=== PATIENT | female | born 1965 | race Caucasian/White ===

== ENCOUNTER 2016-11-15 20:43 | Inpatient (IN) | payer MEDICAID, OTHER ==
[2016-11-15 22:41] LABS: Basophils % (A) 1 %; CH 30.4; CHCM 34.4; Eosinophils # (A) 0.1 k/uL (0-0.7); Eosinophils % (A) 1 %; HCT 37.1 % (34.0-46.0); HDW 2.23; HGB 12.6 gm/dL (11.4-16.0); Luc # (Auto) 0.13; Luc % (Auto) 2; Lymphocytes # (A) 1.9 k/uL (1.0-4.8); Lymphocytes % (A) 33 %; MCH 30.2 pg (25.0-35.0); MCV 88.7 fL (80.0-100.0); Mean Platelet Volume 7.3; Monocytes # (A) 0.4 k/uL (0-1.0); Monocytes % (A) 7 %; Neutrophils # (A) 3.1 k/uL (1.3-7.7); Neutrophils % (A) 56 %; RBC 4.19 m/uL (3.80-5.40); RDW 12.8 % (11.5-15.5); WBC 5.6 k/uL (3.8-10.6); WBC (Perox) 5.42
[2016-11-15 22:43] LABS: Appearance,Urine Cloudy (Clear); Bacteria,Urine Occasional /hpf; Bilirubin,Urine Negative (Negative); Glucose,Urine (UA) Negative (Negative); Ketones,Urine Trace (Negative); Leukocyte Esterase,Urine Small (Negative); Mucus,Urine Rare /hpf; Nitrite,Urine Negative (Negative); PH, Urine 5.5 (5.0-8.0); Particle Count 4822; Protein,Urine Negative (Negative); RBC,Urine 1 /hpf (0-5); Specific Gravity,Urine 1.006 (1.001-1.035); Squamous Epithelial Cell,Urine 4 /hpf (0-4); UA Billing (MACRO vs. MICRO) MICRO; Urobilinogen,Urine <2.0 mg/dL (<2.0); WBC,Urine 4 /hpf (0-5)
[2016-11-15 22:55] LABS: ALT 38 U/L (9-52); AST 26 U/L (14-36); Acetaminophen <10.0 ug/mL; Alkaline Phosphatase 65 U/L (38-126); Anion Gap 9 mmol/L; Blood Urea Nitrogen 8 mg/dL (7-17); Calcium 9.6 mg/dL (8.4-10.2); Carbon Dioxide 26 mmol/L (22-30); Chloride 103 mmol/L (98-107); Glucose 119 mg/dL (74-99); Non-African American GFR(MDRD) >60 (>60 ml/min/1.73 sqM); Potassium 4.1 mmol/L (3.5-5.1); Sodium 138 mmol/L (137-145); Total Bilirubin 0.4 mg/dL (0.2-1.3); Total Protein 6.7 g/dL (6.3-8.2)
[2016-11-16] MEDS ORDERED: NICOTINE 21MG/24HR PATCH TRANSDERM STA (00:07)
--- NOTE | 2016-11-16 00:27 | CT ---
Exam: CT HEAD Without Contrast History: Pain. Comparison: CT of the head dated 12/26/14. Technique: Continuous axial images of the head were obtained without intravenous contrast. Coronal and sagittal reformatting was provided. Findings: Limited by metallic/beam hardening artifact from right ear jewelry. Within this limitation, no definite intracranial hemorrhage or mass effect. Ventricular system and sulci are symmetric. Partial opacification of the left maxillary sinus. May be due to mucous retention cyst or polyp. Impression: No intracranial hemorrhage or mass effect. CTDI vol = 60.30 mGy DLP = 1199.00 mGycm One or more of the following dose reduction techniques were used: automated exposure control, adjustment of the mA and/or kV according to patient size, use of iterative reconstruction technique. Exam: CT C SPINE Without Contrast History: Pain. Comparison: CT of the cervical spine dated 12/26/14. Technique: Continuous axial images of the cervical spine were obtained without intravenous contrast. Coronal and sagittal reformatting was provided. Findings: No acute fracture or dislocation. No high-grade spinal canal or neural foraminal osseous encroachment. Atlantodens interval is unremarkable. Impression: No acute displaced fracture. CTDI vol = 13.50 mGy DLP = 313.40 mGycm One or more of the following dose reduction techniques were used: automated exposure control, adjustment of the mA and/or kV according to patient size, use of iterative reconstruction technique.
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
[2016-11-16] MEDS ORDERED: QUEtiapine 200 MG TAB PO STA (02:09)
[2016-11-16] MEDS ORDERED: ZIPRASIDONE 20 MG VIAL IM PRN (02:12)
[2016-11-16] MEDS ORDERED: MAGNESIUM HYDROXIDE 2,400 MG/10 ML CUP PO PRN (03:02)
[2016-11-16] MEDS: NICOTINE 14MG/24HR PATCH TRANSDERM SCH (08:55)
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
[2016-11-16] MEDS: lamoTRIgine 25 MG TAB PO SCH (12:15)
[2016-11-16] MEDS: PALIPERIDONE 3 MG TAB.ER.24 PO SCH (12:15)
[2016-11-16] MEDS ORDERED: LORazepam 1 MG TAB PO PRN (14:53)
[2016-11-16] MEDS ORDERED: ZIPRASIDONE 20 MG CAP PO STA (15:25)
[2016-11-17] MEDS: NICOTINE 14MG/24HR PATCH TRANSDERM SCH (07:27)
[2016-11-17] MEDS: PALIPERIDONE 3 MG TAB.ER.24 PO SCH (09:34)
[2016-11-17] MEDS: lamoTRIgine 25 MG TAB PO SCH (09:34)
[2016-11-17] MEDS ORDERED: PALIPERIDONE 3 MG TAB.ER.24 PO ONE (13:15)
--- NOTE | 2016-11-17 13:17 | P.PN ---
Progress Note - Text INTERVERAL HISTORY: Patient was discussed at treatment team meeting, review of record, and met with patient. No problems overnight however she did have to get a injection of Geodon yesterday afternoon. She is hyperverbal, she is loud, she is singing, she is speaking about a new world order, denominational themes. Today she is reporting that she needs to have her story told, even if the whole story can't be told she needs it to be heard for the future generation. She states that she is a child of light, and why would someone want to put out her light even if she is the brunt of the pack, Matilda knew that that pig was smart. Reviewed possible medications when I mention lithium she reported no IV taken lithium and Haldol Thorazine and at ME a shuffle and it takes away my energy, I need to have my force you will eat my dust. Continued to discuss the possibility of a low dose of lithium that she might not have any side effects, she says she would be willing to try the lowest dose that I could give her. Agreed upon 150 at bedtime, she also agreed upon a higher dose of intake tomorrow. She didn't inform me today that she is in transition, [facility] [place]. She states she has a 15-year-old son who is in the care of her good friend. MENTAL STATUS EXAM: Patient alert and oriented 3, good eye contact, intense stare, slapping her book loudly on her hand for emphasis, fair groomed in street clothing. Speech normal to loud volume volume, increased rate and production. +pressured at times yesterday, some today. Coherent,illogical tangential thought process. ++CALIN, +FOI. No TB/TW/TI Denied auditory and visual hallucinations. Denied paranoid ideation, delusions or IOR. Memory grossly intact but could not test Cognition average Mood euthymic expansive, affect full range with increased intensity, congruent with mood. Denies suicidal ideation, denies homicidal ideation. Insight none; Judgment impaired Bipolar disorder, manic with psychosis versus Psychosis, unspecified versus schizoaffective disorder, bipolar type PLAN: Continue inpatient psychiatric hospitalization, for safety purposes and for treatment. Suicide precautions every 15 minutes. Increase Invega 6mg tomorrow. Start lithium tonight, low dose with hope to increase Need to get information from treating physician/CM if she is taking Lamictal and restart that tomorrow. We will not restart Wellbutrin nor lamictal Patient agrees to attend groups.
[2016-11-17] MEDS: ACETAMINOPHEN TAB 325 MG TAB PO PRN (16:39)
[2016-11-17] MEDS ORDERED: LITHIUM CARBONATE 150 MG CAP PO SCH (21:00)
[2016-11-18] MEDS: ACETAMINOPHEN TAB 325 MG TAB PO PRN ×2 (04:06→22:57)
[2016-11-18] MEDS ORDERED: PALIPERIDONE 3 MG TAB.ER.24 PO SCH ×2 (09:00→10:00)
[2016-11-18] MEDS: NICOTINE 14MG/24HR PATCH TRANSDERM SCH (09:11)
[2016-11-18] MEDS: lamoTRIgine 25 MG TAB PO SCH (09:11)
--- NOTE | 2016-11-18 09:54 | P.PN ---
Progress Note - Text Progress Note - Text INTERVERAL HISTORY: Patient was discussed at treatment team meeting, review of record, and met with patient. No problems overnight reported area did Today patient approached me 3-4 times in the hallway asking to talk, when talking to other patients she was intrusive. She continues to be hyperverbal, not quite as loud still at times shouting out slogans were singing, continues with her protestant themes, her being brought to the to cause the breaking of the 2 triangles the Holy Ghost father-son triangle from the LSD triangle LSD standing for Idris Mann. Initially when discussing medication changes she refused a higher dose of lithium however she changed her mind and allowed me to increase it a small amount. The intake area does not seem to be touching her yuki or her psychosis. However that had been agreed upon on admission that we could increase it with the possibility of an injection. Today she also stated that she plans on signing a [employer], in order to pursue a nursing degree so that she can take care of children in the [facility]. Goes on to speak about her need to help people, and her desire to give people whatever they need. MENTAL STATUS EXAM: Patient alert and oriented 3, good eye contact, intense stare, slapping her book loudly on her hand for emphasis, fair groomed in street clothing. Speech normal to loud volume volume, increased rate and production. +pressured Coherent,illogical tangential thought process. ++CALIN, +FOI. No TB/TW/TI Denied auditory and visual hallucinations. Denied paranoid ideation, delusions or IOR. Memory grossly intact but could not test Cognition average Mood euthymic expansive, affect full range with increased intensity, congruent with mood. Denies suicidal ideation, denies homicidal ideation. Insight none; Judgment impaired Bipolar disorder, manic with psychosis PLAN: Continue inpatient psychiatric hospitalization, for safety purposes and for treatment. Suicide precautions every 15 minutes. Increase Invega 9mg tomorrow. Increase lithium tonight, 300mg with hope to increase Need to get information from treating physician/[facility] if she is taking Lamictal and restart that tomorrow. D/C lamictal Patient agrees to attend groups.
--- NOTE | 2016-11-18 13:43 | P.CONS ---
History of Present Illness - Reason for Consult Consult date: 11/18/16 uti - History of Present Illness THis is a pleasant 51-year-old white female, patient of Dr. Burton. She reports being told she needs to "cleanse herself". Only medicine was consult for evaluation of an an area tract infection. We see the psychiatrist H&P for further references to her psych history. Currently she denies any complaints of dysuria or urgency. She denies any abdominal pains, nausea, vomiting, chest pains, pressures, shortness of breath. Review of Systems All systems: negative Past Medical History Past Medical History: No Reported History History of Any Multi-Drug Resistant Organisms: None Reported Additional Past Surgical History / Comment(s): D&C Past Psychological History: Anxiety, Bipolar Smoking Status: Current every day smoker Past Alcohol Use History: None Reported Past Drug Use History: None Reported Medications and Allergies Home Medications Medication Instructions Recorded Confirmed Type ARIPiprazole [Abilify] 5 mg PO DAILY 11/21/13 11/16/16 History buPROPion HCL [Wellbutrin XL] 300 mg PO DAILY 11/21/13 11/16/16 History lamoTRIgine [LaMICtal] 200 mg PO DAILY 11/21/13 11/16/16 History buPROPion HCL [Wellbutrin XL] 150 mg PO DAILY 11/16/16 11/16/16 History Allergies Allergy/AdvReac Type Severity Reaction Status Date / Time codeine Allergy Unknown Verified 11/16/16 03:07 Penicillins Allergy Unknown Verified 11/16/16 03:07 Physical Exam Vitals: Vital Signs Temp Pulse BP 11/18/16 03:00 98.1 F 80 126/81 GENERAL: Well-appearing, well-nourished and in no acute distress. HEAD: Atraumatic, normocephalic. EYES: Pupils equal round and reactive to light, extraocular movements intact, sclera anicteric, conjunctiva are normal. ENT:nares patent, oropharynx clear without exudates. Moist mucous membranes. NECK: Normal range of motion, supple without lymphadenopathy or JVD, no thyromegaly LUNGS: Breath sounds clear to auscultation bilaterally and equal. No wheezes rales or rhonchi. HEART: Regular rate and rhythm without murmurs, rubs or gallops.S1S2 Normal ABDOMEN: Soft, nontender, normoactive bowel sounds. No guarding, no rebound. No masses appreciated. EXTREMITIES: Normal range of motion, no pitting or edema. No clubbing or cyanosis. NEUROLOGICAL: Cranial nerves II through XII grossly intact. Normal speech, normal gait. PSYCH: very loquacious SKIN: Warm, Dry, normal turgor, no rashes or lesions noted. Results CBC & Chem 7: 11/15/16 22:17 11/15/16 22:17 Assessment and Plan Plan: 1 Recent dysuria,: Symptoms are now resolved, small leukocyte esterase, negative nitrates, occasional bacteria, this more consistent with contamination rather than true UTI. Her urine was cloudy last him to continue to monitor this. 2 tobaccoism: She is on nicotine patch. 3: Bipolar disorder with psychotic tendencies: She is here on the psych floor being followed by psychiatry and is currently taking omeprazole, lithium, Sona arnold Thank you for allowing us but despite in her care, we will follow up with the patient as needed Current needs for antibiotic treatment for UTI
[2016-11-18] MEDS ORDERED: LITHIUM CARBONATE 150 MG CAP PO SCH (21:00)
[2016-11-18] MEDS: ZIPRASIDONE 20 MG CAP PO PRN (23:00)
[2016-11-19] MEDS ORDERED: LORazepam 1 MG TAB PO STA (01:02)
[2016-11-19] MEDS ORDERED: LITHIUM CARBONATE 300 MG CAP PO STA (01:02)
[2016-11-19] MEDS: lamoTRIgine 25 MG TAB PO SCH (08:17)
[2016-11-19] MEDS: NICOTINE 14MG/24HR PATCH TRANSDERM SCH (08:17)
[2016-11-19] MEDS: PALIPERIDONE 3 MG TAB.ER.24 PO SCH (08:17)
[2016-11-19 11:43] VITALS: BMI 24.1
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
[2016-11-19] MEDS ORDERED: LITHIUM CARBONATE 150 MG CAP PO SCH (21:00)
[2016-11-20] MEDS: IBUPROFEN 600 MG TAB PO PRN ×2 (00:05→23:09)
[2016-11-20] MEDS: PALIPERIDONE 3 MG TAB.ER.24 PO SCH (08:39)
[2016-11-20] MEDS: NICOTINE 14MG/24HR PATCH TRANSDERM SCH (08:39)
[2016-11-20] MEDS: ZIPRASIDONE 20 MG CAP PO PRN ×2 (10:37→17:06)
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
[2016-11-20] MEDS: OLANZapine ODT 5 MG TAB PO SCH (14:47)
[2016-11-20] MEDS: ACETAMINOPHEN TAB 325 MG TAB PO PRN (19:12)
[2016-11-20] MEDS: LITHIUM CARBONATE 300 MG CAP PO SCH (20:09)
[2016-11-20] MEDS ORDERED: OLANZapine 10 MG TAB PO SCH (21:00)
[2016-11-20] MEDS: MAG HYDROX/AL HYDROX/SIMETH 30 ML CUP PO PRN (22:29)
[2016-11-21] MEDS: ZIPRASIDONE 20 MG CAP PO PRN (01:10)
[2016-11-21] MEDS: ACETAMINOPHEN TAB 325 MG TAB PO PRN ×2 (01:10→19:29)
[2016-11-21] MEDS: NICOTINE 14MG/24HR PATCH TRANSDERM SCH (08:49)
[2016-11-21] MEDS: PALIPERIDONE 3 MG TAB.ER.24 PO SCH (08:50)
[2016-11-21] MEDS: OLANZapine ODT 5 MG TAB PO SCH (08:51)
[2016-11-21] MEDS: MAG HYDROX/AL HYDROX/SIMETH 30 ML CUP PO PRN (10:13)
[2016-11-21] MEDS: LITHIUM CARBONATE 300 MG CAP PO SCH ×2 (16:55→21:22)
[2016-11-21] MEDS: OLANZapine 10 MG TAB PO SCH ×2 (16:56→21:23)
--- NOTE | 2016-11-21 17:06 | P.PN ---
Progress Note - Text DATE OF SERVICE: 11/21/2016 CHIEF COMPLAINT: The patient was admitted due to delusions, disorganized thoughts and behavior, confusion. INTERVAL HISTORY: The patient has been doing fair. She continues to be fairly intense in her manner. She makes references to odd ideas. She attends groups. Sometimes says she can be somewhat appropriate though may appear withdrawn. In the afternoon group today she was described as bizarre, disheveled, pressured rapid tangential speech, intrusive, and impulsive." Yesterday she had an episode of agitation requiring when necessary Geodon. She is quite insistent about the idea of being discharged soon. She talked about discharge she was quite demanding and intense, though when I indicated my plan to increase her medications and continue hospitalization it was noteworthy that she didn't make any objection. She simply repeated what I said and seemed to be accepting of the plan. She continues to show manic symptoms with the hyperactivity, pressured speech, disorganized thoughts, and delusions. He hasn' t had change in her general health. He tolerates his psychotropic medications. MENTAL STATUS EXAM: The patient was quite restless. She had an intense manner. She hyperverbal somewhat pressured speech. At times she made references. Affect was intense. Mood dysphoric. She appeared moderately distressed. ASSESSMENT: I'll continue the current diagnosis and general treatment plan. I will increase Zyprexa to 10 mg 3 times a day, and increase lithium carbonate to 600 mg in the morning and 900 mg in the evening. The medication increases her to address her persistent manic symptomatology. I will check a lithium level in the morning. I will order another lithium level for Thursday. We will continue to focus on stabilization.
[2016-11-22] MEDS: ZIPRASIDONE 20 MG CAP PO PRN (01:01)
--- NOTE | 2016-11-22 08:58 | P.PN ---
Progress Note - Text Interval history: Patient is seen in cross coverage today for Dr. Freed. She reports that she slept about 3-1/2 hours last night. She is eating well. She makes reference to trying to perfect herself. She does feel like she's having some tiredness from the medication. It is noted that her Zyprexa was increased yesterday. Mental status exam: She is cooperative with the interview. She describes feeling tired. Her speech is fluent not really rapid or pressured today. Her thought processes do show some disorganization at times. Her mood she describes as "very good." She seems to deny any current hallucinations. She denies any thoughts of harm to self or others. She makes reference to wanting to perfect herself. Plan: We'll maintain current psychotropic medications as prescribed. We'll monitor for any medication side effects. We'll continue to cover this patient for Dr. Freed through the weekend.
[2016-11-22] MEDS: NICOTINE 14MG/24HR PATCH TRANSDERM SCH (09:15)
[2016-11-22] MEDS: OLANZapine 10 MG TAB PO SCH ×3 (09:16→21:04)
[2016-11-22] MEDS: PALIPERIDONE 3 MG TAB.ER.24 PO SCH (09:16)
[2016-11-22] MEDS: LITHIUM CARBONATE 300 MG CAP PO SCH ×2 (09:16→21:04)
[2016-11-22] MEDS: MAG HYDROX/AL HYDROX/SIMETH 30 ML CUP PO PRN (19:59)
[2016-11-22] MEDS: IBUPROFEN 600 MG TAB PO PRN (23:02)
[2016-11-23] MEDS: PALIPERIDONE 3 MG TAB.ER.24 PO SCH (08:48)
[2016-11-23] MEDS: OLANZapine 10 MG TAB PO SCH ×3 (08:48→19:49)
[2016-11-23] MEDS: NICOTINE 14MG/24HR PATCH TRANSDERM SCH (08:48)
[2016-11-23] MEDS: LITHIUM CARBONATE 300 MG CAP PO SCH ×2 (08:48→19:48)
--- NOTE | 2016-11-23 14:11 | P.PN ---
Progress Note - Text Interval history: Patient seen in cross coverage again today for Dr. Freed. She reports that she has adjusted well to the titration of Zyprexa and would like to continue her medications as they are. She slept only about 3-1/2 hours last night. She talks about using some coping skills. Mental status exam: She is alert and cooperative with the interview her speech is fluent, not rapid or pressured. She denies any thoughts of harm to self or others. She does not verbalize any hallucinations. She does not show any current agitation. Plan: We'll maintain current psychotropic medications. Monitor for any medication side effects. Continue to monitor her sleep and ongoing response to medication regimen. Dr. Freed will resume care this patient starting tomorrow.
[2016-11-23] MEDS: ACETAMINOPHEN TAB 325 MG TAB PO PRN (20:56)
[2016-11-24] MEDS: IBUPROFEN 600 MG TAB PO PRN (00:16)
[2016-11-24] MEDS: MAG HYDROX/AL HYDROX/SIMETH 30 ML CUP PO PRN (00:18)
[2016-11-24 01:10] VITALS: RESP 16
[2016-11-24] MEDS: ZIPRASIDONE 20 MG CAP PO PRN (03:35)
[2016-11-24 05:01] VITALS: BP 103/70; PULSE 92; TEMP 98.3
[2016-11-24] MEDS: PALIPERIDONE 3 MG TAB.ER.24 PO SCH (09:13)
[2016-11-24] MEDS: OLANZapine 10 MG TAB PO SCH (09:13)
[2016-11-24] MEDS: LITHIUM CARBONATE 300 MG CAP PO SCH (09:13)
[2016-11-24] MEDS: NICOTINE 14MG/24HR PATCH TRANSDERM SCH (09:13)
--- NOTE | 2016-11-24 11:49 | P.PN ---
Progress Note - Text INTERVERAL HISTORY: Patient was discussed at treatment team meeting, review of record and met with patient. Staff report that she is much improved in particular today in goal setting it only took her a few minutes to do the goal setting sheet whereas other days it has been taking her 10 minutes to complete. She was noted today seated out in the hallway working on a workbook, was very appropriate no pressured speech, no singing. Social work informs that her friend has said that this is pretty much her baseline. Patient was appropriate wanting to be discharged today, met with her friend and her son both the friend and the son say she is doing much better. Patient has been taking 2 atypical antipsychotics for the past 5 days and has an improved thought process, is organized, although at times still a bit grandiose but no manic behavior MENTAL STATUS EXAM: Patient alert and oriented 3, good eye contact, well groomed in street clothing. Speech normal volume, normal rate and production. No pressured speech Coherent, logical circumstantial thought process. No CALIN, no FOI. No TB/TW/TI Denied auditory and visual hallucinations. Denied paranoid ideation, delusions or IOR. Memory grossly intact but could not test Cognition average Mood euthymic, affect full range with normal intensity, congruent with mood. Denies suicidal ideation, denies homicidal ideation. Insight none; Judgment grossly intact Bipolar disorder, manic with psychosis, partial remission PLAN: Patient had signed AMA that will be up tomorrow morning, but she is not dangerous to self or others. Her yuki has resolved. No clear psychosis noted today. In this hospitalization she required Invega 9 mg daily, Zyprexa 10 mg 3 times a day along with lithium 600mg qam, 900mg qhs to control both the yuki and psychosis. She has an appointment on ThursdayNovember 28 for therapy, no MD yet scheduled. Will have her return to our lab on November 27 for lithium level.
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
== END 2016-11-24 12:42 | disposition home or self-care (01) | DRG 885 ==
LOC: EC 20:43 → 3MHU 11-16 02:14
PROVIDERS: ADMIT Psychiatry & Neurology Addiction Medicine; ATTEND Psychiatry & Neurology Addiction Medicine
DX: F31.2 Bipolar disorder, current episode manic severe with psychotic features (principal); Z91.19 Patient's noncompliance with other medical treatment and regimen; F41.9 Anxiety disorder, unspecified; F17.200 Nicotine dependence, unspecified, uncomplicated; F90.9 Attention-deficit hyperactivity disorder, unspecified type; M54.2 Cervicalgia; R30.0 Dysuria; Z79.899 Other long term (current) drug therapy; Z88.5 Allergy status to narcotic agent; Z88.0 Allergy status to penicillin
CPT/HCPCS: 36415; 70450; 72125; 80053; 80178; 80306; 81001; 81025; 83520; 84443; 85025; 99285

== ENCOUNTER → 2016-11-27 | Outpatient (CLI) | payer OTHER | END | disposition home or self-care (01) | LOC: LABWHC1 08:22 | PROVIDERS: ATTEND Psychiatry & Neurology Addiction Medicine | DX: F31.2 Bipolar disorder, current episode manic severe with psychotic features (principal) | CPT/HCPCS: 36415; 80178 ==

== ENCOUNTER 2016-12-26 22:24 | Emergency (ER) | payer OTHER ==
[2016-12-26 22:38] VITALS: BP 136/77; PULSE 112; RESP 20; TEMP 96.8
--- NOTE | 2016-12-26 22:59 | ED ---
General Adult HPI - General Chief complaint: Psychiatric Symptoms Stated complaint: Mental Health Time Seen by Provider: 12/26/16 22:47 Source: patient, RN notes reviewed Mode of arrival: ambulatory Limitations: no limitations - History of Present Illness Initial comments: 51-year-old female with history of bipolar disorder and schizoaffective disorder presents for psychiatric evaluation. Patient has not been taking her medications as prescribed, states they're interfering with her work. She did lose her job yesterday. Today she's been feeling "not right". She states she has had thoughts of suicide. She denies having a plan at this time. No homicidal ideation. She has had multiple admissions for psychiatric evaluation and treatment. She has no history of additional medical problems. Denies any pain complaints. She does admit to drinking alcohol this morning, denies taking any medications that were not prescribed her. Denies any suicide attempt. - Related Data Home Medications Medication Instructions Recorded Confirmed Paliperidone [Invega] 9 mg PO DAILY 12/26/16 12/26/16 Previous Rx's Medication Instructions Recorded [place] Carbonate 600 mg PO DAILY #60 cap 11/24/16 [place] Carbonate 900 mg PO HS #90 cap 11/24/16 OLANZapine [ZyPREXA] 10 mg PO TID #90 tab 11/24/16 Allergies Allergy/AdvReac Type Severity Reaction Status Date / Time codeine Allergy Unknown Verified 12/26/16 22:38 Penicillins Allergy Unknown Verified 12/26/16 22:38 Review of Systems ROS Statement: Those systems with pertinent positive or pertinent negative responses have been documented in the HPI. ROS Other: All systems not noted in ROS Statement are negative. Past Medical History Past Medical History: No Reported History History of Any Multi-Drug Resistant Organisms: None Reported Additional Past Surgical History / Comment(s): D&C Past Anesthesia/Blood Transfusion Reactions: No Reported Reaction Past Psychological History: Anxiety, Bipolar Smoking Status: Current every day smoker Past Alcohol Use History: Abuse, Heavy Past Drug Use History: Marijuana General Exam Limitations: no limitations General appearance: alert, in no apparent distress, anxious Head exam: Present: atraumatic, normocephalic Eye exam: Present: normal appearance, PERRL ENT exam: Present: normal exam, mucous membranes dry Neck exam: Present: normal inspection. Absent: meningismus Respiratory exam: Present: normal lung sounds bilaterally. Absent: respiratory distress Cardiovascular Exam: Present: regular rate, normal rhythm GI/Abdominal exam: Present: soft. Absent: distended, tenderness Extremities exam: Present: normal inspection, normal capillary refill. Absent: pedal edema Neurological exam: Present: alert, oriented X3, CN II-XII intact. Absent: motor sensory deficit Psychiatric exam: Present: depressed, flat affect, suicidal ideation. Absent: homicidal ideation Skin exam: Present: warm, dry Course Vital Signs 12/26/16 22:33 Temperature 96.8 F L Pulse Rate 112 H Respiratory 20 Rate Blood Pressure 136/77 O2 Sat by Pulse 98 Oximetry Medical Decision Making - Medical Decision Making 51-year-old female with history of bipolar depression and schizoaffective disorder presents for evaluation. Patient was seen by EPS in the emergency department. She did admit to being homeless and this was the main reason for her presentation. Patient is currently denying any suicidal ideation to both myself and EPS. She is given referral to [facility] and is arranged to stay at a [facility]. These arrangements were made while she is in the emergency department. She'll be discharged with close outpatient follow-up. - Lab Data Lab Results 12/26/16 Range/Units 22:50 Urine Opiates Screen Not Detected (NotDetected) Ur Oxycodone Screen Not Detected (NotDetected) Urine Methadone Screen Not Detected (NotDetected) Ur Propoxyphene Screen Not Detected (NotDetected) Ur Barbiturates Screen Not Detected (NotDetected) U Tricyclic Antidepress Not Detected (NotDetected) Ur Phencyclidine Scrn Not Detected (NotDetected) Ur Amphetamines Screen Not Detected (NotDetected) U Methamphetamines Scrn Not Detected (NotDetected) U Benzodiazepines Scrn Not Detected (NotDetected) Urine Cocaine Screen Not Detected (NotDetected) U Marijuana (THC) Screen Not Detected (NotDetected) Disposition Clinical Impression: Bipolar disorder Disposition: HOME SELF-CARE Condition: Good Instructions: Bipolar Disorder (ED) Referrals: Alireza Burton Jr, DO [Primary Care Provider] - 1-2 days Time of Disposition: 01:44
== END 2016-12-27 02:33 | disposition home or self-care (01) ==
LOC: EC 22:24
DX: F31.9 Bipolar disorder, unspecified (principal); F41.9 Anxiety disorder, unspecified; F17.200 Nicotine dependence, unspecified, uncomplicated; Z79.899 Other long term (current) drug therapy; Z88.0 Allergy status to penicillin; Z88.5 Allergy status to narcotic agent
CPT/HCPCS: 80306; 82075; 99284

== ENCOUNTER 2017-01-16 22:09 | Emergency (ER) | payer OTHER ==
--- NOTE | 2017-01-16 23:06 | ED ---
General Adult HPI - General Source: patient, EMS Mode of arrival: EMS Limitations: no limitations <Warner Hamlin - Last Filed: 01/17/17 01:25> <Mariah Wilcox - Last Filed: 01/17/17 04:03> - General Chief complaint: Wound/Laceration Stated complaint: lip lac,etoh, fall Time Seen by Provider: 01/16/17 22:23 - History of Present Illness Initial comments: Patient is a 51-year-old female who presents to the emergency department today via EMS after being found outside [place] [address] lying on the ground. Patient has obvious facial trauma including lacerations to her upper lip, and the inside of her lip. She also has abrasions to the right maxilla. Patient is obviously intoxicated and states that she drinks daily. Patient has no recollection of the events leading up to her ER presentation. Patient states that she has pain in her lips, and face. She denies other complaints at this time. On initial evaluation, her vital signs are stable, however she is clearly intoxicated and somewhat somnolent. She answers questions appropriately but slowly. (Warner Hamlin) - Related Data Home Medications Medication Instructions Recorded Confirmed Paliperidone [Invega] 9 mg PO DAILY 12/26/16 01/16/17 Previous Rx's Medication Instructions Recorded OLANZapine [ZyPREXA] 10 mg PO DAILY #30 tablet 12/27/16 Allergies Allergy/AdvReac Type Severity Reaction Status Date / Time codeine Allergy Unknown Verified 01/16/17 22:42 Penicillins Allergy Unknown Verified 01/16/17 22:42 Review of Systems ROS Other: All systems not noted in ROS Statement are negative. Constitutional: Denies: fever Eyes: Denies: vision change ENT: Reports: dental pain. Denies: ear pain, throat pain, hearing loss Respiratory: Denies: cough, dyspnea Cardiovascular: Denies: chest pain Endocrine: Denies: fatigue Gastrointestinal: Denies: abdominal pain, nausea, vomiting Genitourinary: Denies: dysuria Musculoskeletal: Denies: back pain Skin: Denies: rash Neurological: Denies: headache <Warner Hamlin - Last Filed: 01/17/17 01:25> ROS Other: All systems not noted in ROS Statement are negative. <Mariah Wilcox - Last Filed: 01/17/17 04:03> ROS Statement: Those systems with pertinent positive or pertinent negative responses have been documented in the HPI. Past Medical History Past Medical History: No Reported History History of Any Multi-Drug Resistant Organisms: None Reported Additional Past Surgical History / Comment(s): D&C Past Anesthesia/Blood Transfusion Reactions: No Reported Reaction Past Psychological History: Anxiety, Bipolar Smoking Status: Current every day smoker Past Alcohol Use History: Abuse, Heavy Past Drug Use History: Marijuana <Warner Hamlin - Last Filed: 01/17/17 01:25> General Exam Limitations: no limitations General appearance: alert, in no apparent distress, appears intoxicated Head exam: Present: normocephalic, other (Patient has a 1 cm laceration in the inside of her upper lip likely secondary to her front teeth. There are abrasions to her exterior upper lip, and right maxilla) Eye exam: Present: normal appearance, PERRL, EOMI. Absent: conjunctival injection ENT exam: Present: mucous membranes moist, TM's normal bilaterally, normal external ear exam, other (Patient has blood in her oropharynx, teeth appear to be intact, patient states that her teeth line up when she bites down.) Neck exam: Present: normal inspection, full ROM. Absent: tenderness, lymphadenopathy Respiratory exam: Present: normal lung sounds bilaterally. Absent: respiratory distress Cardiovascular Exam: Present: regular rate, normal rhythm, normal heart sounds GI/Abdominal exam: Present: soft. Absent: distended, tenderness, guarding Rectal exam: Present: deferred Extremities exam: Present: normal inspection Back exam: Present: normal inspection Neurological exam: Present: alert, oriented X3, other (Patient is alert and oriented however her answers are slow. This may be secondary to intoxication. Patient was not ambulated as she is a fall risk) Psychiatric exam: Present: normal affect, normal mood, flat affect, other ( Patient denies suicidal or homicidal ideations) Skin exam: Present: warm, dry <Warner Hamlin - Last Filed: 01/17/17 01:25> Medical Decision Making - Lab Data Result diagrams: 01/16/17 23:43 01/16/17 23:43 <Warner Hamlin - Last Filed: 01/17/17 01:25> - Lab Data Result diagrams: 01/16/17 23:43 01/16/17 23:43 <Mariah Wilcox - Last Filed: 01/17/17 04:03> - Medical Decision Making Patient presents with a chief complaint of fall and facial trauma. She is brought in by EMS. History is limited as patient is clearly intoxicated and states that she does not remember any of the events leading up to her arrival to the emergency department. Patient was placed in a c-collar on arrival and will go for CT head, C-spine, and facial bones. Patient does have a 1 cm lack on the inside of her upper lip that'll be left open. 1:[address] imaging of the head neck and face show no acute abnormalities. C-spine was removed, patient is able to demonstrate full range of motion. On reexamination patient states that she does not have anywhere to go, that she usually stays a [facility]. Patient will be allowed to sleep in the emergency department until sober at which point she will be stable for discharge. This case will be passed off to Mariah Wilcox will follow this patient to discharge. (Warner Hamlin) Patient reexamined. Breath alcohol is less than 0.08. Patient is alert, oriented 3. She is ambulating without difficulty. Patient instructed to follow-up with her primary care physician for recheck in 1-2 days. She was instructed regarding wound care and signs and symptoms of infection. She is instructed to return here immediately for any new, worsening, or concerning symptoms. She verbalizes understanding and agrees this plan. (Mariah Wilcox) - Lab Data Lab Results 01/16/17 01/16/17 01/16/17 Range/Units 23:43 23:43 23:43 WBC 7.7 (3.8-10.6) k/uL RBC 4.79 (3.80-5.40) m/uL Hgb 14.5 (11.4-16.0) gm/dL Hct 43.6 (34.0-46.0) % MCV 91.1 (80.0-100.0) fL MCH 30.2 (25.0-35.0) pg MCHC 33.2 (31.0-37.0) g/dL RDW 14.4 (11.5-15.5) % Plt Count 264 (150-450) k/uL Neutrophils % 73 % Lymphocytes % 21 % Monocytes % 4 % Eosinophils % 1 % Basophils % 0 % Neutrophils # 5.6 (1.3-7.7) k/uL Lymphocytes # 1.6 (1.0-4.8) k/uL Monocytes # 0.3 (0-1.0) k/uL Eosinophils # 0.1 (0-0.7) k/uL Basophils # 0.0 (0-0.2) k/uL PT 9.7 (9.0-12.0) sec INR 0.9 (<1.2) Sodium 144 (137-145) mmol/L Potassium 4.2 (3.5-5.1) mmol/L Chloride 108 H (98-107) mmol/L Carbon Dioxide 22 (22-30) mmol/L Anion Gap 14 mmol/L BUN 11 (7-17) mg/dL Creatinine 0.70 (0.52-1.04) mg/dL Est GFR (MDRD) Af Amer >60 (>60 ml/min/1.73 sqM) Est GFR (MDRD) Non-Af >60 (>60 ml/min/1.73 sqM) Glucose 100 H (74-99) mg/dL Calcium 9.4 (8.4-10.2) mg/dL Total Bilirubin 0.2 (0.2-1.3) mg/dL AST 21 (14-36) U/L ALT 27 (9-52) U/L Alkaline Phosphatase 76 (38-126) U/L Total Protein 7.4 (6.3-8.2) g/dL Albumin 4.5 (3.5-5.0) g/dL Disposition <Warner Hamlin - Last Filed: 01/17/17 01:25> Time of Disposition: 04:01 <Mariah Wilcox - Last Filed: 01/17/17 04:03> Clinical Impression: Alcohol intoxication, Lip laceration Disposition: HOME SELF-CARE Condition: Good Instructions: Laceration (ED), Alcohol Intoxication (ED), Facial Contusion (ED) Additional Instructions: Keep wounds clean and dry. Monitor for signs or symptoms of infection including redness, swelling, drainage of pus, fever, or chills. Return here for any change in mental status, increased headaches, vomiting, or any other concerning symptoms. Follow-up with her primary care physician for recheck in 1 -2 days. Return here immediately for any new, worsening, or concerning symptoms. Referrals: Alireza Burton Jr, DO [Primary Care Provider] - 1-2 days
--- NOTE | 2017-01-17 00:08 | CT ---
EXAM: CT Head Without Intravenous Contrast CLINICAL HISTORY: Reason: Pain TECHNIQUE: Axial computed tomography images of the head/brain without intravenous contrast. DLP is 1789.20 mGy-cm. This CT exam was performed using one or more of the following dose reduction techniques: automated exposure control, adjustment of the mA and/or kV according to patient size, and/or use of iterative reconstruction technique. COMPARISON: 11/15/16 FINDINGS: Brain: Unremarkable. No hemorrhage. No significant white matter disease. No edema. Ventricles: Unremarkable. No ventriculomegaly. Bones/joints: Unremarkable. No acute fracture. Soft tissues: Unremarkable. Sinuses: Unremarkable as visualized. No acute sinusitis. Mastoid air cells: Unremarkable as visualized. No mastoid effusion. IMPRESSION: Normal head/brain CT. EXAM: CT Cervical Spine Without Intravenous Contrast CLINICAL HISTORY: Reason: Pain TECHNIQUE: Axial computed tomography images of the cervical spine without intravenous contrast. DLP is 381.30 mGy-cm. This CT exam was performed using one or more of the following dose reduction techniques: automated exposure control, adjustment of the mA and/or kV according to patient size, and/or use of iterative reconstruction technique. COMPARISON: 11/15/16 FINDINGS: Vertebrae: Mild rightward curvature of the cervical spine. No acute fracture. Discs/spinal canal/neural foramina: Uncovertebral joint spurring seen along the left aspect of C3-4, C4-5, and C5-6. There is moderate left neural foraminal narrowing at C5-6. There is also spurring along the right aspect of C5-6 causing mild neuroforaminal narrowing. No significant spinal canal narrowing. Soft tissues: Unremarkable. Lung apices: Unremarkable as visualized. IMPRESSION: 1. No acute findings. 2. Multilevel spondylotic changes as above.
[2017-01-17 00:10] LABS: Basophils % (A) 0 %; CH 31.4; CHCM 34.6; Eosinophils # (A) 0.1 k/uL (0-0.7); Eosinophils % (A) 1 %; HCT 43.6 % (34.0-46.0); HDW 2.19; HGB 14.5 gm/dL (11.4-16.0); Luc # (Auto) 0.14; Luc % (Auto) 2; Lymphocytes # (A) 1.6 k/uL (1.0-4.8); Lymphocytes % (A) 21 %; MCH 30.2 pg (25.0-35.0); MCHC 33.2 g/dL (31.0-37.0); MCV 91.1 fL (80.0-100.0); Mean Platelet Volume 7.1; Monocytes # (A) 0.3 k/uL (0-1.0); Monocytes % (A) 4 %; Neutrophils # (A) 5.6 k/uL (1.3-7.7); Neutrophils % (A) 73 %; RBC 4.79 m/uL (3.80-5.40); RDW 14.4 % (11.5-15.5); WBC 7.7 k/uL (3.8-10.6); WBC (Perox) 7.47
--- NOTE | 2017-01-17 00:11 | CT ---
EXAM: CT Maxillofacial Without Intravenous Contrast CLINICAL HISTORY: Reason: Pain TECHNIQUE: Axial computed tomography images of the face without intravenous contrast. DLP is 673.20 mGy-cm. This CT exam was performed using one or more of the following dose reduction techniques: automated exposure control, adjustment of the mA and/or kV according to patient size, and/or use of iterative reconstruction technique. COMPARISON: 12/26/13 FINDINGS: Bones/joints: No acute fracture. Soft tissues: Unremarkable. Orbits: Unremarkable. Sinuses: Mucosal retention cyst noted in the left maxillary sinus. No air-fluid levels. IMPRESSION: No acute findings.
[2017-01-17 00:19] LABS: ALT 27 U/L (9-52); AST 21 U/L (14-36); Alkaline Phosphatase 76 U/L (38-126); Anion Gap 14 mmol/L; Blood Urea Nitrogen 11 mg/dL (7-17); Calcium 9.4 mg/dL (8.4-10.2); Carbon Dioxide 22 mmol/L (22-30); Chloride 108 mmol/L (98-107); Glucose 100 mg/dL (74-99); Non-African American GFR(MDRD) >60 (>60 ml/min/1.73 sqM); Potassium 4.2 mmol/L (3.5-5.1); Sodium 144 mmol/L (137-145); Total Bilirubin 0.2 mg/dL (0.2-1.3); Total Protein 7.4 g/dL (6.3-8.2)
[2017-01-17 00:22] LABS: INR 0.9 (<1.2); Prothrombin Time 9.7 sec (9.0-12.0)
[2017-01-17] MEDS ORDERED: NICOTINE 21MG/24HR PATCH TRANSDERM STA (02:34)
[2017-01-17 03:56] VITALS: BP 131/81; PULSE 84; RESP 16; TEMP 97.2
== END 2017-01-17 04:05 | disposition home or self-care (01) ==
LOC: EC 22:09
DX: S01.511A Laceration without foreign body of lip, initial encounter (principal); S00.81XA Abrasion of other part of head, initial encounter; F10.129 Alcohol abuse with intoxication, unspecified; F17.200 Nicotine dependence, unspecified, uncomplicated; Z88.0 Allergy status to penicillin; Z88.5 Allergy status to narcotic agent; Z79.899 Other long term (current) drug therapy
CPT/HCPCS: 99284; 36415; 80053; 85025; 85610; 72125; 70486; 70450; S4990

== ENCOUNTER 2017-01-17 12:41 | Emergency (ER) | payer OTHER ==
[2017-01-17 12:56] VITALS: TEMP 98
--- NOTE | 2017-01-17 14:20 | ED ---
General Adult HPI - General Chief complaint: Psychiatric Symptoms Stated complaint: Alcohol Withdrawls Time Seen by Provider: 01/17/17 13:20 Source: patient, RN notes reviewed Mode of arrival: ambulatory Limitations: no limitations - History of Present Illness Initial comments: This is a 51-year-old female history of alcoholism who is here because she "" is detoxing. Her last drink was at 11 AM this morning she does suicidal thoughts and ideations at this time no homicidal thoughts. She does states she would cut herself if she had the means. She does states she fell some time since yesterday. She presents with a swollen upper lip she denies any head neck or back pain or loss of function to her upper or lower extremities. She is not recall falling. She does state that she drank a lot of whiskey. - Related Data Home Medications Medication Instructions Recorded Confirmed Paliperidone [Invega] 9 mg PO DAILY 12/26/16 01/17/17 Previous Rx's Medication Instructions Recorded OLANZapine [ZyPREXA] 10 mg PO DAILY #30 tablet 12/27/16 LORazepam [Ativan] 1 mg PO TID #6 tab 01/17/17 cloNIDine HCL [Catapres] 0.1 mg PO BID #14 tab 01/17/17 Allergies Allergy/AdvReac Type Severity Reaction Status Date / Time codeine Allergy Unknown Verified 01/17/17 13:04 Penicillins Allergy Unknown Verified 01/17/17 13:04 Review of Systems ROS Statement: Those systems with pertinent positive or pertinent negative responses have been documented in the HPI. ROS Other: All systems not noted in ROS Statement are negative. Limitations: ROS unobtainable due to patients medical condition Past Medical History Past Medical History: No Reported History History of Any Multi-Drug Resistant Organisms: None Reported Additional Past Surgical History / Comment(s): D&C Past Anesthesia/Blood Transfusion Reactions: No Reported Reaction Past Psychological History: Anxiety, Bipolar Smoking Status: Current every day smoker Past Alcohol Use History: Abuse, Heavy Past Drug Use History: Marijuana General Exam - General Exam Comments Initial Comments: This is a well-developed well-nourished lethargic female she is arousable she is awake alert and oriented with a [place] Coma Scale of 15 there is a smell of alcohol conjoiners on her breath Limitations: no limitations General appearance: alert, lethargic Head exam: Present: normocephalic (Evidence of abrasion to the face with a swollen upper lip.) Eye exam: Present: normal appearance, PERRL, EOMI. Absent: scleral icterus, conjunctival injection, periorbital swelling ENT exam: Present: TM's normal bilaterally, other (Swollen upper lip as stated above with superficial abrasions noted. No suture repair indicated. Dentition does appear to be intact though there is tenderness to palpation of the upper teeth.) Neck exam: Present: normal inspection, full ROM. Absent: tenderness, lymphadenopathy Respiratory exam: Present: normal lung sounds bilaterally. Absent: respiratory distress, wheezes, rales, rhonchi, stridor Cardiovascular Exam: Present: regular rate, normal rhythm, normal heart sounds. Absent: systolic murmur, diastolic murmur, rubs, gallop, clicks GI/Abdominal exam: Present: soft, normal bowel sounds. Absent: distended, tenderness, guarding, rebound, rigid Extremities exam: Present: normal inspection, full ROM, normal capillary refill. Absent: tenderness, pedal edema, joint swelling, calf tenderness Back exam: Present: normal inspection Neurological exam: Present: alert, oriented X3, CN II-XII intact. Absent: motor sensory deficit Psychiatric exam: Present: flat affect Skin exam: Present: warm, dry, normal color. Absent: intact Course Vital Signs 01/17/17 01/17/17 01/17/17 12:51 14:51 16:07 Temperature 98 F Pulse Rate 109 H 68 89 Respiratory 20 18 18 Rate Blood Pressure 124/81 115/74 118/78 O2 Sat by Pulse 97 98 Oximetry 01/17/17 18:58 Temperature Pulse Rate 90 Respiratory 18 Rate Blood Pressure 115/62 O2 Sat by Pulse 95 Oximetry - Reevaluation(s) Reevaluation #1: 01/17/17 15:01 The patient's alcohol level was noted be 160 per lab she will be evaluated by psychiatry when she is sober Medical Decision Making - Medical Decision Making The patient rested comfortably throughout the afternoon. Patient was evaluated by psychiatric service after alcohol level dropped and the patient became sober. Patient currently isn't suicidal. Patient will be discharged to [facility]. The patient will be placed on oral medication to help her with the withdrawal. She is a follow-up as per [facility]. - Lab Data Result diagrams: 01/17/17 13:49 01/17/17 13:49 Lab Results 01/17/17 01/17/17 01/17/17 Range/Units 13:49 13:49 16:45 WBC 10.8 H (3.8-10.6) k/uL RBC 4.40 (3.80-5.40) m/uL Hgb 13.5 (11.4-16.0) gm/dL Hct 39.8 (34.0-46.0) % MCV 90.6 (80.0-100.0) fL MCH 30.6 (25.0-35.0) pg MCHC 33.8 (31.0-37.0) g/dL RDW 14.3 (11.5-15.5) % Plt Count 271 (150-450) k/uL Neutrophils % 75 % Lymphocytes % 19 % Monocytes % 4 % Eosinophils % 0 % Basophils % 0 % Neutrophils # 8.1 H (1.3-7.7) k/uL Lymphocytes # 2.1 (1.0-4.8) k/uL Monocytes # 0.5 (0-1.0) k/uL Eosinophils # 0.0 (0-0.7) k/uL Basophils # 0.0 (0-0.2) k/uL Sodium 139 (137-145) mmol/L Potassium 3.8 (3.5-5.1) mmol/L Chloride 103 (98-107) mmol/L Carbon Dioxide 22 (22-30) mmol/L Anion Gap 14 mmol/L BUN 11 (7-17) mg/dL Creatinine 0.63 (0.52-1.04) mg/dL Est GFR (MDRD) Af Amer >60 (>60 ml/min/1.73 sqM) Est GFR (MDRD) Non-Af >60 (>60 ml/min/1.73 sqM) Glucose 81 (74-99) mg/dL Calcium 9.4 (8.4-10.2) mg/dL Magnesium 1.8 (1.6-2.3) mg/dL Total Bilirubin 0.2 (0.2-1.3) mg/dL AST 27 (14-36) U/L ALT 30 (9-52) U/L Alkaline Phosphatase 75 (38-126) U/L Total Protein 7.3 (6.3-8.2) g/dL Albumin 4.5 (3.5-5.0) g/dL Salicylates <1.0 mg/dL Urine Opiates Screen Not Detected (NotDetected) Ur Oxycodone Screen Not Detected (NotDetected) Urine Methadone Screen Not Detected (NotDetected) Ur Propoxyphene Screen Not Detected (NotDetected) Acetaminophen <10.0 ug/mL Ur Barbiturates Screen Not Detected (NotDetected) U Tricyclic Antidepress Not Detected (NotDetected) Ur Phencyclidine Scrn Not Detected (NotDetected) Ur Amphetamines Screen Not Detected (NotDetected) U Methamphetamines Scrn Not Detected (NotDetected) U Benzodiazepines Scrn Not Detected (NotDetected) Urine Cocaine Screen Not Detected (NotDetected) U Marijuana (THC) Screen Not Detected (NotDetected) Serum Alcohol 160 mg/dL - Radiology Data Radiology results: report reviewed (I did review the imaging and reports are is no evidence of any acute findings. CT the head neck are unremarkable facial bones show no evidence of acute fractures or subluxations.), image reviewed Disposition Clinical Impression: Adjustment reaction, Alcohol intoxication Disposition: HOME SELF-CARE Condition: Good Instructions: Alcohol Dependence (ED), Abuse of Alcohol (ED), Alcohol Intoxication (ED), Anxiety (ED) Prescriptions: cloNIDine HCL [Catapres] 0.1 mg PO BID #14 tab LORazepam [Ativan] 1 mg PO TID #6 tab Referrals: Alireza Burton Jr, DO [Primary Care Provider] - 1-2 days
[2017-01-17 14:28] LABS: Basophils % (A) 0 %; CH 31.1; CHCM 34.4; Eosinophils % (A) 0 %; HCT 39.8 % (34.0-46.0); HDW 2.17; HGB 13.5 gm/dL (11.4-16.0); Luc # (Auto) 0.12; Luc % (Auto) 1; Lymphocytes # (A) 2.1 k/uL (1.0-4.8); Lymphocytes % (A) 19 %; MCH 30.6 pg (25.0-35.0); MCHC 33.8 g/dL (31.0-37.0); MCV 90.6 fL (80.0-100.0); Mean Platelet Volume 7.2; Monocytes # (A) 0.5 k/uL (0-1.0); Monocytes % (A) 4 %; Neutrophils # (A) 8.1 k/uL (1.3-7.7); Neutrophils % (A) 75 %; RDW 14.3 % (11.5-15.5); WBC 10.8 k/uL (3.8-10.6); WBC (Perox) 10.75
[2017-01-17] MEDS ORDERED: SODIUM CHLORIDE 0.9% 1,000 ML with MVI, ADULT NO.4 WITH VIT K 10 ML, THIAMINE 100 MG, F... IV ONE ×4 (14:30)
[2017-01-17 14:39] LABS: ALT 30 U/L (9-52); AST 27 U/L (14-36); Acetaminophen <10.0 ug/mL; Alkaline Phosphatase 75 U/L (38-126); Anion Gap 14 mmol/L; Blood Urea Nitrogen 11 mg/dL (7-17); Calcium 9.4 mg/dL (8.4-10.2); Carbon Dioxide 22 mmol/L (22-30); Chloride 103 mmol/L (98-107); Glucose 81 mg/dL (74-99); Magnesium 1.8 mg/dL (1.6-2.3); Non-African American GFR(MDRD) >60 (>60 ml/min/1.73 sqM); Potassium 3.8 mmol/L (3.5-5.1); Salicylate <1.0 mg/dL; Sodium 139 mmol/L (137-145); Total Bilirubin 0.2 mg/dL (0.2-1.3); Total Protein 7.3 g/dL (6.3-8.2)
[2017-01-17 14:50] LABS: Alcohol 160 mg/dL
--- NOTE | 2017-01-17 14:56 | CT ---
EXAMINATION TYPE: CT brain cspine wo con DATE OF EXAM: 01/17/2017 COMPARISON: CT brain and C-spine 01/16/2017, day prior HISTORY: Fall last night. Swelling to lip. CT DLP: 1297.90 mGycm Automated exposure control for dose reduction was used. TECHNIQUE: CT scan of the head and cervical spine are performed without contrast. FINDINGS: There is no acute intracranial hemorrhage, mass effect, or midline shift identified. The ventricles and sulci are within normal limits in size. The globes are intact and the visualized sin uses are remarkable for probable mucus retention cyst left maxillary sinus as on previous exam.. Cervical spine is visualized in its entirety from C1 through upper thoracic levels and demonstrates s atisfactory alignment without evidence of acute fracture or dislocation. Prevertebral soft tissue ap pears within normal limits. The C1-C2 articulation is unremarkable. Degenerative changes are again noted in the cervical spine. IMPRESSION: 1. There is no acute fracture or dislocation evident in the cervical spine. 2. No acute intracranial hemorrhage, mass effect, or midline shift is seen.
--- NOTE | 2017-01-17 14:58 | CT ---
EXAMINATION TYPE: CT facial bones wo con DATE OF EXAM: 01/17/2017 COMPARISON: Prior exam one day prior 01/16/2017 HISTORY: Fall last night. Swelling to lip. CT DLP: 599.80 mGycm Automated exposure control for dose reduction was used. TECHNIQUE: CT scan of the sinuses is performed without contrast, axial images are obtained, coronal r eformatted images are also reviewed. FINDINGS: The paranasal sinuses including the frontal, ethmoid, sphenoid, and maxillary sinuses bila terally are remarkable only for inflammatory change, probable mucus retention cyst left maxillary sin us. The ostiomeatal complex is patent bilaterally on the coronal images. Visualized portion of mastoid air cells show no abnormal opacification. Judie bullosa are present bi laterally, there are Tamara cells present. The globes are intact bilaterally. IMPRESSION: No acute fracture, stable exam.
[2017-01-17] MEDS ORDERED: cloNIDine HCL 0.1 MG TAB PO STA (20:33)
[2017-01-17] MEDS ORDERED: LORazepam 1 MG TAB PO STA (20:33)
[2017-01-17 20:49] VITALS: BP 115/61; PULSE 87; RESP 16
== END 2017-01-17 21:17 | disposition home or self-care (01) ==
LOC: EC 12:41
DX: F43.20 Adjustment disorder, unspecified (principal); S00.81XA Abrasion of other part of head, initial encounter; F10.229 Alcohol dependence with intoxication, unspecified; Y90.6 Blood alcohol level of 120-199 mg/100 ml; R40.2412 Glasgow coma scale score 13-15, at arrival to emergency department; F17.200 Nicotine dependence, unspecified, uncomplicated; Z88.0 Allergy status to penicillin; Z88.5 Allergy status to narcotic agent; Z79.899 Other long term (current) drug therapy; X58.XXXA Exposure to other specified factors, initial encounter
CPT/HCPCS: 99285; 96365; 96366 ×5; 36415; 80053; 83735; 85025; 80306; 83520 ×2; 80320; 72125; 70486; 70450; J3411

== ENCOUNTER 2018-01-11 16:00 | Inpatient (IN) | payer MEDICAID, OTHER ==
--- NOTE | 2018-01-11 16:52 | ED ---
General Adult HPI - General Chief complaint: Psychiatric Symptoms Stated complaint: mental health Time Seen by Provider: 01/11/18 16:18 Source: patient, police, RN notes reviewed, old records reviewed Mode of arrival: ambulatory Limitations: no limitations - History of Present Illness Initial comments: This is a 52-year-old female the ER prevention psychiatric illness. Patient has known history of psychiatric disease as well as alcohol use. Patient's history of polysubstance abuse. Patient's boyfriend called PD for evaluation regarding patient's psychiatric symptoms. Patient brought in for psychiatric evaluation. Patient poor historian - Related Data Home Medications Medication Instructions Recorded Confirmed ARIPiprazole [Abilify] 20 mg PO DAILY 01/11/18 01/14/18 QUEtiapine [SEROquel] 50 mg PO HS 01/11/18 01/14/18 buPROPion HCL [Wellbutrin XL] 300 mg PO DAILY 01/11/18 01/14/18 lamoTRIgine [LaMICtal] 50 mg PO BID 01/11/18 01/14/18 Allergies Allergy/AdvReac Type Severity Reaction Status Date / Time codeine Allergy Unknown Verified 01/14/18 18:22 Penicillins Allergy Unknown Verified 01/14/18 18:22 Review of Systems ROS Statement: Those systems with pertinent positive or pertinent negative responses have been documented in the HPI. ROS Other: All systems not noted in ROS Statement are negative. Past Medical History Past Medical History: No Reported History History of Any Multi-Drug Resistant Organisms: None Reported Additional Past Surgical History / Comment(s): D&C Past Anesthesia/Blood Transfusion Reactions: No Reported Reaction Past Psychological History: Anxiety, Bipolar Smoking Status: Current every day smoker Past Alcohol Use History: None Reported Past Drug Use History: Cocaine, Marijuana - Past Family History Mother Family Medical History: Unable to Obtain Father Family Medical History: No Reported History General Exam Limitations: no limitations General appearance: alert, in no apparent distress Head exam: Present: atraumatic, normocephalic, normal inspection Eye exam: Present: normal appearance, PERRL, EOMI. Absent: scleral icterus, conjunctival injection, periorbital swelling ENT exam: Present: normal exam, mucous membranes moist Neck exam: Present: normal inspection. Absent: tenderness, meningismus, lymphadenopathy Respiratory exam: Present: normal lung sounds bilaterally. Absent: respiratory distress, wheezes, rales, rhonchi, stridor Cardiovascular Exam: Present: regular rate, normal rhythm, normal heart sounds. Absent: systolic murmur, diastolic murmur, rubs, gallop, clicks GI/Abdominal exam: Present: soft, normal bowel sounds. Absent: distended, tenderness, guarding, rebound, rigid Extremities exam: Present: normal inspection, full ROM, normal capillary refill. Absent: tenderness, pedal edema, joint swelling, calf tenderness Back exam: Present: normal inspection Neurological exam: Present: alert, oriented X3, CN II-XII intact Psychiatric exam: Present: normal affect, normal mood Skin exam: Present: warm, dry, intact, normal color. Absent: rash Course Vital Signs 01/11/18 01/11/18 01/12/18 16:02 21:33 07:01 Temperature 98.9 F 97.0 F L 97 F L Pulse Rate 94 83 91 Respiratory 18 16 20 Rate Blood Pressure 149/100 157/90 115/69 O2 Sat by Pulse 99 100 99 Oximetry Procedures - Restraint - Face to Face Restraint Occurrence 1 Patient's Immediate Situation: Endangers self safety, Endangers staff safety Patient's Reaction to the Intervention: Angry, Belligerent, Bizarre Patient's Medical & Behavioral Condition: Awake, Agitated, Manic, Flight of ideas, Bizarre behavior Need to Continue or Terminate Restraint or Seclusion: Continue Face to Face Eval of Restraint Date: 01/11/18 Face to Face Eval of Restraint Time: 17:45 Medical Decision Making - Medical Decision Making 52 female the ER for evaluation of psychiatric illness. Patient be transferred for inpatient psychiatric evaluation and treatment - Lab Data Result diagrams: 01/11/18 21:25 01/11/18 21:25 Lab Results 01/11/18 01/11/18 01/11/18 Range/Units 21:25 21:25 21:25 WBC 6.2 (3.8-10.6) k/uL RBC 4.67 (3.80-5.40) m/uL Hgb 13.7 (11.4-16.0) gm/dL Hct 42.4 (34.0-46.0) % MCV 90.9 (80.0-100.0) fL MCH 29.4 (25.0-35.0) pg MCHC 32.4 (31.0-37.0) g/dL RDW 13.0 (11.5-15.5) % Plt Count 282 (150-450) k/uL Neutrophils % 54 % Lymphocytes % 37 % Monocytes % 5 % Eosinophils % 1 % Basophils % 0 % Neutrophils # 3.4 (1.3-7.7) k/uL Lymphocytes # 2.3 (1.0-4.8) k/uL Monocytes # 0.3 (0-1.0) k/uL Eosinophils # 0.1 (0-0.7) k/uL Basophils # 0.0 (0-0.2) k/uL Sodium 136 L (137-145) mmol/L Potassium 4.1 (3.5-5.1) mmol/L Chloride 105 (98-107) mmol/L Carbon Dioxide 25 (22-30) mmol/L Anion Gap 6 mmol/L BUN 6 L (7-17) mg/dL Creatinine 0.70 (0.52-1.04) mg/dL Est GFR (CKD-EPI)AfAm >90 (>60 ml/min/1.73 sqM) Est GFR (CKD-EPI)NonAf >90 (>60 ml/min/1.73 sqM) Glucose 92 (74-99) mg/dL Estimated Ave Glu mg/dL Hemoglobin A1c (4.0-6.0) % Calcium 9.5 (8.4-10.2) mg/dL Triglycerides (<150) mg/dL Cholesterol (<200) mg/dL LDL Cholesterol, Calc (0-99) mg/dL HDL Cholesterol (40-60) mg/dL TSH (0.465-4.680) mIU/L HCG, Qual Detected HCG, Quant mIU/mL Salicylates <1.0 mg/dL Urine Opiates Screen (NotDetected) Ur Oxycodone Screen (NotDetected) Urine Methadone Screen (NotDetected) Ur Propoxyphene Screen (NotDetected) Acetaminophen <10.0 ug/mL Ur Barbiturates Screen (NotDetected) U Tricyclic Antidepress (NotDetected) Ur Phencyclidine Scrn (NotDetected) Ur Amphetamines Screen (NotDetected) U Methamphetamines Scrn (NotDetected) U Benzodiazepines Scrn (NotDetected) Urine Cocaine Screen (NotDetected) U Marijuana (THC) Screen (NotDetected) Serum Alcohol <10 mg/dL 01/11/18 01/11/18 01/11/18 Range/Units 21:25 21:25 21:25 WBC (3.8-10.6) k/uL RBC (3.80-5.40) m/uL Hgb (11.4-16.0) gm/dL Hct (34.0-46.0) % MCV (80.0-100.0) fL MCH (25.0-35.0) pg MCHC (31.0-37.0) g/dL RDW (11.5-15.5) % Plt Count (150-450) k/uL Neutrophils % % Lymphocytes % % Monocytes % % Eosinophils % % Basophils % % Neutrophils # (1.3-7.7) k/uL Lymphocytes # (1.0-4.8) k/uL Monocytes # (0-1.0) k/uL Eosinophils # (0-0.7) k/uL Basophils # (0-0.2) k/uL Sodium (137-145) mmol/L Potassium (3.5-5.1) mmol/L Chloride (98-107) mmol/L Carbon Dioxide (22-30) mmol/L Anion Gap mmol/L BUN (7-17) mg/dL Creatinine (0.52-1.04) mg/dL Est GFR (CKD-EPI)AfAm (>60 ml/min/1.73 sqM) Est GFR (CKD-EPI)NonAf (>60 ml/min/1.73 sqM) Glucose (74-99) mg/dL Estimated Ave Glu mg/dL 123 Hemoglobin A1c 5.9 (4.0-6.0) % Calcium (8.4-10.2) mg/dL Triglycerides 70 (<150) mg/dL Cholesterol 186 (<200) mg/dL LDL Cholesterol, Calc 113 H (0-99) mg/dL HDL Cholesterol 59 (40-60) mg/dL TSH 1.910 (0.465-4.680) mIU/L HCG, Qual HCG, Quant 4.0 mIU/mL Salicylates mg/dL Urine Opiates Screen (NotDetected) Ur Oxycodone Screen (NotDetected) Urine Methadone Screen (NotDetected) Ur Propoxyphene Screen (NotDetected) Acetaminophen ug/mL Ur Barbiturates Screen (NotDetected) U Tricyclic Antidepress (NotDetected) Ur Phencyclidine Scrn (NotDetected) Ur Amphetamines Screen (NotDetected) U Methamphetamines Scrn (NotDetected) U Benzodiazepines Scrn (NotDetected) Urine Cocaine Screen (NotDetected) U Marijuana (THC) Screen (NotDetected) Serum Alcohol mg/dL 01/12/18 Range/Units 04:14 WBC (3.8-10.6) k/uL RBC (3.80-5.40) m/uL Hgb (11.4-16.0) gm/dL Hct (34.0-46.0) % MCV (80.0-100.0) fL MCH (25.0-35.0) pg MCHC (31.0-37.0) g/dL RDW (11.5-15.5) % Plt Count (150-450) k/uL Neutrophils % % Lymphocytes % % Monocytes % % Eosinophils % % Basophils % % Neutrophils # (1.3-7.7) k/uL Lymphocytes # (1.0-4.8) k/uL Monocytes # (0-1.0) k/uL Eosinophils # (0-0.7) k/uL Basophils # (0-0.2) k/uL Sodium (137-145) mmol/L Potassium (3.5-5.1) mmol/L Chloride (98-107) mmol/L Carbon Dioxide (22-30) mmol/L Anion Gap mmol/L BUN (7-17) mg/dL Creatinine (0.52-1.04) mg/dL Est GFR (CKD-EPI)AfAm (>60 ml/min/1.73 sqM) Est GFR (CKD-EPI)NonAf (>60 ml/min/1.73 sqM) Glucose (74-99) mg/dL Estimated Ave Glu mg/dL Hemoglobin A1c (4.0-6.0) % Calcium (8.4-10.2) mg/dL Triglycerides (<150) mg/dL Cholesterol (<200) mg/dL LDL Cholesterol, Calc (0-99) mg/dL HDL Cholesterol (40-60) mg/dL TSH (0.465-4.680) mIU/L HCG, Qual HCG, Quant mIU/mL Salicylates mg/dL Urine Opiates Screen Not Detected (NotDetected) Ur Oxycodone Screen Not Detected (NotDetected) Urine Methadone Screen Not Detected (NotDetected) Ur Propoxyphene Screen Not Detected (NotDetected) Acetaminophen ug/mL Ur Barbiturates Screen Not Detected (NotDetected) U Tricyclic Antidepress Not Detected (NotDetected) Ur Phencyclidine Scrn Not Detected (NotDetected) Ur Amphetamines Screen Not Detected (NotDetected) U Methamphetamines Scrn Not Detected (NotDetected) U Benzodiazepines Scrn Detected H (NotDetected) Urine Cocaine Screen Not Detected (NotDetected) U Marijuana (THC) Screen Not Detected (NotDetected) Serum Alcohol mg/dL Disposition Clinical Impression: Acute psychosis, Psychosis Disposition: TRANSFER TO PSYCH HOSP/UNIT Condition: Fair Is patient prescribed a controlled substance at d/c from ED?: No
[2018-01-11] MEDS ORDERED: LORazepam 2 MG/ML INJ IM STA (17:09)
[2018-01-11] MEDS ORDERED: diphenhydrAMINE 50 MG/ML 1 ML VIAL IM STA (17:09)
[2018-01-11 21:36] LABS: Basophils % (A) 0 %; Eosinophils # (A) 0.1 k/uL (0-0.7); Eosinophils % (A) 1 %; HCT 42.4 % (34.0-46.0); HGB 13.7 gm/dL (11.4-16.0); Lymphocytes # (A) 2.3 k/uL (1.0-4.8); Lymphocytes % (A) 37 %; MCH 29.4 pg (25.0-35.0); MCHC 32.4 g/dL (31.0-37.0); MCV 90.9 fL (80.0-100.0); Mean Platelet Volume 6.5; Monocytes # (A) 0.3 k/uL (0-1.0); Monocytes % (A) 5 %; Neutrophils # (A) 3.4 k/uL (1.3-7.7); Neutrophils % (A) 54 %; Platelet Count 282 k/uL (150-450); RBC 4.67 m/uL (3.80-5.40); WBC 6.2 k/uL (3.8-10.6)
[2018-01-11 21:51] LABS: Acetaminophen <10.0 ug/mL; Alcohol <10 mg/dL; Anion Gap 6 mmol/L; Blood Urea Nitrogen 6 mg/dL (7-17); Calcium 9.5 mg/dL (8.4-10.2); Carbon Dioxide 25 mmol/L (22-30); Chloride 105 mmol/L (98-107); Glucose 92 mg/dL (74-99); Potassium 4.1 mmol/L (3.5-5.1); Salicylate <1.0 mg/dL; Sodium 136 mmol/L (137-145)
[2018-01-12] MEDS ORDERED: LORazepam 2 MG/ML INJ IM STA (01:19)
[2018-01-12] MEDS ORDERED: NICOTINE 21MG/24HR PATCH TRANSDERM STA (01:25)
[2018-01-12 04:51] LABS: Amphetamine Screen,Urine Not Detected (NotDetected); Barbiturate Screen,Urine Not Detected (NotDetected); Benzodiazepines Screen,Urine Detected (NotDetected); Cocaine Screen,Urine Not Detected (NotDetected); Methadone Screen, Urine Not Detected (NotDetected); Opiate Screen,Urine Not Detected (NotDetected); Oxycodone Screen, Urine Not Detected (NotDetected); Phencyclidine Screen,Urine Not Detected (NotDetected); Tricyclic Antidepressant,Urine Not Detected (NotDetected); Urn Cannabinoid Scrn Not Detected (NotDetected)
[2018-01-12] MEDS ORDERED: lamoTRIgine 25 MG TAB PO ONE (07:34)
[2018-01-12] MEDS ORDERED: buPROPion XL 300 MG TAB.ER.24H PO STA (07:35)
[2018-01-12] MEDS ORDERED: MAG HYDROX/AL HYDROX/SIMETH 30 ML CUP PO PRN (14:05)
[2018-01-12] MEDS ORDERED: MAGNESIUM HYDROXIDE 2,400 MG/10 ML CUP PO PRN (14:05)
[2018-01-12] MEDS ORDERED: LORazepam 2 MG/ML INJ IM PRN (14:14)
[2018-01-12] MEDS: NICOTINE 21MG/24HR PATCH TRANSDERM SCH (15:18)
[2018-01-12] MEDS: QUEtiapine 50 MG TAB PO SCH (20:12)
[2018-01-12] MEDS: lamoTRIgine 25 MG TAB PO SCH (20:13)
[2018-01-12] MEDS: LORazepam 1 MG TAB PO PRN (22:37)
[2018-01-13] MEDS: lamoTRIgine 25 MG TAB PO SCH (08:47)
[2018-01-13] MEDS: NICOTINE 21MG/24HR PATCH TRANSDERM SCH (08:47)
[2018-01-13] MEDS ORDERED: buPROPion XL 300 MG TAB.ER.24H PO SCH (09:00)
--- NOTE | 2018-01-13 10:38 | HP ---
HISTORY AND PHYSICAL DATE OF SERVICE: 01/13/2018 IDENTIFYING DATA: This patient is a 52-year-old female who presents to the mental health unit through the emergency room with acute symptoms of yuki and psychosis. HISTORY OF PRESENT ILLNESS: Reportedly, the patient presented by the police as they found her [place] the river, fully clothed. The notes from the emergency room were reviewed. She was found to demonstrate a disorganized thought process with evidence of psychosis. This morning, the patient states that Isha is trying to kill the human race. She states that her father was a Satanist. She describes numerous paranoid and judaism-type delusions in a disorganized fashion. She states that her sleep has been very poor. Her energy has been "elizabeth high." Appetite has been decreased and she endorses weight loss. She is reporting no suicidal or homicidal ideation. She states that she hears the voice of God speak to her always. The patient is difficult to direct in the session. Twice she began singing, she will raise her voice and become loud at times. She is known to the service as she has been admitted to the mental health unit in the past. PAST PSYCHIATRIC HISTORY: The patient has had multiple inpatient psychiatric admissions. The last one was in November of [address] Freed. She has carried of right of diagnoses. Apparently, she has been prescribed Abilify 20 mg daily, Lamictal 50 mg daily, Wellbutrin XL 300 mg daily, and Seroquel 50 mg at bedtime. She states her primary care physician, Dr. Burton is prescribing her psychotropic medication to her. She sees a therapist at [facility] [place]. Suicide attempt history unknown. PAST MEDICAL HISTORY: None reported. ALLERGIES: CODEINE, PENICILLIN. CHEMICAL DEPENDENCY HISTORY: She does have a history of abusing alcohol and cocaine. She states that she has been clean for 45 days, but prior to that, she had a relapse of alcohol and crack cocaine use. She has been in residential treatment twice in the past. The last was at [facility]. FAMILY PSYCHIATRIC HISTORY: Unknown. FAMILY CHEMICAL DEPENDENCY HISTORY: Unknown. LEGAL HISTORY: Unknown. SOCIAL HISTORY: The patient is 52 years old. She is . She has a 20-year-old daughter. The patient states that she is residing with her fiance, whom she has been with for 47 days. She did not graduate high school but did earn a GED. 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 She states she is not on disability. She denies having any siblings. ABUSE HISTORY: Unknown. MENTAL STATUS EXAM: The patient is a female appearing her stated age. She has a mildly disheveled appearance. Hygiene is adequate. She is dressed in her own clothing. She has spontaneous speech. She is pressured and verbose. She is difficult to direct in the session. She demonstrates loose associations and flight of ideas. She describes paranoid and persecutory thoughts, all in a religiously preoccupied context. She is reporting no suicidal or homicidal ideation, intent, or plan. She demonstrates no verbal or physical aggressiveness. She demonstrates no abnormal involuntary movements. Insight and judgment are impaired. We were not able to pursue any cognitive questioning during this exam. Affect is labile. IMPRESSIONS: 1. Bipolar 1 disorder, most recent manic with psychosis. Rule out schizoaffective disorder, bipolar type. 2. Alcohol use disorder, cocaine use disorder. PLAN: The patient has been admitted to the mental health unit. She has signed in voluntarily. We discussed what our treatment plan would be including stabilizing her with the proper medication at the proper dose for a sufficient amount of time. She feels that she is able to cooperate with that treatment plan. We will continue the Abilify and titrate the dose to 30 mg daily, Lamictal will be titrated to 100 mg daily. The Wellbutrin will be discontinued. We will monitor for safety and encourage her participation in the milieu. She will be seen by her primary care physician for routine history and physical exam. Social Work will meet with the patient to complete a psychosocial assessment. We will involve family and friends in her treatment and discharge planning as she will allow. Vital signs reviewed. MMODL / IJN: [id number] /
[2018-01-13] MEDS: LORazepam 1 MG TAB PO PRN (11:03)
--- NOTE | 2018-01-13 14:52 | P.MDCNMH ---
History of Present Illness H&P Date: 01/13/18 Chief Complaint: medical management 52-year-old female was admitted to the mental health unit with symptoms of yuki and psychosis. Dr. Burton was consulted for medical management. The patient denies previous medical history. She currently denies shortness of breath, cough, or congestion. She denies chest pain or pressure. Denies pain or discomfort. Patient denies fever or chills. Denies nausea or vomiting. Reports decreased appetite. She is a current everyday smoker and is currently wearing a nicotine patch. Dr. Keating is managing psychiatric medications. Review of Systems Those systems with pertinent positive or pertinent negative responses have been documented in the HPI Past Medical History Past Medical History: No Reported History Additional Past Medical History / Comment(s): pt is a poor historian,rambling, excessive , "born with a heart defect" History of Any Multi-Drug Resistant Organisms: None Reported Additional Past Surgical History / Comment(s): D&C Past Anesthesia/Blood Transfusion Reactions: No Reported Reaction Past Psychological History: Anxiety, Bipolar, PTSD Smoking Status: Current every day smoker Past Alcohol Use History: Daily, Heavy Additional Past Alcohol Use History / Comment(s): pt stated she started smoking at age 15, smokes 2ppd. pt stated she strated doing drugs at age 7(weed) worked he way up to acid, muschrooms,cocaine,crack but denies iv drug use. stated she quit the hard stuff at age 22 but few minutes later pt stated she did crack 46 days ago. drank last in november 2017 Past Drug Use History: Cocaine, Marijuana - Past Family History Mother Family Medical History: Unable to Obtain Father Family Medical History: No Reported History Medications and Allergies Home Medications Medication Instructions Recorded Confirmed Type ARIPiprazole [Abilify] 20 mg PO DAILY 01/11/18 01/11/18 History QUEtiapine [SEROquel] 50 mg PO HS 01/11/18 01/11/18 History buPROPion HCL [Wellbutrin XL] 300 mg PO DAILY 01/11/18 01/11/18 History lamoTRIgine [LaMICtal] 50 mg PO BID 01/11/18 01/11/18 History Allergies Allergy/AdvReac Type Severity Reaction Status Date / Time codeine Allergy Unknown Verified 01/12/18 03:44 Penicillins Allergy Unknown Verified 01/12/18 03:44 Physical Exam Vitals: Vital Signs Temp Pulse Resp BP 01/13/18 01:23 97.8 F 94 12 114/73 01/12/18 22:39 96 16 122/86 GENERAL: This is a 52-year-old female in no apparent distress at the time of examination. HEENT: Head is atraumatic, normocephalic. Sclerae anicteric. Conjunctivae are clear. Mucus membranes of the mouth are moist. Neck is supple. RESPIRATORY: Clear to ausculation. No wheezes, rales, or rhonchi. No use of accessory muscles. Patient maintaining oxygen saturation greater than 92 CARDIOVASCULAR: Regular rate and rhythm. S1 and S2 noted. No systolic or diastolic murmur auscultated. No JVD noted. No S3 or S4 noted. GASTROINTESTINAL: No distention noted. Abdomen soft and round. Normal active bowel sounds auscultated x 4 quadrants. INTEGUMENTARY: No cyanosis. No jaundice. No rashes noted. No cellulitis noted. EXTREMITIES: 2+ peripheral pulses. No evidence of peripheral edema. No calf tenderness noted. NEUROLOGIC: Cranial nerves II-XII intact. PSYCHIATRIC: Awake, alert, and oriented X 3. Cranial Nerve Examination - Cranial Nerves Cranial Nerve I- Olfactory: Intact Cranial Nerve II- Optic: Intact Cranial Nerve III- Oculomotor: Intact Cranial Nerve IV- Trochlear: Intact Cranial Nerve V- Trigeminal: Intact Cranial Nerve - Abducens: Intact Cranial Nerve VII- Facial: Intact Cranial Nerve VIII- Auditory: Intact Cranial Nerve IX- Glossopharyngeal: Intact Cranial Nerve X- Vagus: Intact Cranial Nerve XI- Accessory: Intact Cranial Nerve XII- Hypoglossal: Intact Results CBC & Chem 7: 01/11/18 21:25 01/11/18 21:25 Labs: Abnormal Lab Results - Last 24 Hours (Table) 01/11/18 Range/Units 21:25 LDL Cholesterol, Calc 113 H (0-99) mg/dL Assessment and Plan Plan: ASSESSMENT: Bipolar disorder with yuki and psychosis. Rule out schizoaffective disorder, bipolar type. Psychiatry managing Nicotine dependence, patient is a current cigarette smoker History of alcohol abuse History of cocaine use PLAN: Continue psychiatric care per Dr. Keating Nicotine patch daily Home meds as appropriate Monitor vital signs and address as appropriate Thank you for this consultation We will continue to follow along with August during her hospitalization Please contact us with any questions or concerns Nurse practitioner note has been reviewed by physician. Signing provider agrees with the documented findings, assessment, and plan of care.
[2018-01-13 19:19] LABS: Hemoglobin A1C 5.9 % (4.0-6.0)
[2018-01-13] MEDS: QUEtiapine 50 MG TAB PO SCH (21:07)
[2018-01-14] MEDS: LORazepam 1 MG TAB PO PRN ×3 (02:06→18:51)
[2018-01-14] MEDS: NICOTINE 21MG/24HR PATCH TRANSDERM SCH (08:42)
[2018-01-14] MEDS: lamoTRIgine 100 MG TAB PO SCH (08:42)
[2018-01-14] MEDS: ARIPiprazole 15 MG TAB PO SCH (08:42)
--- NOTE | 2018-01-14 09:09 | P.PN ---
Progress Note - Text Interval history: The patient is found in the hallway she follows me to an interview room. For numerous metastases she speaks spontaneously. She continues to demonstrate pressured speech with ongoing loose associations and flight of ideas. She is demonstrative with speech and acts out many of her ideas. There is no clear link between the topics she discusses other than rastafarian preoccupation. She describes having no sleep last night staff reported she slept one hour she states that she slept somewhat during the day. She reports she ate breakfast this morning she reports compliance with her medication. Mental status exam: The patient is alert she is dressed in her own clothing. She has a staring eye contact. She speaks nonstop throughout the session and needs to be interrupted several times in an effort to direct the interview. Affect is labile. Her voice becomes loud at times she sings a few versus at times. She reports no suicidal or homicidal thoughts. Insight and judgment are poor. She demonstrates no verbal or physical aggressiveness. Her affect can be irritable at times but this quickly changes. She is oriented to person place and date. Plan: The patient continues to experience acute symptoms of yuki and psychosis. She requires continued psychiatric hospitalization. Reality orientation is provided when possible. Vital signs reviewed. We will continue to monitor her for safety and titrate occasions as needed.
[2018-01-14] MEDS: QUEtiapine 50 MG TAB PO SCH (20:40)
[2018-01-15] MEDS: ACETAMINOPHEN TAB 325 MG TAB PO PRN ×3 (00:43→23:39)
[2018-01-15] MEDS ORDERED: ZIPRASIDONE 20 MG VIAL IM ONE (03:29)
[2018-01-15] MEDS ORDERED: WATER FOR INJECTION, STERILE 10 ML IV ONE (03:29)
[2018-01-15] MEDS: ZIPRASIDONE 20 MG VIAL IM PRN (03:30)
[2018-01-15] MEDS: NICOTINE 21MG/24HR PATCH TRANSDERM SCH (08:20)
[2018-01-15] MEDS: ARIPiprazole 15 MG TAB PO SCH (08:21)
[2018-01-15] MEDS: lamoTRIgine 100 MG TAB PO SCH (08:21)
--- NOTE | 2018-01-15 09:59 | P.PN ---
Progress Note - Text Interval history: The patient is found in group she follows me to an interview room. She did receive a Geodon and Ativan injection last evening and this did help facilitate several hours of sleep. She states that she does feel better. Staff report that she's been more directable. She was observed seated in group quietly. She does continue to have a disorganized thought process at best she is tangential she does demonstrate loose associations and sometimes white of ideas. She is less pressured. She does continue to have the same delusional thinking. We reviewed her psychotropic medication and her questions were answered. Mental status exam: The patient is a female appearing her stated age. She is dressed in her own clothing. She is carrying a emesis basin filled with her belongings. She demonstrates continued lability of affect. Again thought process is disorganized she is pressured but less so than yesterday. Insight into her symptoms is impaired. Judgment is impaired and she continues to require the structure of the hospital to maintain medications and appropriate behavior. She demonstrates no verbal or physical aggressiveness. She reports no suicidal or homicidal ideation intent or plan. Plan: The patient will continue on her current medications however I will titrate the Seroquel to 100 mg at bedtime. I will also increase the Lamictal to 150 mg daily. The Seroquel is likely a temporary measure as we do not want to use to antipsychotics unless it is necessary. It is imperative that she gets more sleep in the evening in terms of her manic symptoms and psychosis. Vital signs reviewed. She is encouraged to continue engaging in the therapeutic milieu.
[2018-01-15] MEDS: QUEtiapine 100 MG TAB PO SCH (19:58)
[2018-01-15] MEDS: LORazepam 1 MG TAB PO PRN (19:59)
[2018-01-16] MEDS: ARIPiprazole 15 MG TAB PO SCH (08:13)
[2018-01-16] MEDS: NICOTINE 21MG/24HR PATCH TRANSDERM SCH (08:13)
[2018-01-16] MEDS: lamoTRIgine 100 MG TAB PO SCH (08:14)
[2018-01-16] MEDS: ACETAMINOPHEN TAB 325 MG TAB PO PRN ×2 (08:15→20:16)
[2018-01-16] MEDS: LORazepam 1 MG TAB PO PRN ×3 (08:15→21:51)
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
[2018-01-16] MEDS: QUEtiapine 100 MG TAB PO SCH (20:16)
[2018-01-17] MEDS: ACETAMINOPHEN TAB 325 MG TAB PO PRN (01:45)
[2018-01-17] MEDS: lamoTRIgine 100 MG TAB PO SCH (07:27)
[2018-01-17] MEDS: ARIPiprazole 15 MG TAB PO SCH (07:27)
[2018-01-17] MEDS: NICOTINE 21MG/24HR PATCH TRANSDERM SCH (07:27)
[2018-01-17] MEDS: LORazepam 1 MG TAB PO PRN ×2 (09:22→21:11)
--- NOTE | 2018-01-17 11:26 | P.PN ---
Progress Note - Text Progress Note Date: 01/17/18 Interval history: Patient is seen in cross coverage today. She says she didn't sleep much last night. She makes reference to having had a difficult time with the [employer] symbol and the grand dragon. She reports that she does feel better and describes her mood as "great." She does talk about following up with outpatient treatment. Mental status exam: She is alert and cooperative with the interview. She describes her mood as "great." Her speech is fluent, not rapid. Her thought processes show some disorganization. When asked about hallucinations she makes reference to being gifted as a seer. She denies any thoughts of harm to self or others. She does not show any agitation. Plan: Patient will be maintained on current psychotropic medication regimen. We will monitor for any medication side effects and monitor her ongoing response to treatment.
[2018-01-17] MEDS: QUEtiapine 100 MG TAB PO SCH (20:05)
[2018-01-18] MEDS: NICOTINE 21MG/24HR PATCH TRANSDERM SCH (04:53)
[2018-01-18] MEDS: ARIPiprazole 15 MG TAB PO SCH (08:00)
[2018-01-18] MEDS: lamoTRIgine 100 MG TAB PO SCH (08:00)
--- NOTE | 2018-01-18 11:04 | P.PN ---
Progress Note - Text Interval history: The patient is found at the front office manager she follows me to an interview room. She reports her mood is great. She continues to discuss discharge plans. Staff report that she continues to demonstrate symptoms of yuki but behavior is more controlled. She feels that she slept all night however her sleep continues to be impaired. Mental status exam: The patient is an alert thin female appearing her stated age. She is dressed in her own clothing. Hygiene is adequate. Grooming is fair. Eye contact is staring in nature. She has a constant stream of speech demonstrating tangential thinking and loose associations at times. She is reporting no suicidal or homicidal ideation. She does not recognize he disorganization of her thought process. Insight and judgment limited. She demonstrates no abnormal involuntary movements or any verbal or physical aggressiveness. She has to be redirected several times verbally. Affect is expansive. Plan: The patient will continue on her current medications. We plan to titrate the Lamictal further to 200 mg daily during the course of this week. We will continue to monitor her for safety. She is demonstrating slow improvement in terms of her symptoms of yuki but is not yet clinically stable for discharge.
[2018-01-18] MEDS: LORazepam 1 MG TAB PO PRN ×2 (12:09→21:56)
[2018-01-18] MEDS: QUEtiapine 100 MG TAB PO SCH (21:27)
[2018-01-19] MEDS: LORazepam 1 MG TAB PO PRN ×2 (06:33→14:56)
[2018-01-19] MEDS: lamoTRIgine 100 MG TAB PO SCH (08:21)
[2018-01-19] MEDS: NICOTINE 21MG/24HR PATCH TRANSDERM SCH (08:21)
[2018-01-19] MEDS: ARIPiprazole 15 MG TAB PO SCH (08:21)
[2018-01-19] MEDS ORDERED: lamoTRIgine 25 MG TAB PO ONE (09:06)
--- NOTE | 2018-01-19 09:11 | P.PN ---
Progress Note - Text Interval history: The patient is found in the library she follows me to an interview room. She states that her mood is okay but she feels frustrated that she is "here in prison". She reports sleeping 5-1/2 hours however staff reported she slept 3 hours. She indicates appetite is stable she has been attempting to attend all groups. We reviewed her psychotropic medications she remains compliant with them. We discussed titrating the Lamictal to 200 mg daily and she is agreeable. She asked questions as to how she can improve her behavior on the unit to facilitate a discharge. She has insight into the fact that she has been controlling her speech and trying to interrupt less often. Mental status exam: The patient is a thin female appearing her stated age. She is dressed in her own clothing. Hygiene is adequate she is mildly disheveled. She initially has an irritable looking affect but remains cooperative throughout the session. Speech is fluent it is less pressured during our interaction. She does demonstrate some tangential thinking. She is reporting no suicidal or homicidal ideation. She quickly dismisses any questions related to inquiries of her having psychosis. Insight and judgment limited but improving. She is oriented to person place and date. She demonstrates no abnormal involuntary movements she demonstrates no verbal or physical aggressiveness. Plan: The patient's symptoms of yuki are improving. She still has some delusional thought present. I will titrate the Lamictal to 200 mg daily continue Abilify is written. She is encouraged to continue participating in the milieu. We will monitor her for safety. Recent lab results reviewed.
[2018-01-19] MEDS: QUEtiapine 100 MG TAB PO SCH (22:02)
[2018-01-20] MEDS: LORazepam 1 MG TAB PO PRN ×3 (03:16→18:51)
[2018-01-20] MEDS ORDERED: WATER FOR INJECTION, STERILE 10 ML IV ONE (03:25)
[2018-01-20] MEDS ORDERED: ZIPRASIDONE 20 MG VIAL IM ONE (03:25)
[2018-01-20] MEDS: ZIPRASIDONE 20 MG VIAL IM PRN (03:27)
[2018-01-20] MEDS ORDERED: LORazepam 2 MG/ML INJ IM STA (03:46)
--- NOTE | 2018-01-20 04:15 | P.MHFACE ---
Face to Face Eval of Restraint - Evaluation Patient's Immediate Situation: Endangers self safety, Endangers staff safety Patient's Immediate Situation - Comment: in 4 point restraints Patient's Reaction to the Intervention: Uncooperative, Suspicious, Combative, Resistive to care Patient's Medical & Behavioral Condition: Awake, Alert, Anxious, Agitated, Paranoid, Flight of ideas Need to Continue or Terminate Restraint or Seclusion: Continue Need to Continue or Terminate Restraint/Seclusion - Comment: Patient threatening to staff, ripping curtains, exit sign. Patient also physically threatening towards staff. No complaints except wanting to leave when seeing patient at 4:00AM. Continue restraints.
[2018-01-20] MEDS: ARIPiprazole 15 MG TAB PO SCH (08:20)
[2018-01-20] MEDS: lamoTRIgine 100 MG TAB PO SCH (08:20)
[2018-01-20] MEDS: NICOTINE 21MG/24HR PATCH TRANSDERM SCH (08:20)
--- NOTE | 2018-01-20 09:40 | P.PN ---
Progress Note - Text Interval history: The patient is found at the front office representative she follows me to an interview room. Staff report that the patient became acutely aggressive last evening causing damage to the unit. She required use of restraints. She also received injectable medication specifically Geodon. She also received Ativan. The patient states that she had to demonstrate that aggressive at 2 retaliate against what we are doing. She feels she is being treated like a guinea pig. She finds herself feeling irritable. Mental status exam: The patient is a thin female appearing her stated age. She is dressed in her own clothing. She is carrying her belongings and an emesis bin. She finds herself feeling irritable. She has an irritable affect. Speech is spontaneous she is nonpressured. She describes some paranoid and persecutory thinking. Thought process still demonstrate some disorganization and she will be tangential. She demonstrates no verbal or physical aggressiveness no abnormal involuntary movements. Insight and judgment are poor. She is oriented to person place and date. She is reporting no suicidal or homicidal thoughts. No hallucinations. Plan: The patient will continue on her current medication we will consider titrating the Seroquel further. She continues to demonstrate symptoms of yuki and psychosis and requires continued hospitalization. Vital signs reviewed.
[2018-01-20] MEDS: QUEtiapine 100 MG TAB PO SCH (20:01)
[2018-01-21] MEDS: ZIPRASIDONE 20 MG VIAL IM PRN ×2 (00:16→22:49)
[2018-01-21] MEDS: NICOTINE 21MG/24HR PATCH TRANSDERM SCH (07:54)
[2018-01-21] MEDS: ARIPiprazole 15 MG TAB PO SCH (07:54)
[2018-01-21] MEDS: lamoTRIgine 100 MG TAB PO SCH (07:54)
--- NOTE | 2018-01-21 09:30 | P.PN ---
Progress Note - Text The patient is found in the hallway she approaches me to speak in an interview room. The patient states she would like to be discharged at 11:30. She has constant speech and often speaks over me. It was difficult to verbally redirect the session. We reviewed her psychotropic medications. She has not been making sufficient progress with her current medication and I suggested a change of Lamictal to Depakote and she is agreeable. She has no questions or concerns regarding the medication and states she's been on in the past without side effect. Mental status exam: The patient is alert she has a disheveled appearance she is dressed in her own clothing hygiene is adequate. Eye contact is staring in nature. She has a constant stream of speech and often intrudes in the conversation. It is challenging to redirect her thought process. She demonstrates tangential thinking and loose associations. He remains religiously preoccupied. She will spontaneously describe some paranoid thinking. Insight into her symptoms is impaired judgment subsequently impaired. She is oriented to person place and date. She demonstrates no verbal or physical aggressiveness. At times her affect is irritable. She is reporting no auditory or visual hallucinations. Plan: The patient will continue on the Abilify we will decrease the Lamictal to 100 mg daily and initiate Depakote 500 mg twice daily. Baseline labs are within normal limits. We will taper her off of Lamictal. Again the Seroquel is meant to be a temporary measure as well. The patient continues to demonstrate symptoms of yuki and psychosis and is not appropriate for discharge at this time. Vital signs are reviewed.
[2018-01-21] MEDS: DIVALPROEX 500 MG TABLET.DR PO SCH ×2 (10:12→18:48)
[2018-01-21] MEDS: LORazepam 1 MG TAB PO PRN ×2 (12:13→18:48)
[2018-01-21] MEDS: QUEtiapine 100 MG TAB PO SCH (20:55)
[2018-01-21] MEDS ORDERED: WATER FOR INJECTION, STERILE 10 ML IV ONE (21:51)
[2018-01-22] MEDS: LORazepam 1 MG TAB PO PRN ×2 (02:33→20:10)
[2018-01-22] MEDS: ARIPiprazole 15 MG TAB PO SCH (08:29)
[2018-01-22] MEDS: lamoTRIgine 100 MG TAB PO SCH (08:29)
[2018-01-22] MEDS: NICOTINE 21MG/24HR PATCH TRANSDERM SCH (08:29)
[2018-01-22] MEDS: DIVALPROEX 500 MG TABLET.DR PO SCH ×2 (08:29→20:08)
--- NOTE | 2018-01-22 10:10 | P.PN ---
Progress Note - Text Interval history: The patient is found in the hallway she follows me to an interview room. She states that she feels great she would like to be discharged by 11:30. We discussed that her symptoms have not yet stabilized and we need to allow the Depakote to demonstrate efficacy. The patient becomes agitated with this news. She continues to demonstrate a disorganized thought process she began singing during the session. She states "you are dealing with the Simmons of hearts". Mental status exam: The patient is a thin female appearing her stated age. She is dressed in her own clothing. Eye contact is staring in nature. She continues to have a constant stream of speech and often is difficult to interrupt. She demonstrates loose associations and flight of ideas. She demonstrates catholic preoccupation with grandiose thinking. Insight and judgment are poor. She demonstrates no verbal or physical aggressiveness she demonstrates no abnormal involuntary movements. She reports no suicidal or homicidal ideation. She endorses no hallucinations. Affect is labile. She will appear sad at times and then appear irritable and angry. Plan: The patient's continues to demonstrate symptoms of yuki with psychosis. We will continue her current medication. She is not stable for discharge at this time. She has rescinded her voluntary status and we will need to petition her incomplete clinical certificate.
--- NOTE | 2018-01-22 11:42 | P.PN ---
Progress Note - Text Progress Note Date: 01/22/18 Mental status exam: The patient is a thin female appearing her stated age. She is dressed in her own clothing. Eye contact is staring in nature. She continues to have a continence stream of speech and often is difficult to interrupt. She demonstrates loose associations and flight of ideas. She demonstrates synagogue preoccupation with grandiose thinking. Insight and judgment are poor or non existence. She demonstrates no verbal or physical aggressiveness she demonstrates no abnormal involuntary movements. She reports no suicidal or homicidal ideation. She endorses no hallucinations. Affect is labile. She will appear sad at times and then appear irritable and angry. Plan: The patient's continues to demonstrate symptoms of yuki with psychosis. We will continue her current medication. She is not stable for discharge at this time. She has rescinded her voluntary status and we will need to petition her incomplete clinical certificate.total time 20 minutes face to face
[2018-01-22] MEDS: QUEtiapine 100 MG TAB PO SCH (22:05)
[2018-01-22] MEDS ORDERED: ZIPRASIDONE 20 MG VIAL IM ONE (22:54)
[2018-01-22] MEDS ORDERED: WATER FOR INJECTION, STERILE 10 ML IV ONE (22:54)
[2018-01-22] MEDS: ZIPRASIDONE 20 MG VIAL IM PRN (23:00)
[2018-01-23] MEDS ORDERED: SODIUM CHLORIDE 0.9% 500 ML IV ONE (03:22)
[2018-01-23 03:35] LABS: Basophils % (A) 1 %; Eosinophils # (A) 0.1 k/uL (0-0.7); Eosinophils % (A) 2 %; HCT 36.8 % (34.0-46.0); HGB 12.1 gm/dL (11.4-16.0); Lymphocytes # (A) 3.4 k/uL (1.0-4.8); Lymphocytes % (A) 48 %; MCH 30.3 pg (25.0-35.0); MCHC 32.8 g/dL (31.0-37.0); MCV 92.2 fL (80.0-100.0); Mean Platelet Volume 6.3; Monocytes # (A) 0.3 k/uL (0-1.0); Monocytes % (A) 5 %; Neutrophils # (A) 3.1 k/uL (1.3-7.7); Neutrophils % (A) 43 %; Platelet Count 251 k/uL (150-450); RBC 3.99 m/uL (3.80-5.40); RDW 12.9 % (11.5-15.5); WBC 7.2 k/uL (3.8-10.6)
[2018-01-23 03:43] LABS: Anion Gap 7 mmol/L; Blood Urea Nitrogen 15 mg/dL (7-17); Calcium 9.3 mg/dL (8.4-10.2); Carbon Dioxide 24 mmol/L (22-30); Chloride 100 mmol/L (98-107); Glucose 135 mg/dL (74-99); Magnesium 2.1 mg/dL (1.6-2.3); Potassium 3.9 mmol/L (3.5-5.1); Sodium 131 mmol/L (137-145)
--- NOTE | 2018-01-23 03:49 | XR ---
EXAMINATION TYPE: XR chest 1V portable DATE OF EXAM: 01/23/2018 COMPARISON: 11/21/2013 HISTORY: Respiratory distress TECHNIQUE: Single frontal view of the chest is obtained. FINDINGS: There is no heart failure nor confluent pneumonic infiltrate. Costophrenic angles are justyna r. There are chest leads. Bony thorax is intact. IMPRESSION: No active cardiopulmonary disease. No change.
[2018-01-23 04:00] LABS: Creatine Kinase 174 U/L (30-135)
[2018-01-23 04:13] LABS: Creatine Kinase MB 2.4 ng/mL (0.0-2.4); Troponin I <0.012 ng/mL (0.000-0.034)
[2018-01-23] MEDS: NICOTINE 21MG/24HR PATCH TRANSDERM SCH (09:32)
[2018-01-23] MEDS: ARIPiprazole 15 MG TAB PO SCH (09:32)
[2018-01-23] MEDS: lamoTRIgine 100 MG TAB PO SCH (09:32)
[2018-01-23] MEDS: DIVALPROEX 500 MG TABLET.DR PO SCH ×2 (09:32→20:51)
[2018-01-23] MEDS: LORazepam 1 MG TAB PO PRN ×2 (09:36→16:33)
--- NOTE | 2018-01-23 16:49 | PN ---
PROGRESS NOTE DATE OF SERVICE: January 23, 2018. SUBJECTIVE: Patient seen, interviewed. The patient was found hyperverbal, not as loud, has a lot of ideas. Patient reports she is doing lot better. Since her medication have been adjusted she is feeling much calmer. She denies having any racing thoughts. She said she did sleep better last night, but also said that she felt like dying last night. She said she is not here to put people against each other. She said she feels that she would get better and she wants to go home to take care of 3 children. She was also a little bit paranoid that she might be . She has been taking medications regularly, tolerating well, reporting no side effects. MENTAL EXAMINATION: Patient is alert, awake x4. Has fair eye contact. Speech few word sentences. Speech hyperverbal, little bit loud. Mood is anxious with congruent affect. She denies any suicidal ideation. She denies hearing voices, seeing things, but she has some paranoia and some grandiose delusions. Insight and judgment improving slowly and gradually. ASSESSMENT: Bipolar disorder type 1, most recent episode manic with psychotic features. PLAN: We will continue to adjust medications accordingly, encouraged groups and meetings. Supportive therapy provided. MMRACHELLEL / OUMOUN: [id number] /
--- NOTE | 2018-01-23 17:49 | P.PN ---
Subjective 52-year-old female was admitted to the mental health unit with symptoms of yuki and psychosis. Dr. Burton was consulted for medical management. The patient denies previous medical history. She currently denies shortness of breath, cough, or congestion. She denies chest pain or pressure. Denies pain or discomfort. Patient denies fever or chills. Denies nausea or vomiting. Reports decreased appetite. She is a current everyday smoker and is currently wearing a nicotine patch. Dr. Keating is managing psychiatric medications. 01/23/2018: Last night SHe c/o right sided chest pain. She was also found to slightly hypotensive. She has not smoked cigarettes since arriving here. a=An A- Team was called. IV fluids were given EKG negative. Chest pain palpable, serial Troponins negative. Today chest pain mostly resolved except with postion changes. No SOB nausea, emesis. She has a h/o right sided rib cage injury last year. Objective - Vital Signs Vital signs: Vital Signs Temp 98.4 F 01/23/18 11:54 Pulse 95 01/23/18 16:34 Resp 18 01/23/18 16:34 BP 124/93 01/23/18 16:34 Pulse Ox 100 01/23/18 11:54 - Exam GENERAL: This is a 52-year-old female in no apparent distress at the time of examination. RESPIRATORY: Clear to ausculation. No wheezes, rales, or rhonchi. No use of accessory muscles. Patient maintaining oxygen saturation greater than 92 CARDIOVASCULAR: Regular rate and rhythm. S1 and S2 noted. No systolic or diastolic murmur auscultated. No JVD noted. No S3 or S4 noted. there is pain to palpation of right chest wall GASTROINTESTINAL: No distention noted. Abdomen soft and round. Normal active bowel sounds auscultated x 4 quadrants. INTEGUMENTARY: No cyanosis. No jaundice. No rashes noted. No cellulitis noted. EXTREMITIES: 2+ peripheral pulses. No evidence of peripheral edema. No calf tenderness noted. NEUROLOGIC: Cranial nerves II-XII intact. PSYCHIATRIC: Awake, alert, and oriented X 3. - Labs CBC & Chem 7: 01/23/18 03:27 01/23/18 03:27 Labs: Abnormal Lab Results - Last 24 Hours (Table) 09/15/18 09/15/18 Range/Units 03:27 03:27 Sodium 131 L (137-145) mmol/L Glucose 135 H (74-99) mg/dL Total Creatine Kinase 174 H (30-135) U/L Assessment and Plan (1) Non-cardiac chest pain Current Visit: Yes Status: Acute Code(s): R07.89 - OTHER CHEST PAIN SNOMED Code(s): 746281448 (2) Rib pain on right side Current Visit: Yes Status: Acute Code(s): R07.81 - PLEURODYNIA SNOMED Code (s): 938186064 Plan: Xray right ribs, Motrin 800mg tid prn for pain. will f/u with her as needed
--- NOTE | 2018-01-23 20:24 | XR ---
EXAMINATION TYPE: XR ribs RT DATE OF EXAM: 01/23/2018 COMPARISON: Chest x-ray 07/04/2012 HISTORY: Rib pain TECHNIQUE: 4 views FINDINGS: There is no pleural effusion or pneumothorax. Right lung is clear of infiltrate. There is a nondisplaced fracture anterior right fifth rib. IMPRESSION: Right anterior rib fracture as above.
[2018-01-23] MEDS: QUEtiapine 100 MG TAB PO SCH (22:00)
[2018-01-24] MEDS: LORazepam 1 MG TAB PO PRN (00:42)
[2018-01-24] MEDS: NICOTINE 21MG/24HR PATCH TRANSDERM SCH (09:01)
[2018-01-24] MEDS: DIVALPROEX 500 MG TABLET.DR PO SCH ×2 (09:01→20:40)
[2018-01-24] MEDS: lamoTRIgine 100 MG TAB PO SCH (09:01)
[2018-01-24] MEDS: ARIPiprazole 15 MG TAB PO SCH (09:01)
--- NOTE | 2018-01-24 12:44 | PN ---
PROGRESS NOTE Patient seen, interviewed. Found very hyper religiously preoccupied. Reports that she is highly vulnerable here. She says she has not received Ativan and she is trying to stay away from it. She is also reporting that she would not require p.r.n. intramuscular Geodon. She stated she still walks in her sleep as this morning when she woke up she could not find her Bible. She probably placed it somewhere while she was sleepwalking. She is reporting that she has been treated with multiple medical medications here and she has been hospitalized many times due to worsening psychosis and mood swings. The patient is still irritable and has racing thoughts and sleep difficulties. MENTAL STATUS EXAM: Patient is alert and oriented x4. Has fair eye contact. Speech is hyperverbal, somewhat pressured. Mood is irritable with congruent affect. Denies suicidal or homicidal ideation. I did not see her responding to internal stimuli though she reports that she has some auditory and visual hallucinations. She has been religiously preoccupied. She is grandiose and delusional. Insight and judgment are still limited. ASSESSMENT: Bipolar disorder type 1, most recent episode manic with psychotic features. PLAN: We will continue to adjust medications accordingly. Patient will be a good candidate for Abilify Maintena 400 mg IM monthly, which possibly may be a plan for her for better compliance and to keep her stable to stop her frequent admissions to inpatient psych unit. KELLEN / SANDRA: [id number] /
[2018-01-24] MEDS: QUEtiapine 100 MG TAB PO SCH (21:25)
[2018-01-25] MEDS: LORazepam 1 MG TAB PO PRN ×2 (00:30→10:52)
[2018-01-25] MEDS: NICOTINE 21MG/24HR PATCH TRANSDERM SCH (07:57)
[2018-01-25] MEDS: DIVALPROEX 500 MG TABLET.DR PO SCH ×2 (07:57→20:56)
[2018-01-25] MEDS: ARIPiprazole 15 MG TAB PO SCH (07:57)
[2018-01-25] MEDS: lamoTRIgine 100 MG TAB PO SCH (07:58)
--- NOTE | 2018-01-25 09:28 | P.PN ---
Progress Note - Text Interval history: The patient is found in the front that she follows me to an interview room. She reports she feels stable and ready to go home. Staff reported she slept only 3 hours last night. She remains hyperverbal. Thought process is not well organized. She states she plans to sign out AGAINST MEDICAL ADVICE. We discussed that we have started the court process for involuntary hospitalization and she should expect a visit from the court appointed tax associate attorney. Mental status exam: The patient is alert she is dressed in her own clothing hygiene is adequate. Eye contact is appropriate. Speech is fluent and spontaneous pressured. She demonstrates tangential thinking and loose associations. She was marginally directable. She is very stimulus bound/ distractible. She is reporting no suicidal or homicidal ideation. She is reporting no hallucinations. She does demonstrate some grandiose thinking. She demonstrates no verbal or physical aggressiveness. Insight and judgment are impaired. Plan: The patient will continue on the current medication. She is not yet due for a Depakote level. We will continue monitoring her for safety. Continues to have symptoms of yuki requiring further psychiatric hospitalization. Vital signs reviewed.
[2018-01-25 11:36] VITALS: BMI 21.1
[2018-01-25] MEDS: QUEtiapine 100 MG TAB PO SCH (21:56)
[2018-01-26] MEDS: DIVALPROEX 500 MG TABLET.DR PO SCH ×2 (08:00→20:46)
[2018-01-26] MEDS: NICOTINE 21MG/24HR PATCH TRANSDERM SCH (08:00)
[2018-01-26] MEDS: lamoTRIgine 100 MG TAB PO SCH (08:01)
[2018-01-26] MEDS: ARIPiprazole 15 MG TAB PO SCH (08:01)
--- NOTE | 2018-01-26 11:42 | P.PN ---
Progress Note - Text Interval history: The patient is found in the hallway she follows me to the library to speak. She did not wish to speak in the usual interview room. She requested that the library door be kept open during interview. She reports that she slept last night staff report that it was approximately 4 hours. Appetite is stable. She does have a deferral conference set for this morning. I attempted to discuss that with her. Mental status exam: The patient is alert she is dressed in her own clothing. Hygiene is adequate. Eye contact is staring in nature. Speech is fluent and spontaneous pressured. She continues to be tangential. At times she demonstrated insight into her treatment plan and then at other times during the session she seemed to lose that understanding of her treatment plan. She demonstrates no verbal or physical aggressiveness. She continues to have some grandiose thinking. Insight and general remains impaired as well as judgment. She reports no suicidal or homicidal thoughts she reports no auditory or visual hallucinations. Plan: The patient's will continue on her current medication we will draw a Depakote level tomorrow morning. We'll monitor her for safety and encourage participation in the milieu. She has not sufficiently stabilized yet in terms of her manic symptoms to warrant a discharge. Vital signs reviewed.
[2018-01-26] MEDS: QUEtiapine 100 MG TAB PO SCH (20:46)
[2018-01-26] MEDS: IBUPROFEN 800 MG TAB PO PRN (21:43)
[2018-01-27] MEDS: NICOTINE 21MG/24HR PATCH TRANSDERM SCH (08:41)
[2018-01-27] MEDS: ARIPiprazole 15 MG TAB PO SCH (08:41)
[2018-01-27] MEDS: DIVALPROEX 500 MG TABLET.DR PO SCH ×2 (08:42→19:53)
[2018-01-27] MEDS: lamoTRIgine 100 MG TAB PO SCH (08:42)
--- NOTE | 2018-01-27 09:29 | P.PN ---
Progress Note - Text Interval history: The patient is found in the front that she follows me to an interview room. She reports that her mood is stable today and again she is asking to be discharged. Staff informed me early this morning that the patient had fallen to the floor as she was trying to sit on her bed. She asked for an ice pack which was provided. She is complaining of no pain at this time she is able to ambulate appropriately and is asking for no further intervention. The patient reportedly slept approximate 4 hours last evening. She states she slept throughout the night. She shows me pictures that she has colored. She does spontaneously speak of a variety of topics. She did participate in the deferral conference yesterday and decided to defer the full hearing. Mental status exam: The patient is a female appearing her stated age. She presents with adequate hygiene grooming. Eye contact is staring in nature. Speech is fluent spontaneous still pressured. She is resistant to my efforts to redirect the conversation. She struggles with remaining quiet while I speak. She continues to demonstrate tangential thinking and loose associations no flight of ideas. She demonstrates lability of affect. At the beginning of the session she smiling and has a bright affect at the end of the session she is tearful and is agitated when leaving the room. She reports no suicidal or homicidal ideation intent or plan. She is endorsing no auditory or visual hallucinations. She did not provide responses to questions regarding inquiries of delusional thought. Plan: The patient will continue on her current medication. We will need to have her Depakote level drawn tomorrow morning. The Seroquel will be discontinued as it seems to be causing some hypotension in the evening. She requests melatonin which will be prescribed at 3 mg at bedtime. Vital signs reviewed. She is encouraged to continue working on maintaining a linear thought process and demonstrated no agitated behavior. We discussed that we are allowing the Depakote time to assist her in stabilizing her mood and affect.
[2018-01-27] MEDS ORDERED: MELATONIN 3 MG TABLET PO SCH (21:00)
[2018-01-28] MEDS: NICOTINE 21MG/24HR PATCH TRANSDERM SCH (08:39)
[2018-01-28] MEDS: ARIPiprazole 15 MG TAB PO SCH (08:39)
[2018-01-28] MEDS: DIVALPROEX 500 MG TABLET.DR PO SCH ×2 (08:39→20:57)
[2018-01-28] MEDS: lamoTRIgine 100 MG TAB PO SCH (08:39)
--- NOTE | 2018-01-28 09:57 | P.PN ---
Progress Note - Text Interval history: The patient is found in group she follows me to an interview room. She reports that her mood is good. She only slept 2 hours last night and does not feel tired. She reports getting upset last night as her visitor came late and she felt angry. Her Depakote level was drawn this morning her liver enzymes are within normal limits the Depakote level was 62. We discussed that we have room to titrate the dose further and she was agreeable. Again she asked for discharge every day but we discussed that she has not yet clinically stabilized. She has no other questions or concerns regarding her medication. Mental status exam: The patient is a thin female. She is alert. She is dressed in her own clothing hygiene grooming are adequate. She continues to carry several items with her including an emesis basin. She has several items in that basin. Eye contact is staring in nature. Speech is spontaneous fluent pressured. She does make an effort to stop her speech recognizing that she is again going off on a tangent. At other times with spontaneous speech she does demonstrate tangential thinking. She demonstrated no aggressiveness and did not appear irritable today. She is reporting no suicidal or homicidal ideation. She does not spontaneously discuss any paranoid or grandiose thinking however it is likely that some of that thinking still persists. She is oriented to person place and date. She demonstrates no abnormal involuntary movements. Plan: The patient will continue on her current psychotropic medications however we will titrate the Depakote to 500 mg in the morning 750 mg in the evening, Lamictal will be reduced to 100 mg daily, melatonin will be increased to 6 mg at bedtime. We will continue to monitor her for safety and encourage her participation in the milieu. He requires continued psychiatric hospitalization.
[2018-01-28] MEDS: MELATONIN 3 MG TABLET PO SCH (20:58)
[2018-01-29] MEDS: IBUPROFEN 800 MG TAB PO PRN (05:26)
[2018-01-29] MEDS: ARIPiprazole 15 MG TAB PO SCH (07:56)
[2018-01-29] MEDS: NICOTINE 21MG/24HR PATCH TRANSDERM SCH (07:56)
[2018-01-29] MEDS: lamoTRIgine 100 MG TAB PO SCH (07:56)
[2018-01-29] MEDS: DIVALPROEX 500 MG TABLET.DR PO SCH ×2 (07:56→20:07)
--- NOTE | 2018-01-29 09:16 | P.PN ---
Progress Note - Text Interval history: The patient is found in the hallway she follows me to an interview room. She reports that she is improving. She reported sleeping throughout the night staff recorded she slept over 5 hours which is an improvement. Appetite stable. Reviewed her psychotropic medication her questions were answered. She feels that the Depakote is providing stability. She has been attending groups. Again she anticipated a discharge today which we did not discuss. She states that she is willing to stay throughout the weekend and follow our recommendations. Mental status exam: The patient is a thin female appearing her stated age. She presents with adequate hygiene grooming. Eye contact is appropriate speech is fluent spontaneous less pressured. She is verbose. She does present a short story that is tangential to our original conversation. Afterwards she recognizes that this is tangential material and apologizes. She is reporting no suicidal or homicidal ideation. She demonstrates no verbal or physical aggressiveness. She is oriented to person place and date. Affect is expansive. She is more redirectable during the session. She continues to be intrusive and speech. Plan: The patient will continue on her current medication. We will plan to draw another Depakote level Thursday morning. We will assess her progress over the weekend. Anticipate she'll be appropriate for discharge this coming week. We will monitor her for safety. Vital signs reviewed.
[2018-01-29] MEDS: MELATONIN 3 MG TABLET PO SCH (21:14)
[2018-01-30] MEDS: NICOTINE 21MG/24HR PATCH TRANSDERM SCH (07:47)
[2018-01-30] MEDS: ARIPiprazole 15 MG TAB PO SCH (07:47)
[2018-01-30] MEDS: lamoTRIgine 100 MG TAB PO SCH (07:47)
[2018-01-30] MEDS: DIVALPROEX 500 MG TABLET.DR PO SCH ×2 (07:47→20:51)
--- NOTE | 2018-01-30 10:12 | P.PN ---
Progress Note - Text Interval history: The patient is found in group she follows me to an interview room. She indicates her mood is good she feels she is stabilizing. She believes she slept 6 hours staff recorded 5. Appetite stable. She has been attending groups. She is hoping that her significant other will visit today. We reviewed her psychotropic medications her questions were answered. Staff report that she is slowly stabilizing and that she is making a concerted effort to control her behavior. Mental status exam: The patient is alert she is a thin female appearing her stated age. Hygiene grooming are adequate. She seated calmly in the chair. She demonstrates no verbal or physical aggressiveness. Speech is fluent spontaneous she is hyperverbal but is making efforts to control that. She is more circumstantial than tangential at this point. She demonstrates no abnormal involuntary movements. Insight and judgment improving. She reports no suicidal or homicidal ideation intent or plan. She feels that her symptoms of paranoia are improving. Plan: The patient will continue on her current psychotropic medication. We plan to draw a Depakote level Thursday. She is slowly stabilizing. We will monitor her for safety and encourage continued participation in the therapeutic milieu.
[2018-01-30] MEDS: MELATONIN 3 MG TABLET PO SCH (20:52)
[2018-01-31 02:04] VITALS: RESP 12
[2018-01-31] MEDS: NICOTINE 21MG/24HR PATCH TRANSDERM SCH (07:51)
[2018-01-31] MEDS: lamoTRIgine 100 MG TAB PO SCH (07:51)
[2018-01-31] MEDS: ARIPiprazole 15 MG TAB PO SCH (07:52)
[2018-01-31] MEDS: DIVALPROEX 500 MG TABLET.DR PO SCH ×2 (07:52→20:40)
--- NOTE | 2018-01-31 10:32 | P.PN ---
Progress Note - Text Interval history: The patient is found in the hallway she follows me to an interview room. She reports that her mood continues to stabilize. She states that she slept 6 hours last evening staff recorded 4 hours. She continues to attend groups there been no reports of any behavioral disturbance in the last 24 hours. We reviewed her psychotropic medication. She has no questions or concerns regarding her medications. We discussed the possibility of using Abilify maintena and she is agreeable. We discussed drawing a Depakote level tomorrow morning. Appetite is been stable. She is demonstrating future oriented thinking. Mental status exam: The patient is alert she is a thin female appearing her stated age. She is dressed in her own clothing. Eye contact is appropriate speech is fluent spontaneous nonpressured. She is verbose but more controlled. She is more easily directable and session. Thinking is more linear she is briefly circumstantial she demonstrated no tangential thinking during our interaction. She demonstrated no loose associations or flight of ideas. She demonstrates no verbal or physical aggressiveness. She reports no suicidal or homicidal ideation intent or plan. She is endorsing no auditory or visual hallucinations she is endorsing no specific delusions specifically she states she does not feel paranoid. She demonstrates no abnormal involuntary movements. Affect is constricted. Plan: The patient will continue on her current psychotropic medications. She appears to be slowly stabilizing. We will likely initiate Abilify maintena tomorrow. We will await the results of the blood draw from tomorrow morning for her Depakote level. We will continue monitoring her for safety and encourage full participation in the milieu.
[2018-01-31] MEDS: MELATONIN 3 MG TABLET PO SCH (20:41)
[2018-02-01 06:07] VITALS: PULSE 80; TEMP 97.6
[2018-02-01 06:09] VITALS: BP 97/65
[2018-02-01 08:53] LABS: Valproic Acid (Depakene) 80.8 ug/mL
[2018-02-01] MEDS ORDERED: ARIPiprazole 400 MG VIAL (NO CHARGE) IM ONE (09:00)
[2018-02-01] MEDS ORDERED: ARIPiprazole IM SYRINGE 400 MG (NO CHARGE) IM ONE (09:00)
[2018-02-01] MEDS: ARIPiprazole 15 MG TAB PO SCH (09:07)
[2018-02-01] MEDS: NICOTINE 21MG/24HR PATCH TRANSDERM SCH (09:07)
[2018-02-01] MEDS: DIVALPROEX 500 MG TABLET.DR PO SCH (09:07)
[2018-02-01] MEDS: lamoTRIgine 100 MG TAB PO SCH (09:07)
--- NOTE | 2018-02-01 09:34 | P.DS ---
Providers Date of admission: 01/12/18 14:02 Expected date of discharge: 02/01/18 Attending physician: Kvng Keating Consults: 01/12/18 14:05 Consult Physician Routine Consulting Provider: Alireza Burton Jr Consult Reason/Comments: H&P for mental health admission Do you want consulting provider notified?: Yes Primary care physician: Alireza Burton - Discharge Diagnosis(es) (1) Bipolar I, recurrent manic episode, severe with psychotic behavior Current Visit: Yes Status: Acute Priority: High (2) Alcohol use disorder Current Visit: Yes Status: Acute Priority: High (3) Cocaine use disorder Current Visit: Yes Status: Acute Priority: High Hospital Course: Brief summary of admission note: This patient is a 52-year-old female who was admitted to the mental health unit through the emergency room with acute symptoms of yuki and psychosis. The patient was brought in by police that she was found walking into the river fully clothed area in the emergency room she was found to have disorganized thoughts and presented psychotic. Upon evaluation she stated that Yumiko galindo was trying to kill the human race. She reported that her father was a Satanist and she described various other paranoid and gnosticist type delusions in a disorganized fashion. Sleep had been very poor energy was "elizabeth high". For full details please refer to my psychiatric evaluation dated 01/13/2018. Summary of hospital course: The patient was admitted to the mental health unit she originally signed in voluntarily. During the course of the hospitalization she became less agreeable in terms of participating in treatment. We did initiate the court process and she met with her real estate attorney for a deferral conference. She decided to defer the court hearing. The patient's was placed on Abilify which was titrated to 30 mg daily she was placed on Depakote and this was titrated to 500 mg in the morning 750 mg in the evening. Her Depakote level as of this morning is 80.8 and her liver enzymes are within normal limits. The Lamictal was reduced to 100 mg daily and this may be titrated off in the outpatient setting. Melatonin was used to assist with sleep. The patient was agreeable to receiving the Abilify maintena injection which she will receive today 400 mg. We discussed the importance of her remaining abstinent from substances such as alcohol and cocaine. She was not interested in attending inpatient chemical dependency treatment. We spoke utilizing a medication to decrease urges to use substances but that was deferred as well. Over the course of the admission the patient has demonstrated an improved ability to sleep and she slept 6-1/2 hours last night. She is much more able to control her thought process and behavior. She is demonstrated no aggressive behavior in numerous days. She is able to attend to her ADLs. She no longer requires continued involuntary hospitalization. Mental status exam: The patient is a thin female appearing her stated age. Hygiene and grooming are adequate. Speech is fluent spontaneous nonpressured she can demonstrate some circumstantial thinking at times. She demonstrates no tangential thinking loose associations or flight of ideas. She reports no suicidal or homicidal ideation intent or plan. Affect is bright. She does not appear euphoric. She is endorsing no auditory or visual hallucinations she is reporting no specific delusions but she chronically has gnosticist type preoccupation. She demonstrates no verbal or physical aggressiveness she demonstrates no abnormal involuntary movements. She is oriented to person place and date. She is easily directed during the session. She demonstrates future oriented thinking. Impressions 1. Bipolar 1 disorder most recent manic with psychosis, alcohol use disorder, cocaine use disorder Plan: The patient will be discharged mental health unit today to return to her own residence. She will continue on Abilify 30 mg daily. She is scheduled to receive and Abilify maintena injection today of 400 mg. We will continue the oral medication for 14 more days. She will continue on Depakote 500 mg in the morning 750 mg in the evening, Lamictal 100 mg daily, melatonin 6 mg at bedtime. She will follow up with community mental health social work will make arrangements. She is instructed to abstain from any use of alcohol marijuana cocaine or any other illicit drugs. We discussed the use of these substances will exacerbate symptoms of psychosis and yuki and will elevate her safety risk. Again she is not interested in attending inpatient chemical dependency treatment and defers starting any medication for substance use at this time. Currently there is no imminent safety risk she is appropriate for transition outpatient care. She is instructed to return to the hospital with any acute safety concerns. Patient Condition at Discharge: Stable Plan - Discharge Summary Discharge Rx Participant: No New Discharge Prescriptions: New ARIPiprazole [Abilify] 30 mg PO DAILY #14 tab ARIPiprazole IM [Abilify Maintena] 400 mg IM QMONTH #1 vial Divalproex [Depakote] 500 mg PO BID #60 tablet. Divalproex [Depakote] 250 mg PO HS #30 tablet. lamoTRIgine [LaMICtal] 100 mg PO DAILY #30 tab Melatonin 6 mg PO HS #60 tablet Nicotine 21Mg/24Hr Patch [Habitrol] 1 patch TRANSDERM DAILY #10 patch Discontinued lamoTRIgine [LaMICtal] 50 mg PO BID buPROPion HCL [Wellbutrin XL] 300 mg PO DAILY QUEtiapine [SEROquel] 50 mg PO HS ARIPiprazole [Abilify] 20 mg PO DAILY Discharge Medication List ARIPiprazole IM [Abilify Maintena] 400 mg IM QMONTH #1 vial 02/01/18 [Rx] ARIPiprazole [Abilify] 30 mg PO DAILY #14 tab 02/01/18 [Rx] Divalproex [Depakote] 250 mg PO HS #30 tablet. 02/01/18 [Rx] Divalproex [Depakote] 500 mg PO BID #60 tablet. 02/01/18 [Rx] Melatonin 6 mg PO HS #60 tablet 02/01/18 [Rx] Nicotine 21Mg/24Hr Patch [Habitrol] 1 patch TRANSDERM DAILY #10 patch 02/01/18 [ Rx] lamoTRIgine [LaMICtal] 100 mg PO DAILY #30 tab 02/01/18 [Rx] Follow up Appointment(s)/Referral(s): [facility] [Outside] - 01/25/18 2:00 pm (w/ Dr. Holland) Alireza Burton Jr, [Primary Care Provider] - 1-2 days
== END 2018-02-01 15:05 | disposition home or self-care (01) | DRG 885 ==
LOC: EC 16:00 → 3MHU 01-12 14:02
PROVIDERS: ADMIT Psychiatry & Neurology Psychiatry; ATTEND Psychiatry & Neurology Psychiatry
DX: F31.2 Bipolar disorder, current episode manic severe with psychotic features (principal); F10.10 Alcohol abuse, uncomplicated; F14.10 Cocaine abuse, uncomplicated; F17.200 Nicotine dependence, unspecified, uncomplicated; F51.3 Sleepwalking [somnambulism]; Z79.899 Other long term (current) drug therapy; Z78.1 Physical restraint status; F41.9 Anxiety disorder, unspecified; F43.10 Post-traumatic stress disorder, unspecified; Z88.5 Allergy status to narcotic agent; Z88.0 Allergy status to penicillin
CPT/HCPCS: 36415; 71045; 80048; 80061; 80164; 80306; 80320; 82075; 82550; 82553; 82670; 83001; 83036; 83520; 83735; 84146; 84443; 84450; 84460; 84484; 84702; 84703; 85025; 93005; 96372; 99285

== ENCOUNTER 2019-01-05 13:55 | Inpatient (IN) | payer MEDICAID, OTHER ==
--- NOTE | 2019-01-05 14:40 | ED ---
General Adult HPI - General Source: patient, RN notes reviewed Mode of arrival: ambulatory Limitations: no limitations <Jack Faust - Last Filed: 01/05/19 16:38> <Jack Casas - Last Filed: 01/05/19 17:39> - General Chief complaint: Psychiatric Symptoms Stated complaint: EPS eval Time Seen by Provider: 01/05/19 14:05 - History of Present Illness Initial comments: This is a 53-year-old female presents emergency department stating that she is having suicidal thoughts and has been depressed for quite a while. Patient states she did attempt suicide once back in the s. Patient states she is currently addicted to crack cocaine and she has been doing it on a regular basis over the last 2 weeks and she was cleaned prior to that for a couple months but she has been doing crack cocaine since 2007. Patient states she did drink alcohol yesterday but has not had any today. Patient denies any physical problems today. Patient denies headache patient denies numbness weakness. Patient denies lightheadedness dizziness or near syncopal episode. Patient denies chest pain difficulty breathing shortness of breath per patient denies abdominal pain patient denies nausea vomiting diarrhea per patient denies any recent fever chills or cough. Patient states she hasn't had a period in 15 years. (Jack Faust) - Related Data Home Medications Medication Instructions Recorded Confirmed ARIPiprazole [Abilify] 10 mg PO DAILY 01/05/19 01/05/19 QUEtiapine [SEROquel] 100 mg PO HS 01/05/19 01/05/19 buPROPion HCL [Wellbutrin XL] 300 mg PO DAILY 01/05/19 01/05/19 Allergies Allergy/AdvReac Type Severity Reaction Status Date / Time codeine Allergy Unknown Verified 01/05/19 14:11 Penicillins Allergy Unknown Verified 01/05/19 14:11 Review of Systems ROS Other: All systems not noted in ROS Statement are negative. <Jack Faust - Last Filed: 01/05/19 16:38> ROS Other: All systems not noted in ROS Statement are negative. <Jack Casas - Last Filed: 01/05/19 17:39> ROS Statement: Those systems with pertinent positive or pertinent negative responses have been documented in the HPI. Past Medical History Past Medical History: No Reported History Additional Past Medical History / Comment(s): pt is a poor historian,rambling, excessive , "born with a heart defect" History of Any Multi-Drug Resistant Organisms: None Reported Additional Past Surgical History / Comment(s): D&C Past Anesthesia/Blood Transfusion Reactions: No Reported Reaction Past Psychological History: Anxiety, Bipolar, Depression, Schizoaffective Disorder Smoking Status: Current every day smoker Past Alcohol Use History: Occasional Past Drug Use History: Cocaine, Marijuana - Past Family History Mother Family Medical History: Unable to Obtain Father Family Medical History: No Reported History <Jack Faust - Last Filed: 01/05/19 16:38> General Exam Limitations: no limitations <Jack Faust - Last Filed: 01/05/19 16:38> General appearance: alert, in no apparent distress Head exam: Present: atraumatic, normocephalic, normal inspection Eye exam: Present: normal appearance, PERRL, EOMI. Absent: scleral icterus, conjunctival injection, periorbital swelling ENT exam: Present: normal exam, mucous membranes moist Neck exam: Present: normal inspection. Absent: tenderness, meningismus, lymphadenopathy Respiratory exam: Present: normal lung sounds bilaterally. Absent: respiratory distress, wheezes, rales, rhonchi, stridor Cardiovascular Exam: Present: regular rate, normal rhythm, normal heart sounds. Absent: systolic murmur, diastolic murmur, rubs, gallop, clicks GI/Abdominal exam: Present: soft, normal bowel sounds. Absent: distended, tenderness, guarding, rebound, rigid Extremities exam: Present: normal inspection, full ROM, normal capillary refill. Absent: tenderness, pedal edema, joint swelling, calf tenderness Back exam: Present: normal inspection Neurological exam: Present: alert, oriented X3, CN II-XII intact Psychiatric exam: Present: normal affect, normal mood Skin exam: Present: warm, dry, intact, normal color. Absent: rash <Jack Casas - Last Filed: 01/05/19 17:39> - General Exam Comments Initial Comments: GENERAL: Patient is well-developed and well-nourished. Patient is nontoxic and well- hydrated and is in no acute distress. ENT: Neck is soft and supple. No significant lymphadenopathy is noted. Oropharynx is clear. Moist mucous membranes. Neck has full range of motion without eliciting any pain. EYES: The sclera were anicteric and conjunctiva were pink and moist. Extraocular movements were intact and pupils were equal round and reactive to light. Eyelids were unremarkable. PULMONARY: Unlabored respirations. Good breath sounds bilaterally. No audible rales rhonchi or wheezing was noted. CARDIOVASCULAR: There is a regular rate and rhythm without any murmurs gallops or rubs. ABDOMEN: Soft and nontender with normal bowel sounds. SKIN: Skin is clear with no lesions or rashes and otherwise unremarkable. NEUROLOGIC: Patient is alert and oriented x3. Cranial nerves II through XII are grossly intact. Motor and sensory are also intact. Normal speech, volume and content. Symmetrical smile. MUSCULOSKELETAL: Normal extremities with adequate strength and full range of motion. No lower extremity swelling or edema. No calf tenderness. LYMPHATICS: No significant lymphadenopathy is noted PSYCHIATRIC: Patient states she has no recent illness and she would like to get off drugs but she is also thinking about killing herself. (Jack Faust) Course Vital Signs 01/05/19 14:07 Temperature 98.6 F Pulse Rate 82 Respiratory 18 Rate Blood Pressure 119/80 O2 Sat by Pulse 98 Oximetry Medical Decision Making <Jack Faust - Last Filed: 01/05/19 16:38> <Jack Casas - Last Filed: 01/05/19 17:39> - Medical Decision Making Augusto will take over the care of this patient at 5 PM (Jack Faust) 53 male to female the ER for evaluation. Patient be admitted for psychiatric evaluation and treatment (Jack Casas) - Lab Data Lab Results 01/05/19 Range/Units 14:46 Urine Opiates Screen Not Detected (NotDetected) Ur Oxycodone Screen Not Detected (NotDetected) Urine Methadone Screen Not Detected (NotDetected) Ur Propoxyphene Screen Not Detected (NotDetected) Ur Barbiturates Screen Not Detected (NotDetected) U Tricyclic Antidepress Not Detected (NotDetected) Ur Phencyclidine Scrn Not Detected (NotDetected) Ur Amphetamines Screen Not Detected (NotDetected) U Methamphetamines Scrn Not Detected (NotDetected) U Benzodiazepines Scrn Not Detected (NotDetected) Urine Cocaine Screen Detected H (NotDetected) U Marijuana (THC) Screen Not Detected (NotDetected) Disposition <Jack Faust - Last Filed: 01/05/19 16:38> Is patient prescribed a controlled substance at d/c from ED?: No <Jack Casas - Last Filed: 01/05/19 17:39> Clinical Impression: Depression, Suicidal ideation, Cocaine abuse, Psychosis Disposition: TRANSFER TO PSYCH HOSP/UNIT Condition: Fair Referrals: Alireza Burton Jr, DO [Primary Care Provider] - 1-2 days
[2019-01-05 15:11] LABS: Phencyclidine Screen,Urine Not Detected (NotDetected); Urn Cannabinoid Scrn Not Detected (NotDetected)
[2019-01-05 15:12] LABS: Amphetamine Screen,Urine Not Detected (NotDetected); Barbiturate Screen,Urine Not Detected (NotDetected); Benzodiazepines Screen,Urine Not Detected (NotDetected); Cocaine Screen,Urine Detected (NotDetected); Methadone Screen, Urine Not Detected (NotDetected); Opiate Screen,Urine Not Detected (NotDetected); Oxycodone Screen, Urine Not Detected (NotDetected); Tricyclic Antidepressant,Urine Not Detected (NotDetected)
[2019-01-05] MEDS ORDERED: LORazepam 1 MG TAB PO PRN (18:22)
[2019-01-05] MEDS ORDERED: ZIPRASIDONE 20 MG VIAL IM PRN (18:22)
[2019-01-05] MEDS ORDERED: MAGNESIUM HYDROXIDE 2,400 MG/10 ML CUP PO PRN (18:22)
[2019-01-05] MEDS ORDERED: ACETAMINOPHEN TAB 325 MG TAB PO PRN (18:22)
[2019-01-05] MEDS ORDERED: MAG HYDROX/AL HYDROX/SIMETH 30 ML CUP PO PRN (18:22)
[2019-01-05 18:53] VITALS: BMI 20.7
[2019-01-05] MEDS: NICOTINE 14MG/24HR PATCH TRANSDERM SCH (19:12)
[2019-01-05] MEDS ORDERED: QUEtiapine 100 MG TAB PO SCH (21:00)
[2019-01-06] MEDS: NICOTINE 14MG/24HR PATCH TRANSDERM SCH (09:10)
[2019-01-06] MEDS: ARIPiprazole 10 MG TAB PO SCH (09:10)
[2019-01-06 09:29] LABS: Basophils # (A) 0.1 k/uL (0-0.2); Basophils % (A) 1 %; Eosinophils # (A) 0.2 k/uL (0-0.7); Eosinophils % (A) 3 %; HCT 43.8 % (34.0-46.0); HGB 14.1 gm/dL (11.4-16.0); Lymphocytes # (A) 2.4 k/uL (1.0-4.8); Lymphocytes % (A) 47 %; MCH 30.2 pg (25.0-35.0); MCHC 32.1 g/dL (31.0-37.0); MCV 93.9 fL (80.0-100.0); Mean Platelet Volume 7.3; Monocytes # (A) 0.2 k/uL (0-1.0); Monocytes % (A) 4 %; Neutrophils # (A) 2.2 k/uL (1.3-7.7); Neutrophils % (A) 43 %; Platelet Count 263 k/uL (150-450); RBC 4.67 m/uL (3.80-5.40); RDW 14.4 % (11.5-15.5); WBC 5.1 k/uL (3.8-10.6)
[2019-01-06 09:31] LABS: Albumin 3.7 g/dL (3.5-5.0); Glucose 124 mg/dL (74-99); Total Protein 6.1 g/dL (6.3-8.2)
[2019-01-06 09:32] LABS: ALT 18 U/L (9-52); AST 18 U/L (14-36); African American GFR (CKD) >90 (>60 ml/min/1.73 sqM); Alkaline Phosphatase 46 U/L (38-126); Anion Gap 7 mmol/L; Bilirubin, Delta 0.1 mg/dL (0.0-0.2); Bilirubin,Unconjugated 0.2 mg/dL (0.0-1.1); Blood Urea Nitrogen 12 mg/dL (7-17); Calcium 9.4 mg/dL (8.4-10.2); Carbon Dioxide 26 mmol/L (22-30); Chloride 107 mmol/L (98-107); Cholesterol 222 mg/dL (<200); HDL Cholesterol 75 mg/dL (40-60); LDL Cholesterol,Calculated 123 mg/dL (0-99); Sodium 140 mmol/L (137-145); Total Bilirubin 0.3 mg/dL (0.2-1.3); Triglycerides 121 mg/dL (<150)
[2019-01-06] MEDS ORDERED: LORazepam 1 MG TAB PO PRN (12:55)
[2019-01-06] MEDS ORDERED: ARIPiprazole 5 MG TAB PO SCH (13:00)
[2019-01-06] MEDS: lamoTRIgine 25 MG TAB PO SCH ×2 (13:40→20:36)
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
[2019-01-06] MEDS: THIAMINE 100 MG TAB PO SCH (14:30)
[2019-01-06] MEDS: MULTIVITAMINS, THERA 1 EACH TAB PO SCH (14:31)
[2019-01-06 20:35] LABS: Hemoglobin A1C 5.2 % (4.0-6.0)
[2019-01-06] MEDS ORDERED: MELATONIN 3 MG TABLET PO SCH (21:00)
[2019-01-07] MEDS: ARIPiprazole 10 MG TAB PO SCH (08:45)
[2019-01-07] MEDS: THIAMINE 100 MG TAB PO SCH (08:45)
[2019-01-07] MEDS: lamoTRIgine 25 MG TAB PO SCH ×2 (08:45→20:39)
[2019-01-07] MEDS: NICOTINE 14MG/24HR PATCH TRANSDERM SCH (08:45)
[2019-01-07] MEDS: MULTIVITAMINS, THERA 1 EACH TAB PO SCH (08:45)
--- NOTE | 2019-01-07 12:34 | P.PN ---
Progress Note - Text Progress Note Date: 01/07/19 Interval History: Patient was seen in the hallways and was agreeable to speak to documentation writer in the o ffice. Patient claims that she did not have a good rest last night and felt that the melatonin was not enough to help her. She states that she is feeling a little bit "shaky" and feels that she is still going through withdrawals from her substance use. Patient was directable and understanding of the plan. She states that she has not been going to groups however was encouraged to do so. She claims that her mood is "not so good" and claims that her anxiety is the same with no improvement. Patient claims that she did shower and has been trying to maintain her hygiene and grooming. She admits to a fair appetite and fair energy and claims that she is worried about her cats and her children. At this time patient denies any suicidal or homical ideations, intent or plan. Patient denies any auditory, visual hallucinations and denies any paranoia or delusions. Patient denies any side effects from the medications and has been compliant with meds. Mental Status Exam: General Appearance: Patient appears to be older than stated age, is alert, blunted and somewhat cooperative. Patient continues to have poor hygiene and poor grooming. Behavior: Patient is calmly seated without any agitated behavior. Speech: Patient's speech is fluent and nonpressured. Mood/Affect: Patient reports their mood is "not so good", affect is congruent and blunted Suicidality/Homicidality: Patient denies having any suicidal or homicidal ideation intent or plan. Perceptions: Patient denies any auditory or visual hallucinations. Though content/process: There is no evidence of any delusional thought content and thought process is linear and goal-directed. Patient is concrete in her thought process. Memory and concentration: AOX3, grossly intact for the purposes of this session. Judgment and insight: Poor, improving mildly Assessment Bipolar disorder type I, currently depressed Alcohol use disorder Cocaine use disorder Nicotine dependence Plan: -Patient continues to meet criteria for inpatient psychiatric admission for symptom stabilization and safety. Patient signed adult voluntary form and medication consent which is in patient's chart. -Medications: We'll continue with Abilify 10 mg by mouth daily for mood stabilization with the plan to titrate up as tolerated. Will increase Lamictal to 25 mg daily +50 mg nightly for mood stabilization. Will switch patient from melatonin to trazodone 50 mg daily at bedtime for sleep and mood. -CIWA every 6 hours for alcohol withdrawal. -Ativan PRN for anxiety -Continue with thiamine, MVM for etoh use -NRT -nicotine patch -SW on board for discharge planning.
[2019-01-07] MEDS ORDERED: ALBUTEROL INHALER 60 PUFF/8 GM INHALER INHALATION PRN (17:05)
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
[2019-01-07] MEDS: SYMBICORT 160-4.5 MCG INHALER INHALATION SCH (19:39)
[2019-01-07] MEDS: traZODone HCL 50 MG TAB PO SCH (20:39)
[2019-01-07] MEDS ORDERED: lamoTRIgine 25 MG TAB PO SCH (21:00)
[2019-01-08] MEDS: MULTIVITAMINS, THERA 1 EACH TAB PO SCH (08:32)
[2019-01-08] MEDS: NICOTINE 14MG/24HR PATCH TRANSDERM SCH (08:32)
[2019-01-08] MEDS: THIAMINE 100 MG TAB PO SCH (08:32)
[2019-01-08] MEDS: ARIPiprazole 10 MG TAB PO SCH (08:32)
[2019-01-08] MEDS: lamoTRIgine 25 MG TAB PO SCH ×2 (08:32→20:33)
[2019-01-08] MEDS: SYMBICORT 160-4.5 MCG INHALER INHALATION SCH ×2 (12:39→20:33)
[2019-01-08] MEDS: FOLIC ACID 1 MG TAB PO SCH (12:41)
--- NOTE | 2019-01-08 16:15 | P.PN ---
Progress Note - Text Progress Note Date: 01/08/19 IDENTIFICATION DATA: 53-year-old female with a history of bipolar disorder, admitted to MHU due to medication non compliance, worsening depression, suicidal ideations and illicit drug use. INTERVAL HISTORY: Patient was seen today. She reports taking all her medications as prescribed. No side effects reported. She claims her medications have been helping her to sleep better. She reports spending most of her time sleeping and reading. She says her moods have been better and attributes it to being in the hospital. Reports good appetite. MENTAL STATUS EXAMINATION: 53 year old woman. Appears her stated age, dressed in hospital gown . Maintains good eye contact. speech and thought process are goal directed. Mood is reported as ok and affect constricted. Denies current auditory or visual hallucinations and paranoid ideations. She is alert and oriented x 4. Denies current suicidal or homicidal ideations. insight and judgment are improving ASSESSMENT Bipolar disorder type I, currently depressed PLAN: Continue Abilify ,Lamictal and trazodone
[2019-01-08] MEDS: traZODone HCL 50 MG TAB PO SCH (20:33)
[2019-01-08] MEDS: CLOTRIMAZOLE 1% CREAM 15 GM TUBE TOPICAL SCH (20:52)
[2019-01-09] MEDS: SYMBICORT 160-4.5 MCG INHALER INHALATION SCH ×2 (08:46→20:39)
[2019-01-09] MEDS: NICOTINE 14MG/24HR PATCH TRANSDERM SCH (08:46)
[2019-01-09] MEDS: ARIPiprazole 10 MG TAB PO SCH (08:46)
[2019-01-09] MEDS: FOLIC ACID 1 MG TAB PO SCH (08:48)
[2019-01-09] MEDS: CLOTRIMAZOLE 1% CREAM 15 GM TUBE TOPICAL SCH ×2 (08:48→20:39)
[2019-01-09] MEDS: lamoTRIgine 25 MG TAB PO SCH ×2 (08:48→20:37)
[2019-01-09] MEDS: THIAMINE 100 MG TAB PO SCH (08:48)
[2019-01-09] MEDS: MULTIVITAMINS, THERA 1 EACH TAB PO SCH (08:48)
--- NOTE | 2019-01-09 18:40 | P.PN ---
Progress Note - Text Progress Note Date: 01/09/19 IDENTIFICATION DATA: 53-year-old female with a history of bipolar disorder, admitted to MHU due to medication non compliance, worsening depression, suicidal ideations and illicit drug use. INTERVAL HISTORY: Patient was seen today. She rates her depression at 5/10, 10 being worst. Sys her medications are helping her with mood. Reports getting 8 hours sleep. She reports following unit routine. Has been eating well. She reports taking all her medications as prescribed. No side effects reported. MENTAL STATUS EXAMINATION: 53 year old woman. Appears in fair grooming and hygiene. speech and thought process are goal directed. Mood is reported as ok and affect constricted. Denies current auditory or visual hallucinations and paranoid ideations. She is alert and oriented x 4. Denies current suicidal or homicidal ideations. insight and judgment are improving ASSESSMENT Bipolar disorder type I, currently depressed PLAN: Continue Abilify ,Lamictal and trazodone
[2019-01-09] MEDS: traZODone HCL 50 MG TAB PO SCH (20:36)
[2019-01-10] MEDS: NICOTINE 14MG/24HR PATCH TRANSDERM SCH (09:20)
[2019-01-10] MEDS: lamoTRIgine 25 MG TAB PO SCH ×2 (09:20→20:31)
[2019-01-10] MEDS: CLOTRIMAZOLE 1% CREAM 15 GM TUBE TOPICAL SCH ×2 (09:20→20:31)
[2019-01-10] MEDS: MULTIVITAMINS, THERA 1 EACH TAB PO SCH (09:20)
[2019-01-10] MEDS: ARIPiprazole 10 MG TAB PO SCH (09:20)
[2019-01-10] MEDS: THIAMINE 100 MG TAB PO SCH (09:20)
[2019-01-10] MEDS: SYMBICORT 160-4.5 MCG INHALER INHALATION SCH ×2 (09:22→20:30)
[2019-01-10] MEDS: FOLIC ACID 1 MG TAB PO SCH (09:22)
--- NOTE | 2019-01-10 11:37 | P.PN ---
Progress Note - Text Progress Note Date: 01/10/19 Interval History: Patient was seen in the hallways and was agreeable to speak to health technical writer in the office. Patient claims that she continues to have poor sleep at night and was requesting an increase in her trazodone. She states that she is feeling better with regard to her withdrawal symptoms however claims that she still feeling somewhat depressed and feels that her Lamictal should be at a higher dose. Patient denies any rash on her skin at this time. Patient was directable and understanding. She admits to a fair appetite and fair energy. Patient continues to have limited insight on her substance use and states that her main priority is to get her electricity turned on at [facility] and does not speak about her addiction and her substance use. At this time patient denies any suicidal or homical ideations, intent or plan. Patient denies any auditory, visual hallucinations and denies any paranoia or delusions. Patient denies any side effects from the medications and has been compliant with meds. Mental Status Exam: General Appearance: Patient appears to be older than stated age, is alert, blunted and somewhat cooperative. Patient has improving hygiene and poor grooming. Behavior: Patient is calmly seated without any agitated behavior. Speech: Patient's speech is fluent and nonpressured. Mood/Affect: Patient reports their mood is "the same", affect is congruent and blunted Suicidality/Homicidality: Patient denies having any suicidal or homicidal ideation intent or plan. Perceptions: Patient denies any auditory or visual hallucinations. Though content/process: There is no evidence of any delusional thought content and thought process is linear and goal-directed. Patient is concrete in her thought process. Memory and concentration: AOX3, grossly intact for the purposes of this session. Judgment and insight: Poor, improving mildly Assessment Bipolar disorder type I, currently depressed Alcohol use disorder Cocaine use disorder Nicotine dependence Plan: -Patient continues to meet criteria for inpatient psychiatric admission for symptom stabilization and safety. Patient signed adult voluntary form and medication consent which is in patient's chart. -Medications: We'll continue with Abilify 10 mg by mouth daily for mood stabilization with the plan to titrate up as tolerated. Will increase Lamictal to 50 mg daily +50 mg nightly for mood stabilization. Will increase trazodone to 100 mg daily at bedtime for sleep and mood. -Ativan PRN for anxiety -Continue with thiamine, MVM for etoh use -NRT -nicotine patch -SW on board for discharge planning. Likely discharge this week. Patient still considering substance use treatment/rehab as disposition.
[2019-01-10] MEDS: traZODone HCL 100 MG TAB PO SCH (20:31)
[2019-01-11] MEDS: NICOTINE 14MG/24HR PATCH TRANSDERM SCH (08:41)
[2019-01-11] MEDS: CLOTRIMAZOLE 1% CREAM 15 GM TUBE TOPICAL SCH ×2 (08:41→20:32)
[2019-01-11] MEDS: ARIPiprazole 10 MG TAB PO SCH (08:42)
[2019-01-11] MEDS: SYMBICORT 160-4.5 MCG INHALER INHALATION SCH ×2 (08:42→20:33)
[2019-01-11] MEDS: THIAMINE 100 MG TAB PO SCH (08:43)
[2019-01-11] MEDS: MULTIVITAMINS, THERA 1 EACH TAB PO SCH (08:43)
[2019-01-11] MEDS: lamoTRIgine 25 MG TAB PO SCH ×2 (08:43→20:33)
[2019-01-11] MEDS: FOLIC ACID 1 MG TAB PO SCH (08:43)
--- NOTE | 2019-01-11 11:25 | P.PN ---
Progress Note - Text Progress Note Date: 01/11/19 Interval History: Patient was seen in her room and was agreeable to speak to sba underwriter in the office. Patient claims that her sleep is improving on the current dose of trazodone and thanks sba underwriter, claiming that she got 6-8 hours last night's sleep. She states that she is feeling better with regard to her depression and mood stability. Patient denies any rash on her skin at this time. Patient was directable and understanding. She admits to a fair appetite and fair energy. Patient continues to have poor insight on her substance use and when asked about rehab, patient states that she would like to quit on her own. Patient has been going to some groups, selectively and trying to participate. At this time patient denies any suicidal or homical ideations, intent or plan. Patient denies any auditory, visual hallucinations and denies any paranoia or delusions. Patient denies any side effects from the medications and has been compliant with meds. Mental Status Exam: General Appearance: Patient appears to be older than stated age, is alert, blunted and cooperative. Patient has improving hygiene and poor grooming. Behavior: Patient is calmly seated without any agitated behavior. Speech: Patient's speech is fluent and nonpressured. Mood/Affect: Patient reports their mood is "a little bit better", affect is congruent and blunted Suicidality/Homicidality: Patient denies having any suicidal or homicidal ideation intent or plan. Perceptions: Patient denies any auditory or visual hallucinations. Though content/process: There is no evidence of any delusional thought content and thought process is linear and goal-directed. Patient is concrete in her thought process. Memory and concentration: AOX3, grossly intact for the purposes of this session. Judgment and insight: Poor, improving mildly Assessment Bipolar disorder type I, currently depressed Alcohol use disorder Cocaine use disorder Nicotine dependence Plan: -Patient continues to meet criteria for inpatient psychiatric admission for symptom stabilization and safety. Patient signed adult voluntary form and me dication consent which is in patient's chart. -Medications: We'll continue with Abilify 10 mg by mouth daily for mood stabilization with the plan to titrate up as tolerated. Will continue with Lamictal to 50 mg daily +50 mg nightly for mood stabilization. Will continue with trazodone 100 mg daily at bedtime for sleep and mood. -Ativan PRN for anxiety -Continue with thiamine, MVM for etoh use -NRT -nicotine patch -SW on board for discharge planning. Patient will following up with [facility] upon discharge.
[2019-01-11] MEDS: traZODone HCL 100 MG TAB PO SCH (20:33)
[2019-01-12 07:27] VITALS: RESP 16
[2019-01-12] MEDS: THIAMINE 100 MG TAB PO SCH (08:31)
[2019-01-12] MEDS: FOLIC ACID 1 MG TAB PO SCH (08:31)
[2019-01-12] MEDS: NICOTINE 14MG/24HR PATCH TRANSDERM SCH (08:31)
[2019-01-12] MEDS: lamoTRIgine 25 MG TAB PO SCH ×2 (08:31→20:36)
[2019-01-12] MEDS: MULTIVITAMINS, THERA 1 EACH TAB PO SCH (08:31)
[2019-01-12] MEDS: SYMBICORT 160-4.5 MCG INHALER INHALATION SCH ×2 (08:32→20:36)
[2019-01-12] MEDS: CLOTRIMAZOLE 1% CREAM 15 GM TUBE TOPICAL SCH ×2 (08:34→20:39)
[2019-01-12] MEDS: ARIPiprazole 10 MG TAB PO SCH (08:35)
--- NOTE | 2019-01-12 11:24 | P.PN ---
Progress Note - Text Progress Note Date: 01/12/19 Interval History: Patient was seen in her room and was agreeable to speak to press writer in the office. Patient claims that her sleep and night was not good last night. She states that she only got 2-3 hours of rest and states that she did feel like he had a "restless leg" which she states that she has been dealing with for years. Patient claims that her depression and mood have been gradually improving on the current medications. Patient denies any rash on her skin at this time. Patient was directable and understanding and cooperative during interview however continues to have a constricted affect. She admits to a fair appetite and fair energy. Patient was focused on discharge. Patient has been going to some groups, selectively and trying to participate. At this time patient denies any suicidal or homical ideations, intent or plan. Patient denies any auditory, visual hallucinations and denies any paranoia or delusions. Patient denies any side effects from the medications and has been compliant with meds. Mental Status Exam: General Appearance: Patient appears to be older than stated age, is alert, blunted and cooperative. Patient has fair hygiene and poor grooming. Behavior: Patient is calmly seated without any agitated behavior. Speech: Patient's speech is fluent and nonpressured. Mood/Affect: Patient reports their mood is "about the same", affect is congruent and blunted Suicidality/Homicidality: Patient denies having any suicidal or homicidal ideation intent or plan. Perceptions: Patient denies any auditory or visual hallucinations. Though content/process: There is no evidence of any delusional thought content and thought process is linear and goal-directed. Patient is concrete in her thought process and focused on discharge Memory and concentration: AOX3, grossly intact for the purposes of this session. Judgment and insight: Poor, improving mildly Assessment Bipolar disorder type I, currently depressed Alcohol use disorder Cocaine use disorder Nicotine dependence Plan: -Patient continues to meet criteria for inpatient psychiatric admission for symptom stabilization and safety. Patient signed adult voluntary form and medication consent which is in patient's chart. -Medications: We'll continue with Abilify 10 mg by mouth daily for mood stabilization with the plan to titrate up as tolerated. Will continue increasing Lamictal to 75 mg daily +50 mg nightly for mood stabilization. Will continue with trazodone 100 mg daily at bedtime for sleep and mood. -Ativan PRN for anxiety -Continue with thiamine, MVM for etoh use -NRT - nicotine patch -SW on board for discharge planning. Patient will following up with [facility] upon discharge. Likely discharge for the end of the week.
[2019-01-12] MEDS: traZODone HCL 100 MG TAB PO SCH (20:36)
[2019-01-12] MEDS: GABAPENTIN 400 MG CAP PO SCH (20:36)
[2019-01-13] MEDS: SYMBICORT 160-4.5 MCG INHALER INHALATION SCH ×2 (08:54→20:38)
[2019-01-13] MEDS: NICOTINE 14MG/24HR PATCH TRANSDERM SCH (08:54)
[2019-01-13] MEDS: MULTIVITAMINS, THERA 1 EACH TAB PO SCH (08:55)
[2019-01-13] MEDS: lamoTRIgine 25 MG TAB PO SCH ×2 (08:55→20:38)
[2019-01-13] MEDS: THIAMINE 100 MG TAB PO SCH (08:55)
[2019-01-13] MEDS: FOLIC ACID 1 MG TAB PO SCH (08:55)
[2019-01-13] MEDS: CLOTRIMAZOLE 1% CREAM 15 GM TUBE TOPICAL SCH ×2 (08:55→20:38)
[2019-01-13] MEDS: ARIPiprazole 10 MG TAB PO SCH (08:55)
--- NOTE | 2019-01-13 12:48 | P.PN ---
Progress Note - Text Progress Note Date: 01/13/19 Interval History: Patient was seen in her room and was agreeable to speak to senior underwriter in the office. Patient claims that she slept much better last night and did not have restless leg symptoms. She states that the gabapentin really helped with this and thanked senior underwriter. Patient claims that her depression and mood have been gradually improving on the current medications and states that her mood is currently a 6 out of 10 and may need some improvement. Patient denies any rash on her skin at this time and states that she is checking every day. Patient was directable and understanding and cooperative during interview, has a blunted affect and is concrete. She admits to a fair appetite and fair energy. Patient continues to be focused on discharge. She states that she has only been going to have to groups and claims that she is not learning much from them, patient was encouraged to attend more and be more interactive with others. At this time patient denies any suicidal or homical ideations, intent or plan. Patient denies any auditory, visual hallucinations and denies any paranoia or delusions. Patient denies any side effects from the medications and has been compliant with meds. Mental Status Exam: General Appearance: Patient appears to be older than stated age, is alert, bl unted and cooperative. Patient has fair hygiene and poor grooming. Behavior: Patient is calmly seated without any agitated behavior. Speech: Patient's speech is fluent and nonpressured. Mood/Affect: Patient reports their mood is "a little bit better", affect is congruent and blunted Suicidality/Homicidality: Patient denies having any suicidal or homicidal ideation intent or plan. Perceptions: Patient denies any auditory or visual hallucinations. Though content/process: There is no evidence of any delusional thought content and thought process is linear and goal-directed. Patient is concrete in her thought process and focused on discharge Memory and concentration: AOX3, grossly intact for the purposes of this session. Judgment and insight: Poor, improving mildly Assessment Bipolar disorder type I, currently depressed Alcohol use disorder Cocaine use disorder Nicotine dependence Plan: -Patient continues to meet criteria for inpatient psychiatric admission for symptom stabilization and safety. Patient signed adult voluntary form and medication consent which is in patient's chart. -Medications: We'll continue with Abilify 10 mg by mouth daily for mood stabilization with the plan to titrate up as tolerated. Will continue increasing Lamictal to 75 mg daily + 75 mg nightly for mood stabilization. Will continue with trazodone 100 mg daily at bedtime for sleep and mood. -Gabapentin 400 mg daily at bedtime for RLS symptoms. -Ativan PRN for anxiety -Continue with thiamine, MVM for etoh use -NRT - nicotine patch - on board for discharge planning. Patient will following up with [facility] upon discharge. Likely discharge early next week.
[2019-01-13] MEDS: valACYclovir HCL 1,000 MG TABLET PO SCH ×2 (14:38→23:56)
[2019-01-13] MEDS: traZODone HCL 100 MG TAB PO SCH (20:38)
[2019-01-13] MEDS: GABAPENTIN 400 MG CAP PO SCH (20:38)
[2019-01-14] MEDS: THIAMINE 100 MG TAB PO SCH (08:56)
[2019-01-14] MEDS: NICOTINE 14MG/24HR PATCH TRANSDERM SCH (08:56)
[2019-01-14] MEDS: lamoTRIgine 25 MG TAB PO SCH ×2 (08:57→20:10)
[2019-01-14] MEDS: ARIPiprazole 10 MG TAB PO SCH (08:57)
[2019-01-14] MEDS: MULTIVITAMINS, THERA 1 EACH TAB PO SCH (08:57)
[2019-01-14] MEDS: FOLIC ACID 1 MG TAB PO SCH (08:58)
[2019-01-14] MEDS: SYMBICORT 160-4.5 MCG INHALER INHALATION SCH ×2 (09:05→21:10)
[2019-01-14] MEDS: CLOTRIMAZOLE 1% CREAM 15 GM TUBE TOPICAL SCH ×2 (09:20→20:09)
--- NOTE | 2019-01-14 12:58 | P.PN ---
Progress Note - Text Progress Note Date: 01/14/19 Interval History: Patient was seen in her room and was agreeable to speak to field underwriter in the office. Patient continues to have a constricted affect. Patient claims that she slept well last night and does not complain of restless leg symptoms at this time. She claims that her depression and mood have been gradually improving and states that she is trying to interact with other people and was noticed earlier to be speaking in group and expressing her feelings. She denies any anxiety at this time. Patient denies any rash on her skin at this time and states that she is checking every day. Patient was directable and understanding and cooperative during interview. She admits to a fair appetite and fair energy. Patient continues to be focused on discharge. At this time patient denies any suicidal or homical ideations, intent or plan. Patient denies any auditory, visual hallucinations and denies any paranoia or delusions. Patient denies any side effects from the medications and has been compliant with meds. Patient continues to have poor insight into her substance use and continues to state that she does not want to go to rehab. Mental Status Exam: General Appearance: Patient appears to be older than stated age, is alert, blunted and cooperative. Patient has fair hygiene and poor grooming, improving. Behavior: Patient is calmly seated without any agitated behavior. Speech: Patient's speech is fluent and nonpressured. Mood/Affect: Patient reports their mood is "better", affect is congruent and blunted Suicidality/Homicidality: Patient denies having any suicidal or homicidal ideation intent or plan. Perceptions: Patient denies any auditory or visual hallucinations. Though content/process: There is no evidence of any delusional thought content and thought process is linear and goal-directed. Patient is concrete in her thought process. Memory and concentration: AOX3, grossly intact for the purposes of this session. Judgment and insight: Superficial, improving mildly Assessment Bipolar disorder type I, currently depressed Alcohol use disorder Cocaine use disorder Nicotine dependence Plan: -Patient continues to meet criteria for inpatient psychiatric admission for symptom stabilization and safety. Patient signed adult voluntary form and medication consent which is in patient's chart. -Medications: We'll continue with Abilify 10 mg by mouth daily for mood stabilization with the plan to titrate up as tolerated. Will continue with Lamictal to 75 mg daily + 75 mg nightly for mood stabilization. Will continue with trazodone 100 mg daily at bedtime for sleep and mood. -Gabapentin 400 mg daily at bedtime for RLS symptoms. -Ativan PRN for anxiety -Continue with thiamine, MVM for etoh use -NRT - nicotine patch - on board for discharge planning. Patient will following up with [facility] upon discharge. Likely discharge Thursday.
[2019-01-14] MEDS: GABAPENTIN 400 MG CAP PO SCH (20:10)
[2019-01-14] MEDS: traZODone HCL 100 MG TAB PO SCH (20:10)
[2019-01-15] MEDS: NICOTINE 14MG/24HR PATCH TRANSDERM SCH (08:22)
[2019-01-15] MEDS: FOLIC ACID 1 MG TAB PO SCH (08:23)
[2019-01-15] MEDS: MULTIVITAMINS, THERA 1 EACH TAB PO SCH (08:23)
[2019-01-15] MEDS: lamoTRIgine 25 MG TAB PO SCH ×2 (08:23→20:35)
[2019-01-15] MEDS: THIAMINE 100 MG TAB PO SCH (08:23)
[2019-01-15] MEDS: SYMBICORT 160-4.5 MCG INHALER INHALATION SCH ×2 (08:23→20:35)
[2019-01-15] MEDS: ARIPiprazole 10 MG TAB PO SCH (08:25)
[2019-01-15] MEDS: CLOTRIMAZOLE 1% CREAM 15 GM TUBE TOPICAL SCH ×2 (08:25→20:36)
--- NOTE | 2019-01-15 14:30 | P.PN ---
Progress Note - Text Progress Note Date: 01/15/19 Interval history: Patient is seen in cross coverage today. She does describe that she is feeling better. She feels like she will be ready for discharge this coming Thursday. She has talked with her son and her mom who are both supportive. She does not voice any adverse psychotropic medication side effects. She is eating better. Mental status exam: She is alert and cooperative with the interview. Her speech is fluent, not rapid or pressured. Thought processes are organized. Her mood is improved. She denies any current thoughts of harm to self. She does not voice any thoughts of harm to others. No evidence of psychosis or agitation. Plan: Patient will be maintained on current psychotropic medication regimen. We'll continue to monitor for any medication side effects and monitor her ongoing response to treatment.
[2019-01-15] MEDS: traZODone HCL 100 MG TAB PO SCH (20:35)
[2019-01-15] MEDS: GABAPENTIN 400 MG CAP PO SCH (20:35)
[2019-01-16] MEDS: CLOTRIMAZOLE 1% CREAM 15 GM TUBE TOPICAL SCH ×2 (09:17→20:38)
[2019-01-16] MEDS: NICOTINE 14MG/24HR PATCH TRANSDERM SCH (09:19)
[2019-01-16] MEDS: THIAMINE 100 MG TAB PO SCH (09:19)
[2019-01-16] MEDS: lamoTRIgine 25 MG TAB PO SCH ×2 (09:19→20:37)
[2019-01-16] MEDS: FOLIC ACID 1 MG TAB PO SCH (09:19)
[2019-01-16] MEDS: MULTIVITAMINS, THERA 1 EACH TAB PO SCH (09:19)
[2019-01-16] MEDS: ARIPiprazole 10 MG TAB PO SCH (09:19)
[2019-01-16] MEDS: SYMBICORT 160-4.5 MCG INHALER INHALATION SCH ×2 (09:20→20:38)
--- NOTE | 2019-01-16 15:01 | P.PN ---
Progress Note - Text Progress Note Date: 01/16/19 Interval history: Patient is seen in [facility] today. She reports she slept about 9 hours last night. She seems to be eating well. She reports that she has some things to take care of after discharge such as filling all her paperwork for disability and going to [employer] office. She does not verbalize any adverse psychotropic medication side effects. She does feel like she'll be ready for discharge tomorrow. Mental status exam: She is alert and cooperative with the interview. Her speech is fluent, not rapid or pressured. Thought processes organized. Her mood is showing improved status. She denies any thoughts of harm to self or others. No evidence of psychosis or agitation. Plan: She will be maintained on current psychotropic medication regimen. Continue to monitor for any medication side effects and monitor her ongoing response to treatment.
[2019-01-16] MEDS: traZODone HCL 100 MG TAB PO SCH (20:37)
[2019-01-16] MEDS: GABAPENTIN 400 MG CAP PO SCH (20:37)
[2019-01-17 05:29] VITALS: BP 92/51; PULSE 93; TEMP 98.3
[2019-01-17] MEDS: NICOTINE 14MG/24HR PATCH TRANSDERM SCH (08:22)
[2019-01-17] MEDS: lamoTRIgine 25 MG TAB PO SCH (08:22)
[2019-01-17] MEDS: SYMBICORT 160-4.5 MCG INHALER INHALATION SCH (08:23)
[2019-01-17] MEDS: MULTIVITAMINS, THERA 1 EACH TAB PO SCH (08:23)
[2019-01-17] MEDS: FOLIC ACID 1 MG TAB PO SCH (08:23)
[2019-01-17] MEDS: ARIPiprazole 10 MG TAB PO SCH (08:23)
[2019-01-17] MEDS: THIAMINE 100 MG TAB PO SCH (08:23)
[2019-01-17] MEDS: CLOTRIMAZOLE 1% CREAM 15 GM TUBE TOPICAL SCH (08:45)
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
== END 2019-01-17 13:47 | disposition home or self-care (01) | DRG 885 ==
LOC: EC 13:55 → 3MHU 17:48
PROVIDERS: ADMIT Psychiatry & Neurology Psychiatry; ATTEND Psychiatry & Neurology Psychiatry
DX: F31.30 Bipolar disorder, current episode depressed, mild or moderate severity, unspecified (principal); F14.20 Cocaine dependence, uncomplicated; R45.851 Suicidal ideations; F10.239 Alcohol dependence with withdrawal, unspecified; F41.9 Anxiety disorder, unspecified; G25.81 Restless legs syndrome; I10 Essential (primary) hypertension; J44.9 Chronic obstructive pulmonary disease, unspecified; Z91.5 Personal history of self-harm; F17.210 Nicotine dependence, cigarettes, uncomplicated; Z71.6 Tobacco abuse counseling; Z79.899 Other long term (current) drug therapy; Z88.5 Allergy status to narcotic agent; Z88.0 Allergy status to penicillin
CPT/HCPCS: 80053; 80061; 80306; 82075; 82248; 83036; 84443; 85025; 99285

== ENCOUNTER → 2019-05-25 | Outpatient (CLI) | payer OTHER ==
--- NOTE | 2019-05-25 09:47 | US ---
EXAMINATION TYPE: US gallbladder DATE OF EXAM: 05/25/2019 COMPARISON: NONE CLINICAL HISTORY: RUQ abd pain R10.11. Pain and vomiting. EXAM MEASUREMENTS: Liver Length: 15.2 cm Gallbladder Wall: .14 cm CBD: .3 cm Right Kidney: 11.1 x 3.1 x 4.5 cm Pancreas: wnl Liver: wnl Gallbladder: wnl Evidence for sonographic Curiel's sign: No CBD: wnl Right Kidney: wnl IMPRESSION: 1. Normal right upper quadrant ultrasound
== END | disposition home or self-care (01) ==
LOC: RADUSWWP 08:39
PROVIDERS: ATTEND Family Medicine
DX: R10.11 Right upper quadrant pain (principal); Z88.0 Allergy status to penicillin
CPT/HCPCS: 76705

== ENCOUNTER 2020-04-04 23:20 | Emergency (ER) | payer OTHER ==
[2020-04-04 23:25] VITALS: PULSE 94
[2020-04-05] MEDS ORDERED: KETOROLAC 15 MG/ML 1 ML VIAL IM STA (00:02)
--- NOTE | 2020-04-05 00:21 | XR ---
EXAMINATION TYPE: XR lumbar spine 2 or 3V DATE OF EXAM: 04/05/2020 COMPARISON: NONE HISTORY: Back pain TECHNIQUE: 3 views FINDINGS: There is slight levoscoliosis. Vertebra otherwise have normal alignment. Disc spaces appear normal for age. There is no compression fracture. Sacroiliac joints appear intact. IMPRESSION: Slight levoscoliosis. Otherwise negative exam.
[2020-04-05] MEDS ORDERED: predniSONE 50 MG TAB PO STA (00:33)
[2020-04-05] MEDS ORDERED: IBUPROFEN 600 MG STARTER PACK 4 TAB BTL PO STA (00:51)
--- NOTE | 2020-04-05 00:51 | ED ---
General Adult HPI - General Chief complaint: Back Pain/Injury Stated complaint: Lower Back Pain Time Seen by Provider: 04/04/20 23:28 Source: patient, RN notes reviewed, old records reviewed Mode of arrival: ambulatory Limitations: no limitations - History of Present Illness Initial comments: 54-year-old female patient to ED with left paralumbar back pain ongoing for last 3 weeks. Patient has porches history of chronic back pain. She reports that she does have some waxing and waning paresthesias that go down the legs but none this time. Denies any recent falls or trauma. Patient reports she has been more active recently outside doing yardwork raking leaves which she believes caused this exacerbation. Denies any saddle anesthesia or loss of bowel or bladder control. Systemic: Pt denies fatigue, fever/chills, rash. Pt denies weakness, night sweats, weight loss. Neuro: Pt denies headache, visual disturbances, syncope or pre-syncope. HEENT: Pt denies ocular discharge or irritation, otalgia, rhinorrhea, pharyngitis or notable lymphadenopathy. Cardiopulmonary: Pt denies chest pain, SOB, heart palpitations, dyspnea on exertion. Abdominal/GI: Pt denies abdominal pain, n/v/d. : Pt denies dysuria, burning w/ urination, frequency/urgency. Denies new onset urinary or bowel incontinence. MSK: Pt denies loss of strength or function in extremities. Neuro: Pt denies new onset weakness, paresthesias. - Related Data Previous Rx's Medication Instructions Recorded ARIPiprazole [Abilify] 10 mg PO DAILY #14 tab 01/17/19 Albuterol Inhaler (Mhu) [Ventolin 2 puff INHALATION RT-TID PRN #1 01/17/19 Hfa Inhaler (Mhu)] puff Budesonide-Formot 160-4.5 Mcg 2 puff INHALATION RT-BID #2 puff 01/17/19 [Symbicort 160-4.5 Mcg Inhaler] Clotrimazole Cream [Lotrimin Cream] 1 applic TOPICAL BID applic 01/17/19 Folic Acid 1 mg PO DAILY tab 01/17/19 Gabapentin [Neurontin] 400 mg PO HS #14 cap 01/17/19 Multivitamins, Thera [Multivitamin 1 each PO DAILY tab 09/09/19 (formulary)] Nicotine 14Mg/24Hr Patch [Habitrol] 1 patch TRANSDERM DAILY #14 patch 01/17/19 Thiamine [Vitamin B-1] 100 mg PO DAILY tab 01/17/19 lamoTRIgine [LaMICtal] 150 mg PO DAILY #14 tab 01/17/19 traZODone HCL [Desyrel] 100 mg PO HS #14 tab 01/17/19 Allergies Allergy/AdvReac Type Severity Reaction Status Date / Time codeine Allergy Unknown Verified 04/04/20 23:25 Penicillins Allergy Unknown Verified 04/04/20 23:25 Review of Systems ROS Statement: Those systems with pertinent positive or pertinent negative responses have been documented in the HPI. ROS Other: All systems not noted in ROS Statement are negative. Past Medical History Past Medical History: No Reported History Additional Past Medical History / Comment(s): "born with a heart defect" History of Any Multi-Drug Resistant Organisms: None Reported Additional Past Surgical History / Comment(s): D&C Past Anesthesia/Blood Transfusion Reactions: No Reported Reaction Past Psychological History: Anxiety, Bipolar, Depression, Schizoaffective Disorder Smoking Status: Current every day smoker Past Alcohol Use History: Occasional Past Drug Use History: Cocaine - Past Family History Mother Family Medical History: Unable to Obtain Father Family Medical History: No Reported History General Exam - General Exam Comments Initial Comments: Constitutional: NAD, AOX3, Pt has pleasant affect. HEENT: NC/AT, trachea midline, neck supple, no lymphadenopathy. External ears appear normal, without discharge. Mucous membranes moist. Eyes PERRLA, EOM intact. There is no scleral icterus. No pallor noted. Cardiopulmonary: RRR, no murmurs, rubs or gallops, no JVD noted. Lungs CTAB in anterior and posterior prince. No peripheral edema. Abdominal exam: Abdomen soft and non-distended. Abdomen non-tender to palpation in all 4 quadrants. Neuro: CN II-XII grossly intact. No nuchal rigidity. No raccon eyes, no turner sign, no hemotympanum. No cervical spinal tenderness. MSK: Mild tenderness left paralumbar region. 5 out of 5 strength psoas quadriceps muscles. I dorsiflexion of feet. Sensation intact. Ambulatory without difficulty. The pulses intact and equal. Full active ROM in upper and lower extremities, 5/5 stregnth. Limitations: no limitations Course Vital Signs 04/04/20 23:21 Temperature 98.8 F Pulse Rate 94 Respiratory 18 Rate Blood Pressure 136/74 O2 Sat by Pulse 98 Oximetry Medical Decision Making - Medical Decision Making 54-year-old female patient to ED for left paralumbar back pain. Ongoing for last 3 weeks. She does report some subjective paresthesias running down the left posterior leg. At this time no paresthesia strength is intact. Patient administered analgesia. Plain films but slight levoscoliosis. Patient replaced under steroids will be discharged outpatient orthopedic follow-up and return precautions. Case discussed with Dr. Higginbotham. Disposition Clinical Impression: Lumbar back pain Disposition: HOME SELF-CARE Condition: Stable Instructions (If sedation given, give patient instructions): Acute Low Back Pain (ED) Additional Instructions: Follow up with PCP tomorrow. Follow up with orthopedic consult in 1-2 days. Take steroids as directed. Return to ED with any worsening symptoms. Is patient prescribed a controlled substance at d/c from ED?: No Referrals: Alireza Burton Jr, DO [Primary Care Provider] - 1-2 days Dl Curiel MD [STAFF PHYSICIAN] - 1-2 days
[2020-04-05 02:28] LABS: Appearance,Urine Clear (Clear); Bilirubin,Urine Negative (Negative); Blood,Urine Negative (Negative); Color,Urine Light Yellow; Glucose,Urine (UA) Negative (Negative); Ketones,Urine Negative (Negative); Leukocyte Esterase,Urine Trace (Negative); Nitrite,Urine Negative (Negative); Protein,Urine Negative (Negative); RBC,Urine 1 /hpf (0-5); Specific Gravity,Urine 1.004 (1.001-1.035); Squamous Epithelial Cell,Urine 2 /hpf (0-4); Urobilinogen,Urine <2.0 mg/dL (<2.0); WBC,Urine 2 /hpf (0-5)
[2020-04-05 02:30] VITALS: BP 131/74; RESP 19; TEMP 97.9
== END 2020-04-05 02:30 | disposition home or self-care (01) ==
LOC: EC 23:20
DX: M54.5 Low back pain (principal); R20.2 Paresthesia of skin; F17.200 Nicotine dependence, unspecified, uncomplicated; Z88.0 Allergy status to penicillin; Z88.5 Allergy status to narcotic agent
CPT/HCPCS: 81001; 72100; 99284; 96372; J1885; J7512

== ENCOUNTER 2020-04-09 16:53 | Inpatient (IN) | payer MEDICAID, OTHER ==
[2020-04-09 17:51] LABS: Amphetamine Screen,Urine Not Detected (NotDetected); Barbiturate Screen,Urine Not Detected (NotDetected); Benzodiazepines Screen,Urine Not Detected (NotDetected); Cocaine Screen,Urine Not Detected (NotDetected); Methadone Screen, Urine Not Detected (NotDetected); Opiate Screen,Urine Not Detected (NotDetected); Oxycodone Screen, Urine Not Detected (NotDetected); Phencyclidine Screen,Urine Not Detected (NotDetected); Tricyclic Antidepressant,Urine Not Detected (NotDetected); Urn Cannabinoid Scrn Not Detected (NotDetected)
--- NOTE | 2020-04-09 18:34 | ED ---
Psych HPI - General Chief Complaint: Psychiatric Symptoms Stated Complaint: Mental Health Time Seen by Provider: 04/09/20 17:04 Source: patient, RN notes reviewed Mode of arrival: ambulatory Limitations: no limitations - History of Present Illness Initial Comments: 54-year-old female presents emergency Department with chief complaint of not feeling right. Patient states that she needs to be seen by psychiatric services. Patient states she does not feel safe at home denies being suicidal homicidal. She states that she has an appointment with [facility] tomorrow and contact him and states that she was advised to come in. Patient states she is 30 days sober from alcohol and clean from crack cocaine. Patient has no physical complaints. Patient states that she is taking some sort of psychiatric medication. She has no physical - Related Data Previous Rx's Medication Instructions Recorded ARIPiprazole [Abilify] 10 mg PO DAILY #14 tab 01/17/19 Albuterol Inhaler (Mhu) [Ventolin 2 puff INHALATION RT-TID PRN #1 01/17/19 Hfa Inhaler (Mhu)] puff Budesonide-Formot 160-4.5 Mcg 2 puff INHALATION RT-BID #2 puff 01/17/19 [Symbicort 160-4.5 Mcg Inhaler] Clotrimazole Cream [Lotrimin Cream] 1 applic TOPICAL BID applic 01/17/19 Folic Acid 1 mg PO DAILY tab 01/17/19 Gabapentin [Neurontin] 400 mg PO HS #14 cap 01/17/19 Multivitamins, Thera [Multivitamin 1 each PO DAILY tab 01/17/19 (formulary)] Nicotine 14Mg/24Hr Patch [Habitrol] 1 patch TRANSDERM DAILY #14 patch 01/17/19 Thiamine [Vitamin B-1] 100 mg PO DAILY tab 01/17/19 lamoTRIgine [LaMICtal] 150 mg PO DAILY #14 tab 01/17/19 traZODone HCL [Desyrel] 100 mg PO HS #14 tab 01/17/19 predniSONE 50 mg PO DAILY #4 tab 04/05/20 Allergies Allergy/AdvReac Type Severity Reaction Status Date / Time codeine Allergy Unknown Verified 04/09/20 17:02 Penicillins Allergy Unknown Verified 04/09/20 17:02 Review of Systems ROS Statement: Those systems with pertinent positive or pertinent negative responses have been documented in the HPI. ROS Other: All systems not noted in ROS Statement are negative. Past Medical History Past Medical History: No Reported History Additional Past Medical History / Comment(s): "born with a heart defect" History of Any Multi-Drug Resistant Organisms: None Reported Additional Past Surgical History / Comment(s): D&C Past Anesthesia/Blood Transfusion Reactions: No Reported Reaction Past Psychological History: Anxiety, Bipolar, Depression, Schizoaffective Disorder Smoking Status: Current every day smoker Past Alcohol Use History: Occasional Past Drug Use History: Cocaine - Past Family History Mother Family Medical History: Unable to Obtain Father Family Medical History: No Reported History General Exam Limitations: no limitations General appearance: alert, in no apparent distress Head exam: Present: atraumatic, normocephalic, normal inspection Eye exam: Present: normal appearance, PERRL, EOMI. Absent: scleral icterus, conjunctival injection, periorbital swelling ENT exam: Present: normal exam, normal oropharynx, mucous membranes moist Neck exam: Present: normal inspection, full ROM. Absent: tenderness, meningismus, lymphadenopathy Respiratory exam: Present: normal lung sounds bilaterally. Absent: respiratory distress, wheezes, rales, rhonchi, stridor Cardiovascular Exam: Present: regular rate, normal rhythm, normal heart sounds. Absent: systolic murmur, diastolic murmur, rubs, gallop, clicks Neurological exam: Present: alert, oriented X3, CN II-XII intact Psychiatric exam: Present: anxious, other (Paranoid) Skin exam: Present: warm, dry, intact, normal color. Absent: rash Course Vital Signs 04/09/20 16:57 Temperature 97.9 F Pulse Rate 108 H Respiratory 18 Rate Blood Pressure 158/103 O2 Sat by Pulse 98 Oximetry Medical Decision Making - Medical Decision Making Patient presented for psychiatric symptoms. Patient evaluated in the emergency department patient has acute psychosis. Patient will be admitted for psychiatric treatment. - Lab Data Lab Results 04/09/20 Range/Units 17:33 Urine Opiates Screen Not Detected (NotDetected) Ur Oxycodone Screen Not Detected (NotDetected) Urine Methadone Screen Not Detected (NotDetected) Ur Propoxyphene Screen Not Detected (NotDetected) Ur Barbiturates Screen Not Detected (NotDetected) U Tricyclic Antidepress Not Detected (NotDetected) Ur Phencyclidine Scrn Not Detected (NotDetected) Ur Amphetamines Screen Not Detected (NotDetected) U Methamphetamines Scrn Not Detected (NotDetected) U Benzodiazepines Scrn Not Detected (NotDetected) Urine Cocaine Screen Not Detected (NotDetected) U Marijuana (THC) Screen Not Detected (NotDetected) Disposition Clinical Impression: Acute psychosis Disposition: TRANSFER TO PSYCH HOSP/UNIT Referrals: Alireza Burton Jr, DO [Primary Care Provider] - 1-2 days
[2020-04-09] MEDS ORDERED: MAGNESIUM HYDROXIDE 2,400 MG/10 ML CUP PO PRN (19:44)
[2020-04-09] MEDS ORDERED: LORazepam 2 MG/ML INJ IM PRN (19:50)
[2020-04-09] MEDS ORDERED: HALOPERIDOL LACTATE 5 MG/ML 1 ML VIAL IM PRN (19:52)
[2020-04-09] MEDS ORDERED: GABAPENTIN 400 MG CAP PO SCH (21:00)
[2020-04-09] MEDS: hydrOXYzine pamoate 25 MG CAP PO SCH (21:05)
[2020-04-09] MEDS: lamoTRIgine 25 MG TAB PO SCH (21:05)
[2020-04-09] MEDS: NICOTINE 14MG/24HR PATCH TRANSDERM SCH (21:06)
[2020-04-09] MEDS: MELATONIN 5 MG TABLET PO SCH (21:06)
[2020-04-09] MEDS: traZODone HCL 100 MG TAB PO SCH (21:08)
[2020-04-10] MEDS: LORazepam 1 MG TAB PO PRN (05:43)
[2020-04-10] MEDS ORDERED: ARIPiprazole 5 MG TAB PO SCH (09:00)
[2020-04-10] MEDS: NICOTINE 14MG/24HR PATCH TRANSDERM SCH (09:09)
[2020-04-10] MEDS: lamoTRIgine 25 MG TAB PO SCH (09:10)
[2020-04-10] MEDS: FOLIC ACID 1 MG TAB PO SCH (09:10)
[2020-04-10] MEDS: MULTIVITAMINS, THERA 1 EACH TAB PO SCH (09:10)
[2020-04-10] MEDS: THIAMINE 100 MG TAB PO SCH (09:10)
[2020-04-10] MEDS: hydrOXYzine pamoate 25 MG CAP PO SCH ×2 (09:10→20:51)
--- NOTE | 2020-04-10 10:34 | P.HP ---
Psychiatric H&P - . H&P Date: 04/10/20 History & Physical: Allergies Allergy/AdvReac Type Severity Reaction Status Date / Time codeine Allergy Unknown Verified 04/09/20 18:38 Penicillins Allergy Unknown Verified 04/09/20 18:38 Vital Signs Temp 97.9 F 04/10/20 02:21 Pulse 98 04/10/20 02:21 Resp 16 04/10/20 02:21 BP 129/93 04/10/20 02:21 Pulse Ox 96 04/09/20 20:40 Intake & Output 04/09/20 04/10/20 04/10/20 18:59 06:59 18:59 Weight 72.575 kg 67.721 kg Laboratory Last Values Urine Opiates Screen Not Detected (NotDetected) 04/09/20 17:33 Ur Oxycodone Screen Not Detected (NotDetected) 04/09/20 17:33 Urine Methadone Screen Not Detected (NotDetected) 04/09/20 17:33 Ur Propoxyphene Screen Not Detected (NotDetected) 04/09/20 17:33 Ur Barbiturates Screen Not Detected (NotDetected) 04/09/20 17:33 U Tricyclic Antidepress Not Detected (NotDetected) 04/09/20 17:33 Ur Phencyclidine Scrn Not Detected (NotDetected) 04/09/20 17:33 Ur Amphetamines Screen Not Detected (NotDetected) 04/09/20 17:33 U Methamphetamines Scrn Not Detected (NotDetected) 04/09/20 17:33 U Benzodiazepines Scrn Not Detected (NotDetected) 04/09/20 17:33 Urine Cocaine Screen Not Detected (NotDetected) 04/09/20 17:33 U Marijuana (THC) Screen Not Detected (NotDetected) 04/09/20 17:33 Coronavirus (PCR) Not Detected (Not Detectd) 04/09/20 18:45 04/10/20 10:09 IDENTIFYING DATA: Patient is a , 54-year-old female on SSI presented to the emergency department with a chief complaint of "not feeling right." HPI: Patient presented to the hospital on 04/09/2020 by herself with concerns that she was not feeling safe at home. The patient reports that she has been feeling not safe at home because of her neighbors and the fact that she owes significant amount of money to her landlord. She endorses significant psychotic symptoms. She reports that she has been receiving visions of the "past, present, and future." She describes the "visions of the future as torture, the visions of present as apathy, and the visions of the passes bloody murder." She does endorse auditory hallucinations stating that she hears voices from God as well as from snakes, vipers, and [place] Indians who are on a "war path." She is currently not reporting any suicidal or homicidal ideation, intention, and/or plan. She reports one prior attempts at suicide in 2007 but is unable to identify what she did. She was recently in the emergency department with complaints of back pain on 04/05/2020 during which she was given steroids. In regards to other mood symptoms, the patient reports that she has been having difficulty sleeping over the past few days. She reports that she only receives 1-2 hours of sleep per night. She does endorse a history of racing thoughts, mood swings, and increased goal-directed behavior. The patient does state that she has not been in adherent with her medications because she has been concerned that she has had a "kidney infection"and therefore has been intermittently taking her psychotropic medications. The patient does report a significant history of substance use but states that she has been refraining from any drug use or alcohol use over the past 31 days. She reports prior to this. His sobriety, she used crack cocaine. She does report that she used to abuse her gabapentin by crushing it and snorting it. She reports she last did this one month ago. She reportedly smokes one pack per day. PAST PSYCHIATRIC HISTORY: Patient states that she is open with [facility] [place]. She is able to recall her home medications of Vistaril, lamotrigine, Abilify, and melatonin. She is also receiving gabapentin and trazodone. She was last admitted to [facility] in December 2018 and January 2018. She has had total of 3 prior inpatient psychiatric hospitalizations. Fourth one prior attempt at suicide in the past. Past psychiatric medications include Abilify, Abilify maintain, Depakote, Seroquel, lithium, Invega, Wellbutrin. PMH: No reported medical history. ALLERGIES: Codeine, penicillins CHEMICAL DEPENDENCY HISTORY: Crack cocaine use. The patient has also reportedly abused her Wellbutrin and gabapentin in the past by crushing and snorting it. FAMILY PSYCHIATRIC/SUBSTANCE USE HISTORY: Reports that her mother abused many substances. Mother with bipolar disorder as well. SOCIAL HISTORY: Patient was born and raised in [place], [place]. She is currently living in [place] in a house with her son present. She has 3 chi ldren and is currently . She reports that she is currently receiving SSI. MENTAL STATUS EXAM: General Appearance: Patient appears to be stated age is alert, directable, and attempts to cooperate. Patient appears to have fair hygiene and grooming. Behavior: Patient is seated without any agitated behavior. Psychomotor activity is normal. Eye contact is intense. Speech: Patient's speech is fluent and nonpressured. Mood/Affect: Patient reports their mood is doing well, affect is congruent and constricted. Suicidality/Homicidality: Patient denies having any homicidal ideation intent or plan. Denies any suicidal ideations intent or plan Perceptions: Patient is endorsing both auditory and visual hallucinations. Though content/process: Oriental [employer] preoccupation, bizarre delusions, and some disorganization. Memory and concentration: AOX3, grossly intact for the purposes of this session. Can spell "WORLD" backwards Judgment and insight: poor STRENGTHS/WEAKNESSES: strength is that patient has housing. Weakness is that patient significant history of substance use, poor adherence to treatment, and limited insight. INTELLECT: Below average IMPRESSIONS: Bipolar disorder type I, current episode manic - possible that this episode was precipitated by the patient's steroid medication that she received last week Alcohol use disorder Cocaine use disorder Nicotine dependence PLAN: -Patient is admitted under voluntary status to [facility] for stabilization of psychiatric symptoms and safety. Patient signed adult voluntary form and medication consent and is placed in patient's chart. -Medications : Will start patient on Invega 3 mg by mouth daily at bedtime for psychosis/mood stabilization with plans to transition the patient to Invega Sustenna due to the patient's nonadherence with treatment We will increase Lamictal to 25 mg by mouth daily and 50 mg by mouth at bedtime with stabilization Decrease gabapentin to 200 mg by mouth at bedtime with plans to taper off the medication as the patient abuses this medication. Discontinue Abilify. Continue trazodone 100 mg by mouth daily at bedtime for insomnia Continue melatonin 10 mg by mouth at bedtime for insomnia -Ativan and Haldol PRN for agitation/aggression -Started thiamine, MVM for etoh use -Patient was counselled on substance abuse and desired to cut back on use -Patient was informed of the risks, benefits and side effects of the medication and patient verbally consented to taking the medications. Patient signed med consent form and was placed in chart. -Internal Medicine consult to perform medical evaluation and physical. -NRT - nicotine patch -SW on board for discharge planning. Encourage patient to participate in groups to work on coping skills.
[2020-04-10 10:55] LABS: Basophils # (A) 0.1 k/uL (0-0.2); Basophils % (A) 1 %; Eosinophils # (A) 0.1 k/uL (0-0.7); Eosinophils % (A) 1 %; HCT 39.6 % (34.0-46.0); HGB 13.5 gm/dL (11.4-16.0); Lymphocytes # (A) 2.1 k/uL (1.0-4.8); Lymphocytes % (A) 30 %; MCHC 34.1 g/dL (31.0-37.0); MCV 87.8 fL (80.0-100.0); Mean Platelet Volume 6.4; Monocytes # (A) 0.6 k/uL (0-1.0); Monocytes % (A) 8 %; Neutrophils # (A) 4.1 k/uL (1.3-7.7); Neutrophils % (A) 58 %; Platelet Count 369 k/uL (150-450); RBC 4.51 m/uL (3.80-5.40); RDW 12.5 % (11.5-15.5)
[2020-04-10 11:07] LABS: ALT 30 U/L (4-34); AST 30 U/L (14-36); African American GFR (CKD) >90 (>60 ml/min/1.73 sqM); Albumin 4.1 g/dL (3.5-5.0); Alkaline Phosphatase 63 U/L (38-126); Anion Gap 7 mmol/L; Blood Urea Nitrogen 10 mg/dL (7-17); Calcium 9.6 mg/dL (8.4-10.2); Carbon Dioxide 25 mmol/L (22-30); Chloride 97 mmol/L (98-107); Glucose 112 mg/dL (74-99); Non-African American GFR(CKD) >90 (>60 ml/min/1.73 sqM); Potassium 4.8 mmol/L (3.5-5.1); Sodium 129 mmol/L (137-145); Total Bilirubin 0.4 mg/dL (0.2-1.3); Total Protein 6.8 g/dL (6.3-8.2)
[2020-04-10 11:49] LABS: Cholesterol 228 mg/dL (<200); HDL Cholesterol 63 mg/dL (40-60); LDL Cholesterol,Calculated 153 mg/dL (0-99); Triglycerides 62 mg/dL (<150)
--- NOTE | 2020-04-10 14:56 | P.CONS ---
History of Present Illness - Reason for Consult Consult date: 04/10/20 Medical management , hyponatremia Requesting physician: Grayson Calderon - Chief Complaint "Didn't feel right" - History of Present Illness This is a 54-year-old female with past medical history of anxiety, bipolar, depression, schizoaffective disorder, prior suicide attempt with multiple psychiatric hospitalizations, ongoing nicotine dependence, alcohol abuse, cocaine abuse, gabapentin abuse presented to the ER with complaints of not feeling right. Reports she had a falling out with daughter but will not disclose specifics, states she has been sober from alcohol and clean from cocaine and Neurontin 31 days. Patient reports that she used to crush her Neurontin and snort it. Patient had phoned into [facility] and advised to proceed to hospital. Patient previously had been on steroids since 04/05 for complaints of back pain. Reports sleep deprivation, sleeping only couple hours per night. Patient noncompliant with medical regimen as she was concerned over possibly h aving a UTI. Denies being suicidal or homicidal. Denies chest pain, palpitations or shortness of breath. Denies lightheadedness, dizziness or focal deficit. Denies nausea vomiting or diarrhea. Denies abdominal pain. Denies cough congestion chills or fever. On admission hematology unremarkable, chemistry reported sodium 129 with repeat 128. Cholesterol panel reported triglycerides 62, cholesterol 228, LDL 153, HDL 63. Toxicology did not detect marijuana, cocaine, benzos, methamphetamines, amphetamines, pencyclidine , tricyclics, barbiturates, propoxyphene, methadone,oxycodone or opiates. Coronavirus not detected. Afebrile, vital signs stable with mild tachycardia. Admitted to mental health unit. Review of Systems Constitutional: Denied any fatigue denied any fever. Cardio vascular: denied any chest pain, palpitations Gastrointestinal denied any nausea vomiting Pulmonary: Denied any shortness of breath cough Neurologic denied any new focal deficits ROS Statement: Those systems with pertinent positive or pertinent negative responses have been documented in the HPI. ROS Other: All systems not noted in ROS Statement are negative. Past Medical History Past Medical History: No Reported History Additional Past Medical History / Comment(s): "born with a heart defect" History of Any Multi-Drug Resistant Organisms: None Reported Additional Past Surgical History / Comment(s): D&C Past Anesthesia/Blood Transfusion Reactions: No Reported Reaction Smoking Status: Current every day smoker - Past Family History Mother Family Medical History: Unable to Obtain Father Family Medical History: No Reported History Medications and Allergies Home Medications Medication Instructions Recorded Confirmed Type ARIPiprazole [Abilify] 10 mg PO DAILY #14 tab 01/17/19 04/09/20 Rx Folic Acid 1 mg PO DAILY tab 01/17/19 04/09/20 Rx Gabapentin [Neurontin] 400 mg PO HS #14 cap 01/17/19 04/09/20 Rx Multivitamins, Thera [Multivitamin 1 each PO DAILY tab 01/17/19 04/09/20 Rx (formulary)] Thiamine [Vitamin B-1] 100 mg PO DAILY tab 01/17/19 04/09/20 Rx lamoTRIgine [LaMICtal] 150 mg PO DAILY #14 tab 01/17/19 04/09/20 Rx Melatonin 80 mg PO ONCE PRN 04/09/20 04/09/20 History hydrOXYzine pamoate [Vistaril] 50 mg PO BID 04/09/20 04/09/20 History predniSONE 50 mg PO DAILY 04/09/20 04/09/20 History traZODone HCL 100 mg PO HS 04/09/20 04/09/20 History Allergies Allergy/AdvReac Type Severity Reaction Status Date / Time codeine Allergy Unknown Verified 04/09/20 18:38 Penicillins Allergy Unknown Verified 04/09/20 18:38 Physical Exam Vitals: Vital Signs Temp Pulse Pulse Resp BP BP Pulse Ox 04/10/20 02:21 97.9 F 98 16 129/93 04/09/20 20:40 98.3 F 101 H 16 123/81 96 04/09/20 16:57 97.9 F 108 H 18 158/103 98 Intake and Output 04/09/20 04/10/20 04/10/20 22:59 06:59 14:59 Other: Weight 67.721 kg PHYSICAL EXAM: VITAL SIGNS: As above GENERAL: Sitting up in chair, no acute distress. Excessive talking. HEENT: Conjunctivae normal. eyes normal. Oral mucosa moist NECK: No JVD. No thyroid enlargement. No LNs CARDIOVASCULAR: S1, S2 regular. No murmur RESPIRATION: Breath sounds diminished in the bases. No rhonchi or crackles. No bronchial breathing. ABDOMEN: Soft, nontender . No guarding. no masses palpable. No ascites, No hepatosplenomegaly.Bowel sounds heard. LEGS: No edema. no swelling PSYCHIATRY: Alert and oriented X3, mood and affect manic. NERVOUS SYSTEM: Cranial N 2-12 grossly normal. Moves all 4 limbs. No focal deficits. Strength and sensation grossly intact.. Skin: Warm and dry, no rash Lymphatic system. No LN neck axilla. Results CBC & Chem 7: 04/10/20 10:08 04/10/20 11:50 Labs: Abnormal Lab Results - Last 24 Hours (Table) 04/10/20 04/10/20 Range/Units 10:08 11:50 Sodium 129 L 128 L (137-145) mmol/L Chloride 97 L (98-107) mmol/L Glucose 112 H (74-99) mg/dL Cholesterol 228 H (<200) mg/dL LDL Cholesterol, Calc 153 H (0-99) mg/dL HDL Cholesterol 63 H (40-60) mg/dL Assessment and Plan Assessment: Acute manic episode in a patient with history of bipolar disorder Hyponatremia History of polysubstance abuse including alcohol, cocaine, Neurontin, and nicotine dependence Anxiety, depression Schizoaffective disorder Plan: Continue current medication regime ,monitoring and symptomatic treatment. Fluid restrictions ordered. Repeat labs in a.m. fluid restrictions will be lifted tomorrow as long as tolerated continues to improve. Home meds have been reviewed and resumed accordingly. Follow closely with psychiatry. The impression and plan of care has been dictated as directed. : I performed a history and examination of this patient, discussed the same with the dictator. I agree with the dictator's note ,documented as a scribe. Any ad ditional findings or plans will be noted.
[2020-04-10 16:40] LABS: Hemoglobin A1C 5.8 % (4.0-6.0)
[2020-04-10] MEDS: PRAVASTATIN SODIUM 20 MG TAB PO SCH (20:50)
[2020-04-10] MEDS: MELATONIN 5 MG TABLET PO SCH (20:50)
[2020-04-10] MEDS ORDERED: GABAPENTIN 100 MG CAP PO SCH (21:00)
[2020-04-10] MEDS ORDERED: PALIPERIDONE 3 MG TAB.ER.24 PO SCH (21:00)
[2020-04-10] MEDS ORDERED: lamoTRIgine 25 MG TAB PO SCH (21:00)
[2020-04-10] MEDS: traZODone HCL 100 MG TAB PO SCH (21:01)
[2020-04-10] MEDS: ACETAMINOPHEN TAB 325 MG TAB PO PRN (21:38)
[2020-04-11 00:24] LABS: Appearance,Urine Clear (Clear); Bilirubin,Urine Negative (Negative); Blood,Urine Negative (Negative); Color,Urine Light Yellow; Glucose,Urine (UA) Negative (Negative); Ketones,Urine Negative (Negative); Leukocyte Esterase,Urine Trace (Negative); Nitrite,Urine Negative (Negative); Protein,Urine Negative (Negative); RBC,Urine <1 /hpf (0-5); Specific Gravity,Urine 1.007 (1.001-1.035); Squamous Epithelial Cell,Urine 2 /hpf (0-4); Urobilinogen,Urine <2.0 mg/dL (<2.0); WBC,Urine 2 /hpf (0-5)
[2020-04-11] MEDS: LORazepam 1 MG TAB PO PRN ×2 (00:31→19:04)
[2020-04-11] MEDS: MULTIVITAMINS, THERA 1 EACH TAB PO SCH (08:56)
[2020-04-11] MEDS: hydrOXYzine pamoate 25 MG CAP PO SCH ×2 (08:56→21:19)
[2020-04-11] MEDS: NICOTINE 14MG/24HR PATCH TRANSDERM SCH (08:56)
[2020-04-11] MEDS: FOLIC ACID 1 MG TAB PO SCH (08:56)
[2020-04-11] MEDS: THIAMINE 100 MG TAB PO SCH (08:56)
[2020-04-11] MEDS ORDERED: lamoTRIgine 25 MG TAB PO SCH (09:00)
[2020-04-11 09:05] LABS: African American GFR (CKD) >90 (>60 ml/min/1.73 sqM); Anion Gap 4 mmol/L; Blood Urea Nitrogen 12 mg/dL (7-17); Calcium 9.4 mg/dL (8.4-10.2); Carbon Dioxide 27 mmol/L (22-30); Chloride 103 mmol/L (98-107); Glucose 112 mg/dL (74-99); Non-African American GFR(CKD) >90 (>60 ml/min/1.73 sqM); Potassium 4.4 mmol/L (3.5-5.1); Sodium 134 mmol/L (137-145)
--- NOTE | 2020-04-11 09:53 | P.PN ---
Progress Note - Text Progress Note Date: 04/11/20 Interval History: Patient was seen in group and was directable and agreeable to speak with this medical technical writer in the office. Patient reports that she feels better today. She reports that she was able to sleep well last night. She reports that she woke one time in the middle of the night and had elevated anxiety but reports that she was able to center herself go back to sleep. She is not endorsing any auditory hallucinations today but continues to report that she has visions. Of concern, the patient reports that she really believes that she can, she can fly. This provider just tried to reassure her not to attempt to do so. At this time, the patient denies any suicidal or homicidal ideation, intention, and/or plan. She has been adherent with her medications and reports no significant side effects currently. Mental Status Exam: General Appearance: Patient appears to be stated age is alert, directable, and cooperative. Patient is wearing glasses and a mask. Good hygiene and grooming. Behavior: Patient is calmly seated without any agitated behavior. Speech: Patient's speech is fluent and nonpressured. Mood/Affect: Mood is improving mildly, affect is congruent and constricted. Suicidality/Homicidality: Patient denies having any suicidal or homicidal ideat ion intent or plan. Perceptions: Patient continues to report visual hallucinations but denies any auditory hallucinations. Though content/process: Linear but magical thinking is evident. Patient is less religiously preoccupied today. Memory and concentration: AOX3, grossly intact for the purposes of this session Judgment and insight: Improving mildly Assessment Bipolar disorder type I, current episode manic Alcohol use disorder Cocaine use disorder Nicotine dependence Plan: -Patient continues to meet criteria for inpatient psychiatric admission for symptom stabilization and safety. Patient has signed adult voluntary form and medication consent and was placed in patient's chart. -Medications: Increase Invega to 6 mg by mouth at bedtime for psychosis/mood stabilization. Increase Lamictal to 50 mg by mouth twice a day for mood stabilization Discontinue gabapentin as the patient abuses this medication Continue trazodone 100 mg by mouth at bedtime for insomnia Continue melatonin 10 mg by mouth at bedtime for insomnia -When necessary Ativan and Haldol for agitation/aggression. -NRT - nicotine patch -SW on board for discharge planning. Encouraged the patient to participate in milieu.
[2020-04-11] MEDS: ACETAMINOPHEN TAB 325 MG TAB PO PRN (16:33)
[2020-04-11] MEDS: traZODone HCL 100 MG TAB PO SCH (20:51)
[2020-04-11] MEDS: PALIPERIDONE 6 MG TAB.ER.24 PO SCH (20:52)
[2020-04-11] MEDS: MELATONIN 5 MG TABLET PO SCH (20:52)
[2020-04-11] MEDS: lamoTRIgine 25 MG TAB PO SCH (20:53)
[2020-04-11] MEDS: PRAVASTATIN SODIUM 20 MG TAB PO SCH ×2 (21:18→21:43)
[2020-04-12] MEDS: LORazepam 1 MG TAB PO PRN ×2 (00:30→17:18)
[2020-04-12] MEDS: hydrOXYzine pamoate 25 MG CAP PO SCH ×2 (07:37→21:17)
[2020-04-12] MEDS: NICOTINE 14MG/24HR PATCH TRANSDERM SCH (07:37)
[2020-04-12] MEDS: PALIPERIDONE 3 MG TAB.ER.24 PO SCH (07:38)
[2020-04-12] MEDS: FOLIC ACID 1 MG TAB PO SCH (07:38)
[2020-04-12] MEDS: MULTIVITAMINS, THERA 1 EACH TAB PO SCH (07:38)
[2020-04-12] MEDS: THIAMINE 100 MG TAB PO SCH (07:39)
[2020-04-12] MEDS: lamoTRIgine 25 MG TAB PO SCH ×2 (08:57→21:18)
--- NOTE | 2020-04-12 09:41 | P.PN ---
Progress Note - Text Progress Note Date: 04/12/20 Interval History: Patient was seen wandering the hallways and was directable and agreeable to speak with this telegraphic typewriter operator chief in the office. Patient reports that she has been eating well. She is not reporting any suicidal or homicidal ideation, intention, and/or plan. She does endorse auditory hallucinations. She reports that she continues to hear "words from God." She states that she hears him telling her that she is doing a good job and "well done." She is not reporting any command type hallucinations or any derogatory statements. She denies any issues with sleep or appetite. She is been adherent with her medications and denies any side effects at this time. She does state that she is concerned about returning home because she feels unsafe after reportedly reporting her neighbor in [address] that he has been doing drugs. She reports she feels that her safety is in danger because he requested to have sex with her for drugs. Mental Status Exam: General Appearance: Patient appears to be stated age is alert, directable, and cooperative. Patient is wearing glasses and a mask. Good hygiene and grooming. Behavior: Patient is calmly seated without any agitated behavior. Speech: Patient's speech is fluent and nonpressured. Mood/Affect: Mood is improving mildly, affect is congruent and constricted. Suicidality/Homicidality: Patient denies having any suicidal or homicidal ideation intent or plan. Perceptions: Patient reports auditory hallucinations. She denies any visual hallucinations at this time. Though content/process: Linear but magical thinking is evident. Religiously preoccupied today. Some paranoia evident. Memory and concentration: AOX3, grossly intact for the purposes of this session Judgment and insight: Improving mildly Assessment Bipolar disorder type I, current episode manic Alcohol use disorder Cocaine use disorder Nicotine dependence Plan: -Patient continues to meet criteria for inpatient psychiatric admission for symptom stabilization and safety. Patient has signed adult voluntary form and medication consent and was placed in patient's chart. -Requested that the patient sign a release of information for her son so as to determine safe discharge. -Medications: Increase Invega to 3 mg by mouth daily and 6 mg by mouth at bedtime for psychosis/mood stabilization. We will administer Invega Sustenna 234 mg IM tomorrow. Continue Lamictal to 50 mg by mouth twice a day for mood stabilization Continue trazodone 100 mg by mouth at bedtime for insomnia Continue melatonin 10 mg by mouth at bedtime for insomnia -When necessary Ativan and Haldol for agitation/aggression. -NRT - nicotine patch -SW on board for discharge planning. Encouraged the patient to participate in milieu.
[2020-04-12] MEDS: NICOTINE POLACRILEX 2 MG GUM BUCCAL PRN ×3 (12:10→21:27)
[2020-04-12] MEDS: traZODone HCL 100 MG TAB PO SCH (21:18)
[2020-04-12] MEDS: MELATONIN 5 MG TABLET PO SCH (21:18)
[2020-04-12] MEDS: PALIPERIDONE 6 MG TAB.ER.24 PO SCH (21:19)
[2020-04-12] MEDS: PRAVASTATIN SODIUM 20 MG TAB PO SCH (21:19)
[2020-04-12] MEDS: ACETAMINOPHEN TAB 325 MG TAB PO PRN (23:17)
[2020-04-13] MEDS: LORazepam 1 MG TAB PO PRN ×2 (01:43→23:59)
[2020-04-13] MEDS: NICOTINE POLACRILEX 2 MG GUM BUCCAL PRN ×5 (04:59→21:03)
[2020-04-13] MEDS: hydrOXYzine pamoate 25 MG CAP PO SCH ×2 (08:54→21:00)
[2020-04-13] MEDS: FOLIC ACID 1 MG TAB PO SCH (08:54)
[2020-04-13] MEDS: lamoTRIgine 25 MG TAB PO SCH ×2 (08:55→21:00)
[2020-04-13] MEDS: MULTIVITAMINS, THERA 1 EACH TAB PO SCH (08:55)
[2020-04-13] MEDS: PALIPERIDONE 3 MG TAB.ER.24 PO SCH ×2 (08:56→21:00)
[2020-04-13] MEDS: THIAMINE 100 MG TAB PO SCH (08:57)
[2020-04-13] MEDS ORDERED: PALIPERIDONE IM 234 MG/1.5 ML SYG IM STA (09:48)
--- NOTE | 2020-04-13 10:07 | P.PN ---
Progress Note - Text Progress Note Date: 04/13/20 Interval History: Patient was seen in group and was directable and agreeable to speak with this telegraphic typewriter installer in the office. Patient reports that she is upset today. She states that she received Haldol last night because she was in an argument with a peer. She states that she feels like she is being bullied. She refused to explain the situation stating that she does not want to get other people in trouble. The patient then went on a long uatsdin rant about the teachings of Mark. The patient reports also that Haldol is her "moral enemy" as that medication causes her to be manipulated. When asked if someone attempted to manipulate her last night, the patient reports that "not entirely but they told me to sleep which I did but I had problems waking up from a nightmare." She denies any overt auditory or visual hallucinations. She does report some paranoia towards staff and peers. She denies any suicidal or homicidal ideation, intention, and/or plan. She's been adherent with her medications and reports no side effects. She is open to receiving Invega Sustenna today. Mental Status Exam: General Appearance: Patient appears to be stated age is alert, directable, and cooperative. Patient is wearing glasses and a mask. Good hygiene and grooming. Behavior: Patient is calmly seated without any agitated behavior. Psychomotor activity is elevated today. Speech: Patient's speech is tangential, fluent, nonpressured. Mood/Affect: Mood is upset, affect is congruent and expansive. Suicidality/Homicidality: Patient denies having any suicidal or homicidal ideation intent or plan. Perceptions: Patient denies auditory or visual hallucinations. Though content/process: Tangential. Religiously preoccupied. Paranoia evident. Memory and concentration: AOX3, grossly intact for the purposes of this session Judgment and insight: Poor Assessment Bipolar disorder type I, current episode manic Alcohol use disorder Cocaine use disorder Nicotine dependence Plan: -Patient continues to meet criteria for inpatient psychiatric admission for symptom stabilization and safety. Patient has signed adult voluntary form and medication consent and was placed in patient's chart. -Medications: Invega Sustenna 234 mg IM to be administered today. We will decrease oral Invega to 3 mg by mouth twice a day. Continue Lamictal 50 mg by mouth twice a day for mood stabilization Continue trazodone 100 mg by mouth at bedtime for insomnia Continue melatonin 10 mg by mouth at bedtime for insomnia -When necessary Ativan and Haldol for agitation/aggression. -NRT - nicotine patch -SW on board for discharge planning. Encouraged the patient to participate in milieu.
[2020-04-13] MEDS ORDERED: LORazepam 1 MG TAB PO STA (16:59)
[2020-04-13] MEDS: ACETAMINOPHEN TAB 325 MG TAB PO PRN (17:14)
[2020-04-13] MEDS: traZODone HCL 100 MG TAB PO SCH (21:00)
[2020-04-13] MEDS: MELATONIN 5 MG TABLET PO SCH (21:00)
[2020-04-13] MEDS: PRAVASTATIN SODIUM 20 MG TAB PO SCH (21:02)
[2020-04-14] MEDS: hydrOXYzine pamoate 25 MG CAP PO SCH ×2 (09:04→21:58)
[2020-04-14] MEDS: MULTIVITAMINS, THERA 1 EACH TAB PO SCH (09:04)
[2020-04-14] MEDS: lamoTRIgine 25 MG TAB PO SCH ×2 (09:05→21:58)
[2020-04-14] MEDS: FOLIC ACID 1 MG TAB PO SCH (09:05)
[2020-04-14] MEDS: THIAMINE 100 MG TAB PO SCH (09:05)
[2020-04-14] MEDS: PALIPERIDONE 3 MG TAB.ER.24 PO SCH ×2 (09:05→21:58)
[2020-04-14] MEDS: NICOTINE POLACRILEX 2 MG GUM BUCCAL PRN ×3 (10:17→17:29)
--- NOTE | 2020-04-14 10:27 | P.PN ---
Progress Note - Text Progress Note Date: 04/14/20 Interval history: Patient was seen wandering the hallways and was directable and agreeable to s peak with entry writer. Patient was preoccupied with her water today and was initially uncooperative with interview however was attempting to be more appropriate today. She spoke about her symptoms and coming into the hospital and her goals for the future. She states that she is going to groups and for continuing to speak with other people on the unit. She states that she does not know how she did last night in terms of sleep however spoke about having a "Dr. Valiente dream". She states that her mood is "fine" and claims of the medications have been helping stabilize her mood. She denies any anxiety today. At this time patient denies any suicidal or homicidal ideations intent or plan. Denies any Auditory or visual hallucinations. Patient denies any side effects from the medications and has been compliant with meds. Mental status exam: General Appearance: Patient appears to be thin, stated age is alert, directable, and cooperative. Improving hygiene and grooming Behavior: No agitated behavior. Patient is calm and directable. Bizarre at times. Speech: Patient's speech is fluent and nonpressured. Mood/Affect: Mood is improving mildly, affect is congruent and constricted. Suicidality/Homicidality: Patient denies having any suicidal or homicidal ideation intent or plan. Perceptions: Patient denies any auditory or visual hallucinations. Though content/process: Logical, goal oriented. [place] Memory and concentration: AOX3, grossly intact for the purposes of this session Judgment and insight: Chronically poor, improving mildly Assessment/Plan: Continue with current diagnosis. Patient continues to meet criteria for inpatient psychiatric admission for symptom stabilization and safety.Patient will be maintained on current psychotropic medication regimen. Patient had received her Invega Sustenna loading dose yesterday and tolerated it well. Monitor for medication compliance and for any psychotropic medication side effects. Will continue to monitor ongoing response to treatment. Encouraged participation in milieu.
[2020-04-14] MEDS: MAG HYDROX/AL HYDROX/SIMETH 30 ML CUP PO PRN (15:08)
[2020-04-14] MEDS: MELATONIN 5 MG TABLET PO SCH (21:58)
[2020-04-14] MEDS: traZODone HCL 100 MG TAB PO SCH (21:58)
[2020-04-14] MEDS: PRAVASTATIN SODIUM 20 MG TAB PO SCH (21:58)
[2020-04-15] MEDS: LORazepam 1 MG TAB PO PRN ×2 (02:49→16:56)
[2020-04-15] MEDS: NICOTINE POLACRILEX 2 MG GUM BUCCAL PRN ×4 (02:50→20:59)
[2020-04-15] MEDS: FOLIC ACID 1 MG TAB PO SCH (08:52)
[2020-04-15] MEDS: lamoTRIgine 25 MG TAB PO SCH ×2 (08:52→20:58)
[2020-04-15] MEDS: THIAMINE 100 MG TAB PO SCH (08:52)
[2020-04-15] MEDS: hydrOXYzine pamoate 25 MG CAP PO SCH ×2 (08:52→20:59)
[2020-04-15] MEDS: PALIPERIDONE 3 MG TAB.ER.24 PO SCH ×2 (08:52→20:59)
[2020-04-15] MEDS: MULTIVITAMINS, THERA 1 EACH TAB PO SCH (08:52)
--- NOTE | 2020-04-15 14:01 | P.PN ---
Progress Note - Text Progress Note Date: 04/15/20 Interval history: Patient was seen wandering the hallways and was directable and agreeable to s peak with contract technical writer. Patient states that she just finished lunch and described the food that she was eating. She appears to be more appropriate and cooperative contract technical writer and was even polite and asked about patient's clothes and also writers boots. She states that she is doing better overall with regards to her mood and anxiety. She states that the voices have calmed down however claims that she continues to have "vivid dreams" and went on to describe some of her dreams last night. She states that she was able to sleep throughout the night however. She refused the trazodone last night it and states that "I don't do well on trazodone it makes me feel weird". She states that her mood is "fine" and claims of the medications have been helping stabilize her mood. She denies any anxiety today. At this time patient denies any suicidal or homicidal ideations intent or plan. Denies any Auditory or visual hallucinations. Patient denies any side effects from the medications and has been compliant with meds. Mental status exam: General Appearance: Patient appears to be thin, stated age is alert, directable, and cooperative. Improving hygiene and grooming Behavior: No agitated behavior. Patient is calm and directable. More polite and cooperative today. Speech: Patient's speech is fluent and nonpressured. Mood/Affect: Mood is improving mildly, affect is congruent and constricted. Suicidality/Homicidality: Patient denies having any suicidal or homicidal ideation intent or plan. Perceptions: Patient denies any auditory or visual hallucinations. Though content/process: Logical, goal oriented. Polite with contract technical writer today. More future oriented. Memory and concentration: AOX3, grossly intact for the purposes of this session Judgment and insight: Chronically poor, improving mildly Assessment/Plan: Continue with current diagnosis. Patient continues to meet criteria for inpatient psychiatric admission for symptom stabilization and safety.Patient will be maintained on current psychotropic medication regimen. Patient had received her Invega Sustenna loading dose on thursday and tolerated it well. We will discontinue trazodone at patient's request. Monitor for medication compliance and for any psychotropic medication side effects. Will continue to monitor ongoing response to treatment. Encouraged participation in milieu.
[2020-04-15] MEDS: MAG HYDROX/AL HYDROX/SIMETH 30 ML CUP PO PRN (14:43)
[2020-04-15] MEDS: MELATONIN 5 MG TABLET PO SCH (20:58)
[2020-04-15] MEDS: PRAVASTATIN SODIUM 20 MG TAB PO SCH (20:59)
[2020-04-16] MEDS: NICOTINE POLACRILEX 2 MG GUM BUCCAL PRN ×5 (04:45→20:39)
[2020-04-16] MEDS: MULTIVITAMINS, THERA 1 EACH TAB PO SCH (08:41)
[2020-04-16] MEDS: FOLIC ACID 1 MG TAB PO SCH (08:41)
[2020-04-16] MEDS: hydrOXYzine pamoate 25 MG CAP PO SCH ×2 (08:42→21:53)
[2020-04-16] MEDS: PALIPERIDONE 3 MG TAB.ER.24 PO SCH (08:42)
[2020-04-16] MEDS: THIAMINE 100 MG TAB PO SCH (08:43)
[2020-04-16] MEDS: lamoTRIgine 25 MG TAB PO SCH ×2 (08:43→21:53)
--- NOTE | 2020-04-16 10:51 | P.PN ---
Progress Note - Text Progress Note Date: 04/16/20 Interval History: Patient was seen wandering the hallways and was directable and agreeable to speak with speech writer in the office. Patient expresses significant psychotic symptoms today. She expresses a fear of returning home because she believes that her son is angry at her. She states that she took a bottle of lubricant that belonged to her son and her son's partner and emptied into the kitchen sink. She states she did this because "the enemy has tapes of them having sex." When inquiring about this and is, the patient says that the enemy is Idris. She then states that Lucifer's asking her to be a petroleum refining firer and that she is refusing. She continues to be religiously preoccupied. Despite all of this, the patient is not reporting any auditory or visual hallucinations. She denies any suicidal or homicidal ideation, intention, and/or plan. He does express paranoia towards peers, stating that one peer on the unit is chaotic and she does not feel safe around her. She has been in adherent with her medications is not reporting any side effects at this time. Mental Status Exam: General Appearance: Patient appears to be stated age is alert, directable, and cooperative. Behavior: Patient is calmly seated without any agitated behavior. Speech: Patient's speech is fluent and nonpressured. Mood/Affect: Mood is anxious, affect is congruent and nervous, with appropriate range. Suicidality/Homicidality: Patient denies having any suicidal or homicidal ideation intent or plan. Perceptions: Patient denies any visual hallucinations and denies any auditory hallucinations Though content/process: Very religiously preoccupied. Paranoid delusions are evident. Memory and concentration: AOX3, grossly intact for the purposes of this session Judgment and insight: Poor Assessment Bipolar disorder type I, current episode manic Alcohol use disorder Cocaine use disorder Nicotine dependence Plan: -Patient continues to meet criteria for inpatient psychiatric admission for symptom stabilization and safety. Patient has signed adult voluntary form and medication consent and was placed in patient's chart. -Medications: Invega Sustenna 234 mg IM was administered on 04/13/2020. Patient will receive Invega Sustenna 156 mg IM tomorrow. We will change her current Invega dose to 6 mg by mouth at bedtime Increase Lamictal to 50 mg by mouth daily, and 75 mg by mouth daily at bedtime for mood stabilization Continue trazodone 100 mg by mouth at bedtime for insomnia Continue melatonin 10 mg by mouth at bedtime for insomnia -When necessary Ativan and Haldol for agitation/aggression. -NRT - nicotine patch -SW on board for discharge planning. Encouraged the patient to participate in milieu.
[2020-04-16] MEDS: MAG HYDROX/AL HYDROX/SIMETH 30 ML CUP PO PRN (19:22)
[2020-04-16] MEDS ORDERED: PALIPERIDONE 3 MG TAB.ER.24 PO SCH ×2 (21:00)
[2020-04-16] MEDS: MELATONIN 5 MG TABLET PO SCH (21:55)
[2020-04-16] MEDS: PRAVASTATIN SODIUM 20 MG TAB PO SCH (21:57)
[2020-04-17] MEDS: NICOTINE POLACRILEX 2 MG GUM BUCCAL PRN ×4 (05:06→18:50)
[2020-04-17] MEDS: FOLIC ACID 1 MG TAB PO SCH (07:55)
[2020-04-17] MEDS: hydrOXYzine pamoate 25 MG CAP PO SCH ×2 (07:55→20:04)
[2020-04-17] MEDS: MULTIVITAMINS, THERA 1 EACH TAB PO SCH (07:56)
[2020-04-17] MEDS: THIAMINE 100 MG TAB PO SCH (07:57)
[2020-04-17] MEDS: lamoTRIgine 25 MG TAB PO SCH ×2 (08:50→20:04)
[2020-04-17] MEDS ORDERED: PALIPERIDONE IM 234 MG/1.5 ML SYG IM STA (09:21)
--- NOTE | 2020-04-17 10:06 | P.PN ---
Progress Note - Text Progress Note Date: 04/17/20 Interval History: Patient was seen wandering the hallways and was directable and agreeable to speak with handbook writer in the office. Patient reports that she is feeling better. She is not reporting any auditory or visual hallucinations. She is not religiously preoccupied today she is not reporting any paranoia or other delusions. She states that she is "less fearful" and attributes this to her medications. She wrote 2 letters for her son and her son's partner for this provider to read. The content of the letters revealed no bizarre content and only wished for and happy González and that she apologizes and says that she loves them. She has been adherent with her medications is not reporting any significant side effects at this time. She understands that she will receive her second dose of Invega today. In regards to mood, the patient is not reporting any significant symptoms of depression or anxiety at this time. She is reporting no suicidal or homicidal ideation, intention, and/or plan. She has been participating in the milieu appropriately. Mental Status Exam: General Appearance: Patient appears to be stated age is alert, directable, and cooperative. Behavior: Patient is calmly seated without any agitated behavior. Speech: Patient's speech is fluent and nonpressured. Mood/Affect: Mood is anxious, affect is congruent and nervous, with appropriate range. Suicidality/Homicidality: Patient denies having any suicidal or homicidal ideation intent or plan. Perceptions: Patient denies any visual hallucinations and denies any auditory hallucinations Though content/process: No nondenominational preoccupation today. The patient is not reporting any overt delusions today. Memory and concentration: AOX3, grossly intact for the purposes of this session Judgment and insight: Poor Assessment Bipolar disorder type I, current episode manic Alcohol use disorder Cocaine use disorder Nicotine dependence Plan: -Patient continues to meet criteria for inpatient psychiatric admission for symptom stabilization and safety. Patient has signed adult voluntary form and medication consent and was placed in patient's chart. -Medications: Invega Sustenna 234 mg IM was administered on 04/13/2020. Patient will receive Invega Sustenna 156 mg IM today. Her oral Invega will be decreased to 3 mg at bedtime. Continue Lamictal 50 mg by mouth daily, and 75 mg by mouth daily at bedtime for mood stabilization Continue trazodone 100 mg by mouth at bedtime for insomnia Continue melatonin 10 mg by mouth at bedtime for insomnia -When necessary Ativan and Haldol for agitation/aggression. -NRT - nicotine patch -SW on board for discharge planning. Encouraged the patient to participate in milieu.
[2020-04-17] MEDS ORDERED: PALIPERIDONE IM 156 MG/ML SYG IM STA (10:56)
[2020-04-17] MEDS: MAG HYDROX/AL HYDROX/SIMETH 30 ML CUP PO PRN (15:33)
[2020-04-17] MEDS: PRAVASTATIN SODIUM 20 MG TAB PO SCH (20:04)
[2020-04-17] MEDS: MELATONIN 5 MG TABLET PO SCH (20:04)
[2020-04-17] MEDS ORDERED: PALIPERIDONE 3 MG TAB.ER.24 PO SCH (21:00)
[2020-04-18] MEDS: NICOTINE POLACRILEX 2 MG GUM BUCCAL PRN ×3 (03:10→13:40)
[2020-04-18] MEDS: LORazepam 1 MG TAB PO PRN (03:12)
[2020-04-18 07:18] VITALS: BP 110/72; PULSE 89; RESP 16; TEMP 97.3
[2020-04-18 07:28] LABS: African American GFR (CKD) >90 (>60 ml/min/1.73 sqM); Anion Gap 3 mmol/L; Blood Urea Nitrogen 15 mg/dL (7-17); Calcium 9.4 mg/dL (8.4-10.2); Carbon Dioxide 31 mmol/L (22-30); Chloride 105 mmol/L (98-107); Glucose 83 mg/dL (74-99); Non-African American GFR(CKD) >90 (>60 ml/min/1.73 sqM); Potassium 4.7 mmol/L (3.5-5.1); Sodium 139 mmol/L (137-145)
[2020-04-18] MEDS: FOLIC ACID 1 MG TAB PO SCH (09:06)
[2020-04-18] MEDS: hydrOXYzine pamoate 25 MG CAP PO SCH (09:06)
[2020-04-18] MEDS: lamoTRIgine 25 MG TAB PO SCH (09:06)
[2020-04-18] MEDS: THIAMINE 100 MG TAB PO SCH (09:06)
[2020-04-18] MEDS: MULTIVITAMINS, THERA 1 EACH TAB PO SCH (09:06)
--- NOTE | 2020-04-18 10:50 | P.DS ---
Providers Date of admission: 04/09/20 19:23 Expected date of discharge: 04/18/20 Attending physician: Porfirio Ochoa MD Consults: 04/09/20 19:44 Consult Physician Routine Consulting Provider: Alireza Burton Jr Consult Reason/Comments: H&P and medical Do you want consulting provider notified?: Yes Primary care physician: Alireza Burton - Discharge Diagnosis(es) (1) Bipolar I, recurrent manic episode, severe with psychotic behavior Current Visit: Yes Status: Acute Priority: High (2) Cocaine use disorder Current Visit: No Status: Acute Priority: Medium (3) Alcohol use disorder Current Visit: No Status: Acute Priority: Medium (4) Nicotine dependence Current Visit: Yes Status: Acute Priority: Medium Hospital Course: Admission HPI: Patient is a , 54-year-old female on SSI presented to the emergency department with a chief complaint of "not feeling right." Patient presented to the hospital on 04/09/2020 by herself with concerns that she was not feeling safe at home. The patient reports that she has been feeling not safe at home because of her neighbors and the fact that she owes significant amount of money to her landlord. She endorses significant psychotic symptoms. She reports that she has been receiving visions of the "past, present, and future." She describes the "visions of the future as torture, the visions of present as apathy, and the visions of the passes bloody murder." She does endorse auditory hallucinations stating that she hears voices from God as well as from snakes, vipers, and [place] Indians who are on a "war path." She is currently not reporting any suicidal or homicidal ideation, intention, and/or plan. She reports one prior attempts at suicide in 2007 but is unable to identify what she did. She was recently in the emergency department with complaints of back pain on 04/05/2020 during which she was given steroids. In regards to other mood symptoms, the patient reports that she has been having difficulty sleeping over the past few days. She reports that she only receives 1-2 hours of sleep per night. She does endorse a history of racing thoughts, mood swings, and increased goal-directed behavior. The patient does state that she has not been in adherent with her medications because she has been concerned that she has had a "kidney infection"and therefore has been intermittently taking her psychotropic medications. The patient does report a significant history of substance use but states that she has been refraining from any drug use or alcohol use over the past 31 days. She reports prior to this. His sobriety, she used crack cocaine. She does report that she used to abuse her gabapentin by crushing it and snorting it. She reports she last did this one month ago. She reportedly smokes one pack per day. Hospital course: Upon admission to the unit patient was initially very religiously preoccupied, delusional, and disorganized. Patient was however directable and agreeable to commence treatment. Patient was started on her home medication of Lamictal and Invega with the plan to transition the patient to a long-acting injectable medication. The patient's Abilify was discontinued as well as her gabapentin as the patient engaged in abuse of the medication in the past by snorting it. The patient has been adherent with her medications. Throughout the course of the hospitalization, the patient gradually improved in terms of psychosis and mood. She occasionally have an episode where she would be very religiously preoccupied and delusional. She was administered Invega Sustenna 234 mg IM on 04/13/2020 and 156 mg IM on 04/17/2020. Her Lamictal was gradually titrated to a final dose of 75 mg by mouth twice a day for mood stabilization. Patient spoke of her stressors and engaged in therapy both group and individual. Patient was also seen by medical team for history and physical exam. The patient initially reported significant issues regarding her relationship with her son, but as the course of the hospitalization continued, the patient has been able to contact and reconcile with him. On the day of discharge the patient is denying any suicidal or homicidal ideation, intention, and/or plan. She is not reporting any auditory or visualizations. She is reporting no delusional thought content.. Patient endorsed wanting to live for her health and family. The patient denied any access to guns or weapons. Patient denied any paranoia and did not endorse any delusions. Patient does have a significant history of substance abuse however was counseled on abstaining from all substances including alcohol and marijuana. Patient reports that she has been off any illicit substances since the end of February. Patient was also counseled on the medications and need for regular compliance and was encouraged to follow-up with their outpatient appointment for mental health and also for primary care. Prior to discharge a family meeting will be arranged by social media specialist to answer any questions and ensure safety upon discharge. Mental status exam: General Appearance: Patient appears to be stated age is alert, pleasant, and cooperative. Patient is in no acute distress and has fair hygiene and grooming Behavior: Patient is calmly seated without any agitated behavior. Speech: Patient's speech is fluent and nonpressured. Hyperverbal but inte rruptible. Mood/Affect: Patient reports their mood is "feeling really good", affect is congruent, bright and euthymic. Suicidality/Homicidality: Patient denies having any suicidal or homicidal ideat ion intent or plan. Perceptions: Patient denies any auditory or visual hallucinations. Though content/process: There is no evidence of any delusional thought content and thought process is linear and goal-directed. Memory and concentration: AOX3, grossly intact for the purposes of this session. Can spell "WORLD" backwards correctly. Judgment and insight: Improved with guarded prognosis Impression: Bipolar disorder type I, current episode manic Alcohol use disorder Cocaine use disorder Nicotine dependence Plan: -Continue with discharge today as patient has improved and stabilized psychia trically and is not currently an imminent threat to herself and/or others. Patient will remain at chronically elevated risk for harm to self and/or others due to her impulsivity and polysubstance abuse. -Continue medications: Lamictal 75 mg by mouth twice a day for mood stabilization Invega Sustenna 156 mg IM last administered on 04/17/2020. Next dose due on 05/16/2019. We will provide the patient with 3 mg of oral Invega to be taken for the next 2 weeks. Gabapentin has been discontinued due to patient's abuse of the medication. -Patient was counseled on the need for medication compliance and appropriate follow-up at mental health and also primary care for medical issues. Patient verbalized understanding and agreed. -Social work to arrange for and conduct family meeting to ensure safety upon discharge and answer any questions/concerns. Social work also to arrange for patients follow up appointments with [facility] for psychiatric care along with follow up with primary care provider. -Patient counseled on abstaining from recreational drugs and marijuana and alcohol. Was informed/educated on the adverse effects on their physical and mental health. Patient verbally agreed and understood. -Patient was instructed to return to the hospital or seek immediate medical care if their psychiatric or medical symptoms do worsen or reoccur. -Psychoeducation and supportive therapy provided to patient. Risks and benefits of pharmacological treatment versus the risks and benefits of nontreatment weight and discussed. Informed consent discussion held. Common side effects of psychotropics discussed such as, but not limited to headache, GI disturbance, sexual dysfunction, movement disorders, sedation, and orthostatic hypotension. Life threatening and blackbox warnings of prescribed medications also discussed. Potential risks of operating a vehicle or heavy machinery discussed with patient at length. Advised on importance of compliance and a reliable and responsible manner. Patient advised to review FDA consumer labeling of all medications prior to taking. Patient verbalized understanding of potential risks, and agrees with current treatment plan. Patient advised to medically co ntact physician/emergency personnel if any acute changes in condition occur. Allergies Allergy/AdvReac Type Severity Reaction Status Date / Time codeine Allergy Unknown Verified 04/09/20 18:38 Penicillins Allergy Unknown Verified 04/09/20 18:38 Laboratory Results WBC 7.0 k/uL (3.8-10.6) 04/10/20 10:08 RBC 4.51 m/uL (3.80-5.40) 04/10/20 10:08 Hgb 13.5 gm/dL (11.4-16.0) 04/10/20 10:08 Hct 39.6 % (34.0-46.0) 04/10/20 10:08 MCV 87.8 fL (80.0-100.0) 04/10/20 10:08 MCH 30.0 pg (25.0-35.0) 04/10/20 10:08 MCHC 34.1 g/dL (31.0-37.0) 04/10/20 10:08 RDW 12.5 % (11.5-15.5) 04/10/20 10:08 Plt Count 369 k/uL (150-450) 04/10/20 10:08 MPV 6.4 04/10/20 10:08 Neutrophils % 58 % 04/10/20 10:08 Lymphocytes % 30 % 04/10/20 10:08 Monocytes % 8 % 04/10/20 10:08 Eosinophils % 1 % 04/10/20 10:08 Basophils % 1 % 04/10/20 10:08 Neutrophils # 4.1 k/uL (1.3-7.7) 04/10/20 10:08 Lymphocytes # 2.1 k/uL (1.0-4.8) 04/10/20 10:08 Monocytes # 0.6 k/uL (0-1.0) 04/10/20 10:08 Eosinophils # 0.1 k/uL (0-0.7) 04/10/20 10:08 Basophils # 0.1 k/uL (0-0.2) 04/10/20 10:08 Sodium 139 mmol/L (137-145) 04/18/20 06:49 Potassium 4.7 mmol/L (3.5-5.1) 04/18/20 06:49 Chloride 105 mmol/L (98-107) 04/18/20 06:49 Carbon Dioxide 31 mmol/L (22-30) H 04/18/20 06:49 Anion Gap 3 mmol/L 04/18/20 06:49 BUN 15 mg/dL (7-17) 04/18/20 06:49 Creatinine 0.75 mg/dL (0.52-1.04) 04/18/20 06:49 Est GFR (CKD-EPI)AfAm >90 (>60 ml/min/1.73 sqM) 04/18/20 06:49 Est GFR (CKD-EPI)NonAf >90 (>60 ml/min/1.73 sqM) 04/18/20 06:49 Glucose 83 mg/dL (74-99) 04/18/20 06:[address] Glu mg/dL 120 04/10/20 10:08 Hemoglobin A1c 5.8 % (4.0-6.0) 04/10/20 10:08 Calcium 9.4 mg/dL (8.4-10.2) 04/18/20 06:49 Total Bilirubin 0.4 mg/dL (0.2-1.3) 04/10/20 10:08 AST 30 U/L (14-36) 04/10/20 10:08 ALT 30 U/L (4-34) 04/10/20 10:08 Alkaline Phosphatase 63 U/L (38-126) 04/10/20 10:08 Total Protein 6.8 g/dL (6.3-8.2) 04/10/20 10:08 Albumin 4.1 g/dL (3.5-5.0) 04/10/20 10:08 Triglycerides 62 mg/dL (<150) 04/10/20 10:08 Cholesterol 228 mg/dL (<200) H 04/10/20 10:08 LDL Cholesterol, Calc 153 mg/dL (0-99) H 04/10/20 10:08 HDL Cholesterol 63 mg/dL (40-60) H 04/10/20 10:08 TSH 0.522 mIU/L (0.465-4.680) 04/10/20 10:08 Urine Color Light Yellow 04/11/20 00:12 Urine Appearance Clear (Clear) 04/11/20 00:12 Urine pH 5.0 (5.0-8.0) 04/11/20 00:12 Ur Specific [place] 1.007 (1.001-1.035) 04/11/20 00:12 Urine Protein Negative (Negative) 04/11/20 00:12 Urine Glucose (UA) Negative (Negative) 04/11/20 00:12 Urine Ketones Negative (Negative) 04/11/20 00:12 Urine Blood Negative (Negative) 04/11/20 00:12 Urine Nitrite Negative (Negative) 04/11/20 00:12 Urine Bilirubin Negative (Negative) 04/11/20 00:12 Urine Urobilinogen <2.0 mg/dL (<2.0) 04/11/20 00:12 Ur Leukocyte Esterase Trace (Negative) H 04/11/20 00:12 Urine RBC <1 /hpf (0-5) 04/11/20 00:12 Urine WBC 2 /hpf (0-5) 04/11/20 00:12 Ur Squamous Epith Cells 2 /hpf (0-4) 04/11/20 00:12 Urine Opiates Screen Not Detected (NotDetected) 04/09/20 17:33 Ur Oxycodone Screen Not Detected (NotDetected) 04/09/20 17:33 Urine Methadone Screen Not Detected (NotDetected) 04/09/20 17:33 Ur Propoxyphene Screen Not Detected (NotDetected) 04/09/20 17:33 Ur Barbiturates Screen Not Detected (NotDetected) 04/09/20 17:33 U Tricyclic Antidepress Not Detected (NotDetected) 04/09/20 17:33 Ur Phencyclidine Scrn Not Detected (NotDetected) 04/09/20 17:33 Ur Amphetamines Screen Not Detected (NotDetected) 04/09/20 17:33 U Methamphetamines Scrn Not Detected (NotDetected) 04/09/20 17:33 U Benzodiazepines Scrn Not Detected (NotDetected) 04/09/20 17:33 Urine Cocaine Screen Not Detected (NotDetected) 04/09/20 17:33 U Marijuana (THC) Screen Not Detected (NotDetected) 04/09/20 17:33 Coronavirus (PCR) Not Detected (Not Detectd) 04/09/20 18:45 Vital Signs Temp 97.3 F L 04/18/20 03:12 Pulse 89 04/18/20 03:12 Resp 16 04/18/20 03:12 BP 110/72 04/18/20 03:12 Pulse Ox 97 04/13/20 07:04 Patient Condition at Discharge: Stable Plan - Discharge Summary Discharge Rx Participant: Yes New Discharge Prescriptions: New Paliperidone [Invega] 3 mg PO HS 15 Days tab.er.24 Paliperidone IM [Invega Sustenna] 156 mg IM QMONTHLY #1 syr lamoTRIgine [LaMICtal] 75 mg PO BID 30 Days tab Melatonin 10 mg PO HS 30 Days tablet Nicotine Polacrilex [Nicorette] 2 mg BUCCAL Q4HR PRN 30 Days gum PRN Reason: Nicotine Cravings Pravastatin Sodium [Pravachol] 10 mg PO HS 30 Days tab hydrOXYzine pamoate [Vistaril] 50 mg PO BID 30 Days cap Discontinued Folic Acid 1 mg PO DAILY tab lamoTRIgine [LaMICtal] 150 mg PO DAILY #14 tab Multivitamins, Thera [Multivitamin (formulary)] 1 each PO DAILY tab Gabapentin [Neurontin] 400 mg PO HS #14 cap Thiamine [Vitamin B-1] 100 mg PO DAILY tab ARIPiprazole [Abilify] 10 mg PO DAILY #14 tab traZODone HCL 100 mg PO HS predniSONE 50 mg PO DAILY hydrOXYzine pamoate [Vistaril] 50 mg PO BID Melatonin 80 mg PO ONCE PRN PRN Reason: Insomnia Discharge Medication List Melatonin 10 mg PO HS 30 Days tablet 04/18/20 [Rx] Nicotine Polacrilex [Nicorette] 2 mg BUCCAL Q4HR PRN 30 Days gum 04/18/20 [Rx] Paliperidone IM [Invega Sustenna] 156 mg IM QMONTHLY #1 syr 04/18/20 [Rx] Paliperidone [Invega] 3 mg PO HS 15 Days tab.er.24 04/18/20 [Rx] Pravastatin Sodium [Pravachol] 10 mg PO HS 30 Days tab 04/18/20 [Rx] hydrOXYzine pamoate [Vistaril] 50 mg PO BID 30 Days cap 04/18/20 [Rx] lamoTRIgine [LaMICtal] 75 mg PO BID 30 Days tab 04/18/20 [Rx] Follow up Appointment(s)/Referral(s): Alireza Burton Jr, [Primary Care Provider] - 1-2 days Patient Instructions/Handouts: How to Stop Smoking (DC), Psychotic Disorder (DC) Activity/Diet/Wound Care/Special Instructions: Activity and diet as tolerated. Avoid the use of street drugs and alcohol. Take all medications as prescribed. When you are in need of refills on your medications please contact your medical provider and/or outpatient psychiatrist to have this done. Please go to scheduled outpatient appointment for aftercare treatment. If symptoms return or become worse, call the crisis line at and/or go to the nearest emergency room for evaluation.
== END 2020-04-18 14:12 | disposition home or self-care (01) | DRG 885 ==
LOC: EC 16:53 → 3MHU 19:23
PROVIDERS: ADMIT Psychiatry & Neurology Psychiatry; ATTEND Psychiatry & Neurology Psychiatry
DX: F31.2 Bipolar disorder, current episode manic severe with psychotic features (principal); E87.1 Hypo-osmolality and hyponatremia; E78.00 Pure hypercholesterolemia, unspecified; E78.5 Hyperlipidemia, unspecified; F10.10 Alcohol abuse, uncomplicated; F14.10 Cocaine abuse, uncomplicated; F17.210 Nicotine dependence, cigarettes, uncomplicated; F41.9 Anxiety disorder, unspecified; Z72.820 Sleep deprivation; Z20.828 Contact with and (suspected) exposure to other viral communicable diseases; Q24.9 Congenital malformation of heart, unspecified; Z79.51 Long term (current) use of inhaled steroids; Z79.899 Other long term (current) drug therapy; Z81.8 Family history of other mental and behavioral disorders; Z91.19 Patient's noncompliance with other medical treatment and regimen; Z91.5 Personal history of self-harm; F19.10 Other psychoactive substance abuse, uncomplicated; Z88.5 Allergy status to narcotic agent; Z88.0 Allergy status to penicillin
CPT/HCPCS: 80048; 80053; 80061; 80306; 81001; 82075; 83036; 84295; 84443; 85025; 87635; 99285

== ENCOUNTER 2020-05-22 18:25 | Emergency (ER) | payer OTHER ==
--- NOTE | 2020-05-22 18:44 | ED ---
Psych HPI - General Chief Complaint: Psychiatric Symptoms Stated Complaint: delusional Time Seen by Provider: 05/22/20 18:43 Source: patient Mode of arrival: ambulatory - History of Present Illness Initial Comments: Patient is a 54-year-old female presenting to the emergency department for psychiatric evaluation. Patient states she has been feeling delusional about her son. Patient states her son does not want to be around her because she has been using crack and drinking. Patient states that her son advised to stay away from her granddaughter if she does not get her behavior under control. Patient does not seem to be satisfied with her son's partner and how to treat her. Patient is denying any homicidal, suicidal thoughts or ideations at this time. - Related Data Previous Rx's Medication Instructions Recorded Melatonin 10 mg PO HS 30 Days tablet 04/18/20 Nicotine Polacrilex [Nicorette] 2 mg BUCCAL Q4HR PRN 30 Days gum 04/18/20 Paliperidone IM [Invega Sustenna] 156 mg IM QMONTHLY #1 syr 04/18/20 Paliperidone [Invega] 3 mg PO HS 15 Days tab.er.24 04/18/20 Pravastatin Sodium [Pravachol] 10 mg PO HS 30 Days tab 04/18/20 hydrOXYzine pamoate [Vistaril] 50 mg PO BID 30 Days cap 04/18/20 lamoTRIgine [LaMICtal] 75 mg PO BID 30 Days tab 04/18/20 Allergies Allergy/AdvReac Type Severity Reaction Status Date / Time codeine Allergy Unknown Verified 05/22/20 20:34 Penicillins Allergy Unknown Verified 05/22/20 20:34 Review of Systems ROS Statement: Those systems with pertinent positive or pertinent negative responses have been documented in the HPI. ROS Other: All systems not noted in ROS Statement are negative. Past Medical History Past Medical History: No Reported History Additional Past Medical History / Comment(s): "born with a heart defect" History of Any Multi-Drug Resistant Organisms: None Reported Additional Past Surgical History / Comment(s): D&C Past Anesthesia/Blood Transfusion Reactions: No Reported Reaction Past Psychological History: Anxiety, Bipolar, Depression, Schizoaffective Disorder Smoking Status: Current every day smoker Past Alcohol Use History: None Reported Past Drug Use History: None Reported - Past Family History Mother Family Medical History: Unable to Obtain Father Family Medical History: No Reported History General Exam Limitations: no limitations General appearance: alert, in no apparent distress Head exam: Present: atraumatic, normocephalic, normal inspection Eye exam: Present: normal appearance, PERRL, EOMI Pupils: Present: normal accommodation ENT exam: Present: normal exam, normal oropharynx, mucous membranes moist Neck exam: Present: normal inspection, full ROM Respiratory exam: Present: normal lung sounds bilaterally Cardiovascular Exam: Present: regular rate, normal rhythm, normal heart sounds Extremities exam: Present: normal inspection, full ROM Back exam: Present: normal inspection, full ROM Neurological exam: Present: alert, oriented X3, normal gait Psychiatric exam: Present: normal affect, anxious Skin exam: Present: warm, dry, intact, normal color Course Vital Signs 05/22/20 05/22/20 18:30 21:00 Temperature 98.8 F 98.0 F Pulse Rate 98 87 Respiratory 18 20 Rate Blood Pressure 140/85 136/78 O2 Sat by Pulse 96 98 Oximetry Medical Decision Making - Medical Decision Making 54-year-old female presenting to emergency department for psychiatric evaluation. Patient denies any suicidal, homicidal thoughts or ideations. Physical examination is unremarkable. EP accidentally the patient and cleared the patient for discharge. Supposedly this is the patient's baseline. They will have the patient follow up with [facility] in the morning. Return parameters discussed the patient was understanding and agreeable. Case discussed physician. - Lab Data Lab Results 05/22/20 Range/Units 19:18 Urine Color Light Yellow Urine Appearance Clear (Clear) Urine pH 6.5 (5.0-8.0) Ur Specific [place] 1.006 (1.001-1.035) Urine Protein Negative (Negative) Urine Glucose (UA) Negative (Negative) Urine Ketones Negative (Negative) Urine Blood Negative (Negative) Urine Nitrite Negative (Negative) Urine Bilirubin Negative (Negative) Urine Urobilinogen <2.0 (<2.0) mg/dL Ur Leukocyte Esterase Negative (Negative) Urine Opiates Screen Not Detected (NotDetected) Ur Oxycodone Screen Not Detected (NotDetected) Urine Methadone Screen Not Detected (NotDetected) Ur Propoxyphene Screen Not Detected (NotDetected) Ur Barbiturates Screen Not Detected (NotDetected) U Tricyclic Antidepress Not Detected (NotDetected) Ur Phencyclidine Scrn Not Detected (NotDetected) Ur Amphetamines Screen Not Detected (NotDetected) U Methamphetamines Scrn Not Detected (NotDetected) U Benzodiazepines Scrn Not Detected (NotDetected) Urine Cocaine Screen Not Detected (NotDetected) U Marijuana (THC) Screen Not Detected (NotDetected) Disposition Clinical Impression: Adjustment reaction of adult life Disposition: HOME SELF-CARE Condition: Stable Instructions (If sedation given, give patient instructions): Depression (DC) Additional Instructions: Follow up with [facility]. Return to emergency department if symptoms worsen. Is patient prescribed a controlled substance at d/c from ED?: No Referrals: Alireza Burton Jr, [Primary Care Provider] - 1-2 days Time of Disposition: 23:54
[2020-05-22 19:42] LABS: Appearance,Urine Clear (Clear); Bilirubin,Urine Negative (Negative); Blood,Urine Negative (Negative); Color,Urine Light Yellow; Glucose,Urine (UA) Negative (Negative); Ketones,Urine Negative (Negative); Leukocyte Esterase,Urine Negative (Negative); Nitrite,Urine Negative (Negative); PH, Urine 6.5 (5.0-8.0); Protein,Urine Negative (Negative); Specific Gravity,Urine 1.006 (1.001-1.035); Urobilinogen,Urine <2.0 mg/dL (<2.0)
[2020-05-22 19:51] LABS: Amphetamine Screen,Urine Not Detected (NotDetected); Barbiturate Screen,Urine Not Detected (NotDetected); Benzodiazepines Screen,Urine Not Detected (NotDetected); Cocaine Screen,Urine Not Detected (NotDetected); Methadone Screen, Urine Not Detected (NotDetected); Opiate Screen,Urine Not Detected (NotDetected); Oxycodone Screen, Urine Not Detected (NotDetected); Phencyclidine Screen,Urine Not Detected (NotDetected); Tricyclic Antidepressant,Urine Not Detected (NotDetected); Urn Cannabinoid Scrn Not Detected (NotDetected)
[2020-05-22] MEDS ORDERED: NICOTINE POLACRILEX 2 MG GUM BUCCAL PRN (20:28)
[2020-05-22] MEDS ORDERED: ALPRAZolam 1 MG TAB PO STA (20:29)
[2020-05-23 01:03] VITALS: BP 113/75; PULSE 90; RESP 19; TEMP 97.9
== END 2020-05-23 00:50 | disposition home or self-care (01) ==
LOC: EC 18:25
DX: F43.20 Adjustment disorder, unspecified (principal); F17.200 Nicotine dependence, unspecified, uncomplicated; Z88.0 Allergy status to penicillin; Z88.5 Allergy status to narcotic agent
CPT/HCPCS: 80306; 81003; 82075; 99285

== ENCOUNTER 2020-06-01 02:39 | Inpatient (IN) | payer MEDICAID, OTHER ==
--- NOTE | 2020-06-01 03:22 | ED ---
Psych HPI - General Chief Complaint: Psychiatric Symptoms Stated Complaint: Mental Health Time Seen by Provider: 06/01/20 02:59 Source: patient Mode of arrival: ambulatory Limitations: altered mental status (Patient appears manic) - History of Present Illness Initial Comments: This patient's 54-year-old woman here for psychiatric evaluation. The patient complains that people were performing witch craft against her. She denies any suicidal ideation or homicidal ideation, but isn't expressing paranoid delusional thoughts. MD Complaint: other -: unknown Associated Psychiatric Symptoms: racing thoughts Quality: getting worse Improves With: none Worsens With: none Associated Symptoms: denies other symptoms - Related Data Previous Rx's Medication Instructions Recorded Melatonin 10 mg PO HS 30 Days tablet 04/18/20 Nicotine Polacrilex [Nicorette] 2 mg BUCCAL Q4HR PRN 30 Days gum 04/18/20 Paliperidone IM [Invega Sustenna] 156 mg IM QMONTHLY #1 syr 04/18/20 Paliperidone [Invega] 3 mg PO HS 15 Days tab.er.24 04/18/20 Pravastatin Sodium [Pravachol] 10 mg PO HS 30 Days tab 04/18/20 hydrOXYzine pamoate [Vistaril] 50 mg PO BID 30 Days cap 04/18/20 lamoTRIgine [LaMICtal] 75 mg PO BID 30 Days tab 04/18/20 Allergies Allergy/AdvReac Type Severity Reaction Status Date / Time codeine Allergy Unknown Verified 06/01/20 02:52 Penicillins Allergy Unknown Verified 06/01/20 02:52 Review of Systems ROS Statement: Those systems with pertinent positive or pertinent negative responses have been documented in the HPI. ROS Other: All systems not noted in ROS Statement are negative. Limitations: ROS unobtainable due to patients medical condition (Patient appears manic) Constitutional: Denies: fever Respiratory: Denies: cough, dyspnea Cardiovascular: Denies: chest pain, palpitations Gastrointestinal: Denies: abdominal pain, vomiting Genitourinary: Denies: dysuria, hematuria Musculoskeletal: Denies: back pain Neurological: Denies: headache, weakness Psychiatric: Reports: auditory hallucinations. Denies: depression, visual hallucinations, homicidal thoughts, suicidal thoughts Past Medical History Past Medical History: No Reported History Additional Past Medical History / Comment(s): "born with a heart defect" History of Any Multi-Drug Resistant Organisms: None Reported Additional Past Surgical History / Comment(s): D&C Past Anesthesia/Blood Transfusion Reactions: No Reported Reaction Past Psychological History: Anxiety, Bipolar, Depression, Schizoaffective Disorder Smoking Status: Current every day smoker Past Alcohol Use History: None Reported Past Drug Use History: None Reported - Past Family History Mother Family Medical History: Unable to Obtain Father Family Medical History: No Reported History General Exam Limitations: no limitations General appearance: alert, in no apparent distress Head exam: Present: atraumatic, normocephalic Eye exam: Present: normal appearance. Absent: scleral icterus, conjunctival injection ENT exam: Present: normal oropharynx Neck exam: Present: normal inspection, full ROM Respiratory exam: Present: normal lung sounds bilaterally. Absent: respiratory distress, wheezes, rales, rhonchi, stridor Cardiovascular Exam: Present: regular rate, normal rhythm, normal heart sounds. Absent: systolic murmur, diastolic murmur, rubs, gallop GI/Abdominal exam: Present: soft. Absent: distended, tenderness, guarding, rebound, rigid Extremities exam: Present: normal inspection, normal capillary refill. Absent: pedal edema, calf tenderness Neurological exam: Present: alert, normal gait Psychiatric exam: Present: manic, other (Disorganized thought processes and delusional thought content). Absent: normal mood, depressed, agitated, anxious, flat affect, homicidal ideation, suicidal ideation Skin exam: Present: warm, dry, intact, normal color. Absent: rash Course Vital Signs 06/01/20 06/01/20 02:53 05:33 Temperature 98.6 F 98.0 F Pulse Rate 96 82 Respiratory 18 16 Rate Blood Pressure 128/92 O2 Sat by Pulse 97 Oximetry Medical Decision Making - Lab Data Result diagrams: 06/02/20 06:53 06/02/20 06:53 Lab Results 06/01/20 06/01/20 Range/Units 04:01 04:48 Urine Opiates Screen Not Detected (NotDetected) Ur Oxycodone Screen Not Detected (NotDetected) Urine Methadone Screen Not Detected (NotDetected) Ur Propoxyphene Screen Not Detected (NotDetected) Ur Barbiturates Screen Not Detected (NotDetected) U Tricyclic Antidepress Not Detected (NotDetected) Ur Phencyclidine Scrn Not Detected (NotDetected) Ur Amphetamines Screen Not Detected (NotDetected) U Methamphetamines Scrn Not Detected (NotDetected) U Benzodiazepines Scrn Not Detected (NotDetected) Urine Cocaine Screen Not Detected (NotDetected) U Marijuana (THC) Screen Not Detected (NotDetected) Coronavirus (PCR) Not Detected (Not Detectd) Disposition Clinical Impression: Psychosis Disposition: ADMITTED IP TO THIS HOSP Condition: Good
[2020-06-01] MEDS ORDERED: NICOTINE 21MG/24HR PATCH TRANSDERM STA (04:07)
[2020-06-01] MEDS ORDERED: LORazepam 1 MG TAB PO STA (04:33)
[2020-06-01 04:38] LABS: Amphetamine Screen,Urine Not Detected (NotDetected); Barbiturate Screen,Urine Not Detected (NotDetected); Benzodiazepines Screen,Urine Not Detected (NotDetected); Cocaine Screen,Urine Not Detected (NotDetected); Methadone Screen, Urine Not Detected (NotDetected); Opiate Screen,Urine Not Detected (NotDetected); Oxycodone Screen, Urine Not Detected (NotDetected); Phencyclidine Screen,Urine Not Detected (NotDetected); Tricyclic Antidepressant,Urine Not Detected (NotDetected); Urn Cannabinoid Scrn Not Detected (NotDetected)
[2020-06-01] MEDS ORDERED: HALOPERIDOL LACTATE 5 MG/ML 1 ML VIAL IM PRN (08:00)
[2020-06-01] MEDS ORDERED: LORazepam 2 MG/ML INJ IM PRN (08:00)
[2020-06-01] MEDS: lamoTRIgine 25 MG TAB PO SCH ×2 (08:29→21:48)
[2020-06-01] MEDS: hydrOXYzine pamoate 25 MG CAP PO SCH ×2 (08:29→21:47)
[2020-06-01] MEDS: NICOTINE 14MG/24HR PATCH TRANSDERM SCH (08:29)
[2020-06-01] MEDS: NICOTINE POLACRILEX 2 MG GUM BUCCAL PRN ×3 (08:31→21:05)
[2020-06-01] MEDS ORDERED: MAGNESIUM HYDROXIDE 2,400 MG/10 ML CUP PO PRN (09:00)
[2020-06-01] MEDS: PALIPERIDONE 3 MG TAB.ER.24 PO SCH ×2 (11:12→21:49)
--- NOTE | 2020-06-01 11:13 | P.HP ---
Psychiatric H&P - . H&P Date: 06/01/20 History & Physical: Allergies Allergy/AdvReac Type Severity Reaction Status Date / Time codeine Allergy Unknown Verified 06/01/20 02:52 Penicillins Allergy Unknown Verified 06/01/20 02:52 Vital Signs Temp 97.7 F 06/01/20 06:32 Pulse 85 06/01/20 06:32 Resp 18 06/01/20 06:32 BP 116/80 06/01/20 06:32 Pulse Ox 98 06/01/20 06:32 Intake & Output 05/31/20 06/01/20 06/01/20 18:59 06:59 18:59 Weight 68.492 kg Laboratory Last Values Urine Opiates Screen Not Detected (NotDetected) 06/01/20 04:01 Ur Oxycodone Screen Not Detected (NotDetected) 06/01/20 04:01 Urine Methadone Screen Not Detected (NotDetected) 06/01/20 04:01 Ur Propoxyphene Screen Not Detected (NotDetected) 06/01/20 04:01 Ur Barbiturates Screen Not Detected (NotDetected) 06/01/20 04:01 U Tricyclic Antidepress Not Detected (NotDetected) 06/01/20 04:01 Ur Phencyclidine Scrn Not Detected (NotDetected) 06/01/20 04:01 Ur Amphetamines Screen Not Detected (NotDetected) 06/01/20 04:01 U Methamphetamines Scrn Not Detected (NotDetected) 06/01/20 04:01 U Benzodiazepines Scrn Not Detected (NotDetected) 06/01/20 04:01 Urine Cocaine Screen Not Detected (NotDetected) 06/01/20 04:01 U Marijuana (THC) Screen Not Detected (NotDetected) 06/01/20 04:01 Coronavirus (PCR) Not Detected (Not Detectd) 06/01/20 04:48 06/01/20 10:11 IDENTIFYING DATA: Patient is a , 54-year-old female, collecting SSI, has 3 kids and is currently living in an apartment with her boyf romaine. HPI: Patient presented to the hospital yesterday for a psychiatric evaluation. According to the ER report patient was stating that people were performing witchcraft against her and was also displaying racing thoughts. Patient was recently discharged from the mental health unit in April 2020 and was placed on Invega Sustenna long acting injection to ensure compliance. Patient was supp osed to have her next injection at [facility] on 05/16/2020. Patient appeared to be bizarre and difficult to redirect in the hallways and was agreeable to speak to hand sign writer. She appeared to have poor hygiene and grooming today. She claims that she has "methamphetamine in my blood" and spoke about "micro-dosing" which had been given to her after having sex with her boyfriend. She states that she felt that other people were performing "Satanic rituals" on her and states that everybody is a devil worshiper. She was also religiously preoccupied during the conversation. She spoke about walking to her hospital with her friend "Nick" who she claims is a precinct police captain. She spoke of her mood being "really good" and was endorsing racing thoughts, flight of ideas and was endorsing several loosely formed delusions. She was fairly impulsive and labile during the conversation and also was intrusive asking hand sign writer several inappropriate questions and commenting on his clothing. She states that she is hearing voices telling her to "please stop". She denies any visual hallucinations. She is not endorsing any suicidal ideations intent or plan and denies any homicidal ideations. She claims that her sleep is "okay" and missed a fair energy. She claimed that she is not using any other recreational drugs and her UDS was negative. She reportedly smokes one pack per day. PAST PSYCHIATRIC HISTORY: Patient states that she is open with [facility] [place]. She is able to recall her home medications of Vistaril, lamotrigine, paliperidone, and melatonin. She was last admitted to [facility] in April 2020 und er the care of Dr. Ochoa. Fourth prior attempt at suicide in the past. Patient is following up with [facility]. Patient was due for her Invega Sustenna on 05/16/2020 and accroding to [facility] records patient had recieved this dose. PMH: No reported medical history. ALLERGIES: Codeine, penicillins CHEMICAL DEPENDENCY HISTORY: Crack cocaine use. see HPI FAMILY PSYCHIATRIC/SUBSTANCE USE HISTORY: Reports that her mother abused many substances. Mother with bipolar disorder as well. SOCIAL HISTORY: Patient was born and raised in [place], [place]. She is currently living in [place] in a apartment with her boyfriend. She has 3 children and is currently . She reports that she is currently receiving SSI. MENTAL STATUS EXAM: General Appearance: Patient appears to be stated age is alert, difficult to redirect, bizarre. Patient appears to have poor hygiene and grooming. discheveled appearance Behavior: Patient is seated without any agitated behavior. Eye contact is intense. Speech: Patient's speech is fluent and nonpressured. Rapid and talkative today. Mood/Affect: Patient reports their mood is "really well", affect is congruent and intrusive/labile. Suicidality/Homicidality: Patient denies having any homicidal ideation intent or plan. Denies any suicidal ideations intent or plan Perceptions: Patient is endorsing both auditory stating that they are saying "please stop". She is denying any visual hallucinations. Though content/process: Anabaptist preoccupation, bizarre delusions, and some disorganization. Memory and concentration: AOX3, grossly intact for the purposes of this session. Can spell "WORLD" backwards Judgment and insight: poor STRENGTHS/WEAKNESSES: strength is that patient has housing. Weakness is that patient significant history of substance use, chronic mental illness, poor adherence to treatment, and limited insight. INTELLECT: Below average IMPRESSIONS: Bipolar disorder type I, current episode manic with psychotic features history of Alcohol use disorder history of Cocaine use disorder Nicotine dependence PLAN: -Patient is admitted under voluntary status to MHU for stabilization of psychiatric symptoms and safety. Patient signed adult voluntary form and medication consent and is placed in patient's chart. -Medications : Will start patient on Invega 3 mg by mouth BID for psychosis/mood stabilization. Will likely need a higher dose of Invega Sustenna 234mg IM monthly. Continue with Lamictal 75 mg twice a day for mood stabilization. Continue melatonin 10 mg by mouth at bedtime for insomnia. Continue Vistaril 50 mg twice a day for anxiety. -Ativan and Haldol PRN for agitation/aggression -Patient was counselled on substance abuse -Patient was informed of the risks, benefits and side effects of the medication and patient verbally consented to taking the medications. Patient signed med consent form and was placed in chart. -Internal Medicine consult to perform medical evaluation and physical. -NRT - nicotine patch + gum -SW on board for discharge planning. Encourage patient to participate in groups to work on coping skills. 06/01/20 11:13
[2020-06-01] MEDS: ACETAMINOPHEN TAB 325 MG TAB PO PRN (12:27)
[2020-06-01] MEDS: haloperidoL 5 MG TAB PO PRN ×2 (13:35→23:49)
[2020-06-01] MEDS: LORazepam 1 MG TAB PO PRN ×2 (13:35→23:49)
--- NOTE | 2020-06-01 15:51 | P.CONS ---
History of Present Illness - Reason for Consult Consult date: 06/01/20 Medical management of nicotine dependence Requesting physician: Grayson Calderon - Chief Complaint Psychosis - History of Present Illness This is a 54-year-old female recently discharged from mental health unit April 2020, with past medical history of anxiety, bipolar, depression, schizoaffective disorder, nicotine dependence, alcohol abuse, past used of mushrooms, LSD, crack cocaine and misusing prescribed medications including Wellbutrin presented to the ER stating people were performing witchcraft against her, racing thoughts, hallucinations. Medical evaluation/consult aborted at this time, exam deferred secondary to patient's active mental delirium, hallucinations. Did not feel safe to proceed. Patient became extremely anxious, agitated, crying, stating she had chains on her back, demons were all around her and that she needed an exorcism. Denied chest pain, shortness of breath but complains of nausea. Toxicology negative. Once patient is stabilized please please call so the medical evaluation/consult can be completed. TU. VELIZ ordered Bipolar disorder, manic with psychosis History of polysubstance abuse including alcohol, cocaine, Neurontin, and nicotine dependence Anxiety, depression Schizoaffective disorder The impression and plan of care has been dictated as directed. : I performed a history and examination of this patient, discussed the same with the dictator. I agree with the dictator's note ,documented as a scribe. Any additional findings or plans will be noted. Past Medical History Past Medical History: No Reported History Additional Past Medical History / Comment(s): "born with a heart defect" History of Any Multi-Drug Resistant Organisms: None Reported Additional Past Surgical History / Comment(s): D&C Past Anesthesia/Blood Transfusion Reactions: No Reported Reaction Past Psychological History: Anxiety, Bipolar, Depression, Schizoaffective Disorder Smoking Status: Current every day smoker Past Alcohol Use History: None Reported Past Drug Use History: None Reported - Past Family History Mother Family Medical History: Unable to Obtain Father Family Medical History: No Reported History Medications and Allergies Home Medications Medication Instructions Recorded Confirmed Type Melatonin 10 mg PO HS 30 Days tablet 04/18/20 05/22/20 Rx Nicotine Polacrilex [Nicorette] 2 mg BUCCAL Q4HR PRN 30 Days gum 04/18/20 05/22/20 Rx Paliperidone IM [Invega Sustenna] 156 mg IM QMONTHLY #1 syr 04/18/20 05/22/20 Rx Paliperidone [Invega] 3 mg PO HS 15 Days tab.er.24 04/18/20 05/22/20 Rx Pravastatin Sodium [Pravachol] 10 mg PO HS 30 Days tab 04/18/20 05/22/20 Rx hydrOXYzine pamoate [Vistaril] 50 mg PO BID 30 Days cap 04/18/20 05/22/20 Rx lamoTRIgine [LaMICtal] 75 mg PO BID 30 Days tab 04/18/20 05/22/20 Rx Allergies Allergy/AdvReac Type Severity Reaction Status Date / Time codeine Allergy Unknown Verified 06/01/20 02:52 Penicillins Allergy Unknown Verified 06/01/20 02:52 Physical Exam Vitals: Vital Signs Temp Pulse Pulse Resp BP BP Pulse Ox 06/01/20 06:32 97.7 F 85 18 116/80 98 06/01/20 05:33 98.0 F 82 16 06/01/20 02:53 98.6 F 96 18 128/92 97 Intake and Output 06/01/20 06/01/20 06/01/20 06:59 14:59 22:59 Other: Weight 68.492 kg
[2020-06-01] MEDS ORDERED: PALIPERIDONE 3 MG TAB.ER.24 PO SCH (21:00)
[2020-06-01] MEDS: PRAVASTATIN SODIUM 20 MG TAB PO SCH (21:46)
[2020-06-01] MEDS: MELATONIN 5 MG TABLET PO SCH (21:48)
[2020-06-02] MEDS: NICOTINE POLACRILEX 2 MG GUM BUCCAL PRN ×3 (06:39→14:21)
[2020-06-02] MEDS: ACETAMINOPHEN TAB 325 MG TAB PO PRN ×3 (06:39→20:47)
[2020-06-02 07:34] LABS: ALT 32 U/L (4-34); AST 36 U/L (14-36); African American GFR (CKD) >90 (>60 ml/min/1.73 sqM); Albumin 4.3 g/dL (3.5-5.0); Alkaline Phosphatase 64 U/L (38-126); Anion Gap 4 mmol/L; Blood Urea Nitrogen 14 mg/dL (7-17); Calcium 9.7 mg/dL (8.4-10.2); Carbon Dioxide 28 mmol/L (22-30); Chloride 103 mmol/L (98-107); Cholesterol 225 mg/dL (<200); Glucose 97 mg/dL (74-99); HDL Cholesterol 62 mg/dL (40-60); LDL Cholesterol,Calculated 147 mg/dL (0-99); Non-African American GFR(CKD) >90 (>60 ml/min/1.73 sqM); Potassium 4.5 mmol/L (3.5-5.1); Sodium 135 mmol/L (137-145); Total Bilirubin 0.5 mg/dL (0.2-1.3); Total Protein 7.2 g/dL (6.3-8.2); Triglycerides 79 mg/dL (<150)
[2020-06-02 07:38] LABS: Basophils % (A) 1 %; Eosinophils # (A) 0.2 k/uL (0-0.7); Eosinophils % (A) 2 %; HGB 13.5 gm/dL (11.4-16.0); Lymphocytes # (A) 2.6 k/uL (1.0-4.8); Lymphocytes % (A) 35 %; MCH 29.3 pg (25.0-35.0); MCHC 32.9 g/dL (31.0-37.0); MCV 89.3 fL (80.0-100.0); Mean Platelet Volume 6.9; Monocytes # (A) 0.6 k/uL (0-1.0); Monocytes % (A) 8 %; Neutrophils % (A) 54 %; Platelet Count 277 k/uL (150-450); RBC 4.59 m/uL (3.80-5.40); RDW 13.2 % (11.5-15.5); WBC 7.5 k/uL (3.8-10.6)
[2020-06-02] MEDS: lamoTRIgine 25 MG TAB PO SCH (08:51)
[2020-06-02] MEDS: NICOTINE 14MG/24HR PATCH TRANSDERM SCH (08:51)
[2020-06-02] MEDS: PALIPERIDONE 3 MG TAB.ER.24 PO SCH (08:51)
[2020-06-02] MEDS: hydrOXYzine pamoate 25 MG CAP PO SCH ×2 (08:51→20:46)
--- NOTE | 2020-06-02 10:49 | P.PN ---
Progress Note - Text Progress Note Date: 06/02/20 Interval History: Patient was seen wandering the hallways and was directable and agreeable to sp cheri with inspector automatic typewriter in the office. Patient continues to ramble and is hyperverbal and also displaying flight of ideas and racing thoughts. 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 She also spoke briefly about somebody performing witchcraft on her yesterday. She was mildly more directable today and claims that the paliperidone has been helping her "stay focused". She states that she has been trying to go to groups and speak with other patients on the unit. She was preoccupied with discharge today. She states that she was able sleep approximately 4-5 hours last night. She claims to have fair energy. At this time patient denies any suicidal or homical ideations, intent or plan. Patient denies any auditory, visual hallucinations. Patient denies any side effects from the medications and has been compliant with meds. Mental Status Exam: General Appearance: Patient appears to be stated age is alert, difficult to redirect, bizarre at times. Patient appears to have mildly improving hygiene and grooming Behavior: Patient is seated without any agitated behavior. Eye contact is intense. Speech: Patient's speech is fluent and hyperverbal. Rapid and talkative today. Mood/Affect: Patient reports their mood is "good", affect is congruent and intrusive Suicidality/Homicidality: Patient denies having any homicidal ideation intent or plan. Denies any suicidal ideations intent or plan Perceptions: Patient is denying any auditory hallucinations today. She is denying any visual hallucinations. Though content/process: Muslim preoccupation, bizarre delusions, and some disorganization, improving mildly. Continues to flight of ideas. Memory and concentration: AOX3, grossly intact for the purposes of this session Judgment and insight: poor, improving mildly Assessment Bipolar disorder type I, current episode manic with psychotic features history of Alcohol use disorder history of Cocaine use disorder Nicotine dependence Plan: -Patient continues to meet criteria for inpatient psychiatric admission for symptom stabilization and safety. Patient has signed adult voluntary form and medication consent and was placed in patient's chart. -Medications: Increased paliperidone to 6 mg daily at bedtime +3 mg daily for mood stabilization/psychosis. Will likely need a higher dose of Invega Sustenna 234mg IM monthly. Patient received her last Invega Sustenna 156 mg injection on 05/16/20. Increase Lamictal to 100 mg twice a day for mood stabilization. Continue melatonin 10 mg daily at bedtime for insomnia. Continue with Vistaril 50 mg twice a day for anxiety. -When necessary Ativan and Haldol for agitation/aggression. -NRT - nicotine patch + gum -SW on board for discharge planning. Encouraged the patient to participate in milieu.
[2020-06-02 15:29] LABS: Hemoglobin A1C 5.6 % (4.0-6.0)
[2020-06-02] MEDS: haloperidoL 5 MG TAB PO PRN (16:06)
[2020-06-02] MEDS: MAG HYDROX/AL HYDROX/SIMETH 30 ML CUP PO PRN (19:57)
[2020-06-02] MEDS: PRAVASTATIN SODIUM 20 MG TAB PO SCH (20:45)
[2020-06-02] MEDS: PALIPERIDONE 6 MG TAB.ER.24 PO SCH (20:46)
[2020-06-02] MEDS: MELATONIN 5 MG TABLET PO SCH (20:47)
[2020-06-02] MEDS: lamoTRIgine 100 MG TAB PO SCH (20:47)
[2020-06-02] MEDS ORDERED: PALIPERIDONE 3 MG TAB.ER.24 PO SCH (21:00)
[2020-06-03] MEDS: ACETAMINOPHEN TAB 325 MG TAB PO PRN ×3 (01:13→16:58)
[2020-06-03] MEDS: LORazepam 1 MG TAB PO PRN ×3 (01:13→22:39)
[2020-06-03] MEDS: NICOTINE POLACRILEX 2 MG GUM BUCCAL PRN ×3 (01:13→16:58)
[2020-06-03] MEDS: MAG HYDROX/AL HYDROX/SIMETH 30 ML CUP PO PRN ×3 (01:14→22:45)
[2020-06-03] MEDS: NICOTINE 14MG/24HR PATCH TRANSDERM SCH (07:44)
[2020-06-03] MEDS: lamoTRIgine 100 MG TAB PO SCH (07:44)
[2020-06-03] MEDS: hydrOXYzine pamoate 25 MG CAP PO SCH ×2 (07:44→20:17)
[2020-06-03] MEDS ORDERED: PALIPERIDONE 6 MG TAB.ER.24 PO SCH (09:00)
[2020-06-03] MEDS ORDERED: PALIPERIDONE 3 MG TAB.ER.24 PO SCH (09:00)
--- NOTE | 2020-06-03 10:03 | P.PN ---
Progress Note - Text Progress Note Date: 06/03/20 Interval History: Patient was seen wandering the hallways and was directable and agreeable to antoni alonzo with publicity writer in the office. Patient was carrying around another large piece of paper with drawings on it. She states that "this is my masterpiece" and then started speaking about "what is going on in the world" and how she is drawing it on a piece of paper. Patient continues to ramble and is hyperverbal and also displaying flight of ideas and racing thoughts. She continues to speak about re ligious topics and related themes. She was mildly more directable today and claims that the paliperidone has been helping her with her mood. She states that she has been trying to go to groups and speak with other patients on the unit. She was preoccupied with discharge today. Patient was agreeable to start lithium today and was asking several questions about it and when she could have her levels checked. She is also speaking about her daughter who is in nursing school and who is not allowed onto the unit. She states that she was able sleep approximately 5 hours last night. She claims to have fair energy. At this time patient denies any suicidal or homical ideations, intent or plan. Patient denies any auditory, visual hallucinations. Patient denies any side effects from the medications and has been compliant with meds. Mental Status Exam: General Appearance: Patient appears to be stated age is alert, difficult to redirect, bizarre at times. Patient appears to have mildly improving hygiene and grooming Behavior: Patient is seated without any agitated behavior. Eye contact is intense. Speech: Patient's speech is fluent and hyperverbal. Rapid and talkative today. Mood/Affect: Patient reports their mood is "alright", affect is congruent and intrusive Suicidality/Homicidality: Patient denies having any homicidal ideation intent or plan. Denies any suicidal ideations intent or plan Perceptions: Patient is denying any auditory hallucinations today. She is denying any visual hallucinations. Though content/process: Lutheran preoccupation, bizarre delusions, and some disorganization, improving mildly. Continues to flight of ideas. Memory and concentration: AOX3, grossly intact for the purposes of this session Judgment and insight: poor, improving mildly Assessment Bipolar disorder type I, current episode manic with psychotic features history of Alcohol use disorder history of Cocaine use disorder Nicotine dependence Plan: -Patient continues to meet criteria for inpatient psychiatric admission for symptom stabilization and safety. Patient has signed adult voluntary form and medication consent and was placed in patient's chart. -Medications: Increased paliperidone to 6 mg BID for mood stabilization/psychosis. Will likely need a higher dose of Invega Sustenna 234mg IM monthly. Patient received her last Invega Sustenna 156 mg injection on 05/16/20. Discontinued lamictal today due to ineffectiveness. Started [place] 300mg bid for mood stabilization. Continue melatonin 10 mg daily at bedtime for insomnia. Continue with Vistaril 50 mg twice a day for anxiety. -When necessary Ativan and Haldol for agitation/aggression. -NRT - nicotine patch + gum -SW on board for discharge planning. Encouraged the patient to participate in milieu.
[2020-06-03] MEDS: LITHIUM CARBONATE 300 MG CAP PO SCH ×2 (11:39→20:18)
[2020-06-03] MEDS: PALIPERIDONE 6 MG TAB.ER.24 PO SCH (20:17)
[2020-06-03] MEDS: MELATONIN 5 MG TABLET PO SCH (20:18)
[2020-06-03] MEDS: PRAVASTATIN SODIUM 20 MG TAB PO SCH (20:19)
[2020-06-04] MEDS: NICOTINE POLACRILEX 2 MG GUM BUCCAL PRN ×3 (03:07→19:00)
[2020-06-04] MEDS: haloperidoL 5 MG TAB PO PRN (03:08)
[2020-06-04] MEDS: ACETAMINOPHEN TAB 325 MG TAB PO PRN ×2 (05:16→16:00)
[2020-06-04] MEDS: PALIPERIDONE 6 MG TAB.ER.24 PO SCH ×2 (08:25→20:43)
[2020-06-04] MEDS: hydrOXYzine pamoate 25 MG CAP PO SCH ×3 (08:25→20:43)
[2020-06-04] MEDS: LITHIUM CARBONATE 300 MG CAP PO SCH (08:25)
[2020-06-04] MEDS: NICOTINE 14MG/24HR PATCH TRANSDERM SCH (08:25)
[2020-06-04] MEDS: LORazepam 1 MG TAB PO PRN ×2 (09:42→18:37)
--- NOTE | 2020-06-04 13:39 | P.PN ---
Progress Note - Text Progress Note Date: 06/04/20 Interval History: Patient was seen wandering the hallways and was directable and agreeable to sp cheri with creative services writer in the office. She states that she was able sleep approximately 5 hours last night and did not offer any overt complaints. She claims to have fair energy. She appears to have mild improvement in her hygiene and grooming today. She continues to speak about "witchy stuff" in her house that she needs to get rid of. She also spoke about her son's belongings which she has not removed from her house which she plans on removing herself when she gets discharged. She also spoke about thinking of going to [facility] at some point after discharge. She has a mild improvement in her flight of ideas and is less distractible at this time. She continues to be religiously preoccupied however this has been improving. She is more directable today in attempting to cooperate. She was agreeable to have her lithium increased. She states that she has been eating her meals and attending to attend group. At this time patient denies any suicidal or homical ideations, intent or plan. Patient denies any auditory, visual hallucinations. Patient denies any side effects from the medications and has been compliant with meds. Mental Status Exam: General Appearance: Patient appears to be stated age is alert, more directable today, bizarre at times, improving mildly. Patient appears to have mildly improving hygiene and grooming Behavior: Patient is seated without any agitated behavior. Eye contact improving Speech: Patient's speech is fluent and less hyperverbal today. Mood/Affect: Patient reports their mood is "good", affect is congruent and intrusive at times Suicidality/Homicidality: Patient denies having any homicidal ideation intent or plan. Denies any suicidal ideations intent or plan Perceptions: Patient is denying any auditory hallucinations today. She is denying any visual hallucinations. Though content/process: Advent preoccupation, bizarre delusions, improving mildly. Continues to flight of ideas, however this is been improving Memory and concentration: AOX3, grossly intact for the purposes of this session Judgment and insight: Chronically poor, improving mildly Assessment Bipolar disorder type I, current episode manic with psychotic features history of Alcohol use disorder history of Cocaine use disorder Nicotine dependence Plan: -Patient continues to meet criteria for inpatient psychiatric admission for symptom stabilization and safety. Patient has signed adult voluntary form and medication consent and was placed in patient's chart. -Medications: continue with paliperidone 6 mg BID for mood stabilization/psychosis. Will likely need a higher dose of Invega Sustenna 234mg IM monthly. Patient received her last Invega Sustenna 156 mg injection on 05/16/20. Increased [place] 450mg bid for mood stabilization. Continue melatonin 10 mg daily at bedtime for insomnia. Increased Vistaril 50 mg three times a day for anxiety. -When necessary Ativan and Haldol for agitation/aggression. -NRT - nicotine patch + gum -SW on board for discharge planning. Encouraged the patient to participate in milieu. Likely discharge on Thursday after lithium level was checked.
[2020-06-04] MEDS: MAG HYDROX/AL HYDROX/SIMETH 30 ML CUP PO PRN (15:59)
[2020-06-04 16:33] LABS: Appearance,Urine Cloudy (Clear); Bacteria,Urine Rare /hpf; Bilirubin,Urine Negative (Negative); Blood,Urine Negative (Negative); Color,Urine Light Yellow; Glucose,Urine (UA) Negative (Negative); Ketones,Urine Negative (Negative); Leukocyte Esterase,Urine Trace (Negative); Nitrite,Urine Negative (Negative); Protein,Urine Negative (Negative); RBC,Urine 1 /hpf (0-5); Specific Gravity,Urine 1.013 (1.001-1.035); Squamous Epithelial Cell,Urine 7 /hpf (0-4); Urobilinogen,Urine <2.0 mg/dL (<2.0); WBC,Urine 3 /hpf (0-5)
[2020-06-04] MEDS: LITHIUM CARBONATE 150 MG CAP PO SCH (20:42)
[2020-06-04] MEDS: MELATONIN 5 MG TABLET PO SCH (20:42)
[2020-06-04] MEDS: PRAVASTATIN SODIUM 20 MG TAB PO SCH (20:43)
[2020-06-05] MEDS: ACETAMINOPHEN TAB 325 MG TAB PO PRN ×4 (00:40→20:16)
[2020-06-05 01:05] LABS: Urine Alcohol Negative (Negative); Urine Barbiturate Negative (Negative); Urine Cocaine Negative (Negative); Urine Methadone Negative (Negative); Urine Opiates Negative (Negative); Urine Phencyclidine Negative (Negative)
[2020-06-05 05:19] VITALS: RESP 16
[2020-06-05] MEDS: NICOTINE 14MG/24HR PATCH TRANSDERM SCH (07:40)
[2020-06-05] MEDS: hydrOXYzine pamoate 25 MG CAP PO SCH ×3 (07:40→20:14)
[2020-06-05] MEDS: PALIPERIDONE 6 MG TAB.ER.24 PO SCH ×2 (07:41→20:14)
[2020-06-05] MEDS: LITHIUM CARBONATE 150 MG CAP PO SCH ×2 (07:41→20:13)
[2020-06-05] MEDS: MAG HYDROX/AL HYDROX/SIMETH 30 ML CUP PO PRN (07:50)
[2020-06-05] MEDS: NICOTINE POLACRILEX 2 MG GUM BUCCAL PRN ×3 (08:40→20:13)
--- NOTE | 2020-06-05 09:37 | P.PN ---
Progress Note - Text Progress Note Date: 06/05/20 Interval History: Patient was seen wandering the hallways and was persistent to speak with commercial real estate underwriter this morning in the office. Patient appears to have mild improvement in her hygiene and grooming today and was carrying around to different books. She spoke briefly about her books and was speaking mainly about "God" and other spirits. She states that she was able sleep approximately 5-6 hours last night and did not offer any overnight complaints. She states that she feels the lithium has been helping her with her thoughts and claims that "so my thoughts don't go on and on and on". She claims to have fair energy. She continues to speak about "witchy stuff" in her house that she needs to get rid of and also states that she misses her cats and does not trust her children to take care of them for her. She was more preoccupied with discharge today. She has a mild improvement in her flight of ideas and is less distractible today. She continues to be religiously preoccupied however this has been improving. She states that she has been eating her meals and attending to attend group. At this time patient denies any suicidal or homical ideations, intent or plan. Patient denies any auditory, visual hallucinations. Patient denies any side effects from the medications and has been compliant with meds. Mental Status Exam: General Appearance: Patient appears to be stated age is alert, more directable today, bizarre at times, improving mildly. Patient appears to have mildly impro ving hygiene and grooming Behavior: Patient is seated without any agitated behavior. Eye contact fair Speech: Patient's speech is fluent with an improvement in her speech rate. Mood/Affect: Patient reports their mood is "good", affect is congruent and intrusive at times Suicidality/Homicidality: Patient denies having any homicidal ideation intent or plan. Denies any suicidal ideations intent or plan Perceptions: Patient is denying any auditory hallucinations today. She is denying any visual hallucinations. Though content/process: Rastafarian preoccupation, improving mildly. Flight of ideas improving. Preoccupied at discharge. Memory and concentration: AOX3, grossly intact for the purposes of this session Judgment and insight: Chronically poor, improving mildly Assessment Bipolar disorder type I, current episode manic with psychotic features history of Alcohol use disorder history of Cocaine use disorder Nicotine dependence Plan: -Patient continues to meet criteria for inpatient psychiatric admission for symptom stabilization and safety. Patient has signed adult voluntary form and medication consent and was placed in patient's chart. -Medications: continue with paliperidone 6 mg BID for mood stabilization/psychosis. Will likely need a higher dose of Invega Sustenna 234mg IM monthly which will be due on 06/13/2020. Patient received her last Invega Sustenna 156 mg injection on 05/16/20. Continue with [place] 450mg bid for mood stabilization. Continue melatonin 10 mg daily at bedtime for insomnia. Continue with Vistaril 50 mg three times a day for anxiety. -When necessary Ativan and Haldol for agitation/aggression. -lithium level will be checked tomorrow am. -NRT - nicotine patch + gum -SW on board for discharge planning. Encouraged the patient to participate in milieu. Likely discharge on Thursday after lithium level was checked. Would advise that patient be considered for ACT team through [facility] to high risk of rehospitalization and non compliance with meds.
[2020-06-05] MEDS: haloperidoL 5 MG TAB PO PRN (10:58)
[2020-06-05] MEDS: LORazepam 1 MG TAB PO PRN (14:51)
[2020-06-05] MEDS: PRAVASTATIN SODIUM 20 MG TAB PO SCH (20:13)
[2020-06-05] MEDS: MELATONIN 5 MG TABLET PO SCH (20:14)
[2020-06-06 07:07] VITALS: TEMP 98.1
[2020-06-06] MEDS: ACETAMINOPHEN TAB 325 MG TAB PO PRN (07:42)
[2020-06-06] MEDS: NICOTINE 14MG/24HR PATCH TRANSDERM SCH (07:42)
[2020-06-06] MEDS: hydrOXYzine pamoate 25 MG CAP PO SCH (07:43)
[2020-06-06] MEDS: NICOTINE POLACRILEX 2 MG GUM BUCCAL PRN (07:44)
[2020-06-06] MEDS: PALIPERIDONE 6 MG TAB.ER.24 PO SCH (07:44)
[2020-06-06] MEDS: LITHIUM CARBONATE 150 MG CAP PO SCH (07:44)
--- NOTE | 2020-06-06 10:41 | P.DS ---
Providers Date of admission: 06/01/20 04:57 Expected date of discharge: 06/06/20 Attending physician: Grayson Calderon MD Consults: 06/01/20 05:32 Consult Physician Routine Consulting Provider: Alireza Burton Jr Consult Reason/Comments: H and P Do you want consulting provider notified?: Yes, Notify in am Primary care physician: Alireza Burton - Discharge Diagnosis(es) (1) Bipolar disorder with psychotic features Current Visit: Yes Status: Acute Priority: High (2) History of alcohol abuse Current Visit: Yes Status: Acute Priority: Medium (3) History of cocaine abuse Current Visit: Yes Status: Acute Priority: Medium (4) Nicotine dependence Current Visit: Yes Status: Acute Priority: Low Hospital Course: Admission HPI: Admission note was completed by casualty underwriter "Patient is a , 54-year-old female, collecting SSI, has 3 kids and is currently living in an apartment with her boyfriend. Patient presented to the hospital yesterday for a psychiatric evaluation. According to the ER report patient was stating that people were performing witchcraft against her and was also displaying racing thoughts. Patient was recently discharged from the mental health unit in 2019 and was placed on Invega Sustenna long acting injection to ensure compliance. Patient was supposed to have her next injection at [facility] on 05/16/2020. Patient appeared to be bizarre and difficult to redirect in the hallways and was agreeable to speak to casualty underwriter. She appeared to have poor hygiene and grooming today. She claims that she has "methamphetamine in my blood" and spoke about "micro-dosing" which had been given to her after having sex with her boyfriend. She states that she felt that other people were performing "Satanic rituals" on her and states that everybody is a devil worshiper. She was also religiously preoccupied during the conversation. She spoke about walking to her hospital with her friend "Nick" who she claims is a military police officer. She spoke of her mood being "really good" and was endorsing racing thoughts, flight of ideas and was endorsing several loosely formed delusions. She was fairly impulsive and labile during the conversation and also was intrusive asking casualty underwriter several inappropriate questions and commenting on his clothing. She states that she is hearing voices telling her to "please stop". She denies any visual hallucinations. She is not endorsing any suicidal ideations intent or plan and denies any homicidal ideations. She claims that her sleep is "okay" and missed a fair energy. She claimed that she is not using any other recreational drugs and her UDS was negative. She reportedly smokes one pack per day." Hospital course: Upon admission to the unit patient was initially bizarre, labilie, psychotic and endorsing several delusions. Patient was however directable and agreeable to commence treatment and signed adult voluntary form. Patient was fairly intrusive throughout her hospital stay she did get along well with other patients on the unit and followed unit protocol. Patient was compliant with the medications and denied any side effects throughout hospital course. Patient was started on paliperidone by mouth and titrated up to a dose of 6 mg twice a day for psychosis/mood stabilization, patient was previously on Invega Sustenna 156 mg injections and the last dose was given on . Patient was also discont inued off of Lamictal due to ineffectiveness and transitioned onto lithium 450 mg twice a day for mood stabilization, melatonin 10 mg nightly for insomnia and Vistaril was increased to 50 mg 3 times a day for anxiety. Patient spoke of Her stressors and engaged in therapy both group and individual. Patient was also seen by medical team for history and physical exam. Patient had a lithium level of 0.6 on day of discharge. Throughout the course of the hospitalization patient gradually improved with regards to mood stabilization, psychosis/delusions, sleep and became more future oriented with improved insight and judgment. On the day of discharge patient denied any suicidal or homicidal ideations intent or plan denied any auditory or visual hallucinations. Patient has chronic synagogue preoccupation which has decreased in nature with the course of treatment. Patient endorsed wanting to live for her future and her health. The patient denied any access to guns or weapons. Patient denied any paranoia and did not endorse any delusions. Patient does have a significant history of substance abuse and was counseled on abstaining from all substances including alcohol and marijuana. Patient's urine drug screen was negative upon admission and she states that she is sober from recreational drugs. Patient was also counseled on the medications and need for regular compliance and was encouraged to follow-up with their outpatient appointment for mental health and also for primary care. Mental status exam: General Appearance: Patient appears to be thin, stated age is alert, directable, and attempts to be cooperative. Patient is in no acute distress and has improved hygiene and grooming Behavior: Patient is calmly seated without any agitated behavior. Mildly intrusive at times which is chronic. Speech: Patient's speech is fluent and nonpressured. Mood/Affect: Patient reports their mood is "better", affect is congruent and euthymic. Suicidality/Homicidality: Patient denies having any suicidal or homicidal ideation intent or plan. Perceptions: Patient denies any auditory or visual hallucinations. Though content/process: There is no evidence of any delusional thought content and thought process is linear and goal-directed. more future oriented Memory and concentration: AOX3, grossly intact for the purposes of this session. Can spell "WORLD" backwards correctly. Judgment and insight: chronically poor, however has improved with guarded prognosis Impression: Bipolar disorder, with psychotic features History of alcohol abuse History of cocaine abuse Nicotine dependence Plan: -Continue with discharge today as patient has improved and stabilized psychiatrically and is not currently an imminent threat to herself and/or others. Patient will remain at chronically elevated risk for harm to self and/or others due to her impulsivity and chronic and persistent mental illness. -Continue medications: Continue with paliperidone by mouth 6 mg twice a day for mood stabilization/psychosis to be continued on for 10 days and then titrated down gradually. Patient is due for her next Invega Sustenna long acting injection on 06/11/2020 of a dose of 234 mg IM and every monthly thereafter. Continue lithium 450 mg twice a day for mood stabilization. Melatonin 10 mg daily at bedtime for insomnia, Vistaril 50 mg 3 times a day for anxiety. -Patient was counseled on the need for medication compliance and appropriate follow-up at mental health and also primary care for medical issues. Patient verbalized understanding and agreed. -Social work to help arrange for discharge today. Social work also to arrange for patients follow up appointments with [facility] for psychiatric care along with follow up with primary care provider. Advised that patient should be considered for ACT team referral given her chronic and persistent mental illness and also high risk for rehospitalization and noncompliance of medications. -Patient counseled on abstaining from recreational drugs and marijuana and alcohol. Was informed/educated on the adverse effects on their physical and mental health. Patient verbally agreed and understood. -Patient was instructed to return to the hospital or seek immediate medical care if their psychiatric or medical symptoms do worsen or reoccur. Allergies Allergy/AdvReac Type Severity Reaction Status Date / Time codeine Allergy Unknown Verified 06/01/20 02:52 Penicillins Allergy Unknown Verified 06/01/20 02:52 Laboratory Results WBC 7.5 k/uL (3.8-10.6) 06/02/20 06:53 RBC 4.59 m/uL (3.80-5.40) 06/02/20 06:53 Hgb 13.5 gm/dL (11.4-16.0) 06/02/20 06:53 Hct 41.0 % (34.0-46.0) 06/02/20 06:53 MCV 89.3 fL (80.0-100.0) 06/02/20 06:53 MCH 29.3 pg (25.0-35.0) 06/02/20 06:53 MCHC 32.9 g/dL (31.0-37.0) 06/02/20 06:53 RDW 13.2 % (11.5-15.5) 06/02/20 06:53 Plt Count 277 k/uL (150-450) 06/02/20 06:53 MPV 6.9 06/02/20 06:53 Neutrophils % 54 % 06/02/20 06:53 Lymphocytes % 35 % 06/02/20 06:53 Monocytes % 8 % 06/02/20 06:53 Eosinophils % 2 % 06/02/20 06:53 Basophils % 1 % 06/02/20 06:53 Neutrophils # 4.0 k/uL (1.3-7.7) 06/02/20 06:53 Lymphocytes # 2.6 k/uL (1.0-4.8) 06/02/20 06:53 Monocytes # 0.6 k/uL (0-1.0) 06/02/20 06:53 Eosinophils # 0.2 k/uL (0-0.7) 06/02/20 06:53 Basophils # 0.0 k/uL (0-0.2) 06/02/20 06:53 Sodium 135 mmol/L (137-145) L 06/02/20 06:53 Potassium 4.5 mmol/L (3.5-5.1) 06/02/20 06:53 Chloride 103 mmol/L (98-107) 06/02/20 06:53 Carbon Dioxide 28 mmol/L (22-30) 06/02/20 06:53 Anion Gap 4 mmol/L 06/02/20 06:53 BUN 14 mg/dL (7-17) 06/02/20 06:53 Creatinine 0.73 mg/dL (0.52-1.04) 06/02/20 06:53 Est GFR (CKD-EPI)AfAm >90 (>60 ml/min/1.73 sqM) 06/02/20 06:53 Est GFR (CKD-EPI)NonAf >90 (>60 ml/min/1.73 sqM) 06/02/20 06:53 Glucose 97 mg/dL (74-99) 06/02/20 06:[address] Glu mg/dL 114 06/02/20 06:53 Hemoglobin A1c 5.6 % (4.0-6.0) 06/02/20 06:53 Calcium 9.7 mg/dL (8.4-10.2) 06/02/20 06:53 Total Bilirubin 0.5 mg/dL (0.2-1.3) 06/02/20 06:53 AST 36 U/L (14-36) 06/02/20 06:53 ALT 32 U/L (4-34) 06/02/20 06:53 Alkaline Phosphatase 64 U/L (38-126) 06/02/20 06:53 Total Protein 7.2 g/dL (6.3-8.2) 06/02/20 06:53 Albumin 4.3 g/dL (3.5-5.0) 06/02/20 06:53 Triglycerides 79 mg/dL (<150) 06/02/20 06:53 Cholesterol 225 mg/dL (<200) H 06/02/20 06:53 LDL Cholesterol, Calc 147 mg/dL (0-99) H 06/02/20 06:53 HDL Cholesterol 62 mg/dL (40-60) H 06/02/20 06:53 TSH 1.180 mIU/L (0.465-4.680) 06/02/20 06:53 Urine Color Light Yellow 06/04/20 16:20 Urine Appearance Cloudy (Clear) H 06/04/20 16:20 Urine pH 7.0 (5.0-8.0) 06/04/20 16:20 Ur Specific [place] 1.013 (1.001-1.035) 06/04/20 16:20 Urine Protein Negative (Negative) 06/04/20 16:20 Urine Glucose (UA) Negative (Negative) 06/04/20 16:20 Urine Ketones Negative (Negative) 06/04/20 16:20 Urine Blood Negative (Negative) 06/04/20 16:20 Urine Nitrite Negative (Negative) 06/04/20 16:20 Urine Bilirubin Negative (Negative) 06/04/20 16:20 Urine Urobilinogen <2.0 mg/dL (<2.0) 06/04/20 16:20 Ur Leukocyte Esterase Trace (Negative) H 06/04/20 16:20 Urine RBC 1 /hpf (0-5) 06/04/20 16:20 Urine WBC 3 /hpf (0-5) 06/04/20 16:20 Ur Squamous Epith Cells 7 /hpf (0-4) H 06/04/20 16:20 Urine Bacteria Rare /hpf (None) H 06/04/20 16:20 Urine Opiates Screen Negative ng/mL (Negative) 06/04/20 16:20 Ur Oxycodone Screen Not Detected (NotDetected) 06/01/20 04:01 Urine Methadone Screen Negative ng/mL (Negative) 06/04/20 16:20 Ur Propoxyphene Screen Negative ng/mL (Negative) 06/04/20 16:20 Ur Barbiturates Screen Not Detected (NotDetected) 06/01/20 04:01 Urine Barbiturates Negative ng/mL (Negative) 06/04/20 16:20 U Tricyclic Antidepress Not Detected (NotDetected) 06/01/20 04:01 Ur Phencyclidine Scrn Negative ng/mL (Negative) 06/04/20 16:20 Ur Amphetamine Screen Negative ng/mL (Negative) 06/04/20 16:20 Ur Amphetamines Screen Not Detected (NotDetected) 06/01/20 04:01 U Methamphetamines Scrn Not Detected (NotDetected) 06/01/20 04:01 U Benzodiazepines Scrn Negative ng/mL (Negative) 06/04/20 16:20 [place] 0.6 mmol/L 06/06/20 07:47 Urine Cocaine Screen Negative ng/mL (Negative) 06/04/20 16:20 U Cannabinoids Screen Negative ng/mL (Negative) 06/04/20 16:20 U Marijuana (THC) Screen Not Detected (NotDetected) 06/01/20 04:01 Urine Alcohol Negative mg/dL (Negative) 06/04/20 16:20 Coronavirus (PCR) Not Detected (Not Detectd) 06/01/20 04:48 Vital Signs Temp 98.1 F 06/06/20 06:53 Pulse 66 06/06/20 06:53 Resp 16 06/06/20 06:53 BP 107/61 06/06/20 06:53 Pulse Ox 97 06/05/20 05:19 Patient Condition at Discharge: Stable Plan - Discharge Summary New Discharge Prescriptions: New Nicotine 14Mg/24Hr Patch [Habitrol] 1 patch TRANSDERM DAILY 14 Days patch Paliperidone IM [Invega Sustenna] 234 mg IM QMONTHLY #1 syr [place] Carbonate ER [Lithobid] 450 mg PO BID 30 Days tablet.er Melatonin 10 mg PO HS 30 Days tablet Nicotine Polacrilex [Nicorette] 2 mg BUCCAL Q4HR PRN 14 Days gum PRN Reason: Nicotine Cravings Pravastatin Sodium [Pravachol] 10 mg PO HS 30 Days tab Acetaminophen Tab [Tylenol] 650 mg PO Q4HR PRN tab PRN Reason: Pain/Discomfort hydrOXYzine pamoate [Vistaril] 50 mg PO TID 30 Days cap Paliperidone [Invega] 6 mg PO BID 10 Days tab.er.24 Discontinued Paliperidone [Invega] 3 mg PO HS 15 Days tab.er.24 Paliperidone IM [Invega Sustenna] 156 mg IM QMONTHLY #1 syr lamoTRIgine [LaMICtal] 75 mg PO BID 30 Days tab Melatonin 10 mg PO HS 30 Days tablet Nicotine Polacrilex [Nicorette] 2 mg BUCCAL Q4HR PRN 30 Days gum PRN Reason: Nicotine Cravings Pravastatin Sodium [Pravachol] 10 mg PO HS 30 Days tab hydrOXYzine pamoate [Vistaril] 50 mg PO BID 30 Days cap Discharge Medication List Acetaminophen Tab [Tylenol] 650 mg PO Q4HR PRN tab 06/06/20 [Rx] [place] Carbonate ER [Lithobid] 450 mg PO BID 30 Days tablet.er 06/06/20 [Rx] Melatonin 10 mg PO HS 30 Days tablet 06/06/20 [Rx] Nicotine 14Mg/24Hr Patch [Habitrol] 1 patch TRANSDERM DAILY 14 Days patch 06/06/20 [Rx] Nicotine Polacrilex [Nicorette] 2 mg BUCCAL Q4HR PRN 14 Days gum 06/06/20 [Rx] Paliperidone IM [Invega Sustenna] 234 mg IM QMONTHLY #1 syr 06/06/20 [Rx] Paliperidone [Invega] 6 mg PO BID 10 Days tab.er.24 06/06/20 [Rx] Pravastatin Sodium [Pravachol] 10 mg PO HS 30 Days tab 06/06/20 [Rx] hydrOXYzine pamoate [Vistaril] 50 mg PO TID 30 Days cap 06/06/20 [Rx] Follow up Appointment(s)/Referral(s): [facility] [Outside] - 06/11/20 11:00 am (Preethi Bess will go to [facility] on 06-11-20 @ 11:00 and pick her up for her appt with JACKSON Villagomez at 11:30. 06-11-20 @ 11:30 with JACKSON Calix at [facility] office ) Alireza Burton Jr, [Primary Care Provider] - 1-2 days Patient Instructions/Handouts: How to Stop Smoking (DC), Bipolar Disorder (DC), Psychotic Disorder (DC) Activity/Diet/Wound Care/Special Instructions: Activity and diet as tolerated. Avoid the use of street drugs and alcohol. Take all medications as prescribed. When you are in need of refills on your medications please contact your medical provider and/or outpatient psychiatrist to have this done. Please go to scheduled outpatient appointment for aftercare treatment. If symptoms return or become worse, call the crisis line at and/or go to the nearest emergency room for evaluation. Discharge Disposition: HOME SELF-CARE
[2020-06-06 10:44] VITALS: BP 105/65; PULSE 108
[2020-06-06] MEDS: LORazepam 1 MG TAB PO PRN (10:44)
== END 2020-06-06 13:56 | disposition home or self-care (01) | DRG 885 ==
LOC: EC 02:39 → 3MHU 04:57
PROVIDERS: ADMIT Psychiatry & Neurology Psychiatry; ATTEND Psychiatry & Neurology Psychiatry
DX: F31.2 Bipolar disorder, current episode manic severe with psychotic features (principal); F10.11 Alcohol abuse, in remission; F14.10 Cocaine abuse, uncomplicated; Z20.822 Contact with and (suspected) exposure to COVID-19; R45.87 Impulsiveness; G47.00 Insomnia, unspecified; F41.9 Anxiety disorder, unspecified; F17.210 Nicotine dependence, cigarettes, uncomplicated; Z71.6 Tobacco abuse counseling; Z79.899 Other long term (current) drug therapy; Z88.5 Allergy status to narcotic agent; Z88.0 Allergy status to penicillin; Z81.8 Family history of other mental and behavioral disorders
CPT/HCPCS: 80053; 80061; 80178; 80306; 81001; 82075; 83036; 84443; 85025; 87635; 99285

== ENCOUNTER 2021-02-12 08:48 | Emergency (ER) | payer OTHER ==
[2021-02-12 09:07] VITALS: RESP 16
--- NOTE | 2021-02-12 10:52 | ED ---
General Adult HPI - General Chief complaint: Urogenital Stated complaint: altered mental status Time Seen by Provider: 02/12/21 09:04 Source: patient, RN notes reviewed Mode of arrival: EMS Limitations: no limitations - History of Present Illness Initial comments: 55-year-old female with a past medical history of bipolar disorder, depression, anxiety, schizoaffective disorder presents to the emergency room for a chief complaint of vaginal itching. Patient states she has had vaginal itching for the past several days. States she thinks she may have seen a worm in the vagina. States there were long and white. Patient denies abdominal pain. Denies fevers. Denies thoughts of harming herself or anyone else.Patient has no other complaints at this time including shortness of breath, chest pain, abdominal pain, nausea or vomiting, headache, or visual changes. - Related Data Previous Rx's Medication Instructions Recorded Acetaminophen Tab [Tylenol] 650 mg PO Q4HR PRN tab 06/06/20 [place] Carbonate ER [Lithobid] 450 mg PO BID 30 Days tablet.er 06/06/20 Melatonin 10 mg PO HS 30 Days tablet 06/06/20 Nicotine 14Mg/24Hr Patch [Habitrol] 1 patch TRANSDERM DAILY 14 Days 06/06/20 patch Nicotine Gum (Polacrilex) 2 mg BUCCAL Q4HR PRN 14 Days gum 06/06/20 [Nicorette] Paliperidone IM [Invega Sustenna] 234 mg IM QMONTHLY #1 syr 06/06/20 Paliperidone [Invega] 6 mg PO BID 10 Days tab.er.24 06/06/20 Pravastatin Sodium [Pravachol] 10 mg PO HS 30 Days tab 06/06/20 hydrOXYzine pamoate [Vistaril] 50 mg PO TID 30 Days cap 06/06/20 Allergies Allergy/AdvReac Type Severity Reaction Status Date / Time codeine Allergy Unknown Verified 02/12/21 12:43 Penicillins Allergy Unknown Verified 02/12/21 12:43 Review of Systems ROS Statement: Those systems with pertinent positive or pertinent negative responses have been documented in the HPI. ROS Other: All systems not noted in ROS Statement are negative. Past Medical History Past Medical History: No Reported History Additional Past Medical History / Comment(s): "born with a heart defect" History of Any Multi-Drug Resistant Organisms: None Reported Additional Past Surgical History / Comment(s): D&C Past Anesthesia/Blood Transfusion Reactions: No Reported Reaction Past Psychological History: Anxiety, Bipolar, Depression, Schizoaffective Disorder Smoking Status: Current every day smoker Past Alcohol Use History: None Reported Past Drug Use History: None Reported - Past Family History Mother Family Medical History: Unable to Obtain Father Family Medical History: No Reported History General Exam Limitations: no limitations General appearance: alert, in no apparent distress Head exam: Present: atraumatic Eye exam: Present: normal appearance, PERRL, EOMI. Absent: scleral icterus, conjunctival injection ENT exam: Present: normal exam, mucous membranes moist Neck exam: Present: normal inspection, full ROM. Absent: tenderness Respiratory exam: Present: normal lung sounds bilaterally. Absent: respiratory distress, wheezes Cardiovascular Exam: Present: regular rate, normal rhythm, normal heart sounds GI/Abdominal exam: Present: soft, normal bowel sounds. Absent: distended, tenderness External exam: Present: normal external exam. Absent: erythema, swelling, lesions, lacerations, ecchymosis Speculum exam: Present: normal speculum exam. Absent: erythema, vaginal discharge, cervical discharge, vaginal bleeding, foreign body, tissue, laceration By manual exam: Present: normal by manual exam, other (Cristin ALBA present for exam.) Course Vital Signs 02/12/21 09:01 Temperature 99 F Pulse Rate 91 Respiratory 16 Rate Blood Pressure 146/86 O2 Sat by Pulse 98 Oximetry Medical Decision Making - Medical Decision Making vitals are stable. Patient is well appearing. Pelvic exam was performed with hand RN present as swing driver. This was unremarkable. Urinalysis is negative. Trichomonas negative. Gonorrhea chlamydia pending. Patient's hallucinations seemed baseline. She is not aggressive or suicidal. At this time patient can be discharged home to follow up with primary care. - Lab Data Lab Results 02/12/21 02/12/21 Range/Units 10:48 10:49 Urine Color Yellow Urine Appearance Clear (Clear) Urine pH 5.5 (5.0-8.0) Ur Specific [place] 1.009 (1.001-1.035) Urine Protein Negative (Negative) Urine Glucose (UA) Negative (Negative) Urine Ketones Trace H (Negative) Urine Blood Negative (Negative) Urine Nitrite Negative (Negative) Urine Bilirubin Negative (Negative) Urine Urobilinogen <2.0 (<2.0) mg/dL Ur Leukocyte Esterase Negative (Negative) Trichomonas Ag (Rapid) Negative (Negative) Disposition Clinical Impression: Genital pruritus Disposition: HOME SELF-CARE Condition: Good Instructions (If sedation given, give patient instructions): Vaginitis (ED) Additional Instructions: Please follow-up with your doctor in one to 2 days. Return to the emergency room for any worsening symptoms. Is patient prescribed a controlled substance at d/c from ED?: No Referrals: Alireza Burton Jr, [Primary Care Provider] - 1-2 days Time of Disposition: 12:46
[2021-02-12 11:20] LABS: Appearance,Urine Clear (Clear); Bilirubin,Urine Negative (Negative); Blood,Urine Negative (Negative); Color,Urine Yellow; Glucose,Urine (UA) Negative (Negative); Ketones,Urine Trace (Negative); Leukocyte Esterase,Urine Negative (Negative); Nitrite,Urine Negative (Negative); PH, Urine 5.5 (5.0-8.0); Protein,Urine Negative (Negative); Specific Gravity,Urine 1.009 (1.001-1.035); Urobilinogen,Urine <2.0 mg/dL (<2.0)
[2021-02-12 13:00] VITALS: BP 128/78; PULSE 78; TEMP 98
[2021-02-13 14:58] LABS: C. trachomatis,PCR Negative (Neg,Equiv); Chlamydia trachomatis Source Cervix; N. gonorrhoeae,PCR Negative (Neg,Equiv); Neisseria Source Cervix
== END 2021-02-12 12:59 | disposition home or self-care (01) ==
LOC: EC 08:48
DX: L29.2 Pruritus vulvae (principal); F41.9 Anxiety disorder, unspecified; F31.9 Bipolar disorder, unspecified; F25.9 Schizoaffective disorder, unspecified; F17.200 Nicotine dependence, unspecified, uncomplicated; Z88.0 Allergy status to penicillin; Z88.5 Allergy status to narcotic agent
CPT/HCPCS: 81003; 87491; 87591; 87808; 99283

== ENCOUNTER 2021-10-09 14:40 | Emergency (ER) | payer OTHER ==
[2021-10-09] MEDS ORDERED: SODIUM CHLORIDE 0.9% 1,000 ML IV STA (16:59)
[2021-10-09] MEDS ORDERED: KETOROLAC 15 MG/ML 1 ML VIAL IVP STA (16:59)
[2021-10-09] MEDS ORDERED: diphenhydrAMINE 50 MG/ML 1 ML VIAL IVP STA (16:59)
[2021-10-09] MEDS ORDERED: METOCLOPRAMIDE 5 MG/ML 2 ML VIAL IVP STA (17:02)
[2021-10-09] MEDS ORDERED: FLUTICASONE 50MCG/SPRAY NASAL 16GM EA NOSTRIL PRN (17:02)
[2021-10-09 17:59] VITALS: TEMP 98.6
--- NOTE | 2021-10-09 18:55 | ED ---
Headache HPI - General Chief Complaint: Headache Stated Complaint: BP High, Pain,Pressure Time Seen by Provider: 10/09/21 16:50 Mode of arrival: ambulatory Limitations: no limitations - History of Present Illness Initial Comments: Patient is a 56-year-old female who presents with a chief complaint of headache and pressure behind her eyes. Patient states her symptoms started yesterday. Patient denies eye pain, blurry vision, and double vision. She also reports a sore throat and congestion. Denies fever, chills, shortness of breath, chest pain, and other concerns. Took Motrin this morning relief of headache. Of note, patient got the second dose of the covid-19 vaccine yesterday. - Related Data Home Medications Medication Instructions Recorded Confirmed lamoTRIgine [LaMICtal] 200 mg PO BID 02/12/21 10/09/21 Albuterol Sulfate [Ventolin HFA] 2 puff INHALATION RT-QID PRN 10/09/21 10/09/21 Atorvastatin [Lipitor] 10 mg PO DAILY 10/09/21 10/09/21 Fluticasone Propionate [Flovent 2 puff INHALATION RT-BID 10/09/21 10/09/21 Hfa 220 mcg] Ibuprofen [Motrin] 400 mg PO TID PRN 10/09/21 10/09/21 Omeprazole 20 mg PO BID 10/09/21 10/09/21 Prazosin HCl [Minipress] 4 mg PO HS 10/09/21 10/09/21 Sertraline [Zoloft] 100 mg PO DAILY 10/09/21 10/09/21 Ziprasidone [Geodon] 40 mg PO BID 10/09/21 10/09/21 busPIRone HCL 15 mg PO BID 10/09/21 10/09/21 hydrOXYzine pamoate [Vistaril] 25 mg PO DAILY PRN 10/09/21 10/09/21 hydrOXYzine pamoate [Vistaril] 50 mg PO HS 10/09/21 10/09/21 rOPINIRole HCL [Requip] 0.5 mg PO HS 10/09/21 10/09/21 traZODone HCL 150 mg PO HS 10/09/21 10/09/21 Allergies Allergy/AdvReac Type Severity Reaction Status Date / Time codeine Allergy Unknown Verified 10/09/21 15:02 Penicillins Allergy Unknown Verified 10/09/21 17:18 Review of Systems ROS Statement: Those systems with pertinent positive or pertinent negative responses have been documented in the HPI. ROS Other: All systems not noted in ROS Statement are negative. Past Medical History Past Medical History: No Reported History Additional Past Medical History / Comment(s): "born with a heart defect" History of Any Multi-Drug Resistant Organisms: None Reported Additional Past Surgical History / Comment(s): D&C Past Anesthesia/Blood Transfusion Reactions: No Reported Reaction Past Psychological History: Anxiety, Bipolar, Depression, Schizoaffective Disorder Smoking Status: Current every day smoker Past Alcohol Use History: None Reported Past Drug Use History: None Reported - Past Family History Mother Family Medical History: Unable to Obtain Father Family Medical History: No Reported History General Exam Limitations: no limitations General appearance: alert, in no apparent distress Head exam: Present: atraumatic, normocephalic, normal inspection Eye exam: Present: normal appearance, PERRL, EOMI. Absent: scleral icterus, conjunctival injection, periorbital swelling ENT exam: Present: normal exam, normal oropharynx, mucous membranes moist Neck exam: Present: normal inspection, full ROM Respiratory exam: Present: normal lung sounds bilaterally. Absent: respiratory distress, wheezes, rales, rhonchi, stridor Cardiovascular Exam: Present: regular rate, normal rhythm, normal heart sounds. Absent: systolic murmur, diastolic murmur, rubs, gallop, clicks GI/Abdominal exam: Present: soft, normal bowel sounds. Absent: distended, tenderness, guarding, rebound, rigid Neurological exam: Present: alert, oriented X3, CN II-XII intact Psychiatric exam: Present: normal affect, normal mood Skin exam: Present: warm, dry, intact, normal color. Absent: rash Course Vital Signs 10/09/21 10/09/21 14:59 17:58 Temperature 99.1 F 98.6 F Pulse Rate 96 83 Respiratory 20 12 Rate Blood Pressure 138/96 145/95 O2 Sat by Pulse 98 97 Oximetry Medical Decision Making - Medical Decision Making This is a 56-year-old female with upper respiratory symptoms. Thorough history and examination were performed. Patient is well-appearing and in no apparent distress. No chest pain or shortness of breath. The pharynx is normal appearing no erythema, swelling, and exudate. Lungs are clear to auscultation bilaterally. COVID-19 and influenza A/B are not detected. Patient given migraine cocktail, fluid bolus, and nasal spray. On reevaluation patient reports significant improvement in headache. Patient possibly experiencing upper respiratory infection or symptomatic from her covid-19 vaccine yesterday. Patient will be discharged with nasal spray. She is encouraged to use [id number] decongestants for her congestion and Tylenol or Motrin for her headache. She will increase fluids as much as possible. She will follow-up with her primary care provider in one to 2 days. Return parameters discussed. Patient verbalizes understanding and is agreeable to this plan. Dr. Faust is my attending. - Lab Data Lab Results 10/09/21 10/09/21 Range/Units 17:53 17:53 Coronavirus (PCR) Not Detected (Not Detectd) Influenza Type A RNA Not Detected (Not Detectd) Influenza Type B (PCR) Not Detected (Not Detectd) Disposition Clinical Impression: Congestion of nasal sinus, Headache, Sore throat Disposition: HOME SELF-CARE Condition: Good Instructions (If sedation given, give patient instructions): Upper Respiratory Infection (ED), Acute Headache (ED) Additional Instructions: Please use nasal spray as directed. You may also take Mucinex or another [id number] decongestant for congestion. Take Tylenol or Motrin for her headache and increase fluid intake as much as possible. Follow-up with primary care provider in one to 2 days. It is possible your symptoms are due to your covid-19 vaccine yesterday. Return to the emergency department if you experience new, concerning, or worsening symptoms. Is patient prescribed a controlled substance at d/c from ED?: No Referrals: Hannah Kate MD [Primary Care Provider] - 1-2 days Time of Disposition: 19:03
[2021-10-09 19:49] VITALS: BP 124/92; PULSE 98; RESP 18
== END 2021-10-09 19:52 | disposition home or self-care (01) ==
LOC: EC 14:40
DX: R09.81 Nasal congestion (principal); R51.9 Headache, unspecified; Z20.822 Contact with and (suspected) exposure to COVID-19; F41.9 Anxiety disorder, unspecified; F31.9 Bipolar disorder, unspecified; F25.9 Schizoaffective disorder, unspecified; F17.200 Nicotine dependence, unspecified, uncomplicated; Z79.899 Other long term (current) drug therapy; Z88.0 Allergy status to penicillin; Z88.5 Allergy status to narcotic agent
CPT/HCPCS: 87502; 87635; 99284; 96374; 96375 ×2; 96361; J1200; J2765; J1885

== ENCOUNTER → 2021-10-09 | Outpatient (CLI) | payer OTHER ==
--- NOTE | 2021-10-09 15:14 | CONS ---
CONSULTATION DATE OF SERVICE: 10/09/2021 56-year-old lady has been evaluated in [facility] for possible obstructive sleep apnea-hypopnea syndrome. HISTORY OF PRESENT ILLNESS SLEEP-WAKE EVALUATION: SLEEP SCHEDULE: Patient's usual sleep schedule from 10 p.m. until 10:00 am. FALLING ASLEEP: Sometimes she does have problems with falling asleep. Sometimes using her phone in bedroom. DURING SLEEP: Usually sleeps on the side position. She has loud snoring and she wakes up from sleep up to 5 times with nocturia. Positive history of nightmares, panic attacks, palpitations, episodes of gasping for air, sleeptalking, sweating during the night. Positive history of restless leg symptoms. DURING THE DAY/SLEEP WAKE EVALUATION: In the morning, the patient wakes up tired, has difficulties paying attention, falling asleep during the day, worries about her sleep, has problematic memory, concentration, depression, anxiety, sexual dysfunction. Parker Sleepiness Scale significantly increased to 14. The patient may take up to 2 naps during the day. Questionable positive history of hypnagogic hallucinations and cataplexy. PAST MEDICAL HISTORY: Positive for PTSD, schizoaffective disorder, anxiety. PAST SURGICAL HISTORY: D and C. MEDICATIONS: Buspirone 15 mg twice a day, Geodon 40 mg twice a day, hydroxyzine 50 mg 3 capsules a day, lamotrigine 200 mg twice a day, 2 mg 2 capsules at bedtime, Requip 0.5 mg at bedtime, trazodone 150 mg at bedtime, Zoloft 100 mg once a day, omeprazole 20 mg once a day, pravastatin 10 mg once a day. SOCIAL HISTORY: Negative for smoking or using alcohol. FAMILY HISTORY: Hypertension, heart problems, stroke, cancer, mental illness. REVIEW OF SYSTEMS: Multiple awakenings from sleep. Sleep difficulties initiating sleep. Significant sleepiness during the day. PHYSICAL EXAMINATION: GENERAL: lady without distress. BP 159/104 on the right arm and 148/102 on the left, HR 94, RR 18, height 5 feet 7-1/4 inches, weight 174.8, body mass index 27.0, temperature 97.7, oxygen saturation at room air 97%. Oropharynx: Low position of soft palate, Mallampati 4. NECK: 14-1/2 inches in circumference. Neck: Supple, no JVD. Thyroid is not palpable. LUNGS: Clear to percussion and to auscultation. Good air exchange. No wheezing or rhonchi. HEART: S1, S2 regular. No murmurs, gallops, or rubs. ABDOMEN: Soft and nontender. Bowel sounds are present. No organomegaly appreciated. EXTREMITIES: No clubbing or cyanosis. GEODETIC SURVEYOR TECHNOLOGIST: Awake, alert, and oriented X3. Cranial nerves 2 to 7 intact. There is no fasciculation or atrophy. noted. No focal deficits observed. IMPRESSION: 1. Snoring, multiple awakenings from sleep, extremely low position of soft palate, Mallampati 4, sleepiness, obstructive sleep apnea-hypopnea syndrome. 2. History of post-traumatic stress disorder, PTSD. 3. Anxiety. 4. History of schizoaffective disorder. 5. Status post D and C. 6. Difficulties initiating sleep, psychophysiological insomnia or insomnia related to anxiety. 7. Questionable positive history of hypnagogic hallucinations and cataplexy. Differential diagnosis should include narcolepsy because of also significant symptoms of excessive daytime sleepiness. PLAN: 1. Polysomnogram for evaluation of patient breathing during sleep also to check for possible periodic limb movements. 2. CPAP/BiPAP titration if sleep study confirms obstructive sleep apnea-hypopnea syndrome. 3. Preferable position during sleep on the side. 4. No driving if patient feels any sleepiness. 5. I will see patient for follow up visit to explain results of testing and following plan. 1. If sleep study will be negative for obstructive sleep apnea-hypopnea syndrome, patient could be a candidate for multiple sleep latency test. Thank you very much for referring this patient for consultation. Sincerely, Jorge Luis Drake MD, PhD, FAASM Diplomat of [employer] Sleep Medicine Board of [employer] Card Writer [facility] [place] MMODL / IJN: [id number] /
== END ==
LOC: SLEEP 13:13
PROVIDERS: ATTEND Internal Medicine
DX: G47.33 Obstructive sleep apnea (adult) (pediatric) (principal); F43.10 Post-traumatic stress disorder, unspecified; F25.9 Schizoaffective disorder, unspecified; F51.05 Insomnia due to other mental disorder; F41.9 Anxiety disorder, unspecified; Z87.59 Personal history of other complications of pregnancy, childbirth and the puerperium; Z79.899 Other long term (current) drug therapy; Z88.0 Allergy status to penicillin; Z88.5 Allergy status to narcotic agent; F17.200 Nicotine dependence, unspecified, uncomplicated
CPT/HCPCS: 99211

== ENCOUNTER 2022-02-27 23:04 | Emergency (ER) | payer OTHER ==
[2022-02-27 23:15] VITALS: BP 140/79; PULSE 102; RESP 20; TEMP 97.6
[2022-02-28] MEDS: ACETAMINOPHEN TAB 500 MG TAB PO STA ×2 (00:11→00:18)
[2022-02-28] MEDS: IBUPROFEN 600 MG TAB PO STA ×2 (00:11→00:17)
--- NOTE | 2022-02-28 01:04 | XR ---
EXAM: XR Thoracic Spine, 4 or More Views CLINICAL HISTORY: ITS.REASON XR Reason: pain TECHNIQUE: Frontal, lateral and oblique views of the thoracic spine. COMPARISON: No relevant prior studies available. FINDINGS: Vertebrae: Mild reverse S-shaped scoliotic curvature of the thoracic spine. Mild degenerative changes. Small endplate osteophytes. No acute fracture. Disc spaces: Multilevel disc space narrowing. Soft tissues: Unremarkable. IMPRESSION: No acute findings in the thoracic spine. DJD.
--- NOTE | 2022-02-28 01:20 | ED ---
General Adult HPI - General Chief complaint: Psychiatric Symptoms Stated complaint: Mental Health, Back Pain Time Seen by Provider: 02/27/22 23:26 Source: patient, RN notes reviewed, old records reviewed Mode of arrival: ambulatory Limitations: no limitations - History of Present Illness Initial comments: Patient is a 56-year-old female who presents emergency Department complaining of insomnia. Also complains of mid back pain from a fall suffered one to 2 weeks ago. States she has chronic back pain as well. Patient is overall a poor historian with pressured speech. She denies any chest pain, shortness breath, abdominal pain, nausea, vomiting. Denies suicidal or homicidal ideations, attempts complaints. Denies visual or auditory hallucinations. Is vague when I'm asking if she takes all of her medications at home. She does have a history of polysubstance abuse. Does have a history of psychiatric admission. Presents for further evaluation of this time as well as an evaluation by psych. - Related Data Home Medications Medication Instructions Recorded Confirmed lamoTRIgine [LaMICtal] 200 mg PO BID 02/12/21 10/09/21 Albuterol Sulfate [Ventolin HFA] 2 puff INHALATION RT-QID PRN 10/09/21 10/09/21 Atorvastatin [Lipitor] 10 mg PO DAILY 10/09/21 10/09/21 Fluticasone Propionate [Flovent 2 puff INHALATION RT-BID 10/09/21 10/09/21 Hfa 220 mcg] Ibuprofen [Motrin] 400 mg PO TID PRN 10/09/21 10/09/21 Omeprazole 20 mg PO BID 10/09/21 10/09/21 Prazosin HCl [Minipress] 4 mg PO HS 10/09/21 10/09/21 Sertraline [Zoloft] 100 mg PO DAILY 10/09/21 10/09/21 Ziprasidone [Geodon] 40 mg PO BID 10/09/21 10/09/21 busPIRone HCL 15 mg PO BID 10/09/21 10/09/21 hydrOXYzine pamoate [Vistaril] 25 mg PO DAILY PRN 10/09/21 10/09/21 hydrOXYzine pamoate [Vistaril] 50 mg PO HS 10/09/21 10/09/21 rOPINIRole HCL [Requip] 0.5 mg PO HS 10/09/21 10/09/21 traZODone HCL 150 mg PO HS 10/09/21 10/09/21 Allergies Allergy/AdvReac Type Severity Reaction Status Date / Time codeine Allergy Unknown Verified 10/09/21 15:02 Penicillins Allergy Unknown Verified 10/09/21 17:18 Review of Systems ROS Statement: Those systems with pertinent positive or pertinent negative responses have been documented in the HPI. Review of Systems: CONST: Denies fever EYES: Denies blurry vision ENT: Denies nasal congestion C/V: Denies Chest pain RESP: Denies shortness of breath GI: Denies abdominal pain : Denies dysuria SKIN: Denies rash. MSK: Endorses acute on chronic back pain. Mid thoracic region. NEURO: Denies headache PSYCH: Denies suicidal and homicidal ideations/plans/attempts. Denies visual or auditory hallucinations. ROS Other: All systems not noted in ROS Statement are negative. Past Medical History Past Medical History: No Reported History Additional Past Medical History / Comment(s): "born with a heart defect" History of Any Multi-Drug Resistant Organisms: None Reported Additional Past Surgical History / Comment(s): D&C Past Anesthesia/Blood Transfusion Reactions: No Reported Reaction Past Psychological History: Anxiety, Bipolar, Depression, Schizoaffective Disorder Smoking Status: Current every day smoker Past Alcohol Use History: None Reported Past Drug Use History: None Reported - Past Family History Mother Family Medical History: Unable to Obtain Father Family Medical History: No Reported History General Exam - General Exam Comments Initial Comments: General: Appears in no acute distress. Pressured speech. HEAD: Normal with no signs of head trauma. EYES: PERRLA, EOMI, conjunctiva normal, no discharge. ENT: Hearing grossly intact, normal oropharynx. RESPIRATORY: Clear breath sounds bilaterally. No wheezes, rales, or rhonchi. C/V: Regular rate and rhythm. S1 and S2 auscultated, no edema, peripheral pulses 2+ and intact throughout ABD: Abd is soft, nontender, nondistended EXT: Point tenderness to the mid thoracic spine. No paraspinal muscle tenderness. States this is somewhat chronic. No obvious deformities. No step-offs. SKIN: No rashes or lesions observed on exposed skin. NEURO: Alert and oriented 4. Limitations: no limitations Course Vital Signs 02/27/22 23:09 Temperature 97.6 F Pulse Rate 102 H Respiratory 20 Rate Blood Pressure 140/79 O2 Sat by Pulse 98 Oximetry Medical Decision Making - Medical Decision Making Based on the patient's presentation and physical exam, I'm concerned for psychiatric illness for the patient. She has insomnia, and appears disheveled. She is placed in green scrubs and sitter was ordered. BAT was obtained and is 0. Due to her back pain, we will obtain an x-ray. She'll be given Motrin and Tylenol for pain. She was in agreement with this plan. Vital signs within acceptable limits. X-ray showed no acute injury. After the patient. At this time patient is medically cleared for evaluation by EPS. Disposition is pending psychiatric Evaluation. EPS was notified. Was evaluated by EPS. Determined that she does not meet inpatient criteria. Will be discharged home with a safety plan. Patient was therefore discharged home in good condition. Instructed to follow up with [facility]. Disposition Clinical Impression: Encounter for psychiatric assessment, Acute exacerbation of chronic low back pain Disposition: HOME SELF-CARE Condition: Good Additional Instructions: follow eps safety plan Is patient prescribed a controlled substance at d/c from ED?: No [facility] [Primary [facility] - 1-2 days Time of Disposition: 02:00
== END 2022-02-28 02:20 | disposition home or self-care (01) ==
LOC: EC 23:04
DX: Z04.6 Encounter for general psychiatric examination, requested by authority (principal); M54.50 Low back pain, unspecified; F41.9 Anxiety disorder, unspecified; F31.9 Bipolar disorder, unspecified; F17.200 Nicotine dependence, unspecified, uncomplicated; Z88.5 Allergy status to narcotic agent; Z88.0 Allergy status to penicillin
CPT/HCPCS: 72070; 82075; 99284

== ENCOUNTER 2022-02-28 17:23 | Inpatient (IN) | payer MEDICAID, OTHER ==
[2022-02-28] MEDS ORDERED: ZIPRASIDONE 20 MG VIAL IM STA (17:43)
--- NOTE | 2022-02-28 18:08 | ED ---
Psych HPI - General Chief Complaint: Psychiatric Symptoms Stated Complaint: Petition Time Seen by Provider: 02/28/22 17:30 Source: police Mode of arrival: ambulatory - History of Present Illness Initial Comments: 56-year-old female with history of bipolar disorder who presents to the emergency department with psychosis. The patient presented to [facility] and was rolling around on the floor. EMS was called and brought the patient into the emergency room for further evaluation. Upon arrival the patient's was aggressive with staff. She has preoccupation with advent thoughts. She is screaming that she is the devil. She has been hospitalized multiple times for similar complaint. - Related Data Home Medications Medication Instructions Recorded Confirmed Albuterol Sulfate [Ventolin HFA] 2 puff INHALATION RT-QID PRN 10/09/21 03/01/22 Atorvastatin [Lipitor] 10 mg PO DAILY 10/09/21 03/01/22 Fluticasone Propionate [Flovent 2 puff INHALATION RT-BID 10/09/21 03/01/22 Hfa 220 mcg] Previous Rx's Medication Instructions Recorded Ibuprofen [Advil] 200 mg PO Q6HR PRN tab 03/05/22 Loratadine [Claritin] 10 mg PO DAILY 30 Days tab 03/05/22 Nicotine 14Mg/24Hr Patch [Habitrol] 1 patch TRANSDERM DAILY 14 Days 03/05/22 patch Nicotine Gum (Polacrilex) 2 mg BUCCAL Q2HR PRN 28 Days 03/05/22 [Nicorette] pieceofgum Prazosin [Minipress] 5 mg PO HS 30 Days cap 03/05/22 Ziprasidone [Geodon] 40 mg PO BID 30 Days cap 03/05/22 lamoTRIgine [LaMICtal] 150 mg PO DAILY 30 Days tab 03/05/22 rOPINIRole HCL [Requip] 0.5 mg PO HS 30 Days tab 03/05/22 traZODone HCL [Desyrel] 150 mg PO HS 30 Days tab 03/05/22 Allergies Allergy/AdvReac Type Severity Reaction Status Date / Time codeine Allergy Unknown Verified 10/09/21 15:02 Penicillins Allergy Unknown Verified 10/09/21 17:18 Review of Systems ROS Statement: Those systems with pertinent positive or pertinent negative responses have been documented in the HPI. ROS Other: All systems not noted in ROS Statement are negative. Past Medical History Past Medical History: No Reported History Additional Past Medical History / Comment(s): "born with a heart defect" History of Any Multi-Drug Resistant Organisms: None Reported Additional Past Surgical History / Comment(s): D&C Past Anesthesia/Blood Transfusion Reactions: No Reported Reaction Past Psychological History: Anxiety, Bipolar, Depression, Schizoaffective Disorder Smoking Status: Current every day smoker Past Alcohol Use History: None Reported Past Drug Use History: None Reported - Past Family History Mother Family Medical History: Unable to Obtain Father Family Medical History: No Reported History General Exam Limitations: altered mental status General appearance: alert, other (Aggressive) Head exam: Present: atraumatic, normocephalic, normal inspection Eye exam: Present: normal appearance, PERRL, EOMI. Absent: scleral icterus, conjunctival injection, periorbital swelling Respiratory exam: Present: normal lung sounds bilaterally. Absent: respiratory distress, wheezes, rales, rhonchi, stridor Cardiovascular Exam: Present: regular rate, normal rhythm, normal heart sounds. Absent: systolic murmur, diastolic murmur, rubs, gallop, clicks Psychiatric exam: Present: manic, other (threatening. advent preoccupation) Skin exam: Present: warm, dry, intact, normal color. Absent: rash Course Vital Signs 02/28/22 02/28/22 17:26 19:30 Temperature 98 F 98.2 F Pulse Rate 95 90 Respiratory 16 20 Rate Blood Pressure 145/100 147/89 O2 Sat by Pulse 98 98 Oximetry Procedures - Restraint - Face to Face Restraint Occurrence 1 Patient's Immediate Situation: Endangers self safety, Endangers others' safety Patient's Reaction to the Intervention: Angry, Bizarre Patient's Medical & Behavioral Condition: Agitated, Paranoid, Manic Need to Continue or Terminate Restraint or Seclusion: Continue Face to Face Eval of Restraint Date: 02/28/22 Face to Face Eval of Restraint Time: 17:45 Medical Decision Making - Medical Decision Making Upon arrival patient was placed into room 14. She is unable to be redirected therefore she is restrained. She was given a dose of Geodon. Covid and urine obtained. Patient evaluated by EPS and requires admission. - Lab Data Result diagrams: 03/02/22 12:07 03/02/22 12:07 Lab Results 1002/28/22 02/28/22 Range/Units 19:56 19:57 20:05 Urine Color Light Yellow Urine Appearance Cloudy H (Clear) Urine pH 5.0 (5.0-8.0) Ur Specific [place] 1.007 (1.001-1.035) Urine Protein Negative (Negative) Urine Glucose (UA) Negative (Negative) Urine Ketones Trace H (Negative) Urine Blood Negative (Negative) Urine Nitrite Negative (Negative) Urine Bilirubin Negative (Negative) Urine Urobilinogen <2.0 (<2.0) mg/dL Ur Leukocyte Esterase Negative (Negative) Urine RBC 1 (0-5) /hpf Urine WBC 4 (0-5) /hpf Ur Squamous Epith Cells 3 (0-4) /hpf Hyaline Casts 5 H (0-2) /lpf Urine Mucus Rare H (None) /hpf Urine Opiates Screen Not Detected (NotDetected) Ur Oxycodone Screen Not Detected (NotDetected) Urine Methadone Screen Not Detected (NotDetected) Ur Propoxyphene Screen Not Detected (NotDetected) Ur Barbiturates Screen Not Detected (NotDetected) U Tricyclic Antidepress Not Detected (NotDetected) Ur Phencyclidine Scrn Not Detected (NotDetected) Ur Amphetamines Screen Not Detected (NotDetected) U Methamphetamines Scrn Not Detected (NotDetected) U Benzodiazepines Scrn Not Detected (NotDetected) Urine Cocaine Screen Not Detected (NotDetected) U Marijuana (THC) Screen Not Detected (NotDetected) Coronavirus (PCR) Not Detected (Not Detectd) Disposition Clinical Impression: Psychosis Disposition: TRANSFER TO PSYCH HOSP/UNIT Condition: Stable Is patient prescribed a controlled substance at d/c from ED?: No
[2022-02-28 20:14] LABS: Appearance,Urine Cloudy (Clear); Bilirubin,Urine Negative (Negative); Blood,Urine Negative (Negative); Color,Urine Light Yellow; Glucose,Urine (UA) Negative (Negative); Hyaline Casts,Urine 5 /lpf (0-2); Ketones,Urine Trace (Negative); Leukocyte Esterase,Urine Negative (Negative); Mucus,Urine Rare /hpf; Nitrite,Urine Negative (Negative); Protein,Urine Negative (Negative); RBC,Urine 1 /hpf (0-5); Specific Gravity,Urine 1.007 (1.001-1.035); Squamous Epithelial Cell,Urine 3 /hpf (0-4); Urobilinogen,Urine <2.0 mg/dL (<2.0); WBC,Urine 4 /hpf (0-5)
[2022-02-28 21:32] LABS: Amphetamine Screen,Urine Not Detected (NotDetected); Barbiturate Screen,Urine Not Detected (NotDetected); Benzodiazepines Screen,Urine Not Detected (NotDetected); Cocaine Screen,Urine Not Detected (NotDetected); Methadone Screen, Urine Not Detected (NotDetected); Opiate Screen,Urine Not Detected (NotDetected); Oxycodone Screen, Urine Not Detected (NotDetected); Phencyclidine Screen,Urine Not Detected (NotDetected); Tricyclic Antidepressant,Urine Not Detected (NotDetected); Urn Cannabinoid Scrn Not Detected (NotDetected)
[2022-02-28] MEDS ORDERED: HALOPERIDOL LACTATE 5 MG/ML 1 ML VIAL IM STA (22:04)
[2022-02-28] MEDS ORDERED: diphenhydrAMINE 50 MG/ML 1 ML VIAL IM STA (22:06)
[2022-02-28] MEDS ORDERED: LORazepam 2 MG/ML INJ IM STA (22:07)
[2022-03-01] MEDS ORDERED: MAG HYDROX/AL HYDROX/SIMETH 30 ML CUP PO PRN (01:14)
[2022-03-01] MEDS ORDERED: MAGNESIUM HYDROXIDE 2,400 MG/10 ML CUP PO PRN (01:14)
[2022-03-01] MEDS ORDERED: haloperidoL 5 MG TAB PO PRN (01:16)
[2022-03-01] MEDS: NICOTINE 14MG/24HR PATCH TRANSDERM SCH ×2 (08:38→09:04)
[2022-03-01] MEDS: ZIPRASIDONE 40 MG CAP PO SCH ×2 (08:39→09:45)
[2022-03-01] MEDS: HALOPERIDOL LACTATE 5 MG/ML 1 ML VIAL IM PRN ×3 (10:10→22:51)
[2022-03-01] MEDS: LORazepam 1 MG/0.5 ML VIAL IM PRN ×3 (10:12→22:50)
--- NOTE | 2022-03-01 19:42 | P.HP ---
Psychiatric H&P - . H&P Date: 03/01/22 History & Physical: IDENTIFYING DATA: Patient is a 56 year old female on SSDI with history of bipolar disorder and polysubstance abuse. HPI: Patient presented to the hospital with psychosis. Per EPS records, patient "was petitioned by [facility] after presenting there and throwing herself on the floor screaming at the staff. Pt is religiously preoccupied and talks of God, witches, and the devil. She rumminates about event that are nonsensical. She is agitated and angry. Pt is not redirectable and tries to intimdate staff. She currently has no drugs in her system. She was given ativan haldol and benedryl in ER." Per peition completed by [facility] [employer], patient was out of touch with reality and yelling, rolled around on the floor, claimed she was a cadence and the year is 1998, not oriented to person, place or time, suspicious staff and police are spies, delusional, actively hallucinating. Per initial clinic certificate, patient presents with aggressive behavior, yelling profanities, has pressured nonsensical speech, reports she is the devil. UDS in the ER is negative. Since arrival to the unit, patient has been attending to internal stimuli, talking to herself, displaying mood lability and agitation. She required Haldol 5 mg IM x 1 and Ativan 2 mg IM x 1 for agitation this afternoon. She initially refused her morning Geodon but took it later in the morning with minimal benefit. Her outpatient medications were Lamictal 200 mg BID, Prazosin 4 mg QHS, Zoloft 100 mg daily, Geodon 40 mg BID, Vistaril 50 mg QHS plus 25 mg daily PRN, Requip 0.5 mg QHS and Trazodone 150 mg QHS. It is likely she has been noncompliant with her medications given the severity of her symptoms, however when asked about her last doses of medications she does not respond only to say she gets them filled at [facility]. Patient displays motor hyperactivity, is guarded, leaves room after about 10 minutes, has been pacing the hallway most of the day. She endorses visual hallucinations and auditory hallucinations. She denies any suicidal or homicidal ideation, intent or Her thought process consists of flight of ideas, disorganized, and often irrelevant thought content. She expresses delusional thought content and is sexually and religiously preoccupied, including "not telling you... I don't need anything, my beautiful things for drugs..." "They're selling us out there, so you have to look right, look like one, look seductress like the old [employer] films, make you do things like slap them on the ass, all types of different things". "I'm sorry I was ever vain and I don't ever want to be vain again." PAST PSYCHIATRIC HISTORY: Previous diagnosis of Bipolar I disorder, cocaine/alcohol abuse Past psychiatric medications: Per [facility] records, buspirone, Geodon, hydroxyzine, Lamictal, prazosin, trazodone, Wellbutrin XL, Zoloft, doxepin, Abilify, clonidine, Seroquel, Invega [place], lithium, Depakote Previous psychiatric hospitalizations: Multiple, last admission to [facility] in May 2020 Psychiatric outpatient follow-up: [facility] History of suicide attempts in the past: at least four attempts PMH: Past Medical History: No Reported History Additional Past Medical History / Comment(s): "born with a heart defect" History of Any Multi-Drug Resistant Organisms: None Reported Additional Past Surgical History / Comment(s): D&C Past Anesthesia/Blood Transfusion Reactions: No Reported Reaction Past Psychological History: Anxiety, Bipolar, Depression, Schizoaffective Disorder Smoking Status: Current every day smoker Past Alcohol Use History: None Reported Past Drug Use History: None Reported ALLERGIES: as per EMR CHEMICAL DEPENDENCY HISTORY: as per HPI FAMILY PSYCHIATRIC/SUBSTANCE USE HISTORY: Per chart, mother with bipolar disorder and substance abuse SOCIAL HISTORY: Patient was born and raised in [place], [place]. She has 3 children and is . She receives SSDI. MENTAL STATUS EXAM: General Appearance: Patient appears to be stated age with fair hygiene and grooming. Behavior: Patient displays motor hyperactivity, is guarded, leaves room after about 10 minutes, has been pacing the hallway most of the day. Speech: Patient's speech is fluent and somewhat pressured. Mood/Affect: Patient's mood is irritable, affect is labile. Suicidality/Homicidality: Patient denies having any homicidal ideation intent or plan. Denies any suicidal ideation, intent or plan. Perceptions: Patient endorses visual hallucinations and auditory hallucinations. Though process: Flight of ideas, disorganized Thought content: Sexually and religiously preoccupied, rambles nonsensically, a nswers one question about SI/HI accurately, rest of questions are responded to with irrelevant delusional thought content Memory and concentration: AOX1, poor concentration Judgment and insight: Poor STRENGTHS/WEAKNESSES: strength is that patient is resilient. Weakness is that patient has poor judgment and is impulsive INTELLECT: Average IMPRESSIONS: Bipolar I disorder, current episode manic with psychotic features Alcohol use disorder, in remission Cocaine use disorder, in remission Tobacco use disorder/nicotine dependence PLAN: -Patient is admitted under involuntary status to MHU for stabilization of psychiatric symptoms and safety. Patient has not signed adult voluntary form/medication consent. A second certification was completed and along with varinder craft will be filed for court. -Medications: Will start patient on Invega 6 mg QHS for psychosis and mood stabilization. Restart Geodon at 40 mg daily in the morning with plan to cross taper to Invega. Labs ordered for tomorrow morning including Lamictal level, CBC with diff, CMP, TSH, lipid panel. She would benefit from Depakote but we will need to verify if she has been taking her Lamictal prior to starting the Depakote to minimize the risk of SJS. -Ativan and Haldol PRN for agitation/aggression -Patient was informed of the risks, benefits and side effects of the medication and patient verbally consented to taking the medications. -Internal Medicine consult to perform medical evaluation and physical. -NRT - nicotine patch -SW on board for discharge planning. Encourage patient to participate in groups to work on coping skills. Will await deferral and court date. Allergies Allergy/AdvReac Type Severity Reaction Status Date / Time codeine Allergy Unknown Verified 10/09/21 15:02 Penicillins Allergy Unknown Verified 10/09/21 17:18 Vital Signs Temp 97.6 F 03/01/22 02:13 Pulse 99 03/01/22 02:13 Resp 16 03/01/22 02:13 BP 183/103 03/01/22 02:13 Pulse Ox 98 03/01/22 02:13 FiO2 Intake & Output 02/28/22 03/01/22 03/01/22 18:59 06:59 18:59 Weight 81.647 kg 81.647 kg Laboratory Last Values Urine Color Light Yellow 02/28/22 19:56 Urine Appearance Cloudy (Clear) H 02/28/22 19:56 Urine pH 5.0 (5.0-8.0) 02/28/22 19:56 Ur Specific [place] 1.007 (1.001-1.035) 02/28/22 19:56 Urine Protein Negative (Negative) 02/28/22 19:56 Urine Glucose (UA) Negative (Negative) 02/28/22 19:56 Urine Ketones Trace (Negative) H 02/28/22 19:56 Urine Blood Negative (Negative) 02/28/22 19:56 Urine Nitrite Negative (Negative) 02/28/22 19:56 Urine Bilirubin Negative (Negative) 02/28/22 19:56 Urine Urobilinogen <2.0 mg/dL (<2.0) 02/28/22 19:56 Ur Leukocyte Esterase Negative (Negative) 02/28/22 19:56 Urine RBC 1 /hpf (0-5) 02/28/22 19:56 Urine WBC 4 /hpf (0-5) 02/28/22 19:56 Ur Squamous Epith Cells 3 /hpf (0-4) 02/28/22 19:56 Hyaline Casts 5 /lpf (0-2) H 02/28/22 19:56 Urine Mucus Rare /hpf (None) H 02/28/22 19:56 Urine Opiates Screen Not Detected (NotDetected) 02/28/22 19:57 Ur Oxycodone Screen Not Detected (NotDetected) 02/28/22 19:57 Urine Methadone Screen Not Detected (NotDetected) 02/28/22 19:57 Ur Propoxyphene Screen Not Detected (NotDetected) 02/28/22 19:57 Ur Barbiturates Screen Not Detected (NotDetected) 02/28/22 19:57 U Tricyclic Antidepress Not Detected (NotDetected) 02/28/22 19:57 Ur Phencyclidine Scrn Not Detected (NotDetected) 02/28/22 19:57 Ur Amphetamines Screen Not Detected (NotDetected) 02/28/22 19:57 U Methamphetamines Scrn Not Detected (NotDetected) 02/28/22 19:57 U Benzodiazepines Scrn Not Detected (NotDetected) 02/28/22 19:57 Urine Cocaine Screen Not Detected (NotDetected) 02/28/22 19:57 U Marijuana (THC) Screen Not Detected (NotDetected) 02/28/22 19:57 Coronavirus (PCR) Not Detected (Not Detectd) 02/28/22 20:05 03/01/22 18:40
[2022-03-01] MEDS ORDERED: PALIPERIDONE 6 MG TAB.ER.24 PO SCH (21:00)
--- NOTE | 2022-03-02 00:08 | P.PN ---
Progress Note - Text Progress Note Date: 03/02/22 Attempted to see the patient in the mental health unit at 2100 on 03/01. Informed by the mental health unit RN that the patient was inappropriate for evaluation.
[2022-03-02] MEDS ORDERED: ZIPRASIDONE 40 MG CAP PO SCH (07:30)
[2022-03-02] MEDS: NICOTINE 14MG/24HR PATCH TRANSDERM SCH (08:52)
[2022-03-02 12:25] LABS: Basophils % (A) 1 %; Eosinophils # (A) 0.1 k/uL (0-0.7); Eosinophils % (A) 1 %; HCT 40.2 % (34.0-46.0); HGB 13.1 gm/dL (11.4-16.0); Lymphocytes # (A) 1.2 k/uL (1.0-4.8); Lymphocytes % (A) 23 %; MCH 28.8 pg (25.0-35.0); MCHC 32.6 g/dL (31.0-37.0); MCV 88.5 fL (80.0-100.0); Mean Platelet Volume 7.3; Monocytes # (A) 0.4 k/uL (0-1.0); Monocytes % (A) 7 %; Neutrophils # (A) 3.7 k/uL (1.3-7.7); Neutrophils % (A) 67 %; Platelet Count 301 k/uL (150-450); RBC 4.54 m/uL (3.80-5.40); RDW 13.3 % (11.5-15.5); WBC 5.5 k/uL (3.8-10.6)
[2022-03-02 12:37] LABS: ALT 25 U/L (4-34); AST 34 U/L (14-36); African American GFR (CKD) >90 (>60 ml/min/1.73 sqM); Albumin 4.8 g/dL (3.5-5.0); Alkaline Phosphatase 111 U/L (38-126); Anion Gap 13 mmol/L; Blood Urea Nitrogen 14 mg/dL (7-17); Calcium 9.4 mg/dL (8.4-10.2); Carbon Dioxide 21 mmol/L (22-30); Chloride 101 mmol/L (98-107); Glucose 86 mg/dL (74-99); Non-African American GFR(CKD) >90 (>60 ml/min/1.73 sqM); Potassium 4.9 mmol/L (3.5-5.1); Sodium 135 mmol/L (137-145); Total Bilirubin 0.6 mg/dL (0.2-1.3); Total Protein 7.8 g/dL (6.3-8.2)
[2022-03-02] MEDS: NICOTINE GUM (POLACRILEX) 2 MG GUM BUCCAL PRN (15:45)
[2022-03-02 16:51] LABS: Chol/HDL Ratio 4.18 Ratio; LDL Cholesterol,Calculated 217.9 mg/dL (0.0-131.0)
--- NOTE | 2022-03-02 18:50 | P.PN ---
Progress Note - Text Progress Note Date: 03/02/22 Interval history: Patient was seen wandering the hallways with labile mood. Later she was found in her mood and appeared calm, directable and agreeable to speak with entry writer. She is more engaged in assessment today and he thoughts are more logical. She received Haldol 5 mg IM and Ativan 2 mg IM three times yesterday (once in the morning, once around dinner time and once at bedtime) for agitation. She took her Geodon yesterday morning and this morning. She refused her Invega last night. We discussed her medications in detail today and she was able to provide some clarity. She reports at home she was usually compliant with her morning medications but not her evening medications because she would drink vodka (claims to drink about 3-4 shots of 99% vodka daily). She reports she plans to not drink alcohol after discharge. She reports she was compliant with her Lamictal (unclear if she took both AM and PM doses since she appears to be a fair historian) until the day she arrived to the hospital. She states she would like to restart her Lamictal, Prazosin, Trazodone and continue her Geodon since she felt stable on this combination when she was compliant with her medications. At this time, patient denies any suicidal or homicidal ideations intent or plan. She admits to auditory and visual hallucinations yesterday, and reports today they are much improved and only hears "an echo". She reports having bad nightmares without her Prazosin. She reports she has taken Invega, [place] and Depakote in the past and states "please don't give me those" eluding to negative side effects in the past from those medications. Mental status exam: General Appearance: Patient appears to be stated age, fair hygiene. Behavior: No agitated behavior so far today. She has been observed wandering the hallways with some mood lability. Speech: Patient's speech is fluent and non-pressured. Mood/Affect: Mood is improving, affect is congruent and reactive. Suicidality/Homicidality: Patient denies having any suicidal or homicidal ideation intent or plan. Perceptions: Patient admits to auditory and visual hallucinations yesterday, but reports they are much improved today and minimal. Though content/process: There is no evidence of any delusional thought content and thought process is linear, more logical. Memory and concentration: AOX3, grossly intact for the purposes of this session Judgment and insight: improving mildly Assessment/Plan: Continue with current diagnosis. Patient continues to meet criteria for inpatient psychiatric admission for symptom stabilization and safety. Discontinue Invega per patient preference. Increase Geodon to 40 mg BID for psychosis. Restart Lamictal at 50 mg BID since she has not received it for about 3 days. Lamictal level drawn today and is pending. Restart Prazosin at 5 mg QHS (patient requests this dose) for nightmares. Restart Trazodone 150 mg QHS for sleep. Will not restart Zoloft at this time due to manic symptoms and will not restart Requip at this time due to psychosis. Monitor for medication compliance and for any psychotropic medication side effects. Will continue to monitor ongoing response to treatment. Encouraged participation in milieu.
[2022-03-02] MEDS: PRAZOSIN 1 MG CAP PO SCH (20:24)
[2022-03-02] MEDS: lamoTRIgine 25 MG TAB PO SCH (20:25)
[2022-03-02] MEDS: traZODone HCL 50 MG TAB PO SCH (20:25)
[2022-03-02] MEDS: ZIPRASIDONE 40 MG CAP PO SCH (20:26)
[2022-03-02] MEDS: ACETAMINOPHEN TAB 325 MG TAB PO PRN (21:48)
--- NOTE | 2022-03-03 04:43 | P.PN ---
Progress Note - Text Progress Note Date: 03/03/22 Attempted to see the patient in the mental health unit. The patient refused to be seen or be evaluated.
[2022-03-03] MEDS: lamoTRIgine 25 MG TAB PO SCH ×2 (08:55→20:10)
[2022-03-03] MEDS: ZIPRASIDONE 40 MG CAP PO SCH ×2 (08:55→17:52)
[2022-03-03] MEDS: ACETAMINOPHEN TAB 325 MG TAB PO PRN (08:55)
[2022-03-03] MEDS: NICOTINE 14MG/24HR PATCH TRANSDERM SCH (08:57)
[2022-03-03] MEDS: LORATADINE 10 MG TAB PO SCH (12:09)
--- NOTE | 2022-03-03 13:31 | P.PN ---
Progress Note - Text Progress Note Date: 03/03/22 Interval history: Patient was seen in her room where she appeared calm, directable, and agreeable to speak with health underwriter. She appears pleasant, affect is bright and somewhat elevated, thoughts are linear and logical. She is compliant with her medications and tolerating them without side effects. She has not required PRN medications for agitation so far today. She is attending some groups but not all. She reports good mood, sleep and appetite. Mental status exam: General Appearance: Patient appears to be stated age, improved hygiene. Behavior: No agitated behavior so far today. She has attending some groups and participated. Speech: Patient's speech is fluent and non-pressured. Mood/Affect: Mood is improving, affect is congruent and reactive. Suicidality/Homicidality: Patient denies having any suicidal or homicidal ideation intent or plan. Perceptions: Patient denies auditory and visual hallucinations. Though content/process: There is no evidence of any delusional thought content and thought process is linear, more logical. Memory and concentration: AOX3, grossly intact for the purposes of this session Judgment and insight: improving mildly Assessment: Bipolar I disorder, current episode manic with psychotic features Alcohol use disorder, in remission Cocaine use disorder, in remission Tobacco use disorder/nicotine dependence Plan: Continue with current diagnosis. Patient continues to meet criteria for inpatient psychiatric admission for sympt om stabilization and safety. Continue Geodon 40 mg BID for psychosis. Continue Lamictal 50 mg BID for mood stabilization with plan to gradually increase as tolerated on outpatient basis. Continue Prazosin 5 mg QHS for nightmares. Continue Trazodone 150 mg QHS for sleep. Nicotine replacement. Will not restart Zoloft due to manic symptoms and will not restart Requip at this time due to psychosis. Monitor for medication compliance and for any psychotropic medication side effects. Will continue to monitor ongoing response to treatment. Encouraged participation in milieu. She would benefit from residential substance abuse treatment for alcohol use disorder. Consider discharge in the next 1-2 days if continues to stabilize.
[2022-03-03] MEDS: NICOTINE GUM (POLACRILEX) 2 MG GUM BUCCAL PRN (17:36)
[2022-03-03] MEDS: traZODone HCL 50 MG TAB PO SCH (20:10)
[2022-03-03] MEDS: PRAZOSIN 1 MG CAP PO SCH (20:10)
[2022-03-03] MEDS: LORazepam 1 MG TAB PO PRN (21:25)
[2022-03-03] MEDS: IBUPROFEN 200 MG TAB PO PRN (21:25)
[2022-03-04] MEDS: NICOTINE 14MG/24HR PATCH TRANSDERM SCH (07:56)
[2022-03-04] MEDS: LORATADINE 10 MG TAB PO SCH (07:56)
[2022-03-04] MEDS: lamoTRIgine 25 MG TAB PO SCH (07:56)
[2022-03-04] MEDS: ZIPRASIDONE 40 MG CAP PO SCH ×2 (07:56→17:35)
[2022-03-04] MEDS: NICOTINE GUM (POLACRILEX) 2 MG GUM BUCCAL PRN ×3 (07:57→17:18)
--- NOTE | 2022-03-04 11:39 | P.PN ---
Progress Note - Text Progress Note Date: 03/04/22 Interval history: Patient was seen wandering the hallways today and was agreeable to speak to danita ma in the office. Patient appears to be fairly calm and cooperative today. She was rambling at times however was fairly logical. She spoke about needing to resolve her water and electricity bills before "shut off". She claims that she was hearing voices and feeling suicidal before coming in for hospital. She states that she is feeling a bit better at this time however still has some mild mood swings. She has been going to some groups and attending to participate. She claims that she isn't sober from methamphetamine and also cocaine which has been helping her. She appears pleasant, affect is bright and somewhat elevated, thoughts are linear and logical. She is compliant with her medications and tolerating them without side effects. She reports good mood, sleep and appetite. At this time she is denying any auditory or visual hallucinations. Denying any suicidal or homicidal ideations intent or plan. she is stating that she gets restless leg sx at nighttime and requests to be restarted on requip. Mental status exam: General Appearance: Patient appears to be stated age, improved hygiene. Behavior: No agitated behavior so far today. Speech: Patient's speech is fluent and non-pressured. Mood/Affect: Mood is improving, affect is congruent and reactive. Suicidality/Homicidality: Patient denies having any suicidal or homicidal ideation intent or plan. Perceptions: Patient denies auditory and visual hallucinations. Though content/process: There is no evidence of any delusional thought content and thought process is linear, more logical. Memory and concentration: AOX3, grossly intact for the purposes of this session Judgment and insight: Poor, improving mildly Assessment: Bipolar I disorder, current episode manic with psychotic features Alcohol use disorder, in remission Cocaine use disorder, in remission Tobacco use disorder/nicotine dependence Plan: Continue with current diagnosis. Patient continues to meet criteria for inpatient psychiatric admission for symptom stabilization and safety. Medications: Geodon 40 mg BID for psychosis, increase Lamictal 150 mg daily for tomorrow for mood stabilization, Continue Prazosin 5 mg QHS for nightmares, Cont inue Trazodone 150 mg QHS for sleep. restart requip 0.5 mg qhs for RLS. Nicotine replacement. Monitor for medication compliance and for any psychotropic medication side effects. Will continue to monitor ongoing response to treatment. Encouraged participation in milieu. SW to work on disposition and dc planning. likely d/c tomorrow if patient continues to improve.
[2022-03-04] MEDS: IBUPROFEN 200 MG TAB PO PRN (20:11)
[2022-03-04] MEDS: ACETAMINOPHEN TAB 325 MG TAB PO PRN (20:11)
[2022-03-04] MEDS: PRAZOSIN 1 MG CAP PO SCH (20:42)
[2022-03-04] MEDS: traZODone HCL 50 MG TAB PO SCH (20:42)
[2022-03-04] MEDS ORDERED: lamoTRIgine 25 MG TAB PO ONE (21:00)
[2022-03-04] MEDS: LORazepam 1 MG TAB PO PRN (22:02)
[2022-03-05 07:11] VITALS: BP 120/89; PULSE 91; RESP 16; TEMP 97
[2022-03-05] MEDS: NICOTINE GUM (POLACRILEX) 2 MG GUM BUCCAL PRN (07:47)
[2022-03-05] MEDS ORDERED: lamoTRIgine 100 MG TAB PO SCH (09:00)
--- NOTE | 2022-03-05 09:09 | P.DS ---
Providers Date of admission: 03/01/22 01:13 Expected date of discharge: 03/05/22 Attending physician: Grayson Calderon MD Consults: 03/01/22 01:14 Consult Physician Routine Consulting Provider: Gary Hernandez Consult Reason/Comments: medical H&P Do you want consulting provider notified?: Yes Primary care physician: [facility] - Discharge Diagnosis(es) (1) Bipolar disorder, current episode manic severe with psychotic features Current Visit: Yes Status: Acute Priority: High (2) Alcohol use disorder in remission Current Visit: Yes Status: Acute Priority: Low (3) Cocaine use disorder in remission Current Visit: Yes Status: Acute Priority: Low (4) Nicotine dependence Current Visit: Yes Status: Acute Priority: Low Hospital Course: Admission HPI: Admission note was completed by Dr Hernandez "Patient is a 56 year old female on SSDI with history of bipolar disorder and polysubstance abuse. Patient presented to the hospital with psychosis. Per EPS records, patient "was petitioned by [facility] after presenting there and throwing herself on the floor screaming at the staff. Pt is religiously preoccupied and talks of God, witches, and the devil. She rumminates about event that are nonsensical. She is agitated and angry. Pt is not redirectable and tries to intimdate staff. She currently has no drugs in her system. She was given ativan haldol and benedryl in ER." Per peition completed by [facility] SCREENER AND BLENDER OPERATOR, patient was out of touch with reality and yelling, rolled around on the floor, claimed she was a cadence and the year is 1998, not oriented to person, place or time, suspicious staff and police are spies, delusional, actively hallucinating. Per initial clinic certificate, patient presents with aggressive behavior, yelling profanities, has pressured nonsensical speech, reports she is the devil. UDS in the ER is negative. Since arrival to the unit, patient has been attending to internal stimuli, talking to herself, displaying mood lability and agitation. She required Haldol 5 mg IM x 1 and Ativan 2 mg IM x 1 for agitation this afternoon. She initially refused her morning Geodon but took it later in the morning with minimal benefit. Her outpatient medications were Lamictal 200 mg BID, Prazosin 4 mg QHS, Zoloft 100 mg daily, Geodon 40 mg BID, Vistaril 50 mg QHS plus 25 mg daily PRN, Requip 0.5 mg QHS and Trazodone 150 mg QHS. It is likely she has been noncompliant with her medications given the severity of her symptoms, however when asked about her last doses of medications she does not respond only to say she gets them filled at [place]. Patient displays motor hyperactivity, is guarded, leaves room after about 10 minutes, has been pacing the hallway most of the day. She endorses visual hallucinations and auditory hallucinations. She denies any suicidal or homicidal ideation, intent or Her thought process consists of flight of ideas, disorganized, and often irrelevant thought content. She expresses delusional thought content and is sexually and religiously preoccupied, including "not telling you... I don't need anything, my beautiful things for drugs..." "They're selling us out there, so you have to look right, look like one, look seductress like the old [employer] films, make you do things like slap them on the ass, all types of different things". "I'm sorry I was ever vain and I don't ever want to be vain again." " Hospital course: Upon admission to the unit patient was directable and agreeable to commence treatment and signed adult voluntary form . Patient got along well with other patients on the unit and followed unit protocol. Patient was compliant with the medications and denied any side effects throughout hospital course. Patient was started on Geodon 40 mg twice a day for psychosis, Lamictal 150 mg daily for mood stabilization, prazosin 5 mg daily at bedtime for nightmares, trazodone 150 mg daily at bedtime for sleep, Requip 0.5 mg daily at bedtime for restless leg symptoms. Patient spoke of her stressors and engaged in therapy both group and individual. Patient was also seen by medical team for history and physical exam. Throughout the course of the hospitalization patient gradually improved with regards to mood, anxiety, sleep and returned back to their baseline level of functioning. On the day of discharge patient denied any suicidal or homicidal ideations intent or plan denied any auditory or visual hallucinations. Patient endorsed wanting to live for her health and her future. The patient denied any access to guns or weapons. Patient denied any paranoia and did not endorse any delusions. Patient does have a significant history of substance abuse and was counseled on abstaining from all substances including alcohol and marijuana. Patient was also counseled on the medications and need for regular compliance and was encouraged to follow-up with their outpatient appointment for mental health and also for primary care. Prior to discharge a family meeting will be arranged by social media project manager to answer any questions and ensure safety upon discharge. Mental status exam: General Appearance: Patient appears to be stated age is alert, pleasant, and cooperative. Patient is in no acute distress and has improved hygiene and grooming Behavior: Patient is calmly seated without any agitated behavior. Speech: Patient's speech is fluent and nonpressured. Mood/Affect: Patient reports their mood is "better", affect is congruent and euthymic. Suicidality/Homicidality: Patient denies having any suicidal or homicidal ideation intent or plan. Perceptions: Patient denies any auditory or visual hallucinations. Though content/process: There is no evidence of any delusional thought content and thought process is linear and goal-directed. Memory and concentration: AOX3, grossly intact for the purposes of this session. Can spell "WORLD" backwards correctly. Judgment and insight: chronically poor, however has improved with guarded prognosis Impression: Bipolar disorder, current episode yuki with psychotic features Alcohol use disorder in remission Cocaine use disorder in remission Nicotine dependence Plan: -Continue with discharge today as patient has improved and stabilized psychiatrically and is not currently an imminent threat to herself and/or others. Patient will remain at chronically elevated risk for harm to self and/or others due to her impulsivity. -Continue medications: Geodon 40 mg twice a day for psychosis, Lamictal under 50 mg daily for mood stabilization, prazosin 5 mg daily at bedtime for nightmares, trazodone 150 mg daily at bedtime for sleep, Requip 0.5 mg daily at bedtime for restless leg symptoms -Patient was counseled on the need for medication compliance and appropriate follow-up at mental health and also primary care for medical issues. Patient verbalized understanding and agreed. -Social work to arrange for and conduct family meeting to ensure safety upon discharge and answer any questions/concerns. Social work also to arrange for patients follow up appointments for psychiatric care along with follow up with primary care provider. -Patient counseled on abstaining from recreational drugs and marijuana and alcohol. Was informed/educated on the adverse effects on their physical and mental health. Patient verbally agreed and understood. -Patient was instructed to return to the hospital or seek immediate medical care if their psychiatric or medical symptoms do worsen or reoccur. Allergies Allergy/AdvReac Type Severity Reaction Status Date / Time codeine Allergy Unknown Verified 10/09/21 15:02 Penicillins Allergy Unknown Verified 10/09/21 17:18 Laboratory Results WBC 5.5 k/uL (3.8-10.6) 03/02/22 12:07 RBC 4.54 m/uL (3.80-5.40) 03/02/22 12:07 Hgb 13.1 gm/dL (11.4-16.0) 03/02/22 12:07 Hct 40.2 % (34.0-46.0) 03/02/22 12:07 MCV 88.5 fL (80.0-100.0) 03/02/22 12:07 MCH 28.8 pg (25.0-35.0) 03/02/22 12:07 MCHC 32.6 g/dL (31.0-37.0) 03/02/22 12:07 RDW 13.3 % (11.5-15.5) 03/02/22 12:07 Plt Count 301 k/uL (150-450) 03/02/22 12:07 MPV 7.3 03/02/22 12:07 Neutrophils % 67 % 03/02/22 12:07 Lymphocytes % 23 % 03/02/22 12:07 Monocytes % 7 % 03/02/22 12:07 Eosinophils % 1 % 03/02/22 12:07 Basophils % 1 % 03/02/22 12:07 Neutrophils # 3.7 k/uL (1.3-7.7) 03/02/22 12:07 Lymphocytes # 1.2 k/uL (1.0-4.8) 03/02/22 12:07 Monocytes # 0.4 k/uL (0-1.0) 03/02/22 12:07 Eosinophils # 0.1 k/uL (0-0.7) 03/02/22 12:07 Basophils # 0.0 k/uL (0-0.2) 03/02/22 12:07 Sodium 135 mmol/L (137-145) L 03/02/22 12:07 Potassium 4.9 mmol/L (3.5-5.1) 03/02/22 12:07 Chloride 101 mmol/L (98-107) 03/02/22 12:07 Carbon Dioxide 21 mmol/L (22-30) L 03/02/22 12:07 Anion Gap 13 mmol/L 03/02/22 12:07 BUN 14 mg/dL (7-17) 03/02/22 12:07 Creatinine 0.58 mg/dL (0.52-1.04) 03/02/22 12:07 Est GFR (CKD-EPI)AfAm >90 (>60 ml/min/1.73 sqM) 03/02/22 12:07 Est GFR (CKD-EPI)NonAf >90 (>60 ml/min/1.73 sqM) 03/02/22 12:07 Glucose 86 mg/dL (74-99) 03/02/22 12:07 Calcium 9.4 mg/dL (8.4-10.2) 03/02/22 12:07 Total Bilirubin 0.6 mg/dL (0.2-1.3) 03/02/22 12:07 AST 34 U/L (14-36) 03/02/22 12:07 ALT 25 U/L (4-34) 03/02/22 12:07 Alkaline Phosphatase 111 U/L (38-126) 03/02/22 12:07 Total Protein 7.8 g/dL (6.3-8.2) 03/02/22 12:07 Albumin 4.8 g/dL (3.5-5.0) 03/02/22 12:07 Triglycerides 101.00 mg/dL (0.00-149.00) 03/02/22 12:07 Cholesterol 313.00 mg/dL (0.00-200.00) H 03/02/22 12:07 LDL Cholesterol, Calc 217.9 mg/dL (0.0-131.0) H 03/02/22 12:07 VLDL Cholesterol, Calc 20.20 mg/dL (5.00-40.00) 03/02/22 12:07 HDL Cholesterol 74.90 mg/dL (40.00-60.00) H 03/02/22 12:07 Cholesterol/HDL Ratio 4.18 Ratio 03/02/22 12:07 TSH 0.759 mIU/L (0.465-4.680) 03/02/22 12:07 Urine Color Light Yellow 02/28/22 19:56 Urine Appearance Cloudy (Clear) H 02/28/22 19:56 Urine pH 5.0 (5.0-8.0) 02/28/22 19:56 Ur Specific [place] 1.007 (1.001-1.035) 02/28/22 19:56 Urine Protein Negative (Negative) 02/28/22 19:56 Urine Glucose (UA) Negative (Negative) 02/28/22 19:56 Urine Ketones Trace (Negative) H 02/28/22 19:56 Urine Blood Negative (Negative) 02/28/22 19:56 Urine Nitrite Negative (Negative) 02/28/22 19:56 Urine Bilirubin Negative (Negative) 02/28/22 19:56 Urine Urobilinogen <2.0 mg/dL (<2.0) 02/28/22 19:56 Ur Leukocyte Esterase Negative (Negative) 02/28/22 19:56 Urine RBC 1 /hpf (0-5) 02/28/22 19:56 Urine WBC 4 /hpf (0-5) 02/28/22 19:56 Ur Squamous Epith Cells 3 /hpf (0-4) 02/28/22 19:56 Hyaline Casts 5 /lpf (0-2) H 02/28/22 19:56 Urine Mucus Rare /hpf (None) H 02/28/22 19:56 Urine Opiates Screen Not Detected (NotDetected) 02/28/22 19:57 Ur Oxycodone Screen Not Detected (NotDetected) 02/28/22 19:57 Urine Methadone Screen Not Detected (NotDetected) 02/28/22 19:57 Ur Propoxyphene Screen Not Detected (NotDetected) 02/28/22 19:57 Ur Barbiturates Screen Not Detected (NotDetected) 02/28/22 19:57 Lamotrigine 1.5 ug/mL (2.0-15.0) L 03/02/22 12:07 U Tricyclic Antidepress Not Detected (NotDetected) 02/28/22 19:57 Ur Phencyclidine Scrn Not Detected (NotDetected) 02/28/22 19:57 Ur Amphetamines Screen Not Detected (NotDetected) 02/28/22 19:57 U Methamphetamines Scrn Not Detected (NotDetected) 02/28/22 19:57 U Benzodiazepines Scrn Not Detected (NotDetected) 02/28/22 19:57 Urine Cocaine Screen Not Detected (NotDetected) 02/28/22 19:57 U Marijuana (THC) Screen Not Detected (NotDetected) 02/28/22 19:57 Coronavirus (PCR) Not Detected (Not Detectd) 02/28/22 20:05 Vital Signs Temp 97 F L 03/05/22 06:11 Pulse 91 03/05/22 06:11 Resp 16 03/05/22 06:11 BP 120/89 03/05/22 06:11 Pulse Ox 97 03/04/22 05:00 FiO2 Patient Condition at Discharge: Stable Plan - Discharge Summary Discharge Rx Participant: No New Discharge Prescriptions: New Ibuprofen [Advil] 200 mg PO Q6HR PRN tab PRN Reason: Pain Loratadine [Claritin] 10 mg PO DAILY 30 Days tab traZODone HCL [Desyrel] 150 mg PO HS 30 Days tab lamoTRIgine [LaMICtal] 150 mg PO DAILY 30 Days tab Prazosin [Minipress] 5 mg PO HS 30 Days cap Nicotine Gum (Polacrilex) [Nicorette] 2 mg BUCCAL Q2HR PRN 28 Days pieceofgum PRN Reason: Nicotine Cravings Nicotine 14Mg/24Hr Patch [Habitrol] 1 patch TRANSDERM DAILY 14 Days patch Continue Albuterol Sulfate [Ventolin HFA] 2 puff INHALATION RT-QID PRN PRN Reason: Shortness Of Breath Atorvastatin [Lipitor] 10 mg PO DAILY Fluticasone Propionate [Flovent Hfa 220 mcg] 2 puff INHALATION RT-BID Ziprasidone [Geodon] 40 mg PO BID 30 Days cap rOPINIRole HCL [Requip] 0.5 mg PO HS 30 Days tab Discontinued lamoTRIgine [LaMICtal] 200 mg PO BID Sertraline [Zoloft] 100 mg PO DAILY hydrOXYzine pamoate [Vistaril] 50 mg PO HS Ziprasidone [Geodon] 20 mg PO DAILY traZODone HCL 150 mg PO HS Omeprazole 20 mg PO BID Prazosin HCl [Minipress] 4 mg PO HS Ibuprofen [Motrin] 400 mg PO TID PRN PRN Reason: Pain hydrOXYzine pamoate [Vistaril] 25 mg PO DAILY PRN PRN Reason: Anxiety busPIRone HCL 15 mg PO BID Calcium Carbonate [Tums] 1,000 mg PO TID Discharge Medication List Albuterol Sulfate [Ventolin HFA] 2 puff INHALATION RT-QID PRN 10/09/21 [History] Atorvastatin [Lipitor] 10 mg PO DAILY 10/09/21 [History] Fluticasone Propionate [Flovent Hfa 220 mcg] 2 puff INHALATION RT-BID 10/09/21 [History] Ibuprofen [Advil] 200 mg PO Q6HR PRN tab 03/05/22 [Rx] Loratadine [Claritin] 10 mg PO DAILY 30 Days tab 03/05/22 [Rx] Nicotine 14Mg/24Hr Patch [Habitrol] 1 patch TRANSDERM DAILY 14 Days patch 03/05/22 [Rx] Nicotine Gum (Polacrilex) [Nicorette] 2 mg BUCCAL Q2HR PRN 28 Days pieceofgum 03/05/22 [Rx] Prazosin [Minipress] 5 mg PO HS 30 Days cap 03/05/22 [Rx] Ziprasidone [Geodon] 40 mg PO BID 30 Days cap 03/05/22 [Rx] lamoTRIgine [LaMICtal] 150 mg PO DAILY 30 Days tab 03/05/22 [Rx] rOPINIRole HCL [Requip] 0.5 mg PO HS 30 Days tab 03/05/22 [Rx] traZODone HCL [Desyrel] 150 mg PO HS 30 Days tab 03/05/22 [Rx] Follow up Appointment(s)/Referral(s): [facility] [Outside] - 03/06/22 1:00 pm (03-06-22 at 1:00 with Awilda Valencia 03-12-22 at 1:00 with JACKSON Holley) [facility] [Primary Care Provider] - 1-2 days Patient Instructions/Handouts: How to Stop Smoking (DC), Bipolar Disorder (DC) Activity/Diet/Wound Care/Special Instructions: Avoid the use of street drugs and alcohol. Take all prescriptions as prescribed. When you are in need of refills on your medications, please contact your medical provider and/or outpatient psychiatrist to have this done. Please go to scheduled outpatient appointment for aftercare treatment. If symptoms return or become worse, call the crisis line at and/or go to the nearest emergency room for evaluation. Discharge Disposition: HOME SELF-CARE
[2022-03-05] MEDS: NICOTINE 14MG/24HR PATCH TRANSDERM SCH (09:24)
[2022-03-05] MEDS: ZIPRASIDONE 40 MG CAP PO SCH (09:27)
[2022-03-05] MEDS: LORATADINE 10 MG TAB PO SCH (09:27)
[2022-03-05] MEDS: IBUPROFEN 200 MG TAB PO PRN (12:27)
[2022-03-05] MEDS: ACETAMINOPHEN TAB 325 MG TAB PO PRN (12:27)
== END 2022-03-05 12:57 | disposition home or self-care (01) | DRG 885 ==
LOC: EC 17:23 → 3MHU 03-01 01:13
PROVIDERS: ADMIT Psychiatry & Neurology Psychiatry; ATTEND Psychiatry & Neurology Psychiatry
DX: F31.2 Bipolar disorder, current episode manic severe with psychotic features (principal); F10.11 Alcohol abuse, in remission; F14.11 Cocaine abuse, in remission; F17.210 Nicotine dependence, cigarettes, uncomplicated; R45.1 Restlessness and agitation; Z28.311 Partially vaccinated for COVID-19; Z20.822 Contact with and (suspected) exposure to COVID-19; Z28.21 Immunization not carried out because of patient refusal; F41.9 Anxiety disorder, unspecified; F19.10 Other psychoactive substance abuse, uncomplicated; F90.9 Attention-deficit hyperactivity disorder, unspecified type; G25.81 Restless legs syndrome; Z78.1 Physical restraint status; Z79.51 Long term (current) use of inhaled steroids; Z79.899 Other long term (current) drug therapy; Z81.8 Family history of other mental and behavioral disorders; Z91.14 Patient's other noncompliance with medication regimen; Z91.51 Personal history of suicidal behavior; Z88.5 Allergy status to narcotic agent; Z88.0 Allergy status to penicillin
CPT/HCPCS: 80053; 80061; 80175; 80306; 81001; 82075; 84443; 85025; 87635; 96372; 99285

== ENCOUNTER 2022-04-06 13:18 | Inpatient (IN) | payer MEDICAID, OTHER ==
[2022-04-06] MEDS ORDERED: LORazepam 2 MG/ML INJ IM STA (13:37)
[2022-04-06] MEDS ORDERED: ZIPRASIDONE 20 MG VIAL IM STA (13:37)
--- NOTE | 2022-04-06 13:40 | ED ---
General Adult HPI - General Chief complaint: Psychiatric Symptoms Stated complaint: Petition Time Seen by Provider: 04/06/22 13:28 Source: patient, police, RN/MD, RN notes reviewed Mode of arrival: ambulatory Limitations: no limitations - History of Present Illness Initial comments: Patient is a 56-year-old female presenting to the emergency department with police reserves commander escort and petition. Patient reportedly having bizarre behavior. When questioned if she feels manic patient agrees to this. Patient denies suicidal or homicidal thoughts. Patient admits to using marijuana, otherwise no street drugs. No alcohol use. Patient has difficulty focusing to answer questions. - Related Data Home Medications Medication Instructions Recorded Confirmed Albuterol Sulfate [Ventolin HFA] 2 puff INHALATION RT-QID PRN 10/09/21 03/01/22 Atorvastatin [Lipitor] 10 mg PO DAILY 10/09/21 03/01/22 Fluticasone Propionate [Flovent 2 puff INHALATION RT-BID 10/09/21 03/01/22 Hfa 220 mcg] Previous Rx's Medication Instructions Recorded Ibuprofen [Advil] 200 mg PO Q6HR PRN tab 03/05/22 Loratadine [Claritin] 10 mg PO DAILY 30 Days tab 03/05/22 Nicotine 14Mg/24Hr Patch [Habitrol] 1 patch TRANSDERM DAILY 14 Days 03/05/22 patch Nicotine Gum (Polacrilex) 2 mg BUCCAL Q2HR PRN 28 Days 03/05/22 [Nicorette] pieceofgum Prazosin [Minipress] 5 mg PO HS 30 Days cap 03/05/22 Ziprasidone [Geodon] 40 mg PO BID 30 Days cap 03/05/22 lamoTRIgine [LaMICtal] 150 mg PO DAILY 30 Days tab 03/05/22 rOPINIRole HCL [Requip] 0.5 mg PO HS 30 Days tab 03/05/22 traZODone HCL [Desyrel] 150 mg PO HS 30 Days tab 03/05/22 Allergies Allergy/AdvReac Type Severity Reaction Status Date / Time codeine Allergy Unknown Verified 04/06/22 13:27 Penicillins Allergy Unknown Verified 04/06/22 13:27 Review of Systems ROS Statement: Those systems with pertinent positive or pertinent negative responses have been documented in the HPI. ROS Other: All systems not noted in ROS Statement are negative. Constitutional: Denies: fever Eyes: Denies: eye pain ENT: Denies: ear pain Respiratory: Denies: cough Cardiovascular: Denies: chest pain Endocrine: Denies: fatigue Gastrointestinal: Denies: abdominal pain Genitourinary: Denies: dysuria Psychiatric: Reports: as per HPI Past Medical History Past Medical History: No Reported History Additional Past Medical History / Comment(s): "born with a heart defect" History of Any Multi-Drug Resistant Organisms: None Reported Additional Past Surgical History / Comment(s): D&C Past Anesthesia/Blood Transfusion Reactions: No Reported Reaction Past Psychological History: Anxiety, Bipolar, Depression, Schizoaffective Disorder Smoking Status: Current every day smoker Past Alcohol Use History: None Reported Past Drug Use History: None Reported - Past Family History Mother Family Medical History: Unable to Obtain Father Family Medical History: No Reported History General Exam Limitations: no limitations General appearance: alert, in no apparent distress Head exam: Present: atraumatic Eye exam: Present: normal appearance Neck exam: Present: normal inspection Respiratory exam: Present: normal lung sounds bilaterally Cardiovascular Exam: Present: regular rate, normal rhythm GI/Abdominal exam: Present: soft. Absent: tenderness Neurological exam: Present: alert, normal gait. Absent: motor sensory deficit Psychiatric exam: Present: manic Expanded Focused psych exam: Present: restlessness, flight of ideas Skin exam: Present: normal color Course Vital Signs 04/06/22 04/06/22 13:21 14:29 Temperature 98 F Pulse Rate 142 H 87 Respiratory 30 H 20 Rate Blood Pressure 194/111 127/82 O2 Sat by Pulse 98 94 L Oximetry EKG Findings - EKG Results: EKG: interpreted by ERMD, sinus rhythm, normal axis, normal QRS, normal ST/T Medical Decision Making - Medical Decision Making Patient seen by mental health services with plans for admission. Patient was reevaluated. Clinical certificate completed. - Lab Data Lab Results 04/06/22 04/06/22 Range/Units 13:39 16:44 Urine Opiates Screen Not Detected (NotDetected) Ur Oxycodone Screen Not Detected (NotDetected) Urine Methadone Screen Not Detected (NotDetected) Ur Propoxyphene Screen Not Detected (NotDetected) Ur Barbiturates Screen Not Detected (NotDetected) U Tricyclic Antidepress Not Detected (NotDetected) Ur Phencyclidine Scrn Not Detected (NotDetected) Ur Amphetamines Screen Not Detected (NotDetected) U Methamphetamines Scrn Not Detected (NotDetected) U Benzodiazepines Scrn Not Detected (NotDetected) Urine Cocaine Screen Not Detected (NotDetected) U Marijuana (THC) Screen Not Detected (NotDetected) Coronavirus (PCR) Not Detected (Not Detectd) Disposition Clinical Impression: Acute psychosis, Ariela Disposition: TRANSFER TO PSYCH HOSP/UNIT Is patient prescribed a controlled substance at d/c from ED?: No [facility]errals[facility] [Primary Care Provider] - 1-2 days Time of Disposition: 17:34
[2022-04-06 16:36] LABS: Amphetamine Screen,Urine Not Detected (NotDetected); Barbiturate Screen,Urine Not Detected (NotDetected); Benzodiazepines Screen,Urine Not Detected (NotDetected); Cocaine Screen,Urine Not Detected (NotDetected); Methadone Screen, Urine Not Detected (NotDetected); Opiate Screen,Urine Not Detected (NotDetected); Oxycodone Screen, Urine Not Detected (NotDetected); Phencyclidine Screen,Urine Not Detected (NotDetected); Tricyclic Antidepressant,Urine Not Detected (NotDetected); Urn Cannabinoid Scrn Not Detected (NotDetected)
[2022-04-06] MEDS ORDERED: MAG HYDROX/AL HYDROX/SIMETH 355 ML BOTTLE PO PRN (18:40)
[2022-04-06] MEDS ORDERED: MAGNESIUM HYDROXIDE 2,400 MG/10 ML CUP PO PRN (18:40)
[2022-04-06] MEDS ORDERED: ALBUTEROL HFA INHALER INHALATION PRN (18:48)
[2022-04-06] MEDS ORDERED: CALCIUM CARBONATE 500 MG CHEWABLE PO PRN (18:56)
[2022-04-06] MEDS ORDERED: hydrOXYzine HCL 50 MG/ML 1 ML VIAL IM PRN (18:58)
[2022-04-06] MEDS ORDERED: HALOPERIDOL LACTATE 5 MG/ML 1 ML VIAL IM PRN (18:58)
[2022-04-06] MEDS ORDERED: haloperidoL 5 MG TAB PO PRN (18:58)
[2022-04-06] MEDS ORDERED: FLUTICASONE 220 MCG INHALER INHALATION SCH (20:00)
[2022-04-06] MEDS: PRAZOSIN 1 MG CAP PO SCH (20:33)
[2022-04-06] MEDS: hydrOXYzine pamoate 25 MG CAP PO SCH (20:34)
[2022-04-06] MEDS: traZODone HCL 50 MG TAB PO SCH (20:35)
[2022-04-06] MEDS: NICOTINE GUM (POLACRILEX) 2 MG GUM BUCCAL PRN (20:35)
[2022-04-06] MEDS: ZIPRASIDONE 40 MG CAP PO SCH (20:35)
[2022-04-06] MEDS: FLUTICASONE 110 MCG INHALER INHALATION SCH (20:35)
--- NOTE | 2022-04-07 01:49 | P.MDCNMH ---
History of Present Illness H&P Date: 04/06/22 Chief Complaint: medical eval 56 year old female reports a history of hypertension , and "hole in the heart" patient was brought in by police for psych eval due to bizarre behavior patient denies homicidal or suicidal ideation patient was interviewed with ANJALI Breen at bedside. patient does not answer any of my questions, and she goes on and on telling irrelevant stories with delusional and paranoid content patient denies heavy alcohol consumption, but admits to occasional marijuana, and admits to daily smoking she started using loud voice and seemed to get angry at interviewer, then started using racist language. after which time the typewriter aligner stopped the in terview. Review of Systems ROS unobtainable: due to mental status Past Medical History Past Medical History: No Reported History Additional Past Medical History / Comment(s): "born with a heart defect" History of Any Multi-Drug Resistant Organisms: None Reported Additional Past Surgical History / Comment(s): D&C Past Anesthesia/Blood Transfusion Reactions: No Reported Reaction Smoking Status: Current every day smoker - Past Family History Mother Family Medical History: Unable to Obtain Father Family Medical History: No Reported History Medications and Allergies Home Medications Medication Instructions Recorded Confirmed Type Albuterol Sulfate [Ventolin HFA] 2 puff INHALATION RT-QID PRN 10/09/21 04/06/22 History Atorvastatin [Lipitor] 10 mg PO DAILY 10/09/21 04/06/22 History Fluticasone Propionate [Flovent 2 puff INHALATION RT-BID 10/09/21 04/06/22 History Hfa 220 mcg] Ibuprofen [Advil] 200 mg PO Q6HR PRN tab 03/05/22 04/06/22 Rx Loratadine [Claritin] 10 mg PO DAILY 30 Days tab 03/05/22 04/06/22 Rx Nicotine 14Mg/24Hr Patch [Habitrol] 1 patch TRANSDERM DAILY 14 Days 03/05/22 04/06/22 Rx patch Nicotine Gum (Polacrilex) 2 mg BUCCAL Q2HR PRN 28 Days 03/05/22 04/06/22 Rx [Nicorette] pieceofgum Ziprasidone [Geodon] 40 mg PO BID 30 Days cap 03/05/22 04/06/22 Rx rOPINIRole HCL [Requip] 0.5 mg PO HS 30 Days tab 03/05/22 04/06/22 Rx Ketoconazole 2% Cream [Nizoral 2%] 1 applic TOPICAL BID PRN 04/06/22 04/06/22 History Prazosin [Minipress] 5 mg PO HS 04/06/22 04/06/22 History lamoTRIgine [LaMICtal] 200 mg PO DAILY 04/06/22 04/06/22 History traZODone HCL 150 mg PO HS 04/06/22 04/06/22 History Allergies Allergy/AdvReac Type Severity Reaction Status Date / Time codeine Allergy Unknown Verified 04/06/22 22:37 Penicillins Allergy Unknown Verified 04/06/22 22:37 Physical Exam Vitals: Vital Signs Temp Pulse Pulse Resp BP BP Pulse Ox 04/06/22 19:58 98 F 87 20 127/82 94 L 04/06/22 19:57 97.5 F L 95 18 124/80 97 04/06/22 14:29 87 20 127/82 94 L 04/06/22 13:21 98 F 142 H 30 H 194/111 98 Intake and Output 04/06/22 04/06/22 04/07/22 14:59 22:59 06:59 Other: Weight 77.111 kg 77.111 kg not performed due to patient threatening behavior Cranial Nerve Examination - Cranial Nerves Cranial Nerve II- Optic: Intact (exam not performed, but system forces me to make a choice on this section .) Cranial Nerve III- Oculomotor: Intact Cranial Nerve IV- Trochlear: Intact Cranial Nerve V- Trigeminal: Intact Cranial Nerve - Abducens: Intact Cranial Nerve VII- Facial: Intact Cranial Nerve VIII- Auditory: Intact Cranial Nerve IX- Glossopharyngeal: Intact Cranial Nerve X- Vagus: Intact Cranial Nerve XI- Accessory: Intact Cranial Nerve XII- Hypoglossal: Intact Assessment and Plan Assessment: delusional and paranoid thought process acute psychosis management per psych follow up labs continue with home medication , atorvastatin thank you for this consultation , please contact [facility] with any medical concerns
[2022-04-07] MEDS: NICOTINE GUM (POLACRILEX) 2 MG GUM BUCCAL PRN ×2 (04:35→21:15)
[2022-04-07] MEDS: NICOTINE 14MG/24HR PATCH TRANSDERM SCH (08:30)
[2022-04-07] MEDS: FLUTICASONE 110 MCG INHALER INHALATION SCH ×2 (08:31→21:37)
[2022-04-07] MEDS: PANTOPRAZOLE 40 MG TABLET PO SCH ×2 (08:32→16:37)
[2022-04-07] MEDS: LORATADINE 10 MG TAB PO SCH (08:32)
[2022-04-07] MEDS: ATORVASTATIN 10 MG TAB PO SCH (08:32)
[2022-04-07] MEDS: ZIPRASIDONE 40 MG CAP PO SCH (08:32)
[2022-04-07 09:14] LABS: Appearance,Urine Clear (Clear); Bilirubin,Urine Negative (Negative); Blood,Urine Negative (Negative); Color,Urine Colorless; Glucose,Urine (UA) Negative (Negative); Ketones,Urine Negative (Negative); Leukocyte Esterase,Urine Negative (Negative); Nitrite,Urine Negative (Negative); Protein,Urine Negative (Negative); Specific Gravity,Urine 1.005 (1.001-1.035); Urobilinogen,Urine <2.0 mg/dL (<2.0)
--- NOTE | 2022-04-07 13:41 | P.HP ---
Psychiatric H&P - . H&P Date: 04/07/22 History & Physical: Allergies Allergy/AdvReac Type Severity Reaction Status Date / Time codeine Allergy Unknown Verified 04/06/22 22:37 Penicillins Allergy Unknown Verified 04/06/22 22:37 Vital Signs Temp 97.8 F 04/07/22 06:27 Pulse 101 H 04/07/22 06:27 Resp 18 04/07/22 06:27 BP 114/76 04/07/22 06:27 Pulse Ox 99 04/07/22 06:27 FiO2 Intake & Output 04/06/22 04/07/22 04/07/22 18:59 06:59 18:59 Weight 77.111 kg 77.111 kg Laboratory Last Values Urine Color Colorless 04/06/22 13:39 Urine Appearance Clear (Clear) 04/06/22 13:39 Urine pH 5.0 (5.0-8.0) 04/06/22 13:39 Ur Specific [place] 1.005 (1.001-1.035) 04/06/22 13:39 Urine Protein Negative (Negative) 04/06/22 13:39 Urine Glucose (UA) Negative (Negative) 04/06/22 13:39 Urine Ketones Negative (Negative) 04/06/22 13:39 Urine Blood Negative (Negative) 04/06/22 13:39 Urine Nitrite Negative (Negative) 04/06/22 13:39 Urine Bilirubin Negative (Negative) 04/06/22 13:39 Urine Urobilinogen <2.0 mg/dL (<2.0) 04/06/22 13:39 Ur Leukocyte Esterase Negative (Negative) 04/06/22 13:39 Urine Opiates Screen Not Detected (NotDetected) 04/06/22 13:39 Ur Oxycodone Screen Not Detected (NotDetected) 04/06/22 13:39 Urine Methadone Screen Not Detected (NotDetected) 04/06/22 13:39 Ur Propoxyphene Screen Not Detected (NotDetected) 04/06/22 13:39 Ur Barbiturates Screen Not Detected (NotDetected) 04/06/22 13:39 U Tricyclic Antidepress Not Detected (NotDetected) 04/06/22 13:39 Ur Phencyclidine Scrn Not Detected (NotDetected) 04/06/22 13:39 Ur Amphetamines Screen Not Detected (NotDetected) 04/06/22 13:39 U Methamphetamines Scrn Not Detected (NotDetected) 04/06/22 13:39 U Benzodiazepines Scrn Not Detected (NotDetected) 04/06/22 13:39 Urine Cocaine Screen Not Detected (NotDetected) 04/06/22 13:39 U Marijuana (THC) Screen Not Detected (NotDetected) 04/06/22 13:39 Coronavirus (PCR) Not Detected (Not Detectd) 04/06/22 16:44 04/07/22 13:40 IDENTIFYING DATA: Patient is a 56-year-old single, unemployed, female with a significant history of bipolar disorder who currently presents to our hospital under petition and certification for bizarre and erratic behavior. HPI: Patient presented to the hospital on 04/06/2022, brought in by police under petition for bizarre and erratic behavior. The patient required IM Geodon and Ativan. In the emergency department, the patient reported that she was compliant with her medications. If you don't know what that is look it up." The patient also began acting erratic and started slapping her face and pinching her cheeks stating "wake up, oh my God, wake up" over and over again. The patient is currently under deferral status until 08/31/2022. The patient was last admitted onto our psychiatric unit in February of this year. She was discharged on a regimen of Geodon, Lamictal, prazosin, trazodone, and Requip. Upon evaluation by this provider on this unit, the patient displays significant manic symptoms. The patient is pressured and displaying flight of ideas and is unable to provide any clear history of events leading up to this hospitalization. As per petition filled out by the police commanding officer, the patient has a "detached since a reality. Moving furniture out of her house. Causing public disturbance. Paranoid people will kill her." The patient vehemently den ies any methamphetamine use. Urinary drug screen was negative on this admission. Regards other mood symptoms, the patient is vehemently denying any suicidal homicidal ideation, intention, and/or plan. She is not reporting any depressive symptoms and reports no changes in sleep or appetite. She is overtly manic and is reporting racing thoughts, flight of ideas, increased goal-directed activity, and excessive energy. She is not reporting any auditory or visual hallucinations. She does however endorse significant paranoia. She states that she'll refuse any more blood draws because she is concerned that we "would put something in her blood just as easy as it is to take something out." PAST PSYCHIATRIC HISTORY: Patient has previous diagnoses of bipolar 1 disorder, cocaine abuse, alcohol abuse. She has been on numerous psychiatric medications including BuSpar, Geodon, Vistaril, Lamictal, prazosin, trazodone, Wellbutrin XL, Zoloft, doxepin, Abilify, clonidine, Seroquel, Invega Sustenna, lithium, and Depakote. She has had numerous psychiatric admissions with the last admission being 1 month ago. She is currently open with [facility]. Has at least 4 prior attempts at suicide. PMH: Past Medical History: No Reported History Additional Past Medical History / Comment(s): "born with a heart defect" History of Any Multi-Drug Resistant Organisms: None Reported Additional Past Surgical History / Comment(s): D&C Past Anesthesia/Blood Transfusion Reactions: No Reported Reaction Past Psychological History: Anxiety, Bipolar, Depression, Schizoaffective Disorder Smoking Status: Current every day smoker Past Alcohol Use History: None Reported Past Drug Use History: None Reported ALLERGIES: Codeine, penicillin CHEMICAL DEPENDENCY HISTORY: The patient vehemently denies any recent drug use. She reports no current alcohol use. She does admit to daily tobacco use. She denies any marijuana use. FAMILY PSYCHIATRIC/SUBSTANCE USE HISTORY: As per chart review, the patient's mother was diagnosed with bipolar disorder and also engaged in substance abuse. SOCIAL HISTORY: Patient was born and raised in [place], [place]. She has 3 children and is currently . She receives Social Security disability. She lives in apartment on her own and has a pet cat. MENTAL STATUS EXAM: General Appearance: Patient appears to be stated age is alert, directable, and attempts to cooperate. Patient appears to have fair hygiene and grooming. Behavior: Patient displays psychomotor agitation. Speech: Patient's speech is of and volume, pressured, hyperverbal, nonlinear. Mood/Affect: Patient reports their mood is "angry and ready to leave here", affect is expansive and labile. Suicidality/Homicidality: Patient denies any suicidal or homicidal ideation. Perceptions: Patient denies any visual hallucinations and denies any auditory hallucinations Though content/process: Flight of ideas, loose associations, paranoid delusions. Memory and concentration: Grossly poor at this time. Judgment and insight: To poor at this time. STRENGTHS/WEAKNESSES: Unable to identify patient's strengths at this time. The patient has severe mental illness that is treatment resistant. Likely nonadherent with treatment as well. INTELLECT: average IMPRESSIONS: Bipolar 1 disorder, manic episode, with psychotic features Alcohol use disorder, in remission Cocaine use disorder, in remission Tobacco use disorder/nicotine dependence PLAN: -Patient is admitted under involuntary status to [facility] for stabilization of psychiatric symptoms and safety. Patient is currently under deferral status. -Medications : We will start the patient on Risperdal 1 mg by mouth twice a day for acute psychosis/mood stabilization Continue Requip 0.5 mg by mouth at bedtime Continue Trazodone 150 mg by mouth at bedtime for insomnia -Ativan Haldol PRN for agitation/aggression -Patient vehemently denies any substance abuse. However she was counseled again on abstaining all substances. -Patient was informed of the risks, benefits and side effects of the medication and patient verbally consented to taking the medications. Patient signed med consent form and was placed in chart. -Internal Medicine consult to perform medical evaluation and physical. -NRT - nicotine patch -SW on board for discharge planning. Encourage patient to participate in groups to work on coping skills. 04/07/22 13:40
[2022-04-07] MEDS: hydrOXYzine pamoate 25 MG CAP PO PRN (15:01)
[2022-04-07] MEDS: PRAZOSIN 1 MG CAP PO SCH ×2 (21:00→21:12)
[2022-04-07] MEDS: hydrOXYzine pamoate 25 MG CAP PO SCH ×2 (21:00→21:34)
[2022-04-07] MEDS: risperiDONE 1 MG TAB PO SCH ×2 (21:01→21:11)
[2022-04-07] MEDS: traZODone HCL 50 MG TAB PO SCH ×2 (21:01→21:11)
[2022-04-07] MEDS: IBUPROFEN 200 MG TAB PO PRN (22:03)
[2022-04-07] MEDS: ACETAMINOPHEN TAB 325 MG TAB PO PRN (22:29)
[2022-04-08] MEDS: hydrOXYzine pamoate 25 MG CAP PO PRN ×2 (01:42→13:57)
[2022-04-08] MEDS: ACETAMINOPHEN TAB 325 MG TAB PO PRN ×3 (06:28→16:39)
[2022-04-08] MEDS: IBUPROFEN 200 MG TAB PO PRN ×2 (06:29→12:10)
[2022-04-08] MEDS: ATORVASTATIN 10 MG TAB PO SCH (08:29)
[2022-04-08] MEDS: NICOTINE 14MG/24HR PATCH TRANSDERM SCH (08:29)
[2022-04-08] MEDS: FLUTICASONE 110 MCG INHALER INHALATION SCH ×2 (08:29→20:03)
[2022-04-08] MEDS: LORATADINE 10 MG TAB PO SCH ×2 (08:30→20:03)
[2022-04-08] MEDS: PANTOPRAZOLE 40 MG TABLET PO SCH ×2 (08:31→16:40)
[2022-04-08] MEDS ORDERED: risperiDONE 2 MG TAB PO STA (09:20)
[2022-04-08] MEDS: risperiDONE 1 MG TAB PO SCH (10:27)
[2022-04-08] MEDS: NICOTINE GUM (POLACRILEX) 2 MG GUM BUCCAL PRN ×2 (12:08→18:40)
--- NOTE | 2022-04-08 12:48 | P.PN ---
Progress Note - Text Progress Note Date: 04/08/22 Interval History: Patient was seen wandering the hallways and was directable and agreeable to speak with data analyst report writer in the office. The patient continues to endorse significant symptoms of yuki including intrusiveness, pressured speech, and grandiosity. She has also had multiple altercations with peers. She is currently denying any suicidal or homicidal ideation, intention, and/or plan. She is not reporting any auditory or visual hallucinations. As per review of staff notes, the patient only slept for 2 hours. She has been adherent with her medications and is not reporting any significant side effects. Mental Status Exam: General Appearance: Patient appears to be stated age is alert, difficult to direct but is cooperative. Behavior: And displays elevated psychomotor activity. She is constantly pacing and is unable to sit still. Speech: Patient's speech is pressured and loud in volume. Mood/Affect: Mood is improving mildly, affect is expansive and irritable. Suicidality/Homicidality: Patient denies having any suicidal or homicidal ideation intent or plan. Perceptions: Patient denies any visual hallucinations and denies any auditory hallucinations Though content/process: Flight of ideas and loose associations. Memory and concentration: AOX3, grossly intact for the purposes of this session Judgment and insight: Improving mildly Vital Signs Temp 97.4 F L 04/08/22 06:00 Pulse 93 04/08/22 06:00 Resp 18 04/08/22 06:00 BP 115/68 04/08/22 06:00 Pulse Ox 97 04/08/22 06:00 FiO2 Laboratory Results - Last 24 Hours 04/06/22 19:21 Lamotrigine 0.6 L Assessment Bipolar 1 disorder, manic episode, with psychotic features Alcohol use disorder, in remission Cocaine use disorder, in remission Tobacco use disorder/nicotine dependence Plan: -Patient continues to meet criteria for inpatient psychiatric admission for symptom stabilization and safety. Patient is under deferral status. -Medications: Increase Risperdal to 2 mg by mouth twice a day for acute psychosis/mood stabilization Start Depakote 250 mg by mouth twice a day for mood stabilization Continue Requip 0.5 mg by mouth at bedtime Continue Trazodone 150 mg by mouth at bedtime for insomnia Continue prazosin 5 mg by mouth at bedtime -When necessary Vistaril and Haldol for agitation/aggression. -NRT -Nicorette gum -SW on board for discharge planning. Encouraged the patient to participate in milieu.
[2022-04-08] MEDS: hydrOXYzine pamoate 25 MG CAP PO SCH (20:01)
[2022-04-08] MEDS: DIVALPROEX ER 250 MG TAB.ER.24H PO SCH (20:02)
[2022-04-08] MEDS: PRAZOSIN 1 MG CAP PO SCH (20:02)
[2022-04-08] MEDS: traZODone HCL 50 MG TAB PO SCH (20:02)
[2022-04-08] MEDS: risperiDONE 2 MG TAB PO SCH (20:03)
[2022-04-09] MEDS: ACETAMINOPHEN TAB 325 MG TAB PO PRN (02:11)
[2022-04-09] MEDS: IBUPROFEN 200 MG TAB PO PRN (05:04)
[2022-04-09] MEDS: NICOTINE GUM (POLACRILEX) 2 MG GUM BUCCAL PRN ×4 (06:43→20:01)
[2022-04-09] MEDS: hydrOXYzine pamoate 25 MG CAP PO PRN ×3 (07:19→17:09)
[2022-04-09] MEDS: PANTOPRAZOLE 40 MG TABLET PO SCH ×2 (10:15→17:04)
[2022-04-09] MEDS: FLUTICASONE 110 MCG INHALER INHALATION SCH ×2 (10:15→19:57)
[2022-04-09] MEDS: ATORVASTATIN 10 MG TAB PO SCH (10:16)
[2022-04-09] MEDS: DIVALPROEX ER 250 MG TAB.ER.24H PO SCH ×2 (10:16→19:57)
[2022-04-09] MEDS ORDERED: LORazepam 1 MG TAB PO STA (10:30)
[2022-04-09] MEDS: risperiDONE 2 MG TAB PO SCH (10:39)
--- NOTE | 2022-04-09 11:10 | P.PN ---
Progress Note - Text Progress Note Date: 04/09/22 Interval History: Patient was seen wandering the hallways and was directable and agreeable to speak with leader writer in the office along with a cop. The patient continues to be overtly manic. She reports generalized paranoia and a refusal of needles believing that the staff would place stuff in her blood. She denies any overt auditory or visual hallucinations. She reports no suicidal or homicidal ideation. She continues to sleep poorly and has been intrusive with staff and peers. She continues to express that this provider is acting against her and not listening to her. She reports she is constantly irritated because of all her previous trauma. She did not take any depakote stating it is an allergy, reporting it causes her back and feet to hurt. She does not mention any SOB, rashes, or erythema. She is in agreement to take ativan. Mental Status Exam: General Appearance: Patient appears to be stated age is alert, difficult to direct but is cooperative. Behavior: Patient displays elevated psychomotor activity. She is constantly pacing and is unable to sit still. Speech: Patient's speech is pressured and loud in volume. Mood/Affect: Mood is improving mildly, affect is expansive and irritable. Suicidality/Homicidality: Patient denies having any suicidal or homicidal ideation intent or plan. Perceptions: Patient denies any visual hallucinations and denies any auditory hallucinations Though content/process: Flight of ideas and loose associations. Memory and concentration: AOX3, grossly intact for the purposes of this session Judgment and insight: Improving mildly Vital Signs Temp 97.4 F L 04/08/22 06:00 Pulse 93 04/08/22 06:00 Resp 18 04/08/22 06:00 BP 115/68 04/08/22 06:00 Pulse Ox 97 04/08/22 06:00 FiO2 Assessment Bipolar 1 disorder, manic episode, with psychotic features Alcohol use disorder, in remission Cocaine use disorder, in remission Tobacco use disorder/nicotine dependence Plan: -Patient continues to meet criteria for inpatient psychiatric admission for symptom stabilization and safety. Patient is under deferral status. -Medications: Increase Risperdal to 3 mg by mouth twice a day for acute psychosis/mood stabilization Discontinue depakote. Start Ativan 1 mg twice daily for agitation Continue Requip 0.5 mg by mouth at bedtime Continue Trazodone 150 mg by mouth at bedtime for insomnia Continue prazosin 5 mg by mouth at bedtime -When necessary Vistaril and Haldol for agitation/aggression. -NRT -Nicorette gum -SW on board for discharge planning. Encouraged the patient to participate in milieu.
[2022-04-09] MEDS: LORATADINE 10 MG TAB PO SCH (19:58)
[2022-04-09] MEDS: risperiDONE 1 MG TAB PO SCH (21:24)
[2022-04-09] MEDS: PRAZOSIN 1 MG CAP PO SCH (21:24)
[2022-04-09] MEDS: traZODone HCL 50 MG TAB PO SCH (21:24)
[2022-04-10] MEDS: hydrOXYzine pamoate 25 MG CAP PO SCH ×2 (02:13→20:51)
[2022-04-10] MEDS: LORazepam 1 MG TAB PO SCH ×3 (02:13→20:31)
[2022-04-10] MEDS: NICOTINE GUM (POLACRILEX) 2 MG GUM BUCCAL PRN ×5 (04:59→20:55)
[2022-04-10] MEDS: hydrOXYzine pamoate 25 MG CAP PO PRN ×2 (07:04→17:27)
[2022-04-10] MEDS: PANTOPRAZOLE 40 MG TABLET PO SCH ×2 (08:36→17:26)
[2022-04-10] MEDS: FLUTICASONE 110 MCG INHALER INHALATION SCH ×2 (08:36→20:53)
[2022-04-10] MEDS: ATORVASTATIN 10 MG TAB PO SCH (08:36)
[2022-04-10] MEDS: DIVALPROEX ER 250 MG TAB.ER.24H PO SCH (08:37)
[2022-04-10] MEDS: risperiDONE 1 MG TAB PO SCH (09:20)
[2022-04-10] MEDS ORDERED: PALIPERIDONE IM 234 MG/1.5 ML SYG IM STA (09:38)
--- NOTE | 2022-04-10 10:04 | P.PN ---
Progress Note - Text Progress Note Date: 04/10/22 Interval History: Patient was seen wandering the hallways and was directable and agreeable to speak with sign writer hand in the office along with a pure pak machine operator. Currently, the patient is denying any suicidal or homicidal ideation, intention, and/or plan. She reports no auditory or visual hallucinations. She reports paranoia towards a peer stating that a patient on the unit keeps on accusing her of being a witch and believing that she has kwan. Despite this, it has not been noted by staff. She continues to be irritable and demanding. She did have improved sleep night and was noted to sleep for 5.5 hours by staff. She has been adherent with her medications and is not reporting any side effects. She is agreeable to transitioning to invega sustenna. She wishes to waive and stipulate court. She expresses future orientation stating she needs to receive her social security. Mental Status Exam: General Appearance: Patient appears to be stated age is alert, difficult to direct but is cooperative. Behavior: Patient displays elevated psychomotor activity. Better impulse control today. Speech: Patient's speech is pressured and loud in volume. Hyperverbal but more interruptible. Mood/Affect: Mood is improving mildly, affect is expansive and irritable. Suicidality/Homicidality: Patient denies having any suicidal or homicidal ideation intent or plan. Perceptions: Patient denies any visual hallucinations and denies any auditory hallucinations Though content/process: Flight of ideas and loose associations. Paranoid about being a witch. Memory and concentration: AOX3, grossly intact for the purposes of this session Judgment and insight: Improving mildly Vital Signs Temp 96.2 F L 04/10/22 05:00 Pulse 91 04/10/22 09:21 Resp 18 04/10/22 05:00 BP 88/55 04/10/22 09:21 Pulse Ox 99 04/10/22 05:00 FiO2 Assessment Bipolar 1 disorder, manic episode, with psychotic features Alcohol use disorder, in remission Cocaine use disorder, in remission Tobacco use disorder/nicotine dependence Plan: -Patient continues to meet criteria for inpatient psychiatric admission for symptom stabilization and safety. Patient is under deferral status. Demand has been filed. She wishes to waive and stipulate court. -Medications: Decrease Risperdal to 2 mg by mouth twice a day for acute psychosis/mood stabilization Administer Invega sustenna 234 mg IM today. Continue Ativan 1 mg twice daily for agitation Continue Requip 0.5 mg by mouth at bedtime Continue Trazodone 150 mg by mouth at bedtime for insomnia Continue prazosin 5 mg by mouth at bedtime -When necessary Vistaril and Haldol for agitation/aggression. -NRT -Nicorette gum -SW on board for discharge planning. Encouraged the patient to participate in milieu.
[2022-04-10] MEDS: ACETAMINOPHEN TAB 325 MG TAB PO PRN ×2 (10:14→15:34)
[2022-04-10] MEDS: IBUPROFEN 200 MG TAB PO PRN ×2 (15:34→21:48)
[2022-04-10] MEDS: PRAZOSIN 1 MG CAP PO SCH (20:50)
[2022-04-10] MEDS: risperiDONE 2 MG TAB PO SCH (20:51)
[2022-04-10] MEDS: traZODone HCL 50 MG TAB PO SCH (20:51)
[2022-04-10] MEDS: LORATADINE 10 MG TAB PO SCH (20:51)
[2022-04-10] MEDS ORDERED: risperiDONE 2 MG TAB PO SCH (21:00)
[2022-04-11] MEDS: hydrOXYzine pamoate 25 MG CAP PO PRN (04:47)
[2022-04-11] MEDS: ACETAMINOPHEN TAB 325 MG TAB PO PRN ×2 (04:47→15:33)
[2022-04-11] MEDS: NICOTINE GUM (POLACRILEX) 2 MG GUM BUCCAL PRN ×4 (04:47→16:52)
[2022-04-11] MEDS: ATORVASTATIN 10 MG TAB PO SCH (07:47)
[2022-04-11] MEDS: FLUTICASONE 110 MCG INHALER INHALATION SCH ×2 (07:47→20:42)
[2022-04-11] MEDS: risperiDONE 2 MG TAB PO SCH ×2 (07:48→22:37)
[2022-04-11] MEDS: LORazepam 1 MG TAB PO SCH ×2 (07:48→20:42)
[2022-04-11] MEDS: PANTOPRAZOLE 40 MG TABLET PO SCH ×2 (07:48→16:52)
--- NOTE | 2022-04-11 10:22 | P.PN ---
Progress Note - Text Progress Note Date: 04/11/22 Interval History: Patient was seen wandering the hallways and was directable and agreeable to speak with internal communications writer in the office. The patient is denying any suicidal or homicidal ideation, intention, and/or plan. She is not reporting any auditory or visual hallucinations. She denies any paranoia or other delusions. She is future and goal oriented however continues to occasionally go on tangents when speaking. In particular, the patient is very upset with the mental health court process as to the reason why she is continued to be admitted. She is however adherent with her medications and is not reporting any side effects. She is scheduled to meet with an insurance attorney and plans to waive and stipulate court. Mental Status Exam: General Appearance: Patient appears to be stated age is alert, difficult to direct but is cooperative. Behavior: Patient displays elevated psychomotor activity but less so than yesterday. Speech: Patient's speech is hyperverbal and at times tangential. Less pressured. Mood/Affect: Mood is improving mildly, affect is less expansive but irritable Suicidality/Homicidality: Patient denies having any suicidal or homicidal ideation intent or plan. Perceptions: Patient denies any visual hallucinations and denies any auditory hallucinations Though content/process: Flight of ideas and loose associations. Paranoid about being a witch. Memory and concentration: AOX3, grossly intact for the purposes of this session Judgment and insight: Improving mildly Vital Signs Temp 96.3 F L 04/11/22 04:50 Pulse 99 04/11/22 04:50 Resp 18 04/11/22 04:50 BP 118/83 04/11/22 04:50 Pulse Ox 98 04/11/22 04:50 FiO2 Assessment Bipolar 1 disorder, manic episode, with psychotic features Alcohol use disorder, in remission Cocaine use disorder, in remission Tobacco use disorder/nicotine dependence Plan: -Patient continues to meet criteria for inpatient psychiatric admission for symptom stabilization and safety. Patient is under deferral status. Demand has been filed. She wishes to waive and stipulate court. -Medications: Continue Risperdal to 2 mg by mouth twice a day for acute psychosis/mood stabilization Invega Sustenna 234 mg IM was administered yesterday. Next dose of Invega Sustenna 156 mg IM is due on 04/14/2022. Continue Ativan 1 mg twice daily for agitation Continue Requip 0.5 mg by mouth at bedtime Continue Trazodone 150 mg by mouth at bedtime for insomnia Continue prazosin 4 mg by mouth at bedtime -When necessary Vistaril and Haldol for agitation/aggression. -NRT -Nicorette gum -SW on board for discharge planning. Encouraged the patient to participate in milieu.
[2022-04-11] MEDS: LORATADINE 10 MG TAB PO SCH (20:42)
[2022-04-11] MEDS: hydrOXYzine pamoate 25 MG CAP PO SCH (22:36)
[2022-04-11] MEDS: PRAZOSIN 1 MG CAP PO SCH (22:37)
[2022-04-11] MEDS: traZODone HCL 50 MG TAB PO SCH (22:37)
[2022-04-11 22:52] LABS: Glucose,Whole Blood 110 mg/dL (70-110)
[2022-04-12] MEDS: hydrOXYzine pamoate 25 MG CAP PO PRN (01:56)
[2022-04-12] MEDS: IBUPROFEN 200 MG TAB PO PRN ×3 (01:57→15:44)
[2022-04-12 02:00] VITALS: RESP 16
[2022-04-12] MEDS: NICOTINE GUM (POLACRILEX) 2 MG GUM BUCCAL PRN ×3 (04:57→16:51)
[2022-04-12] MEDS: ACETAMINOPHEN TAB 325 MG TAB PO PRN ×3 (06:54→19:54)
[2022-04-12] MEDS: PANTOPRAZOLE 40 MG TABLET PO SCH ×2 (08:55→15:45)
[2022-04-12] MEDS: risperiDONE 2 MG TAB PO SCH ×2 (08:56→22:01)
[2022-04-12] MEDS: ATORVASTATIN 10 MG TAB PO SCH (08:59)
[2022-04-12] MEDS: FLUTICASONE 110 MCG INHALER INHALATION SCH ×2 (08:59→19:21)
[2022-04-12] MEDS: LORazepam 1 MG TAB PO SCH (09:12)
--- NOTE | 2022-04-12 16:11 | P.PN ---
Progress Note - Text Progress Note Date: 04/12/22 Interval history: Patient was seen wandering the hallways and was directable and agreeable to speak with speech writer. She appears pleasant, calm and cooperative, with bright affect. Thoughts are linear. At this time, patient denies any suicidal or homicidal ideation, intent or plan. Denies any auditory or visual hallucinations. Patient denies any side effects from the medications and has been compliant with meds. She denies any concerns at this time. She is hopeful for discharge on Thursday. Mental status exam: General Appearance: Patient appears to be stated age, casually dressed in clean attire, good hygiene. Behavior: No agitated behavior. Patient is calm and directable. No psychomotor agitation. Speech: Patient's speech is fluent and non-pressured. Mood/Affect: Mood is improving mildly, affect is congruent and reactive. Suicidality/Homicidality: Patient denies having any suicidal or homicidal ideation intent or plan. Perceptions: Patient denies any auditory or visual hallucinations. Though content/process: There is no evidence of any delusional thought content and thought process is linear and goal-directed. Memory and concentration: AOX3, grossly intact for the purposes of this session Judgment and insight: improving mildly Assessment/Plan: Continue with current diagnosis. Patient continues to meet criteria for inpatient psychiatric admission for symptom stabilization and safety. Decrease Ativan 1 mg BID to 0.5 mg BID, with plan to further taper and discontinue to minimize risk of dependence. She received her Invega Sustenna 234 mg IM on 04/11/2022, and will will require her Invega Sustenna 156 mg IM booster next week for psychosis/mood. Continue Risperdal 2 mg BID for psychosis/mood stabilization, with plan to taper in the future once stabilized on long acting injectable. Continue Trazodone 150 mg QHS PRN for sleep. Continue Prazosin 4 mg QHS for nightmares. Monitor for medication compliance and for any psychotropic medication side effects. Will continue to monitor ongoing response to treatment. Encouraged participation in milieu.
[2022-04-12] MEDS: LORATADINE 10 MG TAB PO SCH (19:20)
[2022-04-12] MEDS: traZODone HCL 50 MG TAB PO SCH (22:00)
[2022-04-12] MEDS: hydrOXYzine pamoate 25 MG CAP PO SCH (22:00)
[2022-04-12] MEDS: PRAZOSIN 1 MG CAP PO SCH (22:01)
[2022-04-12] MEDS: LORazepam 0.5 MG TAB PO SCH ×2 (22:01→23:17)
[2022-04-13] MEDS: IBUPROFEN 200 MG TAB PO PRN (03:19)
[2022-04-13] MEDS: hydrOXYzine pamoate 25 MG CAP PO PRN ×2 (03:19→13:19)
[2022-04-13] MEDS: ACETAMINOPHEN TAB 325 MG TAB PO PRN ×2 (06:23→21:41)
[2022-04-13] MEDS: ATORVASTATIN 10 MG TAB PO SCH (07:55)
[2022-04-13] MEDS: risperiDONE 2 MG TAB PO SCH ×2 (07:55→21:42)
[2022-04-13] MEDS: PANTOPRAZOLE 40 MG TABLET PO SCH ×2 (07:55→17:17)
[2022-04-13] MEDS: LORazepam 0.5 MG TAB PO SCH (07:55)
[2022-04-13] MEDS: FLUTICASONE 110 MCG INHALER INHALATION SCH ×2 (07:56→20:13)
[2022-04-13] MEDS: NICOTINE GUM (POLACRILEX) 2 MG GUM BUCCAL PRN ×4 (09:38→21:46)
--- NOTE | 2022-04-13 14:38 | P.PN ---
Progress Note - Text Progress Note Date: 04/13/22 Interval history: Patient was seen on her way to attend group and was directable and agreeable to speak with sports book writer. She appears pleasant, calm and cooperative, with bright affect. Thoughts are linear. At this time, patient denies any suicidal or homicidal ideation, intent or plan. Denies any auditory or visual hallucinations. Patient denies any side effects from the medications and has been compliant with meds. She denies any concerns at this time. She is hopeful for discharge on Thursday. She is agreeable taper down the Ativan. Mental status exam: General Appearance: Patient appears to be stated age, casually dressed in clean attire, good hygiene. Behavior: No agitated behavior. Patient is calm and directable. No psychomotor agitation. Speech: Patient's speech is fluent and non-pressured. Mood/Affect: Mood is improving mildly, affect is congruent and reactive. Suicidality/Homicidality: Patient denies having any suicidal or homicidal ideation intent or plan. Perceptions: Patient denies any auditory or visual hallucinations. Though content/process: There is no evidence of any delusional thought content and thought process is linear and goal-directed. Memory and concentration: AOX3, grossly intact for the purposes of this session Judgment and insight: improving mildly Assessment/Plan: Continue with current diagnosis. Patient continues to meet criteria for inpatient psychiatric admission for symptom stabilization and safety. Decrease Ativan from 0.5 mg BID to 0.5 mg daily PRN for anxiety, with plan to further taper and discontinue to minimize risk of dependence. She received her Invega Sustenna 234 mg IM on 04/11/2022, and will will require her Invega Sustenna 156 mg IM booster next week for psychosis/mood. Continue Risperdal 2 mg BID for psychosis/mood stabilization, with plan to taper in the future once stabilized on long acting injectable. Continue Trazodone 150 mg QHS PRN for sleep. Continue Prazosin 4 mg QHS for nightmares. Monitor for medication compliance and for any psychotropic medication side effects. Will continue to monitor ongoing response to treatment. Encouraged participation in milieu.
[2022-04-13] MEDS ORDERED: LORazepam 0.5 MG TAB PO PRN (14:39)
[2022-04-13] MEDS: LORATADINE 10 MG TAB PO SCH (20:13)
[2022-04-13] MEDS: hydrOXYzine pamoate 25 MG CAP PO SCH (21:40)
[2022-04-13] MEDS: traZODone HCL 50 MG TAB PO SCH (21:41)
[2022-04-13] MEDS: PRAZOSIN 1 MG CAP PO SCH (21:41)
[2022-04-14 04:49] VITALS: BP 107/71; PULSE 107; TEMP 97.9
[2022-04-14] MEDS: IBUPROFEN 200 MG TAB PO PRN (04:52)
[2022-04-14] MEDS: ACETAMINOPHEN TAB 325 MG TAB PO PRN (04:52)
[2022-04-14] MEDS ORDERED: PALIPERIDONE IM 156 MG/ML SYG IM ONE (08:00)
[2022-04-14] MEDS: PANTOPRAZOLE 40 MG TABLET PO SCH ×2 (08:26→08:29)
[2022-04-14] MEDS: ATORVASTATIN 10 MG TAB PO SCH (08:26)
[2022-04-14] MEDS: FLUTICASONE 110 MCG INHALER INHALATION SCH (08:26)
[2022-04-14] MEDS: hydrOXYzine pamoate 25 MG CAP PO PRN (08:31)
--- NOTE | 2022-04-14 10:29 | P.DS ---
Providers Date of admission: 04/06/22 18:34 Expected date of discharge: 04/14/22 Attending physician: Porfirio Ochoa MD Consults: 04/06/22 18:40 Consult Physician Routine Consulting Provider: Zuri Gutierrez Consult Reason/Comments: Medical H&P Do you want consulting provider notified?: Yes Primary care physician: [facility] Diagnosis(es) (1) Bipolar I, recurrent manic episode, severe with psychotic behavior Current Visit: Yes Status: Acute Priority: High (2) Nicotine dependence Current Visit: Yes Status: Chronic Priority: Medium (3) Alcohol use disorder in remission Current Visit: No Status: Chronic Priority: Low (4) Cocaine use disorder in remission Current Visit: No Status: Acute Priority: Low Hospital Course: Admission HPI: Patient is a 56-year-old single, unemployed, female with a significant history of bipolar disorder who currently presents to our hospital under petition and certification for bizarre and erratic behavior. Patient presented to the hospital on 04/06/2022, brought in by police under petition for bizarre and erratic behavior. The patient required IM Geodon and Ativan. In the emergency department, the patient reported that she was compliant with her medications. If you don't know what that is look it up." The patient also began acting erratic and started slapping her face and pinching her cheeks stating "wake up, oh my God, wake up" over and over again. The patient is currently under deferral status until 08/31/2022. The patient was last admitted onto our psychiatric unit in February of this year. She was discharged on a regimen of Geodon, Lamictal, prazosin, trazodone, and Requip. Upon evaluation by this provider on this unit, the patient displays significant manic symptoms. The patient is pressured and displaying flight of ideas and is unable to provide any clear history of events leading up to this hospitalization. As per petition filled out by the school services officer, the patient has a "detached since a reality. Moving furniture out of her house. Causing public disturbance. Paranoid people will kill her." The patient vehemently denies any methamphetamine use. Urinary drug screen was negative on this admission. Regards other mood symptoms, the patient is vehemently denying any suicidal homicidal ideation, intention, and/or plan. She is not reporting any depressive symptoms and reports no changes in sleep or appetite. She is overtly manic and is reporting racing thoughts, flight of ideas, increased goal-directed activity, and excessive energy. She is not reporting any auditory or visual hallucinations. She does however endorse significant paranoia. She states that she'll refuse any more blood draws because she is concerned that we "would put something in her blood just as easy as it is to take something out." Patient has previous diagnoses of bipolar 1 disorder, cocaine abuse, alcohol abuse. She has been on numerous psychiatric medications including BuSpar, Geodon, Vistaril, Lamictal, prazosin, trazodone, Wellbutrin XL, Zoloft, doxepin, Abilify, clonidine, Seroquel, Invega Sustenna, lithium, and Depakote. She has had numerous psychiatric admissions with the last admission being 1 month ago. She is currently open with [facility]. Has at least 4 prior attempts at suicide. Hospital course: Upon admission to the unit patient was initially noted to be overtly manic and psychotic. She was initially very difficult to direct and was refusing multiple medications. She required IM Geodon and Ativan on the emergency department. She was under deferral status and therefore demand was filed for court due to her nonadherence with her treatment. The patient was initially started on a regimen of Risperdal, trazodone, and Requip. The plan was to transition the patient back to Invega sustenna due to her history of nonadherence with treatment. Eventually, the patient was agreeable to transition to Invega Sustenna. Furthermore, the patient was in agreement to wave and stipulate court and agreed to a court order for mental health treatment. The patient was administered her first dose of 234 mg IM of Invega Sustenna on 04/10/2022. She received her second dose of Invega Sustenna on 04/14/2022 in anticipation for discharge. The patient was started on scheduled Ativan in order to address her irritability and agitation. She acknowledged that this medication would be used sparingly and that this would only be temporary. On the day of discharge, the patient is vehemently denying any suicidal or homicidal ideation, intention, and/or plan. She denies any access to firearms or other weapons. She is not reporting any auditory or visual hallucinations. She is denying any paranoia or other delusions. She has been noted by staff to be sleeping well and has been adherent with her medications. She did have a verbal altercation with a peer on the unit prior to her discharge however it was initiated by the peer and not by her. The patient remains future and goal oriented. Although the patient does have a history of substance abuse, the patient maintains that she has been abstinent from all substances for quite some time. She has counseling on importance of medication adherence and appropriate outpatient follow-up. She is also counseled on abstaining from all substances including alcohol, marijuana, tobacco, and other illicit drugs. Prior to discharge, family meeting was arranged by renal social worker to answer questions and ensure safety. Mental status exam: General Appearance: Patient appears to be stated age is alert, pleasant, and cooperative. Patient is in no acute distress and has fair hygiene and grooming Behavior: Patient is calmly seated without any agitated behavior. Speech: Patient's speech is fluent and nonpressured. Mood/Affect: Patient reports their mood is "feeling ready to go in to see my cat", affect is congruent and euthymic. Suicidality/Homicidality: Patient denies having any suicidal or homicidal ideation intent or plan. Perceptions: Patient denies any auditory or visual hallucinations. Though content/process: There is no evidence of any delusional thought content and thought process is linear and goal-directed. Patient is future oriented. Memory and concentration: AOX3, grossly intact for the purposes of this session. Can spell "WORLD" backwards correctly. Judgment and insight: Improved with guarded prognosis Impression: Bipolar 1 disorder, manic episode, with psychotic features Alcohol use disorder, in remission Cocaine use disorder, in remission Tobacco use disorder/nicotine dependence Plan: -Continue with discharge today as patient has improved and stabilized psychiatrically and is not currently an imminent threat to herself and/or other s. Patient will remain at chronically elevated risk due to her history of substance abuse, her severity mental home is, and her history of nonadherence to treatment. -Continue medications: Trazodone 150 mg by mouth at bedtime for insomnia Vistaril 100 mg by mouth at bedtime for insomnia/anxiety Minipress 4 mg by mouth at bedtime Requip 0.5 mg at bedtime for restless leg Ativan 1 mg twivce daily for 7 days for agitation/anxiety Invega sustenna 156 mg IM second loading dose was administered on 04/14/2022. Next dose due on 04/28/2022. -Patient was counseled on the need for medication compliance and appropriate follow-up at mental health and also primary care for medical issues. Patient verbalized understanding and agreed. -Social work to arrange for and conduct family meeting to ensure safety upon discharge and answer any questions/concerns. Social work also to arrange for patients follow up appointments with [facility] for psychiatric care along with follow up with primary care provider. -Patient counseled on abstaining from recreational drugs and marijuana and alcohol. Was informed/educated on the adverse effects on their physical and mental health. Patient verbally agreed and understood. Patient was offered substance abuse treatment however declined at this time. -Patient was instructed to return to the hospital or seek immediate medical care if their psychiatric or medical symptoms do worsen or reoccur. -Psychoeducation and supportive therapy provided to patient. Risks and benefits of pharmacological treatment versus the risks and benefits of nontreatment weight and discussed. Informed consent discussion held. Common side effects of psychotropics discussed such as, but not limited to headache, GI disturbance, sexual dysfunction, movement disorders, sedation, and orthostatic hypotension. Life threatening and blackbox warnings of prescribed medications also discussed. Potential risks of operating a vehicle or heavy machinery discussed with patient at length. Advised on importance of compliance and a reliable and responsible manner. Patient advised to review FDA consumer labeling of all medications prior to taking. Patient verbalized understanding of potential risks, and agrees with current treatment plan. Patient advised to medically contact physician/emergency personnel if any acute changes in condition occur. Vital Signs Temp 97.9 F 04/14/22 04:49 Pulse 107 H 04/14/22 04:49 Resp 16 04/14/22 04:49 BP 107/71 04/14/22 04:49 Pulse Ox 96 04/14/22 04:49 FiO2 Laboratory Results POC Glucose (mg/dL) 110 mg/dL (70-110) 04/11/22 22:49 POC Glu Bomb Technician ID Dacia Payne 04/11/22 22:49 Urine Color Colorless 04/06/22 13:39 Urine Appearance Clear (Clear) 04/06/22 13:39 Urine pH 5.0 (5.0-8.0) 04/06/22 13:39 Ur Specific Daniel 1.005 (1.001-1.035) 04/06/22 13:39 Urine Protein Negative (Negative) 04/06/22 13:39 Urine Glucose (UA) Negative (Negative) 04/06/22 13:39 Urine Ketones Negative (Negative) 04/06/22 13:39 Urine Blood Negative (Negative) 04/06/22 13:39 Urine Nitrite Negative (Negative) 04/06/22 13:39 Urine Bilirubin Negative (Negative) 04/06/22 13:39 Urine Urobilinogen <2.0 mg/dL (<2.0) 04/06/22 13:39 Ur Leukocyte Esterase Negative (Negative) 04/06/22 13:39 Urine Opiates Screen Not Detected (NotDetected) 04/06/22 13:39 Ur Oxycodone Screen Not Detected (NotDetected) 04/06/22 13:39 Urine Methadone Screen Not Detected (NotDetected) 04/06/22 13:39 Ur Propoxyphene Screen Not Detected (NotDetected) 04/06/22 13:39 Ur Barbiturates Screen Not Detected (NotDetected) 04/06/22 13:39 Lamotrigine 0.6 ug/mL (2.0-15.0) L 04/06/22 19:21 U Tricyclic Antidepress Not Detected (NotDetected) 04/06/22 13:39 Ur Phencyclidine Scrn Not Detected (NotDetected) 04/06/22 13:39 Ur Amphetamines Screen Not Detected (NotDetected) 04/06/22 13:39 U Methamphetamines Scrn Not Detected (NotDetected) 04/06/22 13:39 U Benzodiazepines Scrn Not Detected (NotDetected) 04/06/22 13:39 Urine Cocaine Screen Not Detected (NotDetected) 04/06/22 13:39 U Marijuana (THC) Screen Not Detected (NotDetected) 04/06/22 13:39 Coronavirus (PCR) Not Detected (Not Detectd) 04/06/22 16:44 Allergies Allergy/AdvReac Type Severity Reaction Status Date / Time codeine Allergy Unknown Verified 04/06/22 22:37 Penicillins Allergy Unknown Verified 04/06/22 22:37 Patient Condition at Discharge: Stable Plan - Discharge Summary Discharge Rx Participant: Yes New Discharge Prescriptions: New traZODone HCL [Desyrel] 150 mg PO HS 30 Days tab hydrOXYzine pamoate [Vistaril] 100 mg PO HS 30 Days cap Prazosin [Minipress] 4 mg PO HS 30 Days cap LORazepam [Ativan] 1 mg PO BID PRN 7 Days #14 tab PRN Reason: Anxiety Paliperidone IM [Invega Sustenna] 156 mg IM QMONTHLY #1 each Continue Albuterol Sulfate [Ventolin HFA] 2 puff INHALATION RT-QID PRN PRN Reason: Shortness Of Breath Atorvastatin [Lipitor] 10 mg PO DAILY Fluticasone Propionate [Flovent Hfa 220 mcg] 2 puff INHALATION RT-BID Ibuprofen [Advil] 200 mg PO Q6HR PRN tab PRN Reason: Pain Loratadine [Claritin] 10 mg PO DAILY 30 Days tab Ketoconazole 2% Cream [Nizoral 2%] 1 applic TOPICAL BID PRN PRN Reason: fungal infection rOPINIRole HCL [Requip] 0.5 mg PO HS 30 Days tab Discontinued Nicotine Gum (Polacrilex) [Nicorette] 2 mg BUCCAL Q2HR PRN 28 Days pieceofgum PRN Reason: Nicotine Cravings traZODone HCL 150 mg PO HS Prazosin [Minipress] 5 mg PO HS Nicotine 14Mg/24Hr Patch [Habitrol] 1 patch TRANSDERM DAILY 14 Days patch Ziprasidone [Geodon] 40 mg PO BID 30 Days cap lamoTRIgine [LaMICtal] 200 mg PO DAILY Discharge Medication List Albuterol Sulfate [Ventolin HFA] 2 puff INHALATION RT-QID PRN 10/09/21 [History] Atorvastatin [Lipitor] 10 mg PO DAILY 10/09/21 [History] Fluticasone Propionate [Flovent Hfa 220 mcg] 2 puff INHALATION RT-BID 10/09/21 [History] Ibuprofen [Advil] 200 mg PO Q6HR PRN tab 03/05/22 [Rx] Loratadine [Claritin] 10 mg PO DAILY 30 Days tab 03/05/22 [Rx] rOPINIRole HCL [Requip] 0.5 mg PO HS 30 Days tab 03/05/22 [Rx] Ketoconazole 2% Cream [Nizoral 2%] 1 applic TOPICAL BID PRN 04/06/22 [History] LORazepam [Ativan] 1 mg PO BID PRN 7 Days #14 tab 04/14/22 [Rx] Paliperidone IM [Invega Sustenna] 156 mg IM QMONTHLY #1 each 04/14/22 [Rx] Prazosin [Minipress] 4 mg PO HS 30 Days cap 04/14/22 [Rx] hydrOXYzine pamoate [Vistaril] 100 mg PO HS 30 Days cap 04/14/22 [Rx] traZODone HCL [Desyrel] 150 mg PO HS 30 Days tab 04/14/22 [Rx] Follow up Appointment(s)/Referral(s): [facility] [Outside] - 04/16/22 8:15 am (04-16-22 at 8:15 with Nelsy Wynne 04-17-22 at 9:[address] Holland 04-17-22 at 3:30 with Leslee Mix and Delia Olguin ) [facility] [Primary Care Provider] - 1-2 days Patient Instructions/Handouts: How to Stop Smoking (DC), Cocaine Abuse (DC), Bipolar Disorder (DC), Suicide Prevention (DC) Activity/Diet/Wound Care/Special Instructions: Avoid the use of street drugs and alcohol. Take all prescriptions as prescribed. When you are in need of refills on your medications, please contact your medical provider and/or outpatient psychiatrist to have this done. Please go to scheduled outpatient appointment for aftercare treatment. If symptoms return or become worse, call the crisis line at and/or go to the nearest emergency room for evaluation Discharge Disposition: HOME SELF-CARE
== END 2022-04-14 11:15 | disposition home or self-care (01) | DRG 885 ==
LOC: EC 13:18 → 3MHU 18:34
PROVIDERS: ADMIT Psychiatry & Neurology Psychiatry; ATTEND Psychiatry & Neurology Psychiatry
DX: F31.89 Other bipolar disorder (principal); F10.11 Alcohol abuse, in remission; F14.11 Cocaine abuse, in remission; F17.200 Nicotine dependence, unspecified, uncomplicated; F25.9 Schizoaffective disorder, unspecified; F41.9 Anxiety disorder, unspecified; F51.5 Nightmare disorder; G25.81 Restless legs syndrome; G47.00 Insomnia, unspecified; Z79.51 Long term (current) use of inhaled steroids; Z79.899 Other long term (current) drug therapy; Z20.822 Contact with and (suspected) exposure to COVID-19
CPT/HCPCS: 80175; 80306; 81003; 82075; 87635; 93005; 96372; 99285